=== PATIENT | male | born 1935 | race Caucasian/White ===

== ENCOUNTER 2019-12-15 16:36 | Inpatient (IN) | payer OTHER, SELFPAY ==
[2019-12-15] VITALS (16 sets, daily range): BP systolic 90–142; BP diastolic 61–89; PULSE 107–154; RESP 16–21; TEMP 36.8–37; O2SAT 96–100; BMI 33.7
--- NOTE | ~2019-12-15 | CT_ITS ---
EXAMINATION: CT abdomen pelvis w con INDICATION: Right flank ecchymosis TECHNIQUE: Computed tomographic images of the abdomen and pelvis were obtained after the administrati on of 100 cc of Omnipaque 350 intravenous contrast. The dose-length product (DLP) was 1529.61 mGy-cm. Automated exposure control and iterative reconstruction technique were employed. COMPARISON: None available FINDINGS: Minimal dependent atelectasis is present in the lung bases. The heart size is enlarged. The re are changes of aortic valve surgery. The liver, spleen, pancreas, and adrenal glands are normal. S tones are present in the nondistended gallbladder. The right kidney is unremarkable. There is a 2 cm hypoattenuating lesion of the left kidney. Streak artifact from the right arm limits accurate attenua tion assessment. There is calcified atherosclerosis of the aorta and many of the other arteries. No p athologically enlarged abdominal or pelvic lymph nodes are identified. There is no free intraperitone al gas or evidence of bowel obstruction. There is an 11.1 x 6.7 x 14.4 cm heterogeneous high attenuat ion density in the right flank and right buttock subcutaneous tissues. There is also diffuse infiltra tion of the subcutaneous fat of the right abdominal abdominal and pelvic soft tissues. There are frac tures of the lateral aspects of the right seventh through 11th ribs. IMPRESSION: 1. Large hematoma in the right abdominal wall. 2. Fractures of the right seventh through 11th ribs. 3. Indeterminate left kidney lesion. Follow-up with nonemergent CT or MRI without and with contrast i s recommended. Reviewed, dictated and finalized at location A. IMPRESSION: 1. Large hematoma in the right abdominal wall. 2. Fractures of the right seventh through 11th ribs. 3. Indeterminate left kidney lesion. Follow-up with nonemergent CT or MRI witho ut and with contrast is recommended.
--- NOTE | ~2019-12-15 | XR_ITS ---
EXAMINATION: XR chest 2V DATE: 12/16/2019 17:48 INDICATION: Atrial fibrillation TECHNIQUE: PA and lateral views of the chest are obtained. COMPARISON: 06/04/2012 FINDINGS: The lungs are free of acute opacities. There is no pleural effusion or pneumothorax. There is stable cardiomegaly. Changes of aortic valve surgery are noted. There are bridging osteophytes at multiple levels in the spine, consistent with diffuse idiopathic skeletal hyperostosis (DISH). IMPRESSION: 1. Stable cardiomegaly. Reviewed, dictated and finalized at location A. IMPRESSION: 1. Stable cardiomegaly.
--- NOTE | ~2019-12-15 | CT_ITS ---
EXAMINATION: CT brain wo con INDICATION: Headache COMPARISON: None TECHNIQUE: Standard unenhanced head CT. The dose-length product (DLP) was 681.00 mGy-cm. The mA was a djusted according to patient size. Iterative reconstruction technique was employed. FINDINGS: There is no acute intraparenchymal hemorrhage. No evidence of mass lesion. No evidence of a cute infarction. There is mild periventricular and subcortical hypodensity probably related to small vessel ischemic disease. There is mild prominence of the sulci and ventricles related to cerebral atr ophy. Intracranial calcified cerebral atherosclerosis is noted. There are no extra-axial collections. There is no mass effect or midline shift. Changes in the globes are likely from ocular lens surgery. The visualized sinuses and mastoid air cells are well aerated. IMPRESSION: 1. No acute intracranial abnormality. 2. Age related findings. Reviewed, dictated and finalized at location A.
--- NOTE | 2019-12-15 17:11 | ECG_ITS ---
Measurements Intervals [place] Rate: 142 P: AR: 0 QRS: 20 QRSD: 118 T: -35 QT: 290 QTc: 447 Interpretive Statements ATRIAL FIBRILLATION WITH RAPID VENTRICULAR RESPONSE INTRAVENTRICULAR CONDUCTION DELAY ANTERIOR INFARCT, AGE INDETERMINATE INFERIOR INFARCT, AGE INDETERMINATE ABNORMAL ECG Electronically Signed On 12-18-2019 14:16:36 CDT by Eleazar Portillo D.O.
--- NOTE | 2019-12-15 17:20 | ED.FALL ---
HPI - Fall General Chief Complaint: Fall <Kia Gonzalez MD - Last Filed: 12/15/19 19:04> Stated Complaint: bruised after taking a tumble <Kia Gonzalez MD - Last Filed: 12/15/19 19:04> Time Seen by Provider: 12/15/19 17:20 <Kia Gonzalez MD - Last Filed: 12/15/19 19:04> Source: patient and family <Kia Gonzalez MD - Last Filed: 12/15/19 19:04> Mode of arrival: ambulatory <Kia Gonzalez MD - Last Filed: 12/15/19 19:04> Limitations: no limitations <Kia Gonzalez MD - Last Filed: 12/15/19 19:04> History of Present Illness HPI Narrative: Patient is an 84-year-old male with a history of atrial fibrillation, aortic stenosis status post valve repair, hypertension, who presents for evaluation for bruising to the right abdomen. Patient reports he fell while trying to ascend a step 3 days ago. Patient fell onto an exercise machine on his right side. Patient denies head trauma or loss of consciousness. Patient reports no vision changes, nausea, vomiting, headache or shortness of breath. No cough. Reports extensive bruising to the right side of his chest and abdomen that extends into his right upper thigh. He reports tightness of the skin in that area. No skin breakdown. Mild flank pain. <Kia Gonzalez MD - Last Filed: 12/15/19 19:04> Related Data Home Medications: Home Medications Medication Instructions Recorded Confirmed atorvastatin 10 mg tablet 10 mg PO DAILY 07/27/19 diclofenac sodium 1 % topical gel See Rx Instructions .ROUTE .COMPLEX 07/27/19 diltiazem HCl 240 mg 240 mg PO DAILY 07/27/19 capsule,extended release 24 hr, controlled fenofibrate 160 mg tablet 160 mg PO DAILY 07/27/19 furosemide 40 mg tablet 40 mg PO DAILY tablet 07/27/19 lisinopril 5 mg tablet 5 mg PO DAILY 07/27/19 metoprolol tartrate 50 mg tablet See Rx Instructions .ROUTE .COMPLEX 07/27/19 potassium chloride 10 mEq 10 meq PO .COMPLEX 07/27/19 tablet,extended release warfarin 4 mg tablet See Rx Instructions .ROUTE .COMPLEX 07/27/19 Joint Support Complex BID 12/15/19 cholecalciferol (vitamin D3) 2,000 unit PO DAILY 12/15/19 12/15/19 <Kia Gonzalez MD - Last Filed: 12/15/19 19:04> Allergies/Adverse Reactions: Allergies Allergy/AdvReac Type Severity Reaction Status Date / Time No Known Allergies Allergy Verified 12/15/19 17:04 <Kia Gonzalez MD - Last Filed: 12/15/19 19:04> Review of Systems Review of Systems: Narrative: CONSTITUTIONAL: Denies fever CARDIOVASCULAR: Denies chest pain RESPIRATORY: Denies cough or dyspnea. GASTROINTESTINAL: Denies abdominal pain SKIN: Denies rash MUSCULOSKELETAL: Reports NEUROLOGIC: Denies headache <Kia Gonzalez MD - Last Filed: 12/15/19 19:04> [facility] Past Medical History Medical History: Medical History Afib CAD (coronary artery disease) HTN (hypertension) <Kia Gonzalez MD - Last Filed: 12/15/19 19:04> Surgical History Surgical History: Surgical History (Updated 12/15/19 @ 22:44 by Jeremiah Guzman MD) Hx of aortic valve replacement <Kia Gonzalez MD - Last Filed: 12/15/19 19:04> Family History Family History: Family History Mother Cerebrovascular accident, Onset Age: 51 Sibling Cerebrovascular accident Father Acute myocardial infarction <Kia Gonzalez MD - Last Filed: 12/15/19 19:04> Social History Social History: Social History Smoking status: Former smoker Smoking end date: 05/27/87 Alcohol intake: never <Kia Gonzalez MD - Last Filed: 12/15/19 19:04> Exam Narrative: Exam Narrative: GENERAL: Awake, alert, conversant HEAD: Normocephalic, atraumatic. EYES: PERRLA and EOMI. ENT: Nares clear, no rhinorrhea or epistaxis. Mucous membranes moist. NECK: Supple. CHES
[2019-12-15 17:24] LABS: Basophils Absolute Auto 0.1 K/mm3 (0.0-0.1); Basophils Percent Auto 0.4 % (0.2-1.2); Eosinophils Percent Auto 0.2 % (0-4.4); Hematocrit 25.1 % (42.0-52.0); Hemoglobin 8.5 g/dL (14.0-18.0); Immature Granulocyte Absolute 0.12 K/mm3 (0.00-0.031); Lymphocytes Absolute Auto 1.37 K/mm3 (0.9-3.2); Lymphocytes Percent Auto 11.3 % (18.3-44.2); Mean Corpuscular HGB Conc 33.9 g/dl (32-36); Mean Corpuscular Hemoglobin 33.6 pg (26-34); Mean Corpuscular Volume 99.2 fl (80-100); Mean Platelet Volume 10.3 fl (7.4-10.4); Monocytes Absolute Auto 1.8 K/mm3 (0.1-0.6); Monocytes Percent Auto 14.8 % (2.6-8.5); Neutrophils Absolute Auto 8.8 K/mm3 (1.3-6.7); Neutrophils Percent Auto 72.3 % (45.5-73.1); Platelet Count Result 189 k/mm3 (150-375); Red Blood Count 2.53 M/mm3 (4.6-6.20); Red Cell Distribution Width 13.4 % (11.5-14.5); White Blood Count 12.1 K/mm3 (4.5-10.0)
--- NOTE | 2019-12-15 17:25 | PC.NURSE ---
Note large purplish colored bruise to right flank and abdomen. States he fell yesterday when he mis-stepped and fell against a stationary bike.
--- NOTE | 2019-12-15 17:27 | PC.NURSE ---
norah encarnacion at bedside for assessment.
--- NOTE | 2019-12-15 17:44 | PC.NURSE ---
Labs redraw being attempted per MIN[facility] Joshi tech. Unable to obtain after multiple attempts. Preparing to contact phlebotomy.
--- NOTE | 2019-12-15 17:46 | PC.NURSE ---
lab to come draw pt, 3 attempts all unsuccessful
[2019-12-15 18:52] LABS: INR 2.8; Prothrombin Time 29.3 Seconds (11.1-14.7)
[2019-12-15 18:53] LABS: Alanine Aminotransferase 13 U/L (4-50); Albumin Level 3.8 g/dL (3.5-5.1); Alkaline Phosphatase 35 U/L (38-126); Aspartate Amino Transferase 28 U/L (17-59); Bilirubin,Total 1.1 mg/dL (0.2-1.3); Blood Urea Nitrogen 44 mg/dL (9-20); Calcium 8.3 mg/dL (8.4-10.2); Carbon Dioxide 23 mmol/L (22-30); Chloride 104 mmol/L (98-107); Estimated CRCL calculation 59 ml/min; Estimated Glomerular Filt Rate 58; Glucose 113 mg/dL (75-110); Partial Thromboplastin Time 54.7 SECONDS (22.3-36.8); Potassium 5.1 mmol/L (3.4-5.0); Sodium 133 mmol/L (137-145)
[2019-12-15 19:02] LABS: NT Pro B Type Natriuretic Pept 961 PG/ML (5-100)
--- NOTE | 2019-12-15 19:07 | PC.NURSE ---
asked pt for urine sample, urinal at bedside
[2019-12-15] MEDS: SODIUM CHLORIDE 0.9% IV 500 ML 999 ML IV CONT (19:31)
--- NOTE | 2019-12-15 19:39 | PC.NURSE ---
Report to KRYSTAL Newman, to continue care.
[2019-12-15 19:40] LABS: Add Urine Microscopic? YES; Amorphous Sediment Urine Few; Appearance Urine Clear (Clear); Bacteria Urine Trace /hpf; Bilirubin Urine Negative (Negative); Blood Urine Negative (Negative); Color Urine Yellow (Yellow); Glucose Urine UA Negative (Negative); Ketones Urine Negative (Negative); Leukocyte Esterase Ur 3+ LEU/UL (Negative); Mucus Urine Rare /lpf; Nitrate Urine Negative (Negative); Protein Urine Negative (Negative); Specific Grav Ur 1.017 (1.001-1.035); Squamous Epithelial Cell Urine Rare /hpf (Few); Urobilinogen Urine Negative mg/dL (<2.0); WBC Urine 31-50 /hpf
[2019-12-15] MEDS: dilTIAZem HCl INJ 25 MG/5 ML VIAL 10 MG IV PUSH (21:43)
--- NOTE | 2019-12-15 22:34 | PM.IMHP ---
H&P: HPI History of Present Illness Chief complaint: A-fib w/RVR, hematoma Narrative: This is an 84 year old male with known Atrial fibrillation on chronic coumadin therapy, HTN, aortic stenosis s/p valve repair, and CAD who presented to the hospital with after suffering a fall yesterday at home when he was walking back down some steps and lost his footing and fell onto his right side. The patient denies any head trauma or loss of consciousness. The patient decided to come to the hospital as he was worried about bruising that he has had on the right side of his chest/abdomen which extends towards his back. He actually denies any hip pain or other discomfort. He denies any chest pain, palpitations, shortness of breath, fevers, chills or cough. The patient was evaluated in the ER and found to be anemia and also in rapid atrial fibrillation. The patient was treated with a bolus dose of Cardizem in the ER. No other complaints. Review of Systems Review of Systems: All systems reviewed & are unremarkable except as noted in HPI and below PMFSH Past Medical History Medical History Afib CAD (coronary artery disease) Diabetes mellitus HTN (hypertension) Surgical History Surgical History Hx of aortic valve replacement Family History Family History Mother Cerebrovascular accident, Onset Age: 51 Sibling Cerebrovascular accident Father Acute myocardial infarction Social History Social History Smoking status: Former smoker Smoking end date: 05/27/87 Alcohol intake: never Substance use: never Gender identity (if verbalized by the patient): Male Spiritual care concerns: No Meds Home Medications and Allergies Home Medications Medication Instructions Recorded Confirmed Type atorvastatin 10 mg tablet 10 mg PO QPM 07/27/19 12/15/19 History diltiazem HCl 240 mg 240 mg PO DAILY 07/27/19 12/15/19 History capsule,extended release 24 hr, controlled fenofibrate 160 mg tablet 160 mg PO DAILY 07/27/19 12/15/19 History furosemide 40 mg tablet 40 mg PO DAILY tablet 07/27/19 12/15/19 History lisinopril 5 mg tablet 5 mg PO QPM 07/27/19 12/15/19 History potassium chloride 10 mEq 10 meq PO DAILY 07/27/19 12/15/19 History tablet,extended release warfarin 4 mg tablet 4 mg PO 2XW 07/27/19 12/15/19 History Joint Support Complex 1 tablet PO BID 12/15/19 12/15/19 History cholecalciferol (vitamin D3) 2,000 unit PO DAILY 12/15/19 12/15/19 History metoprolol tartrate 75 mg PO TID 12/15/19 12/15/19 History warfarin 8 mg PO DIRECTED 12/16/19 12/16/19 History Allergies Allergy/AdvReac Type Severity Reaction Status Date / Time No Known Allergies Allergy Verified 12/15/19 17:04 Vital Signs Vital Signs - 24 hr 12/15/19 17:00 12/15/19 17:26 12/15/19 17:27 Temperature 37.0 C Pulse Rate 150 H 139 H 124 H Respiratory Rate 18 21 H Blood Pressure 90/65 L 130/89 Pulse Oximetry 98 97 12/15/19 17:50 12/15/19 18:30 12/15/19 19:33 Temperature Pulse Rate 115 H 110 H 115 H Respiratory Rate 16 18 18 Blood Pressure 112/88 136/81 97/64 L Pulse Oximetry 96 98 99 12/15/19 20:50 12/15/19 21:42 12/15/19 22:04 Temperature Pulse Rate 118 H 135 H 107 H Respiratory Rate 18 19 18 Blood Pressure 112/80 121/77 120/61 Pulse Oximetry 98 99 100 Exam Const: General: cooperative, no acute distress, alert and awake Nutritional Appearance: well nourished Orientation/consciousness: patient oriented x3 HENMT: Head: normal to inspection General nose exam: Normal external nose present Face and sinus: normal facial exam Mouth: Yes Normal oral and palatal mucosa present and Yes oropharynx normal Eyes: Pupils: Equal, round and reactive pupils present EOM: EOMs intact bilaterally Neck
--- NOTE | 2019-12-15 22:59 | ADMGEN ---
This patient, Kulwant Can, was admitted to IMU Room 201-01. Patient/family oriented to hospital policies and general routines including ID bracelet, bed and alarms, visiting hours, pain management, procedures, bathroom and other care routines, personal items, smoking policy, room service/diet, and visiting hours. Valuables list has been completed. Information on how to activate the Rapid Response Team has been discussed. Patient/Family are encouraged to report perceived risks to care and to ask questions if they do not understand what they are told or what they should do.
[2019-12-15 23:42] LABS: Hematocrit 24.3 % (42.0-52.0); Hemoglobin 8.2 g/dL (14.0-18.0)
[2019-12-16] VITALS (23 sets, daily range): BP systolic 109–135; BP diastolic 48–73; PULSE 80–155; RESP 18–26; TEMP 36.4–37.9; O2SAT 96–99
--- NOTE | 2019-12-16 | ECHO_ITS ---
Patient Info Name: Kulwant Can Age: 84 years : 1935 Gender: Male Ht: 73 in Wt: 255 lbs BSA: 2.48 m2 HR: 125 bpm BP: 128 / 66 mmHg Heart Rhythm: Atrial Fibrillation Technical Quality: Good Exam Date: 12/16/2019 8:17 AM Exam Location: [facility] Patient Status: Outpatient Admit Date: 12/15/2019 Staff Ordering Physician: Jeremiah Guzman MD [employer] Maintainer: Sinan You RDCS, RT Attending Provider: Emile Salcedo MD Referring Physician: Megan PIZANO; Exam Type: CA echo doppler color flow Study Info Indications I48.1 - Persistent atrial fibrillation Complete two-dimensional, color flow and Doppler transthoracic echocardiogram is performed with contrast to opacify the left ventricle and to improve the deliniation of the left ventricle endocardial borders. Summary 1. Left ventricular chamber dimension is normal. 2. Left ventricular systolic function is normal, estimated at >70%. 3. There is severely increased left ventricular wall thickness. 4. The left ventricular diastolic function is abnormal. 5. Right ventricular chamber dimension is mildly enlarged. 6. Left atrial chamber dimension is severely enlarged. 7. Right atrial chamber dimension is severely enlarged. 8. There is mild bioprosthetic aortic valve stenosis with a peak velocity of 268 cm/s, mean gradient of 9 mmHg, and aortic valve area of 1.6 cm2. 9. There is mild to moderate mitral valve regurgitation. 10. Mild pulmonary hypertension, estimated pulmonary arterial systolic pressure is 44 mmHg. 11. There is mild tricuspid valve regurgitation. 12. There is mild pulmonic regurgitation. Left Ventricle Left ventricular chamber dimension is normal. Left ventricular systolic function is normal, estimated at >70%. There is severely increased left ventricular wall thickness. The left ventricular diastolic function is abnormal. Right Ventricle Right ventricular chamber dimension is mildly enlarged. Right ventricular systolic function is normal. Left Atria Left atrial chamber dimension is severely enlarged. Right Atria Right atrial chamber dimension is severely enlarged. Atrial Septum Intact interatrial septum visualized by color flow imaging. Aortic Valve There is mild bioprosthetic aortic valve stenosis with a peak velocity of 268 cm/s, mean gradient of 9 mmHg, and aortic valve area of 1.6 cm2. There is trace regurgitation of the bioprosthetic aortic valve. Pulmonic Valve The pulmonic valve is normal. There is no pulmonic valve stenosis. There is mild pulmonic regurgitation. Mitral Valve The mitral valve has calcified annulus. There is no mitral valve stenosis. There is mild to moderate mitral valve regurgitation. Tricuspid Valve The tricuspid valve leaflets are normal. There is no significant tricuspid valve stenosis. There is mild tricuspid valve regurgitation. Mild pulmonary hypertension, estimated pulmonary arterial systolic pressure is 44 mmHg. No tricuspid valve vegetation visualized. Pericardium/Pleural The pericardium appears normal. There is no pericardial effusion. Inferior Vena Cava Normal inferior vena cava with >50% collapse upon inspiration consistent with normal right atrial pressure, 5 mmHg. Aorta The aortic root size at the sinus of Valsalva is normal. Left Ventricular Outflow Tract Name Value Normal
[2019-12-16] MEDS: dilTIAZem HCl INJ 25 MG/5 ML VIAL 10 MG IV PUSH (00:04)
[2019-12-16] MEDS: DIGOXIN INJ 250 MCG/ML 2 ML AMP (*BKC) 500 MCG IV PUSH (04:50)
[2019-12-16 05:13] LABS: Hematocrit 21.6 % (42.0-52.0); Hemoglobin 7.1 g/dL (14.0-18.0)
[2019-12-16 05:36] LABS: Chloride 107 mmol/L (98-107)
[2019-12-16 05:41] LABS: Blood Urea Nitrogen 37 mg/dL (9-20); Calcium 8.1 mg/dL (8.4-10.2); Carbon Dioxide 22 mmol/L (22-30); Estimated CRCL calculation 62 ml/min; Estimated Glomerular Filt Rate > 60; Glucose 120 mg/dL (75-110); Potassium 4.3 mmol/L (3.4-5.0); Sodium 134 mmol/L (137-145)
[2019-12-16 08:44] LABS: Glucose Point of Care 116 (65-105)
[2019-12-16] MEDS: FUROSEMIDE 40 MG TABLET PO (09:12)
[2019-12-16] MEDS: CHOLECALCIFEROL 1,000 UNIT TABLET 2000 UNITS PO (09:12)
[2019-12-16] MEDS: FENOFIBRATE 160 MG TABLET PO (09:13)
[2019-12-16] MEDS: METOPROLOL TARTRATE 25 MG TABLET 75 MG PO ×3 (09:13→22:10)
[2019-12-16] MEDS: PERFLUTREN LIPID MICROSPHERES 1.5 ML VIAL DILUTED TO 10 ML TOTAL VOLUME IV PUSH (09:28)
--- NOTE | 2019-12-16 10:59 | PM.IMPN ---
Progress Note: A&P Assessment and Plan (1) Abdominal wall hematoma: Code(s): S30.1XXA - Contusion of abdominal wall, initial encounter Status: Acute Assessment and Plan: Patient with large abd wall hematoma. Related to fall and being on Coumadin. Will monitor with serial HH. Gen surgery consult in case condition deteriorates. Repeat INR. Follow HH. PT/OT when off Diltiazem drip. Wound care for the abrasions. (2) Atrial fibrillation with rapid ventricular response: Code(s): I48.91 - Unspecified atrial fibrillation Status: Acute Assessment and Plan: INR therapeutic. Patient had rapid ventricular response placed on diltiazem drip to 15 mg an hour. Discussed with RN. Heart rate better with the addition of metoprolol so will start to wean diltiazem. Cardiology consult. (3) Anemia: Qualifiers: Anemia type: other cause Other causes of anemia: acute posthemorrhagic Qualified Code(s): D62 - Acute posthemorrhagic anemia Code(s): D64.9 - Anemia, unspecified Status: Acute Assessment and Plan: Patient with acute blood loss anemia. Hemoglobin 7.1 this morning. repeat hemoglobin is 7.6. Will check INR. Does not have mechanical valve so will give vitamin K. consider FFP if his hemoglobin drops. Continue serial H&H. Transfuse as necessary. Hold Coumadin. (4) Diabetes mellitus: Code(s): E11.9 - Type 2 diabetes mellitus without complications Status: Acute Assessment and Plan: No A1c listed. glucose reviewed on 12/16/2019. Glucose well controlled. Continue Accu-Cheks with covering sliding scale. Hypoglycemia protocol available as needed. Check A1c. (5) CAD (coronary artery disease): Qualifiers: Coronary Disease-Associated Artery/Lesion type: [place] artery [place] vs. transplanted heart: [place] heart Code(s): I25.10 - Atherosclerotic heart disease of [place] coronary artery without angina pectoris Status: Acute Assessment and Plan: CAD listed but [facility] in 02/2018 showing angiographically nondiseased coronary arteries. Continue risk factor modification (6) HTN (hypertension): Qualifiers: Hypertension type: essential hypertension Qualified Code(s): I10 - Essential (primary) hypertension Code(s): I10 - Essential (primary) hypertension Status: Acute Assessment and Plan: BP reviewed on 7/22/20. BP well controlled. Toelratinig the Diltiazem drip and Metoprolol. Wean to oral Diltiazem. (7) Hyperkalemia: Code(s): E87.5 - Hyperkalemia Status: Acute Assessment and Plan: Potassium 5.1 on admission but better today and normal. Contineu to follow. (8) Rib fracture: Code(s): S22.39XA - Fracture of one rib, unspecified side, initial encounter for closed fracture Status: Acute Assessment and Plan: By imaging, patient with right 7-11 rib fractures from the falls. (9) Hx of aortic valve replacement: Code(s): Z95.2 - Presence of prosthetic heart valve Status: Acute Assessment and Plan: AVR with a 20.7mm bovine tissue valve as well as excision of the ascending aorta and undersurface of the aortic arch with a 30mm collars and Dacron graft in April 2012. He underwent a percutaneous closure of a paravalvular leak 04/29/08. Subjective Date/time seen: 12/16/19 10:59 Interval history: 84yo male her abd pain after a fall and found to have abd wall hematoma. Slept okay. +abd pain. mild right sided chest pain. No n/v. Exam Narrative: Exam Narrative: AF 109/48 80 26 97% ra Gen - NARD sitting at the side of the bed Chest - few basilar rhonchi otherwise clear. Normal respiratory rate CV - irregularly irregular. S1-S2. Telemetry showing atrial fibrillation with RVR Abd - soft. Obese. Marked bruising noted right side abdomen flank and back. abdomen is soft but more tense in the flank
[2019-12-16 12:17] LABS: Hematocrit 22.7 % (42.0-52.0); Hemoglobin 7.6 g/dL (14.0-18.0)
[2019-12-16 12:26] LABS: INR 2.6; Prothrombin Time 27.4 Seconds (11.1-14.7)
[2019-12-16 12:38] LABS: Glucose Point of Care 132 (65-105)
--- NOTE | 2019-12-16 13:02 | PM.CNGS ---
Assessment and Plan Assessment and plan (1) Right flank hematoma: Code(s): S30.1XXA - Contusion of abdominal wall, initial encounter Status: Acute Assessment and Plan: large hematoma with skin abrasion predominantly right lower back and right flank. There is no evidence of skin necrosis or infection. Agree withholding anticoagulation. Will observe for now. If signs of infection or skin breakdown should occur, he will need evacuation of the hematoma and debridement. (2) Rib fracture: Code(s): S22.39XA - Fracture of one rib, unspecified side, initial encounter for closed fracture Status: Acute Assessment and Plan: Ribs 5 through 11 on the right side are fractured laterally. Fortunately not having severe pain or evidence of respiratory compromise at this time. (3) Hx of aortic valve replacement: Code(s): Z95.2 - Presence of prosthetic heart valve Status: Acute Assessment and Plan: Two thousand thirteen with percutaneous repair of leak in 2018. (4) Afib: Qualifiers: Atrial fibrillation type: paroxysmal Qualified Code(s): I48.0 - Paroxysmal atrial fibrillation Code(s): I48.91 - Unspecified atrial fibrillation Status: Acute Assessment and Plan: Was in rapid atrial fibrillation and heart rate still about 120. (5) Anemia: Qualifiers: Anemia type: other cause Other causes of anemia: acute posthemorrhagic Qualified Code(s): D62 - Acute posthemorrhagic anemia Code(s): D64.9 - Anemia, unspecified Status: Acute Assessment and Plan: Drifting down probably due to dilution rather than continued bleeding. Follow and transfuse as indicated. History of Present Illness Consult details Consult date: 12/16/19 Reason for consult: other (Right flank hematoma) Narrative: the patient is an 84-year-old man who is chronically anticoagulated on Coumadin for atrial fibrillation and previous aortic valve and proximal ascending aorta replacement in 2011. He was coming up just 3 steps and missed his step falling on to a treadmill and landing on his right side. This occurred on 12/11. He came to the emergency room yesterday where he was found to have a large right flank hematoma that extended on to his abdominal wall in down onto his right hip. He was also found to have 5 rib fractures numbers 7 through 11 laterally on the right side. He was therapeutically anticoagulated at the time. He was admitted yesterday and today I was consulted regarding his flank hematoma. The hematoma is uncomfortable but not particularly painful. The right ribcage also was painful but not severe. Patient is also anemic with hemoglobin today of 7.6. On admission it was 8.5. His anticoagulation has been held. He is seen now in consultation. Review of Systems Review of Systems: All systems reviewed & are unremarkable except as noted in HPI and below Constitutional: Constitutional: Denies chills and Denies fever(s) Cardiovascular: Cardiovascular: Denies chest pain, Denies diaphoresis, Denies dyspnea and Denies paroxysmal nocturnal dyspnea Respiratory: Respiratory: Denies chest congestion, Denies cough and Denies dyspnea Integumentary/Breasts: Skin/Breast: Denies lesions and Denies rash Neurologic: Denies Sensory deficit (Neuro) Hematologic/Lymphatic: Hematologic/Lymphatic: Reports as per HPI, Reports easy bleeding and Reports easy bruising PMFSH Past Medical History Medical History Afib CAD (coronary artery disease) Diabetes mellitus HTN (hypertension) Surgical History Surgical History Hx of aortic valve replacement Family History Family History Mother Cerebrovascular accident, Onset Age: 51 Sibling Cerebrovascular accident Father Acute myocardial infarcti
--- NOTE | 2019-12-16 13:25 | PM.CNCAR ---
Assessment and Plan Assessment and plan (1) Right flank hematoma: Code(s): S30.1XXA - Contusion of abdominal wall, initial encounter Status: Acute Assessment and Plan: from fall with patient on anticoagulation. Follow H&H and likely need repeat scan tomorrow (2) Hx of aortic valve replacement: Code(s): Z95.2 - Presence of prosthetic heart valve Status: Acute Assessment and Plan: status post AVR in 2012 with significant perivalvular leak and percutaneous closure in 2018: Currently functioning fine (3) Atrial fibrillation with rapid ventricular response: Code(s): I48.91 - Unspecified atrial fibrillation Status: Acute Assessment and Plan: Heart rate is fast for several different reasons. Patient had not been started on his oral diltiazem at this point. Additionally he is in pain and also significant hematoma causing anemia. At this point I would recommend that we restart his oral diltiazem 240 mg p.o. daily. Discontinue his IV drip of diltiazem.. Obviously hold anticoagulation for now. Restart when able once his hematoma stabilizes. PA and lateral chest x-ray tomorrow (4) Ribs, multiple fractures: Code(s): S22.49XA - Multiple fractures of ribs, unspecified side, initial encounter for closed fracture Status: Acute Assessment and Plan: I have encouraged some degree of incentive spirometry to reduce risk of infection /pneumonia. Pain control as tolerated /needed (5) HTN (hypertension): Qualifiers: Hypertension type: essential hypertension Qualified Code(s): I10 - Essential (primary) hypertension Code(s): I10 - Essential (primary) hypertension Status: Acute Assessment and Plan: at goal (6) CAD (coronary artery disease): Qualifiers: Coronary Disease-Associated Artery/Lesion type: [place] artery [place] vs. transplanted heart: [place] heart Code(s): I25.10 - Atherosclerotic heart disease of [place] coronary artery without angina pectoris Status: Acute Assessment and Plan: asymptomatic History of Present Illness History of Present Illness Consult date/time: 12/16/19 13:25 Requesting physician: Emile Salcedo MD Consult reason: atrial fibrillation Reason For Visit: A-fib w/RVR, hematoma Narrative: Date of service 12/16/2019 Reason for consultation atrial fibrillation History: Patient is an 84-year-old patient of mine who has a history of chronic atrial fibrillation, chronic anticoagulation using warfarin, aortic stenosis status post bioprosthetic aortic valve replacement in 2012 requiring percutaneous closure of perivalvular aortic insufficiency in 2018. I saw him recently in October 2019 and at that time he was doing fine without any specific complaints. He came to the hospital yesterday though following a fall. He tripped on the steps and lost his footing and fell on his right side and hit some stationary equipment. He developed significant pain and then bruising and hematoma involving his right side. Because of progressively worsening symptoms and swelling he came to the emergency department. He was found to have multiple rib fractures on the right side as well as a large right-sided abdominal hematoma. His heart rate has been a bit elevated and he has been started on a diltiazem drip. He is in pain and not able to take big breaths. He otherwise denies any chest pain, syncope, presyncope, paroxysmal nocturnal dyspnea, orthopnea, unusual edema, palpitations or shortness of breath. General surgery has been consulted and Dr. Serrano has seen the patient with plan at this point being conservative treatment unless there is significant tissue breakdown or precipitous fall in hemoglobin with worsening hematoma. Review of Systems Review of Systems: All systems reviewed & are unremarkable except as noted in HPI and below Constitutional: Constitutional: Denies weakness Eyes: Eyes: Denies
[2019-12-16] MEDS: ATORVASTATIN 10 MG TABLET PO (18:10)
[2019-12-16] MEDS: lisinopriL 5 MG TABLET PO (18:10)
[2019-12-16 18:50] LABS: Glucose Point of Care 120 (65-105)
[2019-12-16 19:34] LABS: Hematocrit 22.5 % (42.0-52.0); Hemoglobin 7.5 g/dL (14.0-18.0)
[2019-12-16 21:23] LABS: Glucose Point of Care 136 (65-105)
[2019-12-16] MEDS: PHYTONADIONE INJ 10 MG/ML AMP SUB-Q (22:10)
[2019-12-17] VITALS (21 sets, daily range): BP systolic 102–125; BP diastolic 42–68; PULSE 68–139; RESP 18–22; TEMP 35.9–37.6; O2SAT 22–100
[2019-12-17 01:12] LABS: Hemoglobin 6.4 g/dL (14.0-18.0)
[2019-12-17 01:13] LABS: Hematocrit 18.9 % (42.0-52.0)
[2019-12-17] MEDS: SODIUM CHLORIDE 0.9% IV 250 ML 30 ML IV CONT (02:30)
[2019-12-17] MEDS: TUBING, BLOOD PLUM PUMP TUBING 1 EACH XX (05:01)
[2019-12-17 07:37] LABS: Hematocrit 24.2 % (42.0-52.0); Hemoglobin 8.1 g/dL (14.0-18.0); Mean Corpuscular HGB Conc 33.5 g/dl (32-36); Mean Corpuscular Hemoglobin 33.8 pg (26-34); Mean Corpuscular Volume 100.8 fl (80-100); Mean Platelet Volume 9.4 fl (7.4-10.4); Platelet Count Result 169 k/mm3 (150-375); Red Cell Distribution Width 13.7 % (11.5-14.5); White Blood Count 10.9 K/mm3 (4.5-10.0)
[2019-12-17 07:47] LABS: Prothrombin Time 21.8 Seconds (11.1-14.7)
[2019-12-17 07:52] LABS: Anion Gap 12.1 mmol/L (7-16); Blood Urea Nitrogen 31 mg/dL (9-20); Calcium 8.3 mg/dL (8.4-10.2); Carbon Dioxide 23 mmol/L (22-30); Chloride 107 mmol/L (98-107); Estimated CRCL calculation 77 ml/min; Estimated Glomerular Filt Rate > 60; Glucose 115 mg/dL (75-110); Potassium 4.1 mmol/L (3.4-5.0); Sodium 138 mmol/L (137-145)
[2019-12-17] MEDS: METOPROLOL TARTRATE 25 MG TABLET 75 MG PO ×3 (08:09→21:50)
[2019-12-17] MEDS: FENOFIBRATE 160 MG TABLET PO (08:10)
[2019-12-17] MEDS: CHOLECALCIFEROL 1,000 UNIT TABLET 2000 UNITS PO (08:10)
--- NOTE | 2019-12-17 08:55 | PM.PNCARD ---
Progress Note: A&P Assessment and Plan (1) Right flank hematoma: Code(s): S30.1XXA - Contusion of abdominal wall, initial encounter Status: Acute Assessment and Plan: from fall with patient on anticoagulation. Follow H&H and likely need repeat scan tomorrow. Followed by surgery (2) Hx of aortic valve replacement: Code(s): Z95.2 - Presence of prosthetic heart valve Status: Acute Assessment and Plan: status post AVR in 2012 with significant perivalvular leak and percutaneous closure in 2018: Currently functioning fine (3) Atrial fibrillation with rapid ventricular response: Code(s): I48.91 - Unspecified atrial fibrillation Status: Acute Assessment and Plan: holding anticoagulation for now but will need to be restarted at some point in the future. Continue his current diltiazem and metoprolol dosages his heart rate is controlled with them on board. Will give 1 dose of furosemide 40 mg IV x1 (4) Ribs, multiple fractures: Code(s): S22.49XA - Multiple fractures of ribs, unspecified side, initial encounter for closed fracture Status: Acute Assessment and Plan: I have encouraged some degree of incentive spirometry to reduce risk of infection /pneumonia. Pain control as tolerated /needed (5) HTN (hypertension): Qualifiers: Hypertension type: essential hypertension Qualified Code(s): I10 - Essential (primary) hypertension Code(s): I10 - Essential (primary) hypertension Status: Chronic Assessment and Plan: at goal (6) CAD (coronary artery disease): Qualifiers: Coronary Disease-Associated Artery/Lesion type: [place] artery [place] vs. transplanted heart: [place] heart Code(s): I25.10 - Atherosclerotic heart disease of [place] coronary artery without angina pectoris Status: Chronic Assessment and Plan: asymptomatic Subjective Date/time seen: 12/17/19 08:55 Interval history: 84yo male her abd pain after a fall and found to have abd wall hematoma. and broken ribs Date of service 12/16 20: From a cardiac perspective feels okay. No chest pain or shortness of breath. Heart rate was initially high this morning when he woke up Before his medications but now heart rate is controlled. Review of Systems Review of Systems: All systems reviewed & are unremarkable except as noted in HPI and below Constitutional: Constitutional: Denies fatigue, Denies headache(s) and Denies weakness Eyes: Eyes: Denies blurry vision ENT: Denies headache(s) and Denies lip swelling Cardiovascular: Cardiovascular: Denies chest pain and Denies dyspnea Respiratory: Respiratory: Denies dyspnea Gastrointestinal: Gastrointestinal: Denies abdominal pain Genitourinary: Genitourinary: Denies dysuria Musculoskeletal: Musculoskeletal: Reports back pain Integumentary/Breasts: Skin/Breast: Reports unusual bruising Neurologic: Denies confusion, Denies headache(s) and Denies weakness Psychiatric: Psychiatric: Denies anxiety and Denies confusion Endocrine: Endocrine: Denies fatigue Hematologic/Lymphatic: Hematologic/Lymphatic: Denies easy bleeding and Denies easy bruising Allergic/Immunologic: Allergic/Immunologic: Denies GI upset with certain foods and Denies lip swelling Exam Narrative: Exam Narrative: alert and oriented Const: General: no acute distress; No confusion Orientation/consciousness: No confusion HENMT: General nose exam: Normal nares present Eyes: Sclera: sclerae normal Neck: Neck: supple and no JVD Chest: Other: reproducible right-sided rib pain noted Resp: Auscultation: diminished lung sounds Cardio: Rhythm: abnormal rhythm irregularly irregular Skin: General skin exam: erythema Other: significant hematoma noted right flank with extensive bruising Neuro: General: No confusion Cognition (Neuro): normal cognition Speech: normal speech Extrem: General: edema ( mild) ritu
[2019-12-17 09:05] LABS: Glucose Point of Care 106 (65-105)
[2019-12-17] MEDS: FUROSEMIDE INJ 40 MG/4 ML VIAL IV PUSH (10:31)
[2019-12-17 12:10] LABS: Glucose Point of Care 122 (65-105)
--- NOTE | 2019-12-17 12:44 | PM.PNGS ---
Progress Note: A&P Assessment and Plan (1) Right flank hematoma: Code(s): S30.1XXA - Contusion of abdominal wall, initial encounter Status: Acute Assessment and Plan: Large right lower back and flank hematoma remains stable. Continue to hold anticoagulation and observe for now. Still no signs of overlying skin breakdown or infection. Monitor H/H. (2) Rib fracture: Code(s): S22.39XA - Fracture of one rib, unspecified side, initial encounter for closed fracture Status: Acute Assessment and Plan: Ribs 5 through 11 on the right side are fractured laterally. Pain continues to be well-controlled. Encouraged coughing and deep breathing. (3) Afib: Qualifiers: Atrial fibrillation type: paroxysmal Qualified Code(s): I48.0 - Paroxysmal atrial fibrillation Code(s): I48.91 - Unspecified atrial fibrillation Status: Acute Assessment and Plan: Cardiology following. Heart rate improving with home dose of medications. Continue to hold anticoagulation for today. (4) Hx of aortic valve replacement: Code(s): Z95.2 - Presence of prosthetic heart valve Status: Acute (5) Anemia: Qualifiers: Anemia type: other cause Other causes of anemia: acute posthemorrhagic Qualified Code(s): D62 - Acute posthemorrhagic anemia Code(s): D64.9 - Anemia, unspecified Status: Acute Assessment and Plan: Hgb stable at 8.1 this morning after 1 unit PRBCs overnight. Continue to trend labs and plan as mentioned above. Additional Plan Discussed plan of care with Dr. Serrano. Subjective Subjective Date/Time Seen: 12/17/19 12:00 Patient reports: no new complaints and feels better Interval history: Patient is feeling well today. Reports minimal pain and tenderness near the hematoma. He feels the swelling is improving. No other complaints at this time. Review of Systems Review of Systems: All systems reviewed & are unremarkable except as noted in HPI and below Exam Const: General: comfortable, no acute distress, alert and awake Orientation/consciousness: patient oriented x3 Skin: Other: Large right flank hematoma extending down right posterior and lateral thigh with no change. Appears stable with no overlying skin breakdown or signs of infection. Small superficial abrasion on right flank with mepilex dressing. Neuro: General: patient oriented x3, moves all extremities and no focal motor deficits Gait exam (Neuro): Normal gait present Extrem: General: no pedal edema Right upper extremity: edema (some mild swelling at the area of the hematoma on the right posterior thigh) Psych: Mental Status: mental status grossly normal Affect: normal affect Attitude: cooperative Insight: Good insight present (Psych) Judgement: Good judgement present (Psych) Objective Data Vital Signs Vital Signs: Vital Signs - 24 hr 12/16/19 13:58 12/16/19 14:00 12/16/19 14:05 Temperature Pulse Rate 93 89 90 Respiratory Rate Blood Pressure Pulse Oximetry 12/16/19 15:44 12/16/19 16:00 12/16/19 16:15 Temperature 100.2 F H Pulse Rate 94 89 89 Respiratory Rate 18 Blood Pressure 135/55 L Pulse Oximetry 98 12/16/19 20:00 12/16/19 22:00 12/16/19 23:29 Temperature 97.5 F L Pulse Rate 92 125 H 98 Respiratory Rate 22 H Blood Pressure 110/50 L Pulse Oximetry 98 12/17/19 00:00 12/17/19 01:45 12/17/19 03:24 Temperature 97.5 F L 99.6 F Pulse Rate 92 94 101 H Respiratory Rate 20 22 H Blood Pressure 113/48 L 109/45 L Pulse Oximetry 96 22 L 12/17/19 03:33 12/17/19 03:43 12/17/19 04:43 Temperature 99.2 F 99.2 F 97 F L Pulse Rate 98 98 97 Respiratory Rate 22 H 22 H 22 H Blood Pressure 109/42 L 109/42 L 123/58 L Pulse Oximetry 98 98 99 12/17/19 05:43 12/17/19 06:00 12/17/19 06:30 Temperature 99 F 98.9 F Pulse Rate 88 96 96 Respiratory Rate 22 H 22 H Blood Pressure 118/45 L 122/57 L Pulse Oximetry 100 100 12/17/19 08
[2019-12-17 17:07] LABS: Glucose Point of Care 121 (65-105)
--- NOTE | 2019-12-17 17:22 | PM.IMPN ---
Progress Note: A&P Assessment and Plan (1) Abdominal wall hematoma: Code(s): S30.1XXA - Contusion of abdominal wall, initial encounter Status: Acute Assessment and Plan: Patient with large abd wall hematoma. Related to fall and being on Coumadin. PT/OT. Continue wound care for the abrasions. (2) Atrial fibrillation with rapid ventricular response: Code(s): I48.91 - Unspecified atrial fibrillation Status: Acute Assessment and Plan: INR still therapeutic. Patient had rapid ventricular response on admisison and placed on diltiazem drip. Home Metoprolol resumed and patient able to be transitioned to oral Diltiazem yesterday. Continue to monitor. (3) Anemia: Qualifiers: Anemia type: other cause Other causes of anemia: acute posthemorrhagic Qualified Code(s): D62 - Acute posthemorrhagic anemia Code(s): D64.9 - Anemia, unspecified Status: Acute Assessment and Plan: Patient with acute blood loss anemia. Hemoglobin 6.4 earlier this morning and transfusion ordered. Repeat hemoglobin is 8.1. Vitamin K has been given. Continue to monitor. Transfuse as necessary. Coumadin remains on hold. (4) Diabetes mellitus: Code(s): E11.9 - Type 2 diabetes mellitus without complications Status: Chronic Assessment and Plan: Glucose reviewed on 12/17/2019. Glucose well controlled. Continue Accu-Cheks with covering sliding scale. Hypoglycemia protocol available as needed. (5) CAD (coronary artery disease): Qualifiers: Coronary Disease-Associated Artery/Lesion type: [place] artery [place] vs. transplanted heart: [place] heart Code(s): I25.10 - Atherosclerotic heart disease of [place] coronary artery without angina pectoris Status: Chronic Assessment and Plan: CAD listed but [facility] in 02/2018 showing angiographically nondiseased coronary arteries. Continue risk factor modification. (6) HTN (hypertension): Qualifiers: Hypertension type: essential hypertension Qualified Code(s): I10 - Essential (primary) hypertension Code(s): I10 - Essential (primary) hypertension Status: Chronic Assessment and Plan: BP reviewed on 12/17/19. BP well controlled. Continue Diltiazem and Metoprolol. Continue to monitor. (7) Hyperkalemia: Code(s): E87.5 - Hyperkalemia Status: Acute Assessment and Plan: Potassium 5.1 on admission but now normal. Continue to follow. (8) Rib fracture: Code(s): S22.39XA - Fracture of one rib, unspecified side, initial encounter for closed fracture Status: Acute Assessment and Plan: By imaging, patient with right 7-11 rib fractures from the falls. Pain controlled. PT/OT (9) Hx of aortic valve replacement: Code(s): Z95.2 - Presence of prosthetic heart valve Status: Acute Assessment and Plan: AVR with a 20.7mm bovine tissue valve as well as excision of the ascending aorta and undersurface of the aortic arch with a 30mm collars and Dacron graft in April 2012. He underwent a percutaneous closure of a paravalvular leak 04/29/08. Subjective Date/time seen: 12/17/19 17:23 Interval history: 84yo male her abd pain after a fall and found to have abd wall hematoma. Abdominal pain is better. His right sided ribs are sore. No chest pain. No nausea or vomiting. Walking the [place] with therapy. Tolerated the transfusion without issue. Exam Narrative: Exam Narrative: AF 102/51 93 20 100% Gen - NARD Chest - CTA bilaterally, nml RR CV - irregularly irregular. S1-S2. Telemetry showing atrial fibrillation with sporadic episodes of RVR Abd - soft. Obese. Marked bruising noted right side abdomen, groin/right upper thigh, flank and back. Abdomen is soft. Flank/back less tense. Ext - trace -1+ pitting pedal edema (pt states at baseline) Psych - Nml mood and affect Skin - right flanka nd righ
[2019-12-17] MEDS: lisinopriL 5 MG TABLET PO (18:35)
[2019-12-17] MEDS: ATORVASTATIN 10 MG TABLET PO (18:36)
[2019-12-17 20:48] LABS: Glucose Point of Care 113 (65-105)
[2019-12-18] VITALS (13 sets, daily range): BP systolic 99–112; BP diastolic 53–67; PULSE 88–160; RESP 12–20; TEMP 36.3–37.6; O2SAT 97–100
[2019-12-18 05:14] LABS: Hematocrit 23.4 % (42.0-52.0); Hemoglobin 7.7 g/dL (14.0-18.0); Mean Corpuscular HGB Conc 32.9 g/dl (32-36); Mean Corpuscular Hemoglobin 32.8 pg (26-34); Mean Corpuscular Volume 99.6 fl (80-100); Mean Platelet Volume 9.6 fl (7.4-10.4); Platelet Count Result 198 k/mm3 (150-375); Red Blood Count 2.35 M/mm3 (4.6-6.20); Red Cell Distribution Width 14.2 % (11.5-14.5); White Blood Count 10.7 K/mm3 (4.5-10.0)
[2019-12-18 05:18] LABS: INR 1.6; Prothrombin Time 18.2 Seconds (11.1-14.7)
[2019-12-18 05:23] LABS: Anion Gap 8.9 mmol/L (7-16); Blood Urea Nitrogen 31 mg/dL (9-20); Calcium 8.3 mg/dL (8.4-10.2); Carbon Dioxide 24 mmol/L (22-30); Chloride 107 mmol/L (98-107); Estimated CRCL calculation 78 ml/min; Estimated Glomerular Filt Rate > 60; Glucose 114 mg/dL (75-110); Potassium 3.9 mmol/L (3.4-5.0); Sodium 136 mmol/L (137-145)
[2019-12-18] MEDS: FUROSEMIDE 40 MG TABLET PO (08:38)
[2019-12-18] MEDS: FENOFIBRATE 160 MG TABLET PO (08:38)
[2019-12-18] MEDS: CHOLECALCIFEROL 1,000 UNIT TABLET 2000 UNITS PO (08:38)
[2019-12-18] MEDS: METOPROLOL TARTRATE 25 MG TABLET 75 MG PO ×2 (08:38→14:27)
[2019-12-18 08:45] LABS: Glucose Point of Care 107 (65-105)
--- NOTE | 2019-12-18 08:58 | PM.PNCARD ---
Progress Note: A&P Assessment and Plan (1) Right flank hematoma: Code(s): S30.1XXA - Contusion of abdominal wall, initial encounter Status: Acute Assessment and Plan: from fall with patient on anticoagulation. Followed by surgery (2) Hx of aortic valve replacement: Code(s): Z95.2 - Presence of prosthetic heart valve Status: Acute Assessment and Plan: status post AVR in 2012 with significant perivalvular leak and percutaneous closure in 2018: Currently functioning fine (3) Atrial fibrillation with rapid ventricular response: Code(s): I48.91 - Unspecified atrial fibrillation Status: Acute Assessment and Plan: holding anticoagulation for now but will need to be restarted at some point in the future. Continue his current diltiazem and metoprolol dosages his heart rate is controlled with them on board. was given additional dose of furosemide 40 mg IV x1. will need recommendations from surgery as to when to restart anticoagulation (4) Ribs, multiple fractures: Code(s): S22.49XA - Multiple fractures of ribs, unspecified side, initial encounter for closed fracture Status: Acute Assessment and Plan: I have encouraged some degree of incentive spirometry to reduce risk of infection /pneumonia. Pain control as tolerated /needed (5) HTN (hypertension): Qualifiers: Hypertension type: essential hypertension Qualified Code(s): I10 - Essential (primary) hypertension Code(s): I10 - Essential (primary) hypertension Status: Chronic Assessment and Plan: at goal (6) CAD (coronary artery disease): Qualifiers: Coronary Disease-Associated Artery/Lesion type: [place] artery [place] vs. transplanted heart: [place] heart Code(s): I25.10 - Atherosclerotic heart disease of [place] coronary artery without angina pectoris Status: Chronic Assessment and Plan: asymptomatic Subjective Date/time seen: 12/18/19 08:58 Interval history: 84yo male her abd pain after a fall and found to have abd wall hematoma. and broken ribs Date of service 12/17 20: From a cardiac perspective feels okay. No chest pain or shortness of breath. Heart rate was initially high this morning . Feels okay. Swelling is better Review of Systems Review of Systems: All systems reviewed & are unremarkable except as noted in HPI and below Constitutional: Constitutional: Denies fatigue, Denies headache(s) and Denies weakness Eyes: Eyes: Denies blurry vision ENT: Denies headache(s) and Denies lip swelling Cardiovascular: Cardiovascular: Denies chest pain and Denies dyspnea Respiratory: Respiratory: Denies dyspnea Gastrointestinal: Gastrointestinal: Denies abdominal pain Genitourinary: Genitourinary: Denies dysuria Musculoskeletal: Musculoskeletal: Reports back pain Integumentary/Breasts: Skin/Breast: Reports unusual bruising Neurologic: Denies confusion, Denies headache(s) and Denies weakness Psychiatric: Psychiatric: Denies anxiety and Denies confusion Endocrine: Endocrine: Denies fatigue Hematologic/Lymphatic: Hematologic/Lymphatic: Denies easy bleeding and Denies easy bruising Allergic/Immunologic: Allergic/Immunologic: Denies GI upset with certain foods and Denies lip swelling Exam Narrative: Exam Narrative: alert and oriented Const: General: no acute distress; No confusion Orientation/consciousness: No confusion HENMT: General nose exam: Normal nares present Eyes: Sclera: sclerae normal Neck: Neck: supple and no JVD Chest: Other: reproducible right-sided rib pain noted Resp: Auscultation: diminished lung sounds Cardio: Rhythm: abnormal rhythm irregularly irregular Skin: General skin exam: erythema Other: significant hematoma noted right flank with extensive bruising Neuro: General: No confusion Cognition (Neuro): normal cognition Speech: normal speech Extrem: General: edema ( mild)
[2019-12-18] MEDS: FUROSEMIDE INJ 40 MG/4 ML VIAL IV PUSH (10:38)
[2019-12-18 12:02] LABS: Hematocrit 25.1 % (42.0-52.0); Hemoglobin 8.5 g/dL (14.0-18.0)
[2019-12-18 12:45] LABS: Glucose Point of Care 107 (65-105)
--- NOTE | 2019-12-18 13:03 | PM.DS ---
DS: Admitting Diagnosis Admitting Diagnosis Admitting Diagnosis: Contusion of abdominal wall, initial encounter DS: Discharge Diagnosis Discharge Diagnosis (1) Abdominal wall hematoma: Code(s): S30.1XXA - Contusion of abdominal wall, initial encounter Status: Acute Assessment and Plan: Patient fell resulting in a large abd wall hematoma. Related to being on Coumadin. PT/OT started and patient did well. He is up ambulating to the BR without assistance or walker. He has refused home health. He had some mild abrasions with appropriate wound care. (2) Atrial fibrillation with rapid ventricular response: Code(s): I48.91 - Unspecified atrial fibrillation Status: Acute Assessment and Plan: INR therapeutic on admission. Patient had rapid ventricular response on admission and placed on diltiazem drip. Home Metoprolol resumed and patient able to be transitioned to oral Diltiazem. He still has intermittent RVR right before he takes his medication. (3) Anemia: Qualifiers: Anemia type: other cause Other causes of anemia: acute posthemorrhagic Qualified Code(s): D62 - Acute posthemorrhagic anemia Code(s): D64.9 - Anemia, unspecified Status: Acute Assessment and Plan: Patient with acute blood loss anemia. Hemoglobin 8.5 on admission but dropped to 6.4 and transfusion ordered. Repeat hemoglobin is 8.1. Vitamin K was given once. Coumadin was held. (4) Diabetes mellitus: Code(s): E11.9 - Type 2 diabetes mellitus without complications Status: Chronic Assessment and Plan: A1c 5. Glucose monitored and remained well controlled. Moniotred with Accu-Cheks covering sliding scale. Hypoglycemia protocol available as needed. (5) CAD (coronary artery disease): Qualifiers: Coronary Disease-Associated Artery/Lesion type: [place] artery [place] vs. transplanted heart: [place] heart Code(s): I25.10 - Atherosclerotic heart disease of [place] coronary artery without angina pectoris Status: Chronic Assessment and Plan: CAD listed but [facility] in 02/2018 showing angiographically nondiseased coronary arteries. Continue risk factor modification. (6) HTN (hypertension): Qualifiers: Hypertension type: essential hypertension Qualified Code(s): I10 - Essential (primary) hypertension Code(s): I10 - Essential (primary) hypertension Status: Chronic Assessment and Plan: BP monitored closely and remained well controlled. We continued Diltiazem and Metoprolol as detailed above. (7) Hyperkalemia: Code(s): E87.5 - Hyperkalemia Status: Acute Assessment and Plan: Potassium 5.1 on admission but normalized. (8) Rib fracture: Code(s): S22.39XA - Fracture of one rib, unspecified side, initial encounter for closed fracture Status: Acute Assessment and Plan: By imaging, patient with right 7-11 rib fractures from the falls. Pain remained well controlled. He worked with PT/OT (9) Hx of aortic valve replacement: Code(s): Z95.2 - Presence of prosthetic heart valve Status: Acute Assessment and Plan: AVR with a 20.7mm bovine tissue valve as well as excision of the ascending aorta and undersurface of the aortic arch with a 30mm collars and Dacron graft in April 2012. He underwent a percutaneous closure of a paravalvular leak 04/29/08. DS: Summary Hospital Course Reason for hospitalization: 84yo male here for fall and abd wall bruising. Please see H&P for details. Hospital Course: See above Time Spent with Patient Time attestation: Total time spent providing and/or coordinating discharge services: 34 minutes Time spent: Greater than 30 minutes Exam Narrative: Exam Narrative: AF 101/53 97 16 100% ra Gen - NARD Chest - CTA bilaterally, nml RR CV - irregularly irregular. S1-S2. Telemetry showing atrial fibrillation
--- NOTE | 2019-12-18 16:20 | PM.PNGS ---
Progress Note: A&P Assessment and Plan (1) Abdominal wall hematoma: Code(s): S30.1XXA - Contusion of abdominal wall, initial encounter Status: Acute Assessment and Plan: improving. No evidence of infection or skin necrosis. Should resolve with time. He can be discharged and I will see him again in 2 weeks in the office. I discussed this with Dr. Salcedo. (2) Ribs, multiple fractures: Code(s): S22.49XA - Multiple fractures of ribs, unspecified side, initial encounter for closed fracture Status: Acute Assessment and Plan: Tolerating this quite well. Activity as tolerated after discharge. 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 Discussed with Dr. Salcedo. Subjective Subjective Date/Time Seen: 12/18/19 16:20 Patient reports: no new complaints, feels better and pain is less Review of Systems Review of Systems: All systems reviewed & are unremarkable except as noted in HPI and below ( HPI and below) Constitutional: Constitutional: Denies headache(s) Cardiovascular: Cardiovascular: Reports chest pain, Reports chest pain with activity ( associated with hematoma and rib fractures) and Denies dyspnea Respiratory: Respiratory: Denies cough and Denies dyspnea Gastrointestinal: Gastrointestinal: Reports as per HPI Exam Back/Spine/Pelvis: Back: back tenderness and other ( 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.) Cervical Spine: other ( Abrasion seems to be healing, no necrotic skin) Objective Data Vital Signs Vital Signs: Vital Signs - 24 hr 12/17/19 18:00 12/17/19 20:00 12/17/19 22:00 Temperature 36.4 C Pulse Rate 98 100 92 Respiratory Rate 18 Blood Pressure 115/53 L Pulse Oximetry 100 12/18/19 00:00 12/18/19 01:45 12/18/19 03:27 Temperature 36.4 C Pulse Rate 89 90 94 Respiratory Rate 18 Blood Pressure 102/57 L Pulse Oximetry 99 12/18/19 03:55 12/18/19 06:00 12/18/19 07:32 Temperature 37.6 C H 37.3 C Pulse Rate 104 H 105 H 105 H Respiratory Rate 18 20 Blood Pressure 107/64 112/66 Pulse Oximetry 97 98 12/18/19 08:00 12/18/19 08:38 12/18/19 10:00 Temperature Pulse Rate 133 H 160 H 102 H Respiratory Rate Blood Pressure Pulse Oximetry 12/18/19 12:00 12/18/19 14:00 12/18/19 14:27 Temperature 36.8 C Pulse Rate 104 H 129 H 97 Respiratory Rate 16 Blood Pressure 101/53 L Pulse Oximetry 100 Intake/Output Intake/Output: Intake & Output 12/15/19 12/16/19 12/17/19 12/18/19 23:59 23:59 23:59 23:59 Intake Total 500 1730 1550 840 Output Total 1750 900 400 Balance 500 -20 650 440 Meds/Results Medications: Active Medications Generic Name Dose Route Start Last Admin Trade Name Freq PRN Reason Stop Dose Admin Atorvastatin Calcium 10 mg 12/16/19 18:00 12/17/19 18:36 Lipitor PO 10 mg QPM REYNA Administration Dextrose 12.5 gm 12/15/19 22:15 Dextrose 50% Syringe IV PUSH PRN PRN Hypoglycemia Protocol Diltiazem HCl 240 mg 12/16/19 13:40 12/18/19 08:38 Cardizem Cd PO 240 mg QAM REYNA Administration Fenofibrate 160 mg 12/16/19 09:00 12/18/19 08:38 Fenofibrate PO 160 mg DAILY REYNA Administration Furosemide 40 mg 12/16/19 09:00 12/18/19 08:38 Lasix Tablet PO 40 mg DAILY REYNA Administration Glucagon 1 mg 12/15/19 22:15 Glucagon For Inj IM PRN PRN Hypoglycemia Protocol Glucose 15 gm 12/15/19 22:15 Glutose 15 PO PRN PRN Hypoglycemia Protocol Dextrose 1,000 mls @ 100 mls/hr 12/15/19 22:15 Dextrose 5% 1,000 Ml IVPB PRN PRN Hypoglycemia Protocol Insulin Aspart 3 - 6 units 12/16/19 08:00 12/18/19 14:26 Novolog SUB-Q Not Given TIDWM REYNA Protocol Lisinopril 5 mg 12/16/19 18:00 12/17/19 18:35 Prinivil PO 5 mg Q
[2019-12-18 16:26] LABS: Glucose Point of Care 104 (65-105)
== END 2019-12-18 17:51 | disposition home or self-care (01) | DRG 605 ==
LOC: ANHED 21:44 → ANHIMU 21:58
PROVIDERS: Emergency Medicine; Admitting Provider Family Medicine; Emergency Provider Emergency Medicine; PCP Emergency Medicine; Visit Provider Internal Medicine
DX: S30.1XXA Contusion of abdominal wall, initial encounter (principal); D62 Acute posthemorrhagic anemia; S22.41XA Multiple fractures of ribs, right side, initial encounter for closed fracture; W10.8XXA Fall (on) (from) other stairs and steps, initial encounter; I48.91 Unspecified atrial fibrillation; I25.10 Atherosclerotic heart disease of native coronary artery without angina pectoris; I10 Essential (primary) hypertension; E87.5 Hyperkalemia; Z79.01 Long term (current) use of anticoagulants; Z79.899 Other long term (current) drug therapy; Z87.891 Personal history of nicotine dependence; Z95.2 Presence of prosthetic heart valve
CPT/HCPCS: 36415; 36430; 70450; 71046; 74177; 80048; 80053; 81001; 81479; 83036; 83880; 84443; 85014; 85018; 85025; 85027; 85610; 85730; 86850; 86870; 86880; 86900; 86901; 86902; 86905; 86922; 86970; 86971; 86972; 87086; 87088; 93005; 93306; 96361; 96365; 96366; 96372; 96374; 96375; 96376; 97161; 97165; 99285; A9270; G0378; J1160; J1940; J3430; J7040; J7050; P9016; Q9957; Q9967

== ENCOUNTER 2020-06-23 10:14 | Emergency (ER) | payer OTHER, SELFPAY ==
--- NOTE | ~2020-06-23 | CT_ITS ---
EXAMINATION: CT brain wo con DATE: 06/23/2020 10:39 INDICATION: Head injury. TECHNIQUE: Computed tomography (CT) of the head was performed without intravenous contrast. The mA wa s adjusted according to patient size. Iterative reconstruction technique was employed. The dose-lengt h product was 605.33 mGy-cm. COMPARISON: Head CT 12/15/2019 FINDINGS: There are scattered areas of low attenuation in the cerebral white matter. There is no intr acranial hemorrhage, acute infarction, or abnormal intracranial mass lesion. The ventricles are alanna l in size. There is a right frontal lateral scalp hematoma. There is mild mucosal thickening in the e thmoid sinuses. The orbits are normal. There is a small right mastoid effusion. There is a 3.1 x 1.3 x 4.5 cm lipoma in right posterolateral scalp. IMPRESSION: 1. Stable moderate nonspecific cerebral white matter disease, which likely represents chronic small v essel ischemic disease. Reviewed, dictated and finalized at location A. 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 Stable moderate nonspecific cerebral white matter disease, which likely repr esents chronic small vessel ischemic disease.
--- NOTE | ~2020-06-23 | XR_ITS ---
EXAMINATION: XR hand RT min 3V DATE: 06/23/2020 10:47 INDICATION: Multiple lacerations and bruising at the right hand post fall TECHNIQUE: Posteroanterior, oblique and lateral views of the right hand were obtained. COMPARISON: None. FINDINGS: Alignment is normal. Diffuse osteopenia. No fracture. Moderate polyarticular osteoarthritis throughou t the right hand and wrist most prominent at the distal radioulnar, first carpometacarpal, first and third metacarpophalangeal and at multiple interphalangeal joints. Soft tissue swelling about the head s of the metacarpals. IMPRESSION: 1. 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 No acute osseous abnorm ality. Reviewed, dictated and finalized at location B. OF CYTOGENETICS IMPRESSION: 1. 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 N o acute osseous abnormality.
--- NOTE | ~2020-06-23 | CT_ITS ---
EXAMINATION: CT cervical spine wo con EXAM DATE: 06/23/2020 10:39 INDICATION: Fall, head injury. TECHNIQUE: Spiral CT of the cervical spine was performed without contrast. Axial images were reviewe d. Coronal and sagittal reformatted images were also reviewed. The dose-length product (DLP) for thi s examination was 508.63 mGy-cm. The exposure was tailored according to patient size (auto mA exposu re control), and iterative reconstruction (ASIR) was used as additional dose reduction technique. Th ere is no prior study for comparison. FINDINGS: Lung apices unremarkable. Sternotomy wires. There is no evidence of acute cervical fracture . The odontoid process is intact. Pre-dens space is normal. Prevertebral soft tissue is normal. T here are no soft tissue abnormalities identified. There is no disc space widening or traumatic verte bral body subluxation suspected. There is advanced cervical facet arthropathy and disc disease. A d etailed level by level evaluation of spondylosis can be added as addendum if requested. IMPRESSION: 1. No acute cervical fracture. 2. Advanced cervical spondylosis. Reviewed, dictated and finalized at location A. 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
--- NOTE | 2020-06-23 10:12 | ED.FALL ---
HPI - Fall General Chief Complaint: Fall Stated Complaint: fall/hi/coumadin History of Present Illness HPI Narrative: 84 yo w/ h/o anahi on coumadin presents to the ED after a fall. 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 Struck his head in the fall. sustained abrasions and skin tears to multiple locations. No LOC. Bleeding controlled. Pain mild. No dizziness, weakness. Related Data Home Medications Medication Instructions Recorded Confirmed atorvastatin 10 mg tablet 10 mg PO QPM 07/27/19 01/18/20 diltiazem HCl 240 mg 240 mg PO DAILY 07/27/19 01/18/20 capsule,extended release 24 hr, controlled fenofibrate 160 mg tablet 160 mg PO DAILY 07/27/19 01/18/20 furosemide 40 mg tablet 40 mg PO DAILY tablet 07/27/19 01/18/20 lisinopril 5 mg tablet 5 mg PO QPM 07/27/19 01/18/20 potassium chloride 10 mEq 10 meq PO DAILY 07/27/19 01/18/20 tablet,extended release warfarin 4 mg tablet 4 mg PO 2XW 07/27/19 01/18/20 Joint Support Complex 1 tablet PO BID 12/15/19 01/18/20 cholecalciferol (vitamin D3) 2,000 unit PO DAILY 12/15/19 01/18/20 metoprolol tartrate 75 mg PO TID 12/15/19 01/18/20 Allergies Allergy/AdvReac Type Severity Reaction Status Date / Time No Known Allergies Allergy Verified 06/23/20 10:49 Review of Systems Review of Systems: All systems reviewed & are unremarkable except as noted in HPI and below Constitutional: Constitutional: Denies fever(s) and Denies weakness Eyes: Eyes: Reports no additional eye complaints ENT: Denies dizziness Cardiovascular: Cardiovascular: Denies chest pain Respiratory: Respiratory: Denies dyspnea Gastrointestinal: Gastrointestinal: Denies abdominal pain Musculoskeletal: Musculoskeletal: Denies back pain Neurologic: Denies confusion, Denies numbness and Denies weakness Hematologic/Lymphatic: Hematologic/Lymphatic: Reports easy bleeding PMFSH Past Medical History Medical History Afib CAD (coronary artery disease) Diabetes mellitus HTN (hypertension) Surgical History Surgical History Hx of aortic valve replacement Family History Family History Mother Cerebrovascular accident, Onset Age: 51 Sibling Cerebrovascular accident Father Acute myocardial infarction Social History Social History Smoking status: Former smoker Smoking end date: 05/27/87 Alcohol intake: never Substance use: never Gender identity (if verbalized by the patient): Male Spiritual care concerns: No Exam Const: General: no acute distress and alert Orientation/consciousness: patient oriented x3 HENMT: Other: Large abtasion to forehead. Abrasion to tip of nose. No facial tenderness or deformity. Multiple front teeth chronically absent. Eyes: EOM: EOMs intact bilaterally Neck: Neck: normal visual inspection Resp: Effort & Inspection: normal respiratory effort Auscultation: clear to auscultation bilaterally Cardio: Rhythm: abnormal rhythm irregularly irregular GI: GI Palp: Yes Soft to palpation and No Tenderness to palpation present (GI) Skin: Other: Numerous skin tears and abrasions to the bilateral upper extremities. 4 cm laceration to right fifth finger. Neuro: General: patient oriented x3, moves all extremities, no focal motor deficits and CN's II-XI intact bilaterally Speech: normal speech Gait exam (Neuro): Normal gait present Extrem: Other: Tenderness and decreased ROM to right fifth finger Course Vital Signs Vital signs: Vital Signs Temperature 36.6 C 06/23/20 10:16 Pulse Rate 110 H 06/23/20 10:16 Respiratory Rate 20 06/23/20 10:16 Blood Pressure 135/87 06/23/20 10:16 Pulse Oximetry 98 06/23/20 10:16 Temperature 36.6 C 06/23/20 10:16 Pulse Rate 120 H 06/23/20 14:30
[2020-06-23 10:16] VITALS: BP 135/87; PULSE 110; RESP 20; TEMP 36.6; O2SAT 98
[2020-06-23 11:06] LABS: Basophils Absolute Auto 0.1 K/mm3 (0.0-0.1); Basophils Percent Auto 0.7 % (0.2-1.2); Eosinophils Absolute Auto 0.1 K/mm3 (0-0.3); Eosinophils Percent Auto 1.8 % (0-4.4); Hematocrit 38.4 % (42.0-52.0); Hemoglobin 13.1 g/dL (14.0-18.0); Immature Granulocyte Absolute 0.06 K/mm3 (0.00-0.031); Immature Granulocyte Percent A 0.8 % (0-0.5); Lymphocytes Absolute Auto 0.91 K/mm3 (0.9-3.2); Lymphocytes Percent Auto 12.8 % (18.3-44.2); Mean Corpuscular HGB Conc 34.1 g/dl (32-36); Mean Corpuscular Hemoglobin 33.9 pg (26-34); Mean Corpuscular Volume 99.2 fl (80-100); Mean Platelet Volume 8.9 fl (7.4-10.4); Monocytes Absolute Auto 0.9 K/mm3 (0.1-0.6); Neutrophils Absolute Auto 5.1 K/mm3 (1.3-6.7); Neutrophils Percent Auto 71.9 % (45.5-73.1); Platelet Count Result 187 k/mm3 (150-375); Red Blood Count 3.87 M/mm3 (4.6-6.20); Red Cell Distribution Width 13.8 % (11.5-14.5); White Blood Count 7.1 K/mm3 (4.5-10.0)
[2020-06-23 11:16] LABS: INR 1.5; Prothrombin Time 18.8 Seconds (11.1-14.7)
[2020-06-23 11:17] LABS: Anion Gap 8 mmol/L (8-16); Blood Urea Nitrogen 22 mg/dL (9-20); Calcium 9.2 mg/dL (8.4-10.2); Carbon Dioxide 24 mmol/L (22-30); Chloride 108 mmol/L (98-107); Estimated CRCL calculation 58 ml/min; Estimated Glomerular Filt Rate 58; Glucose 103 mg/dL (75-110); Partial Thromboplastin Time 36.1 SECONDS (22.3-36.8); Potassium 4.5 mmol/L (3.4-5.0); Sodium 140 mmol/L (137-145)
[2020-06-23 12:00] VITALS: BP 161/97; PULSE 113; RESP 16; O2SAT 97
[2020-06-23 13:00] VITALS: BP 159/86; PULSE 119; RESP 16; O2SAT 98
[2020-06-23] MEDS: TETANUS,DIPHTHERIA,AC PERTUSSIS ADULT (0.5 ML) BOOSTRIX IM (13:31)
[2020-06-23 14:00] VITALS: BP 174/81; PULSE 120; RESP 18; O2SAT 98
[2020-06-23 14:30] VITALS: BP 150/89; PULSE 120; RESP 22; O2SAT 97
== END 2020-06-23 14:30 | disposition home or self-care (01) ==
PROVIDERS: Emergency Provider Emergency Medicine; PCP Emergency Medicine
DX: S61.411A Laceration without foreign body of right hand, initial encounter (principal); S09.90XA Unspecified injury of head, initial encounter; S00.31XA Abrasion of nose, initial encounter; S40.812A Abrasion of left upper arm, initial encounter; S40.811A Abrasion of right upper arm, initial encounter; Z23 Encounter for immunization; I48.91 Unspecified atrial fibrillation; Z79.01 Long term (current) use of anticoagulants; I25.10 Atherosclerotic heart disease of native coronary artery without angina pectoris; I10 Essential (primary) hypertension; E11.9 Type 2 diabetes mellitus without complications; Z95.2 Presence of prosthetic heart valve; Z87.891 Personal history of nicotine dependence; M47.812 Spondylosis without myelopathy or radiculopathy, cervical region; R90.82 White matter disease, unspecified; M19.041 Primary osteoarthritis, right hand; M19.031 Primary osteoarthritis, right wrist; W00.0XXA Fall on same level due to ice and snow, initial encounter
CPT/HCPCS: 12002; 36415; 70450; 72125; 73130; 80048; 85025; 85610; 85730; 90471; 90715; 99284

== ENCOUNTER → 2021-02-21 14:46 | Outpatient (CLI) | payer OTHER, SELFPAY ==
--- NOTE | ~2021-02-21 | MR_ITS ---
EXAMINATION: MR shoulder LT wo con DATE: 02/21/2021 16:10 INDICATION: Left shoulder pain and limited range of motion with bruising post pulling prior. TECHNIQUE: Magnetic resonance imaging (MRI) of the left shoulder was performed without intravenous co ntrast. Sequences included axial PD-weighted FS FSE, coronal oblique PD-weighted FS FSE, coronal obli que T2-weighted FS FSE, sagittal PD-weighted FS FSE, and sagittal T1-weighted SE. COMPARISON: None. FINDINGS: Coracoacromial arch: The acromion undersurface is curved in morphology (type II). There is mild thickening of the coracoac romial ligament along its acromial insertion. Moderate to severe acromioclavicular osteoarthritis wit h small inferiorly directed osteophytes. Rotator cuff: Moderate supraspinatus and infraspinatus tendinopathy. Full-thickness tear of the supraspinatus tendo n which measures 2 cm AP along the superior facet footplate and 1 cm medial to lateral. The tear exte nds posteriorly as a partial-thickness undersurface tear of the infraspinatus tendon involving approx imately one half of the tendon thickness. The teres minor tendon is normal however there is severe fa tty atrophy of the teres minor muscle belly. Severe subscapularis tendinopathy with complete tear of the lesser tuberosity attachment of the tendon which remains tethered laterally by intact articular s ided fibers which remain contiguous with markedly frayed appearing but still intact fibers of the tra nsverse humeral ligament. Mild atrophy of the supraspinatus and infraspinatus muscle bellies. Biceps tendon, glenoid labrum and glenohumeral cartilage: There is complete avulsion and distal retraction of the long head biceps tendon which appears attenua iban and frayed with longitudinal split tearing beginning at the caudal aspect of the intertubercular groove. Diffuse degenerative tearing of the glenoid labrum. Moderate glenohumeral osteoarthritis with extensive partial thickness cartilage loss on both the humeral head and glenoid. There is severe cho ndromalacia with subarticular cystic change along the superior to posterior superior rim of the gleno id. Small marginal osteophytes along the inferior aspect of the humeral head. Fluid: Large glenohumeral joint effusion with prominent synovitis throughout the recess of the glenoid humer al joint space and extending to the full-thickness rotator cuff tear into the subacromial/subdeltoid bursa and subscapular bursa. No loose osteochondral bodies. Bones: Normal marrow signal with no fracture or pathologic marrow replacing process. Mild cystic changes at the greater tuberosity. IMPRESSION: 1. Moderate glenohumeral osteoarthritis with diffuse labral degeneration. 2. Moderate to severe rotator cuff tendinopathy with full-thickness tear of the supraspinatus tendon and partial thickness tears involving the articular sides of the subscapularis and infraspinatus tend ons, the former severe. 3. Severe fatty atrophy of the teres minor muscle belly with intact appearing tendon which is of inde terminate etiology. 4. Tendinopathy and full-thickness avulsion with retraction of the long head biceps tendon. 5. Large glenohumeral joint effusion with prominent synovitis which extends into the subacromial/subd eltoid bursa through the full-thickness rotator cuff tear. 6. Moderate to severe left acromioclavicular osteoarthritis. Reviewed, dictated and finalized at location A. IMPRESSION: 1. Moderate glenohumeral osteoarthritis with diffuse labral degeneration. 2. Moderate to severe rotator cuff tendinopathy with full-thickness tear of the supraspinatus tendon and partial thickness tears involving the articular sides of the subscapularis and infraspinatus tendons, the former severe. 3. Sev
== END ==
PROVIDERS: PCP Emergency Medicine; Visit Provider Emergency Medicine
DX: T14.8XXA Other injury of unspecified body region, initial encounter (principal); S46.002A Unspecified injury of muscle(s) and tendon(s) of the rotator cuff of left shoulder, initial encounter; X58.XXXA Exposure to other specified factors, initial encounter; M19.012 Primary osteoarthritis, left shoulder
CPT/HCPCS: 73221

== ENCOUNTER → 2021-06-03 00:48 | Outpatient (CLI) | payer OTHER, SELFPAY ==
[2021-06-04 16:23] LABS: SARS-CoV-2 RNA PCR Positive
== END ==
PROVIDERS: PCP Emergency Medicine; Visit Provider Emergency Medicine
DX: U07.1 COVID-19 (principal)
CPT/HCPCS: C9803; U0003; U0005

== ENCOUNTER 2024-02-18 16:12 | Inpatient (IN) | payer OTHER, SELFPAY ==
[2024-02-18] VITALS (10 sets, daily range): BP systolic 118–158; BP diastolic 49–78; PULSE 82–125; RESP 18–34; TEMP 36.5–37.8; O2SAT 97–100; BMI 32.8
--- NOTE | ~2024-02-18 | CT_ITS ---
EXAMINATION: CT chest abdomen pelvis w con DATE: 02/18/2024 19:03 INDICATION: Fever and leukocytosis TECHNIQUE: Computed tomography (CT) of the chest, abdomen, and pelvis was performed with 100 mL Omnip aque-350 intravenous contrast. Automated exposure control and iterative reconstruction technique were employed. The dose-length product was 1909.96 mGy-cm. COMPARISON: CT abdomen and pelvis dated 12/15/2019 FINDINGS: CHEST CT: Mild dependent and basilar atelectasis bilateral lower lobes and lingula. No pneumonia, pulmonary gerhard ma or pleural effusion. Cardiomegaly including biatrial enlargement. Atherosclerotic coronary artery calcific lesion. Postoperative change of prior median sternotomy and aortic valve repair. No pericard ial effusion. Thoracic aorta is normal in caliber with no dissection. No pathologically enlarged thor acic lymphadenopathy. 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 ABDOMEN/PELVIS CT: Multiple calcified gallstones the dependent aspect of the otherwise normal-appearing gallbladder with no gallbladder wall thickening or pericholecystic infiltrate stranding to suggest acute cholecystiti s. No intra or extrahepatic ductal or ductal dilation. Liver, spleen, pancreas, right kidney and bila teral adrenal glands are normal. Small region of cortical scarring at the left kidney likely sequela of prior infarction or infection. Bowels including the appendix are normal. No obstruction. Bladder i s normal. Mild prostatomegaly measuring 4.4 x 3.3 cm. No free intraperitoneal gas or fluid. No pathol ogically enlarged abdominal or pelvic lymphadenopathy. There are some residual scarring in the subcut aneous fat at the right buttock at the site of a prior large hematoma. Moderate thoracic and lumbar s pondylosis with bridging osteophytes at multiple levels consistent with diffuse idiopathic skeletal h yperostosis (DISH). IMPRESSION: 1. No acute cardiopulmonary disease or acute intra-abdominal/pelvic process. 2. Cardiomegaly with biatrial enlargement. 3. Cholelithiasis. 4. Prostatomegaly. Reviewed, dictated and finalized at location A.
--- NOTE | ~2024-02-18 | XR_ITS ---
XR chest 2V Ordering provider: Manas Joyner MD History: 88 years Male with . fever, weakness . Comparison: None. FINDINGS: MEDIASTINUM: The cardiac silhouette is moderately enlarged. Postoperative changes in the mediastinum. LUNGS: No infiltrates, effusions or pneumothorax. OTHER: No free air under the diaphragm. Degenerative changes of the spine. IMPRESSION: Cardiomegaly. No acute cardiopulmonary pathology. Reviewed, dictated and finalized at location A.
--- NOTE | ~2024-02-18 | CT_ITS ---
EXAMINATION: CT brain wo con DATE: 02/18/2024 19:01 INDICATION: Weakness TECHNIQUE: Computed tomography (CT) of the head was performed without intravenous contrast. Sagittal and coronal reconstructions were performed. The mA was adjusted according to patient size. Iterative reconstruction technique was employed. The dose-length product was 681.00 mGy-cm. COMPARISON: 06/23/2020 FINDINGS: No acute intracranial hemorrhage, acute infarction or abnormal extra axial fluid collection. There is mild scattered white matter hypoattenuation consistent with chronic small vessel ischemic disease. S ymmetric prominence of the sulci consistent with mild to moderate age-appropriate diffuse cerebral vo lume loss. Ventricles are normal and symmetric. No mass/mass effect. Small right mastoid effusion. Th e orbitsand paranasal sinuses are normal. IMPRESSION: 1. No acute intracranial process. 2. Age-related changes including mild to moderate diffuse volume loss and mild scattered white matter hypoattenuation consistent with chronic small vessel ischemic disease. Reviewed, dictated and finalized at location A. IMPRESSION: 1. No acute intracranial process. 2. Age-related changes including mild to moderate diffuse volume loss and mild scattered white matter hypoattenuation consistent with chronic small vessel isc hemic disease.
--- NOTE | 2024-02-18 16:29 | ECG_ITS ---
Test Date: 2024-02-18 19:34:11 Measurements Intervals [place] Rate: 100 P: 0 SD: 0 QRS: 24 QRSD: 130 T: 30 QT: 371 QTc: 478 Interpretive Statements ATRIAL FIBRILLATION WITH RAPID VENTRICULAR RESPONSE LEFT BUNDLE BRANCH BLOCK BASELINE ARTIFACT- I, II, III, AVR, AVL, AVF ABNORMAL ECG No previous ECG available for comparison Electronically Signed On 02-18-2024 20:06:42 CDT by Eleazar Portillo D.O.
[2024-02-18 17:05] LABS: Basophils Absolute Auto 0.1 K/mm3 (0.0-0.1); Basophils Percent Auto 0.3 % (0.2-1.2); Hematocrit 38.3 % (42.0-52.0); Hemoglobin 13.3 g/dL (14.0-18.0); Immature Granulocyte Absolute 0.27 K/mm3 (0.00-0.031); Immature Granulocyte Percent A 1.1 % (0-0.5); Lymphocytes Absolute Auto 0.83 K/mm3 (0.9-3.2); Lymphocytes Percent Auto 3.5 % (18.3-44.2); Mean Corpuscular HGB Conc 34.7 g/dl (32-36); Mean Corpuscular Hemoglobin 34.2 pg (26-34); Mean Corpuscular Volume 98.5 fl (80-100); Mean Platelet Volume 9.2 fl (7.4-10.4); Monocytes Absolute Auto 2.1 K/mm3 (0.1-0.6); Monocytes Percent Auto 8.8 % (2.6-8.5); Neutrophils Absolute Auto 20.5 K/mm3 (1.3-6.7); Neutrophils Percent Auto 86.3 % (45.5-73.1); Platelet Count Result 184 k/mm3 (150-375); Red Blood Count 3.89 M/mm3 (4.6-6.20); Red Cell Distribution Width 13.3 % (11.5-14.5); White Blood Count 23.8 K/mm3 (4.5-10.0)
[2024-02-18 17:08] LABS: Add Urine Microscopic? YES; Appearance Urine Clear (Clear); Bacteria Urine None Seen /hpf; Bilirubin Urine Negative (Negative); Blood Urine 2+ (Negative); Color Urine Yellow (Yellow); Glucose Urine UA Negative (Negative); Ketones Urine Negative (Negative); Leukocyte Esterase Ur Trace LEU/UL (Negative); Nitrate Urine Negative (Negative); Protein Urine Negative (Negative); Specific Grav Ur 1.009 (1.001-1.035); Squamous Epithelial Cell Urine None Seen /hpf (Few); Urobilinogen Urine 0.2 mg/dL (<2.0); WBC Urine 0-5 /hpf (0-3); pH Urine 5.5 (5.0-9.0)
[2024-02-18 17:14] LABS: Lactic Acid Reflex 1.6 mmol/L (0.7-2.0)
[2024-02-18 17:18] LABS: INR 1.6; Prothrombin Time 19.3 Seconds (11.1-14.7)
[2024-02-18 17:18] LABS: Influenza A QL RT-PCR Negative (Negative); Influenza B QL RT-PCR Negative (Negative); SARS-CoV-2 RNA PCR Negative (Negative)
[2024-02-18 17:19] LABS: Partial Thromboplastin Time 40.5 Seconds (22.3-36.8)
[2024-02-18 17:23] LABS: CRP 8.1 mg/dL (<1.0)
[2024-02-18 17:36] LABS: Alanine Aminotransferase 13 U/L (6-50); Albumin Level 4.4 g/dL (3.5-5.1); Alkaline Phosphatase 53 U/L (38-126); Anion Gap 12 mmol/L (4-12); Aspartate Amino Transferase 27 U/L (17-59); Blood Urea Nitrogen 20 mg/dL (9-20); Calcium 9.3 mg/dL (8.4-10.2); Carbon Dioxide 25 mmol/L (22-30); Chloride 99 mmol/L (98-107); Estimated CRCL calculation 64 ml/min; Estimated Glomerular Filt Rate > 60; Glucose 112 mg/dL (65-110); Potassium 3.5 mmol/L (3.4-5.0); Sodium 136 mmol/L (137-145)
--- NOTE | 2024-02-18 18:16 | ED.FEVER ---
HPI - Fever General Chief Complaint: Fever Stated Complaint: fever, weakness Time Seen by Provider: 02/18/24 16:24 History of Present Illness HPI Narrative: 88-year-old male with extensive past medical history including cardiac disease status post aortic valve replacement currently on warfarin, atrial fibrillation, diabetes, hypertension. Normally is awake alert ambulatory on his own without any assistance. Today was profoundly weak and had difficulty getting up out of bed. He did have a measurable fever 101.3 at home. Did not receive any Tylenol or ibuprofen prior to arrival. States he has been feeling profoundly weak but denies any headache, vision changes, nauseous, abdominal pain, back pain, chills, chest pain or shortness of breath. Family provides collateral formation and states that this was all sudden onset over last 24 or so hours. Was previously in his normal state of health. She called ambulance because he was having difficulty getting out of bed from help profoundly weak he was. No focal deficits were appreciated he had no facial droop or lateralizing symptoms. No trauma, recent illnesses or injuries. Related Data Home Medications Medication Instructions Recorded Confirmed atorvastatin 10 mg tablet 10 mg PO QPM 07/27/19 02/18/24 diltiazem HCl 240 mg 240 mg PO DAILY 07/27/19 02/18/24 capsule,extended release 24 hr, controlled (DILT-XR) fenofibrate 160 mg tablet 160 mg PO QPM 07/27/19 02/18/24 furosemide 40 mg tablet 40 mg PO DAILY 07/27/19 02/18/24 lisinopril 5 mg tablet 5 mg PO QPM 07/27/19 02/18/24 potassium chloride 10 mEq 10 meq PO DAILY 07/27/19 02/18/24 tablet,extended release warfarin 4 mg tablet 4 mg PO 2XW 07/27/19 02/18/24 Joint Support Complex 1 tablet PO BID 12/15/19 02/18/24 cholecalciferol (vitamin D3) 50 2,000 unit PO DAILY 12/15/19 02/18/24 mcg (2,000 unit) tablet metoprolol tartrate 75 mg tablet 75 mg PO TID 12/15/19 02/18/24 Allergies Allergy/AdvReac Type Severity Reaction Status Date / Time No Known Allergies Allergy Verified 02/18/24 21:42 Review of Systems Review of Systems: As reviewed above in HPI [facility] Past Medical History Medical History Afib Atherosclerosis of cahto coronary artery CAD (coronary artery disease) Contusion of abdominal wall, subsequent encounter Cough Cyst of skin Diabetes mellitus Fever Hematoma History of bleeding disorder (~2020) Internal Bleed after a fall; Bruises/Bleeds easily HTN (hypertension) Injury of left rotator cuff Laceration Loss of appetite Mass on back 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 Pulmonary HTN Rib fracture Ribs, multiple fractures Sleep apnea SOB (shortness of breath) Vitamin D deficiency Surgical History Surgical History H/O aortic valve repair Hx of aortic valve replacement (~2010) Family History Family History Mother Cerebrovascular accident, Onset Age: 51 Sibling Cerebrovascular accident Father Acute myocardial infarction Social History Social History Smoking status: Former smoker Tobacco type: cigars Smoking end date: 05/27/87 Alcohol intake: never Substance use: never Substance use type: does not use Do You Feel Safe in your Home?: Yes Lack of Transportation: No Lack of Food: Never True Current Housing: I Have Housing Concerned About Future Housing: No Difficulty Paying Gas/Electric Bills: No Difficulty Paying for Meds: No Currently Unemployed: No Education: Grade School Difficulty w/ Childcare or Family Care: No Gender identity (if verbalized by the patient): Male Spiritual care concerns: No Exam Narrative: GENERAL: Obese and tachypneic but not in acute respir
--- NOTE | 2024-02-18 18:27 | ECG_ITS ---
Test Date: 2024-02-18 21:12:13 Measurements Intervals [place] Rate: 91 P: 0 MS: 0 QRS: 19 QRSD: 127 T: 4 QT: 390 QTc: 482 Interpretive Statements ATRIAL FIBRILLATION LEFT BUNDLE BRANCH BLOCK BASELINE ARTIFACT- I, II, AVR, AVL ABNORMAL ECG Compared to ECG 02/18/2024 19:34:11 HEART RATE HAS DECREASED Electronically Signed On 02-19-2024 06:29:38 CDT by Eleazar Portillo D.O.
[2024-02-18] MEDS: ACETAMINOPHEN 500 MG TABLET 1000 MG PO (18:29)
[2024-02-18 18:32] LABS: Fractional Inspired Oxygen 28 %; HCO3 VBG 25.2 mEq/l (24.0-30.0); PCO2 VBG 34.1 mmHg (42.0-48.0); PO2 VBG 27.3 mmHg (35.0-45.0)
[2024-02-18] MEDS: LACTATED RINGERS 1,000 ML 999 ML IV CONT ×2 (18:32→21:03)
[2024-02-18] MEDS: CEFEPIME 2 GM/NS 50 ML 2 GM/50 ML BAG IVPB (18:32)
[2024-02-18 18:33] LABS: pH VBG 7.487 (7.300-7.400)
--- NOTE | 2024-02-18 18:40 | PC.NURSE ---
Pt to CT scan via stretcher at this time, pt on tele monitor, pt has fluids/meds infusing, pt on 2 L NC O2. Pt family at bedside, updated and aware of POC.
[2024-02-18] MEDS: VANCOMYCIN 1,250 MG/NS 250 ML 1,250 MG/250 ML BAG 166.67 MG IVPB ×2 (19:54→21:34)
[2024-02-18] MEDS: ASPIRIN 325 MG TABLET PO (21:03)
--- NOTE | 2024-02-18 21:08 | ECG_ITS ---
Test Date: 2024-02-18 16:30:43 Measurements Intervals [place] Rate: 108 P: 0 HI: 0 QRS: 1 QRSD: 115 T: 30 QT: 321 QTc: 432 Interpretive Statements ATRIAL FIBRILLATION WITH RAPID VENTRICULAR RESPONSE INCOMPLETE LEFT BUNDLE BRANCH BLOCK LOW QRS VOLTAGE INLIMB LEADS ANTEROSEPTAL INFARCT, AGE INDETERMINATE BASELINE ARTIFACT- I, III, AVR, AVL, AVF, V1 ABNORMAL ECG No previous ECG available for comparison Electronically Signed On 02-19-2024 06:26:51 CDT by Eleazar Portillo D.O.
--- NOTE | 2024-02-18 21:29 | PM.IMHP ---
H&P: HPI History of Present Illness Date/Time: 02/18/24 21:29 Chief Complaint: generalized weakness Narrative: This is an 88-year-old male with past medical history significant for atrial fibrillation, coronary artery disease, hypertension, obstructive sleep apnea on BiPAP, pulmonary hypertension, diabetes mellitus. PATIENT WAS BROUGHT TO THE EMERGENCY ROOM DUE TO GENERALIZED WEAKNESS AND EPISODE OF FEVER OF 101 MOST OF THE HISTORY HAS BEEN OBTAINED FROM WHO IS AT BEDSIDE. DISEASE SUDDEN ONSET PATIENT HAD BEEN IN HIS USUAL STATE OF HEALTH UP UNTIL THIS POINT WHEN HE WAS UNABLE TO GET UP FROM HIS RECLINER AND HAD A FEVER. PATIENT HAD CHILLS ALL DAY POOR PER ORALLY INTAKE, POOR APPETITE, DENIES ANY COUGH, SPUTUM PRODUCTION, NAUSEA VOMITING OR DIARRHEA. PRELIMINARY WORKUP HAS BEEN ESSENTIALLY NONREVEALING. PATIENT HAS BEEN STARTED ON [employer] EMPIRICALLY AND PLACED IN OBSERVATION. XR chest 2V Ordering provider: Manas Joyner MD History: 88 years Male with . fever, weakness . Comparison: None. FINDINGS: MEDIASTINUM: The cardiac silhouette is moderately enlarged. Postoperative changes in the mediastinum. LUNGS: No infiltrates, effusions or pneumothorax. OTHER: No free air under the diaphragm. Degenerative changes of the spine. IMPRESSION: Cardiomegaly. No acute cardiopulmonary pathology. EXAMINATION: CT brain wo con DATE: 02/18/2024 19:01 INDICATION: Weakness TECHNIQUE: Computed tomography (CT) of the head was performed without intravenous contrast. Sagittal and coronal reconstructions were performed. The mA was adjusted according to patient size. Iterative reconstruction technique was employed. The dose-length product was 681.00 mGy-cm. COMPARISON: 06/23/2020 FINDINGS: No acute intracranial hemorrhage, acute infarction or abnormal extra axial fluid collection. There is mild scattered white matter hypoattenuation consistent with chronic small vessel ischemic disease. Symmetric prominence of the sulci consistent with mild to moderate age-appropriate diffuse cerebral volume loss. Ventricles are normal and symmetric. No mass/mass effect. Small right mastoid effusion. The orbitsand paranasal sinuses are normal. IMPRESSION: 1. No acute intracranial process. 2. Age-related changes including mild to moderate diffuse volume loss and mild scattered white matter hypoattenuation consistent with chronic small vessel ischemic disease. EXAMINATION: CT chest abdomen pelvis w con DATE: 02/18/2024 19:03 INDICATION: Fever and leukocytosis TECHNIQUE: Computed tomography (CT) of the chest, abdomen, and pelvis was performed with 100 mL Omnipaque-350 intravenous contrast. Automated exposure control and iterative reconstruction technique were employed. The dose-length product was 1909.96 mGy-cm. COMPARISON: CT abdomen and pelvis dated 12/15/2019 FINDINGS: CHEST CT: Mild dependent and basilar atelectasis bilateral lower lobes and lingula. No pneumonia, pulmonary edema or pleural effusion. Cardiomegaly including biatrial enlargement. Atherosclerotic coronary artery calcific lesion. Postoperative change of prior median sternotomy and aortic valve repair. No pericardial effusion. Thoracic aorta is normal in caliber with no dissection. No pathologically enlarged thoracic lymphadenopathy. 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 ABDOMEN/PELVIS CT: Multiple calcified gallstones the dependent aspect of the otherwise normal-appearing gallbladder with no gallbladder wall thickening or pericholecystic infiltrate stranding to suggest acute cholecystitis. No intra or extrahepatic ductal or ductal dilation. Liver, spleen, pancreas, right kidney and bilateral adrenal glands are normal. Small region of cortical scarring at the left kidney likely sequela of prior infarction or infection. Bowels including the appendix are normal. No obstruction. Bladder is normal. Mild prostatomegal
--- NOTE | 2024-02-18 22:23 | ADMGEN ---
2215: This patient, Kulwant Can, was admitted to IMU Room 203-01. Patient/family oriented to hospital policies and general routines including ID bracelet, bed and alarms, visiting hours, pain management, procedures, bathroom and other care routines, personal items, smoking policy, room service/diet, and visiting hours. Information on how to activate the Rapid Response Team has been discussed. Patient/Family are encouraged to report perceived risks to care and to ask questions if they do not understand what they are told or what they should do.
[2024-02-18] MEDS: LACTATED RINGERS 1,000 ML 125 ML IV CONT (22:32)
[2024-02-18 23:42] LABS: Troponin I 0.084 ng/mL (0.000-0.034)
[2024-02-19] VITALS (22 sets, daily range): BP systolic 114–149; BP diastolic 40–88; PULSE 59–128; RESP 18–22; TEMP 36.2–36.8; O2SAT 95–98
[2024-02-19 04:56] LABS: Estimated CRCL calculation 68 ml/min; Estimated Glomerular Filt Rate > 60
[2024-02-19] MEDS: LACTATED RINGERS 1,000 ML 125 ML IV CONT (07:06)
[2024-02-19] MEDS: CHOLECALCIFEROL 1,000 UNITS TABLET 2000 UNITS PO (08:00)
[2024-02-19] MEDS: dilTIAZem HCL CD 240 MG CAP.24HR PO (08:00)
[2024-02-19] MEDS: METOPROLOL TARTRATE TAB 25 MG, METOPROLOL TARTRATE TAB 50 MG 75 MG PO ×3 (08:45→16:56)
[2024-02-19 09:42] LABS: Basophils Percent Auto 0.2 % (0.2-1.2); Eosinophils Percent Auto 0.3 % (0-4.4); Hematocrit 33.6 % (42.0-52.0); Hemoglobin 11.6 g/dL (14.0-18.0); Immature Granulocyte Absolute 0.11 K/mm3 (0.00-0.031); Immature Granulocyte Percent A 0.8 % (0-0.5); Lymphocytes Absolute Auto 0.53 K/mm3 (0.9-3.2); Lymphocytes Percent Auto 3.7 % (18.3-44.2); Mean Corpuscular HGB Conc 34.5 g/dl (32-36); Mean Corpuscular Hemoglobin 34.2 pg (26-34); Mean Corpuscular Volume 99.1 fl (80-100); Mean Platelet Volume 9.1 fl (7.4-10.4); Neutrophils Absolute Auto 12.8 K/mm3 (1.3-6.7); Platelet Count Result 146 k/mm3 (150-375); Red Blood Count 3.39 M/mm3 (4.6-6.20); Red Cell Distribution Width 13.3 % (11.5-14.5); White Blood Count 14.5 K/mm3 (4.5-10.0)
[2024-02-19 09:57] LABS: Alanine Aminotransferase 12 U/L (6-50); Albumin Level 3.6 g/dL (3.5-5.1); Alkaline Phosphatase 42 U/L (38-126); Anion Gap 8 mmol/L (4-12); Aspartate Amino Transferase 24 U/L (17-59); Bilirubin,Total 1.3 mg/dL (0.2-1.3); Blood Urea Nitrogen 18 mg/dL (9-20); Calcium 8.7 mg/dL (8.4-10.2); Carbon Dioxide 26 mmol/L (22-30); Chloride 103 mmol/L (98-107); Estimated CRCL calculation 68 ml/min; Estimated Glomerular Filt Rate > 60; Glucose 131 mg/dL (65-110); Magnesium 1.7 mg/dL (1.6-2.3); Potassium 2.9 mmol/L (3.4-5.0); Sodium 137 mmol/L (137-145)
[2024-02-19 10:15] LABS: Troponin I 0.056 ng/mL (0.000-0.034)
--- NOTE | 2024-02-19 10:44 | PM.IMPN ---
Progress Note: A&P Assessment and Plan (1) SIRS (systemic inflammatory response syndrome): Code(s): R65.10 - Systemic inflammatory response syndrome (SIRS) of non-infectious origin without acute organ dysfunction Status: Acute Assessment and Plan: - Blood cultures and urine culture pending. - Changed antibiotics to Augmentin 875-125 mg PO q12 and Doxycycline 100 mg PO q 12. - Patient tested negative for influenza type A and influenza type B, COVID, and RSV. - Add PT/OT (2) Chronic anticoagulation: Code(s): Z79.01 - snf (current) use of anticoagulants Status: Acute Assessment and Plan: - continue anticoagulation (3) Afib: Code(s): I48.91 - Unspecified atrial fibrillation Status: Acute Assessment and Plan: - Heart rate elevated this morning up to 140's. - Restarted Metoprolol 75 mg PO TID. - Telemetry- Afib 120's that improved to 80's after receiving medication. - Magnesium 1.7, give a Magnesium run 1 gm IVPB - Potassium 2.9, give Potassium chloride 40 meq in am, followed by Potassium chloride 20 meq PO x1 this afternoon. Repeat BMP at 16:00. (4) CAD (coronary artery disease): Qualifiers: Associated angina: without angina Coronary Disease-Associated Artery/Lesion type: [place] artery [place] vs. transplanted heart: [place] heart Qualified Code(s): I25.10 - Atherosclerotic heart disease of [place] coronary artery without angina pectoris Code(s): I25.10 - Atherosclerotic heart disease of [place] coronary artery without angina pectoris Status: Chronic Assessment and Plan: - No chest pain or shortness of breath. (5) HTN (hypertension): Qualifiers: Hypertension type: essential hypertension Qualified Code(s): I10 - Essential (primary) hypertension Code(s): I10 - Essential (primary) hypertension Status: Chronic Assessment and Plan: - Blood pressure 135/88 - Continue Metoprolol (6) Elevated troponin: Code(s): R79.89 - Other specified abnormal findings of blood chemistry Status: Acute Assessment and Plan: - Troponin: 0.070> 0.084> 0.056 (7) Hypokalemia: Code(s): E87.6 - Hypokalemia Status: Acute Assessment and Plan: -Potassium 2.9, give Potassium chloride 40 meq in am, followed by Potassium chloride 20 meq PO x1 this afternoon. Repeat BMP at 16:00. (8) Spider bite: Code(s): T63.301A - Toxic effect of unspecified spider venom, accidental (unintentional), initial encounter Status: Acute Assessment and Plan: - Add Augmentin 875-125 mg PO q12 and Doxycycline 100 mg PO q 12. - Left middle back 2 inch round area with red edges and black in center. Reports that it has been on back for 3 weeks, unsure if bite. - Monitor area. - WBC 14.5 - Monitor labs. Subjective Date/time seen: 02/19/24 10:44 Interval history: Patient denies chest pain, palpitation, shortness of breath, nausea, or vomiting. Patient reports using a single cane at home and denies falls. Patient reports feeling weak yesterday. Review of Systems Review of Systems: All systems reviewed & are unremarkable except as noted in HPI and below Exam Const: General: comfortable and no acute distress Eyes: General: appearance normal, both eyes and all related structures Neck: Neck: supple Resp: Effort & Inspection: normal respiratory effort Auscultation: clear to auscultation bilaterally Cardio: Rate: tachycardic Rhythm: abnormal rhythm (afib 120's) irregularly irregular Skin: Other: Left middle back 2 inch round area with red edges and black in center. Reports that it has been on back for 3 weeks, unsure if bite. Extrem: General: pedal edema bilaterally (trace) Psych: Affect: normal affect Objective Data Vital Signs Vital Signs: Vital Signs - 24 hr 02/18/24 16:23 02/18/24 16:33 02/18/24 17:17 Temperature 100.1 F H Pulse Rate 125 H 10
[2024-02-19] MEDS: POTASSIUM CHLORIDE 20 MEQ ER TABLET 40 MEQ PO (10:56)
[2024-02-19] MEDS: MAGNESIUM SULF 1 GM/D5W 100 ML 1 GM/100 ML BAG IVPB (10:57)
--- NOTE | 2024-02-19 15:34 | PC.NURSE ---
reports area of concern to pts left back, present x 1 month. Quarter size region with dark center and redness to border. Denies pain or itching to area. YESENIA Mei notified. Will assess pt.
[2024-02-19] MEDS: POTASSIUM CHLORIDE 20 MEQ ER TABLET PO (15:47)
[2024-02-19 16:32] LABS: Anion Gap 14 mmol/L (4-12); Blood Urea Nitrogen 21 mg/dL (9-20); Calcium 9.2 mg/dL (8.4-10.2); Carbon Dioxide 22 mmol/L (22-30); Chloride 102 mmol/L (98-107); Estimated CRCL calculation 68 ml/min; Estimated Glomerular Filt Rate > 60; Glucose 108 mg/dL (65-110); Potassium 3.5 mmol/L (3.4-5.0); Sodium 138 mmol/L (137-145)
[2024-02-19 16:48] LABS: Troponin I 0.055 ng/mL (0.000-0.034)
[2024-02-19] MEDS: DOXYCYCLINE HYCLATE 100 MG TABLET PO ×2 (16:56→23:50)
[2024-02-19] MEDS: AMOXICILLIN/CLAVULANATE K 875-125 MG TAB 1 TABLET PO ×2 (16:57→23:44)
[2024-02-20] VITALS (21 sets, daily range): BP systolic 122–139; BP diastolic 56–91; PULSE 77–151; RESP 16–30; TEMP 36.6–37.1; O2SAT 95–98
[2024-02-20 05:25] LABS: Basophils Percent Auto 0.4 % (0.2-1.2); Eosinophils Absolute Auto 0.1 K/mm3 (0-0.3); Eosinophils Percent Auto 0.5 % (0-4.4); Hematocrit 33.7 % (42.0-52.0); Hemoglobin 11.3 g/dL (14.0-18.0); Immature Granulocyte Absolute 0.08 K/mm3 (0.00-0.031); Immature Granulocyte Percent A 0.7 % (0-0.5); Lymphocytes Absolute Auto 0.98 K/mm3 (0.9-3.2); Lymphocytes Percent Auto 8.7 % (18.3-44.2); Mean Corpuscular HGB Conc 33.5 g/dl (32-36); Mean Corpuscular Hemoglobin 33.1 pg (26-34); Mean Corpuscular Volume 98.8 fl (80-100); Mean Platelet Volume 9.5 fl (7.4-10.4); Monocytes Absolute Auto 1.1 K/mm3 (0.1-0.6); Monocytes Percent Auto 9.5 % (2.6-8.5); Neutrophils Percent Auto 80.2 % (45.5-73.1); Platelet Count Result 150 k/mm3 (150-375); Red Blood Count 3.41 M/mm3 (4.6-6.20); Red Cell Distribution Width 13.2 % (11.5-14.5); White Blood Count 11.3 K/mm3 (4.5-10.0)
[2024-02-20 05:40] LABS: Alanine Aminotransferase 13 U/L (6-50); Albumin Level 3.6 g/dL (3.5-5.1); Alkaline Phosphatase 48 U/L (38-126); Anion Gap 8 mmol/L (4-12); Aspartate Amino Transferase 29 U/L (17-59); Bilirubin,Total 0.9 mg/dL (0.2-1.3); Blood Urea Nitrogen 19 mg/dL (9-20); Calcium 8.9 mg/dL (8.4-10.2); Carbon Dioxide 25 mmol/L (22-30); Chloride 102 mmol/L (98-107); Estimated CRCL calculation 68 ml/min; Estimated Glomerular Filt Rate > 60; Glucose 108 mg/dL (65-110); Potassium 3.2 mmol/L (3.4-5.0); Sodium 135 mmol/L (137-145)
[2024-02-20] MEDS: dilTIAZem HCL CD 240 MG CAP.24HR PO (07:39)
[2024-02-20] MEDS: METOPROLOL TARTRATE TAB 25 MG, METOPROLOL TARTRATE TAB 50 MG 75 MG PO ×3 (07:39→16:37)
[2024-02-20] MEDS: DOXYCYCLINE HYCLATE 100 MG TABLET PO ×2 (08:29→20:47)
[2024-02-20] MEDS: AMOXICILLIN/CLAVULANATE K 875-125 MG TAB 1 TABLET PO ×2 (08:29→20:48)
[2024-02-20] MEDS: CHOLECALCIFEROL 1,000 UNITS TABLET 2000 UNITS PO (08:29)
[2024-02-20] MEDS: POTASSIUM CHLORIDE 20 MEQ ER TABLET 40 MEQ PO (08:29)
[2024-02-20 08:52] LABS: INR 1.3; Prothrombin Time 16.9 Seconds (11.1-14.7)
--- NOTE | 2024-02-20 09:48 | PC.NURSE ---
Dr. Santos's office called to confirm warfarin dosage. Home medications updated. Pt reports he has been taking 8mg on Saturday's and Wednesdays, 4 mg all other days. Detailed message left with YESENIA Mei.
--- NOTE | 2024-02-20 12:34 | PM.IMPN ---
Progress Note: A&P Assessment and Plan (1) SIRS (systemic inflammatory response syndrome): Code(s): R65.10 - Systemic inflammatory response syndrome (SIRS) of non-infectious origin without acute organ dysfunction Status: Acute Assessment and Plan: - Blood culture showed Gram positive Coccobacilli, Urine culture was negative. - Antibiotics to Augmentin 875-125 mg PO q12 and Doxycycline 100 mg PO q 12. - Patient tested negative for influenza type A and influenza type B, COVID, and RSV. 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 - Receiving Metoprolol 75 mg PO TID Diltiazem XR 240 mg PO daily. (4) CAD (coronary artery disease): Qualifiers: Coronary Disease-Associated Artery/Lesion type: [place] artery [place] vs. transplanted heart: [place] heart Associated angina: without angina Qualified Code(s): I25.10 - Atherosclerotic heart disease of [place] coronary artery without angina pectoris Code(s): I25.10 - Atherosclerotic heart disease of [place] coronary artery without angina pectoris Status: Chronic Assessment and Plan: - no chest pain or shortness of breath (5) HTN (hypertension): Qualifiers: Hypertension type: essential hypertension Qualified Code(s): I10 - Essential (primary) hypertension Code(s): I10 - Essential (primary) hypertension Status: Chronic Assessment and Plan: - Blood pressure 122/66 - Continue Metoprolol (6) Elevated troponin: Code(s): R79.89 - Other specified abnormal findings of blood chemistry Status: Acute Assessment and Plan: - Troponin: 0.070> 0.084> 0.056>0.055 Subjective Date/time seen: 02/20/24 12:34 Interval history: Patient is an 88 year old male. Patient denies chest pain, palpitations, or shortness of breath. Patient reports that his heart rate went up this morning when he was getting up but improved after his medication. Patient reports that his last bowel movement was today. Review of Systems Review of Systems: All systems reviewed & are unremarkable except as noted in HPI and below Exam Const: General: comfortable and no acute distress Eyes: Sclera: sclerae normal Neck: Neck: supple Resp: Effort & Inspection: normal respiratory effort Auscultation: clear to auscultation bilaterally Cardio: Rhythm: abnormal rhythm irregularly irregular GI: GI Palp: Yes Soft to palpation Auscultation: normal bowel sounds Skin: Wounds: wounds noted (left middle back 1 1/4 inch wound with red edges and black center. ) Neuro: Speech: normal speech Extrem: General: pedal edema bilaterally (trace) Psych: Affect: normal affect Objective Data Vital Signs Vital Signs: Vital Signs - 24 hr 02/19/24 13:03 02/19/24 14:00 02/19/24 14:00 Temperature Pulse Rate 78 79 Pulse Rate [With Activity During Therapy Session] 121 H Respiratory Rate Blood Pressure Pulse Oximetry Oxygen Delivery Room Air 02/19/24 15:47 02/19/24 16:56 02/19/24 16:00 Temperature 97.7 F Pulse Rate 72 92 Pulse Rate [With Activity During Therapy Session] Respiratory Rate 20 Blood Pressure 135/88 Pulse Oximetry 98 98 Oxygen Delivery Room Air 02/19/24 16:00 02/19/24 18:00 02/19/24 21:10 Temperature 97.1 F L Pulse Rate 79 89 89 Pulse Rate [With Activity During Therapy Session] Respiratory Rate 20 Blood Pressure 133/54 L Pulse Oximetry 97 Oxygen Delivery 02/19/24 20:00 02/19/24 22:00 02/19/24 20:00 Temperature Pulse Rate 92 91 Pulse Rate [With Activity During Therapy Session] Respiratory Rate Blood Pressure Pulse Oximetry 97 Oxygen Delivery Room Air
[2024-02-20] MEDS: WARFARIN (*PBKC) 4 MG TABLET 8 MG PO (16:38)
[2024-02-21] VITALS (21 sets, daily range): BP systolic 132–141; BP diastolic 69–98; PULSE 68–159; RESP 18–34; TEMP 36.3–37.9; O2SAT 95–98
[2024-02-21 05:42] LABS: Basophils Percent Auto 0.5 % (0.2-1.2); Eosinophils Absolute Auto 0.1 K/mm3 (0-0.3); Eosinophils Percent Auto 1.5 % (0-4.4); Hematocrit 33.3 % (42.0-52.0); Hemoglobin 11.6 g/dL (14.0-18.0); Immature Granulocyte Absolute 0.08 K/mm3 (0.00-0.031); Immature Granulocyte Percent A 0.9 % (0-0.5); Lymphocytes Absolute Auto 1.17 K/mm3 (0.9-3.2); Lymphocytes Percent Auto 13.8 % (18.3-44.2); Mean Corpuscular HGB Conc 34.8 g/dl (32-36); Mean Corpuscular Hemoglobin 34.6 pg (26-34); Mean Corpuscular Volume 99.4 fl (80-100); Mean Platelet Volume 9.6 fl (7.4-10.4); Neutrophils Percent Auto 71.3 % (45.5-73.1); Platelet Count Result 162 k/mm3 (150-375); Red Blood Count 3.35 M/mm3 (4.6-6.20); Red Cell Distribution Width 13.2 % (11.5-14.5); White Blood Count 8.5 K/mm3 (4.5-10.0)
[2024-02-21 05:46] LABS: INR 1.3; Prothrombin Time 16.4 Seconds (11.1-14.7)
[2024-02-21 06:00] LABS: Alanine Aminotransferase 21 U/L (6-50); Albumin Level 3.6 g/dL (3.5-5.1); Alkaline Phosphatase 37 U/L (38-126); Anion Gap 6 mmol/L (4-12); Aspartate Amino Transferase 41 U/L (17-59); Bilirubin,Total 1.1 mg/dL (0.2-1.3); Blood Urea Nitrogen 23 mg/dL (9-20); Calcium 8.8 mg/dL (8.4-10.2); Carbon Dioxide 27 mmol/L (22-30); Chloride 103 mmol/L (98-107); Estimated CRCL calculation 77 ml/min; Estimated Glomerular Filt Rate > 60; Glucose 103 mg/dL (65-110); Sodium 136 mmol/L (137-145)
[2024-02-21] MEDS: CHOLECALCIFEROL 1,000 UNITS TABLET 2000 UNITS PO (08:03)
[2024-02-21] MEDS: METOPROLOL TARTRATE TAB 25 MG, METOPROLOL TARTRATE TAB 50 MG 75 MG PO ×3 (08:04→17:08)
[2024-02-21] MEDS: DOXYCYCLINE HYCLATE 100 MG TABLET PO ×2 (08:04→22:21)
[2024-02-21] MEDS: dilTIAZem HCL CD 240 MG CAP.24HR PO (08:04)
[2024-02-21] MEDS: AMOXICILLIN/CLAVULANATE K 875-125 MG TAB 1 TABLET PO ×2 (08:04→22:21)
--- NOTE | 2024-02-21 12:18 | PM.IMPN ---
Progress Note: A&P Assessment and Plan (1) SIRS (systemic inflammatory response syndrome): Code(s): R65.10 - Systemic inflammatory response syndrome (SIRS) of non-infectious origin without acute organ dysfunction Status: Acute Assessment and Plan: - Blood culture showed Gram positive Coccobacilli, Urine culture was negative. - WBC improvin.8>14.5>11.3> 8.5 - Augmentin 875-125 mg PO q12 and Doxycycline 100 mg PO q 12. - Patient tested negative for influenza type A and influenza type B, COVID, and RSV. 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 - Receiving Metoprolol 75 mg PO TID Diltiazem XR 240 mg PO daily. (4) CAD (coronary artery disease): Qualifiers: Coronary Disease-Associated Artery/Lesion type: [place] artery [place] vs. transplanted heart: [place] heart Associated angina: without angina Qualified Code(s): I25.10 - Atherosclerotic heart disease of [place] coronary artery without angina pectoris Code(s): I25.10 - Atherosclerotic heart disease of [place] coronary artery without angina pectoris Status: Chronic Assessment and Plan: - no chest pain or shortness of breath (5) HTN (hypertension): Qualifiers: Hypertension type: essential hypertension Qualified Code(s): I10 - Essential (primary) hypertension Code(s): I10 - Essential (primary) hypertension Status: Chronic Assessment and Plan: - Blood pressure 132/76 - Continue Metoprolol (6) Elevated troponin: Code(s): R79.89 - Other specified abnormal findings of blood chemistry Status: Acute Assessment and Plan: - Troponin: 0.070> 0.084> 0.056>0.055 (7) Spider bite: Code(s): T63.301A - Toxic effect of unspecified spider venom, accidental (unintentional), initial encounter Status: Acute Assessment and Plan: - improving. - Continue Augmentin 875-125 mg PO q12 and Doxycycline 100 mg PO q 12. Subjective Date/time seen: 02/21/24 12:18 Interval history: Patient reports feeling a little stronger. Patient denies pain, shortness of breath, chest pain, nausea, vomiting, headache, or dizziness. Last bowel movement was yesterday. Patient reports a good appetite. Review of Systems Review of Systems: All systems reviewed & are unremarkable except as noted in HPI and below Exam Const: General: comfortable and no acute distress Neck: Neck: supple Resp: Effort & Inspection: normal respiratory effort Auscultation: clear to auscultation bilaterally Cardio: Rhythm: abnormal rhythm irregularly irregular Other: Afib 101 GI: GI Palp: Yes Soft to palpation Auscultation: normal bowel sounds Skin: Wounds: wounds noted (left middle back with dark center and redness fading. 1 1/4 inch round. ) Neuro: Speech: normal speech Psych: Affect: normal affect Objective Data Vital Signs Vital Signs: Vital Signs - 24 hr 02/20/24 13:11 02/20/24 14:00 02/20/24 15:39 Temperature 98.5 F Pulse Rate 88 89 78 Respiratory Rate 16 Blood Pressure 133/62 Pulse Oximetry 98 Oxygen Delivery 02/20/24 15:50 02/20/24 16:00 02/20/24 16:37 Temperature Pulse Rate 94 96 Respiratory Rate Blood Pressure Pulse Oximetry 98 Oxygen Delivery Room Air 02/20/24 18:00 02/20/24 19:06 02/20/24 20:55 Temperature 98.5 F Pulse Rate 81 87 77 Respiratory Rate 18 30 H Blood Pressure 128/56 L Pulse Oximetry 97 96 Oxygen Delivery Autopap 02/20/24 20:00 02/20/24 20:00 02/20/24 22:00 Temperature Pulse Rate 92 92 100 Respiratory Rate 30 H Blood Pressure Pulse Oximetry 96 Oxygen Delivery Room Air 02/20/24 23:26 02/20/24 23:26 02/21/24
[2024-02-21] MEDS: WARFARIN (*PBKC) 4 MG TABLET PO (17:08)
--- NOTE | 2024-02-21 19:11 | PC.NURSE ---
1700- RN notified Hamida PATTERSON of patients HR elevation that occurs 1 hr to 30 min prior to metoprolol admin. Patient got as high as the 170s afib this morning at [id number]. Metoprolol due at 0900. RN gave at 0800 and HR did return to normal limits. Same occurrence happened around 1615 prior to 1700 metoprolol dose. Patients HR resumed to normal limits around 1810. No new orders received. Continue to monitor
[2024-02-22] VITALS (23 sets, daily range): BP systolic 109–130; BP diastolic 56–88; PULSE 55–168; RESP 16–28; TEMP 36.4–37.2; O2SAT 94–99
[2024-02-22] MEDS: dilTIAZem HCl INJ 25 MG/5 ML VIAL 10 MG IV PUSH (00:26)
[2024-02-22 05:00] LABS: Basophils Absolute Auto 0.1 K/mm3 (0.0-0.1); Basophils Percent Auto 0.6 % (0.2-1.2); Eosinophils Absolute Auto 0.1 K/mm3 (0-0.3); Eosinophils Percent Auto 1.2 % (0-4.4); Hematocrit 32.4 % (42.0-52.0); Hemoglobin 11.2 g/dL (14.0-18.0); Immature Granulocyte Absolute 0.17 K/mm3 (0.00-0.031); Immature Granulocyte Percent A 1.8 % (0-0.5); Lymphocytes Absolute Auto 1.42 K/mm3 (0.9-3.2); Lymphocytes Percent Auto 15.2 % (18.3-44.2); Mean Corpuscular HGB Conc 34.6 g/dl (32-36); Mean Corpuscular Hemoglobin 34.1 pg (26-34); Mean Corpuscular Volume 98.8 fl (80-100); Mean Platelet Volume 9.3 fl (7.4-10.4); Monocytes Absolute Auto 1.3 K/mm3 (0.1-0.6); Monocytes Percent Auto 13.7 % (2.6-8.5); Neutrophils Absolute Auto 6.3 K/mm3 (1.3-6.7); Neutrophils Percent Auto 67.5 % (45.5-73.1); Platelet Count Result 176 k/mm3 (150-375); Red Blood Count 3.28 M/mm3 (4.6-6.20); White Blood Count 9.4 K/mm3 (4.5-10.0)
[2024-02-22 05:09] LABS: INR 1.3; Prothrombin Time 16.4 Seconds (11.1-14.7)
[2024-02-22 05:13] LABS: Alanine Aminotransferase 29 U/L (6-50); Albumin Level 3.4 g/dL (3.5-5.1); Alkaline Phosphatase 44 U/L (38-126); Anion Gap 6 mmol/L (4-12); Aspartate Amino Transferase 41 U/L (17-59); Bilirubin,Total 1.1 mg/dL (0.2-1.3); Blood Urea Nitrogen 23 mg/dL (9-20); Calcium 8.8 mg/dL (8.4-10.2); Carbon Dioxide 26 mmol/L (22-30); Chloride 103 mmol/L (98-107); Estimated CRCL calculation 76 ml/min; Estimated Glomerular Filt Rate > 60; Glucose 105 mg/dL (65-110); Potassium 3.2 mmol/L (3.4-5.0); Sodium 135 mmol/L (137-145)
[2024-02-22] MEDS: METOPROLOL TARTRATE TAB 25 MG, METOPROLOL TARTRATE TAB 50 MG 75 MG PO ×3 (07:49→17:46)
[2024-02-22] MEDS: dilTIAZem HCL CD 240 MG CAP.24HR PO (07:49)
[2024-02-22] MEDS: POTASSIUM CHLORIDE 20 MEQ ER TABLET 40 MEQ PO (07:51)
[2024-02-22] MEDS: AMOXICILLIN/CLAVULANATE K 875-125 MG TAB 1 TABLET PO ×2 (07:57→20:35)
[2024-02-22] MEDS: DOXYCYCLINE HYCLATE 100 MG TABLET PO ×2 (07:58→20:35)
[2024-02-22] MEDS: CHOLECALCIFEROL 1,000 UNITS TABLET 2000 UNITS PO (07:58)
[2024-02-22 08:23] LABS: Magnesium 1.9 mg/dL (1.6-2.3)
--- NOTE | 2024-02-22 10:14 | PM.CNCAR ---
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 Patient presented with generalized weakness. During hospitalization, he has underlying atrial fibrillation with episodes of RVR. -maintain oral metoprolol tartrate and diltiazem for now. Currently heart rates are fairly controlled. Patient has tachy-vishal syndrome with [id number] heart rates or fluctuating heart rates, then consider outpatient electrophysiology evaluation for AV sandoval ablation and ppm. Patient has been on chronic anticoagulation with warfarin. Spoke with patient about option of direct oral anticoagulant. He would discuss with his primary professor of history. (2) SIRS (systemic inflammatory response syndrome): Code(s): R65.10 - Systemic inflammatory response syndrome (SIRS) of non-infectious origin without acute organ dysfunction Status: Acute Assessment and Plan: Management as per primary primary care team. (3) Elevated troponin: Code(s): R79.89 - Other specified abnormal findings of blood chemistry Status: Acute Assessment and Plan: Nonspecific, in the setting of SIRS, AP valve. No cardiac ischemic symptoms. Prior echo reportedly showed normal LVFEF (4) History of aortic valve replacement with bioprosthetic valve: Code(s): Z95.3 - Presence of xenogenic heart valve Status: Acute Assessment and Plan: Prior echocardiogram from 06/14/2021 reportedly showed normal functioning aortic valve bioprosthesis. Continue outpatient surveillance echocardiograms. 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 Patient follows up with Dr. Santos for his cardiovascular care. He presented to [facility] Room on 02/18/2024 with generalized weakness. At baseline, he has some limited mobility, uses cane and walker for ambulation. Denies chest pain, shortness of breath per his limited activity, no palpitation, dizziness or syncope. Patient has chronic lower extremity swelling and is on maintenance diuresis with furosemide. EKG at presentation on my personal interpretation showed atrial fibrillation with slightly elevated heart rate at 100 beats per minute, left bundle branch block. Troponins minimally elevated without significant delta. On telemetry, patient has episodes of AFib with RVR. INR subtherapeutic between 1.3-1.6 during this hospitalization so far. Review of outside echocardiogram performed on 06/14/2021 reportedly showed LVEF 65%, severe biatrial enlargement, [id number] MR, normal-appearing aortic valve bioprosthesis with mean gradient of 11 mmHg; RVSP 44 mmHg. Review of Systems Review of Systems: General: Positive for fatigue and generalized weakness Psychological: Negative for anxiety, depression Ophthalmic: negative for loss of vision ENT: Negative for epistaxis, headaches Allergy and immunology: Negative for hives, nasal congestion Hematologic and lymphatic: Negative for overt bleeding problems
--- NOTE | 2024-02-22 13:39 | PM.IMPN ---
Progress Note: A&P Assessment and Plan (1) SIRS (systemic inflammatory response syndrome): Code(s): R65.10 - Systemic inflammatory response syndrome (SIRS) of non-infectious origin without acute organ dysfunction Status: Acute Assessment and Plan: - Blood culture showed Corynebacterium species, Urine culture was negative. - WBC: 23.8>14.5>11.3> 8.5>9.4 - Augmentin 875-125 mg PO q12 and Doxycycline 100 mg PO q 12. - Patient tested negative for influenza type A and influenza type B, COVID, and RSV. - PT/OT (2) Chronic anticoagulation: Code(s): Z79.01 - shelter (current) use of anticoagulants Status: Acute Assessment and Plan: - continue anticoagulation (3) Afib: Code(s): I48.91 - Unspecified atrial fibrillation Status: Acute Assessment and Plan: -Telemetry Afib 101. - Receiving Metoprolol 75 mg PO TID Diltiazem XR 240 mg PO daily. - Cardiology consult. (4) CAD (coronary artery disease): Qualifiers: Coronary Disease-Associated Artery/Lesion type: [place] artery [place] vs. transplanted heart: [place] heart Associated angina: without angina Qualified Code(s): I25.10 - Atherosclerotic heart disease of [place] coronary artery without angina pectoris Code(s): I25.10 - Atherosclerotic heart disease of [place] coronary artery without angina pectoris Status: Chronic Assessment and Plan: - no chest pain or shortness of breath (5) HTN (hypertension): Qualifiers: Hypertension type: essential hypertension Qualified Code(s): I10 - Essential (primary) hypertension Code(s): I10 - Essential (primary) hypertension Status: Chronic Assessment and Plan: - Blood pressure 112/66 - Continue Metoprolol (6) Elevated troponin: Code(s): R79.89 - Other specified abnormal findings of blood chemistry Status: Acute Assessment and Plan: - Troponin: 0.070> 0.084> 0.056>0.055 (7) Spider bite: Code(s): T63.301A - Toxic effect of unspecified spider venom, accidental (unintentional), initial encounter Status: Acute Assessment and Plan: - improving. - Continue Augmentin 875-125 mg PO q12 and Doxycycline 100 mg PO q 12. Subjective Date/time seen: 02/22/24 13:39 Interval history: Patient reports feeling a little stronger. Patient denies pain, shortness of breath, chest pain, nausea, vomiting, headache, or dizziness. Last bowel movement was yesterday. Patient asking for a stool softener. Patient reports a good appetite. Review of Systems Review of Systems: All systems reviewed & are unremarkable except as noted in HPI and below Exam Const: General: comfortable and no acute distress Eyes: Sclera: sclerae normal Neck: Neck: supple Resp: Effort & Inspection: normal respiratory effort Auscultation: clear to auscultation bilaterally Cardio: Rhythm: abnormal rhythm irregularly irregular GI: GI Palp: Yes Soft to palpation Auscultation: normal bowel sounds Skin: Wounds: wounds noted (left middle back with dark center and redness fading. 1 inch round) Neuro: Speech: normal speech Extrem: General: no pedal edema Psych: Affect: normal affect Objective Data Vital Signs Vital Signs: Vital Signs - 24 hr 02/21/24 14:00 02/21/24 16:00 02/21/24 17:08 Temperature 97.5 F L Pulse Rate 85 68 147 H Respiratory Rate 18 Blood Pressure 141/98 H Pulse Oximetry 98 Oxygen Delivery 02/21/24 16:00 02/21/24 16:00 02/21/24 18:00 Temperature Pulse Rate 101 H 111 H Respiratory Rate Blood Pressure Pulse Oximetry Oxygen Delivery Room Air 02/21/24 21:28 02/21/24 20:00 02/21/24 20:00 Temperature 100.2 F H Pulse Rate 117 H 104 H 107 H Respiratory Rate 18 18 Blood Pressure 134/74 Pulse Oximetry 97 97 Oxygen Delivery Room Air 02/21/24 22:00 02/21/24 23:54 02/21/24 23:54 Temperature Pulse Rate 134 H 140 H 140 H Respiratory Rate
[2024-02-22] MEDS: polyethylene glycoL 3350 17 GM POWD.PACK PO (13:57)
--- NOTE | 2024-02-22 17:13 | PC.NURSE ---
Reviewed and acknowledge charting Ailin RÍOS
[2024-02-22] MEDS: WARFARIN (*PBKC) 4 MG TABLET PO (17:47)
[2024-02-23] VITALS (19 sets, daily range): BP systolic 119–137; BP diastolic 55–99; PULSE 76–132; RESP 16–28; TEMP 36–36.9; O2SAT 97–99
[2024-02-23 05:08] LABS: Basophils Absolute Auto 0.1 K/mm3 (0.0-0.1); Basophils Percent Auto 0.8 % (0.2-1.2); Eosinophils Absolute Auto 0.1 K/mm3 (0-0.3); Eosinophils Percent Auto 1.2 % (0-4.4); Hematocrit 33.9 % (42.0-52.0); Hemoglobin 11.3 g/dL (14.0-18.0); Immature Granulocyte Absolute 0.27 K/mm3 (0.00-0.031); Immature Granulocyte Percent A 2.5 % (0-0.5); Lymphocytes Absolute Auto 1.54 K/mm3 (0.9-3.2); Lymphocytes Percent Auto 14.3 % (18.3-44.2); Mean Corpuscular HGB Conc 33.3 g/dl (32-36); Mean Corpuscular Hemoglobin 32.9 pg (26-34); Mean Corpuscular Volume 98.8 fl (80-100); Mean Platelet Volume 9.2 fl (7.4-10.4); Monocytes Absolute Auto 1.6 K/mm3 (0.1-0.6); Monocytes Percent Auto 14.7 % (2.6-8.5); Neutrophils Absolute Auto 7.2 K/mm3 (1.3-6.7); Neutrophils Percent Auto 66.5 % (45.5-73.1); Platelet Count Result 199 k/mm3 (150-375); Red Blood Count 3.43 M/mm3 (4.6-6.20); White Blood Count 10.8 K/mm3 (4.5-10.0)
[2024-02-23 05:18] LABS: INR 1.4; Prothrombin Time 17.5 Seconds (11.1-14.7)
[2024-02-23 05:20] LABS: Alanine Aminotransferase 42 U/L (6-50); Albumin Level 3.5 g/dL (3.5-5.1); Alkaline Phosphatase 49 U/L (38-126); Anion Gap 9 mmol/L (4-12); Aspartate Amino Transferase 52 U/L (17-59); Bilirubin,Total 0.9 mg/dL (0.2-1.3); Blood Urea Nitrogen 25 mg/dL (9-20); Calcium 8.7 mg/dL (8.4-10.2); Carbon Dioxide 23 mmol/L (22-30); Chloride 104 mmol/L (98-107); Estimated CRCL calculation 86 ml/min; Estimated Glomerular Filt Rate > 60; Glucose 106 mg/dL (65-110); Potassium 3.8 mmol/L (3.4-5.0); Sodium 136 mmol/L (137-145)
[2024-02-23] MEDS: CHOLECALCIFEROL 1,000 UNITS TABLET 2000 UNITS PO (08:01)
[2024-02-23] MEDS: dilTIAZem HCL CD 240 MG CAP.24HR PO (08:01)
[2024-02-23] MEDS: AMOXICILLIN/CLAVULANATE K 875-125 MG TAB 1 TABLET PO ×2 (08:02→21:20)
[2024-02-23] MEDS: DOXYCYCLINE HYCLATE 100 MG TABLET PO ×2 (08:02→21:20)
[2024-02-23] MEDS: METOPROLOL TARTRATE TAB 25 MG, METOPROLOL TARTRATE TAB 50 MG 75 MG PO ×3 (08:02→16:37)
[2024-02-23] MEDS: polyethylene glycoL 3350 17 GM POWD.PACK PO (08:03)
--- NOTE | 2024-02-23 11:35 | PM.IMPN ---
Progress Note: A&P Assessment and Plan (1) SIRS (systemic inflammatory response syndrome): Code(s): R65.10 - Systemic inflammatory response syndrome (SIRS) of non-infectious origin without acute organ dysfunction Status: Acute Assessment and Plan: - Blood culture showed Corynebacterium species, Urine culture was negative. - WBC: 23.8>14.5>11.3> 8.5>9.4>10.8 - Augmentin 875-125 mg PO q12 and Doxycycline 100 mg PO q 12. - Patient tested negative for influenza type A and influenza type B, COVID, and RSV. - PT/OT (2) Chronic anticoagulation: Code(s): Z79.01 - retirement (current) use of anticoagulants Status: Acute Assessment and Plan: - continue anticoagulation (3) Afib: Code(s): I48.91 - Unspecified atrial fibrillation Status: Acute Assessment and Plan: -Telemetry Afib 95. - Receiving Metoprolol 75 mg PO TID Diltiazem XR 240 mg PO daily. - Cardiology consult. (4) CAD (coronary artery disease): Qualifiers: Associated angina: without angina Coronary Disease-Associated Artery/Lesion type: [place] artery [place] vs. transplanted heart: [place] heart Qualified Code(s): I25.10 - Atherosclerotic heart disease of [place] coronary artery without angina pectoris Code(s): I25.10 - Atherosclerotic heart disease of [place] coronary artery without angina pectoris Status: Chronic Assessment and Plan: - no chest pain or shortness of breath (5) HTN (hypertension): Qualifiers: Hypertension type: essential hypertension Qualified Code(s): I10 - Essential (primary) hypertension Code(s): I10 - Essential (primary) hypertension Status: Chronic Assessment and Plan: - Blood pressure 136/60. - Continue Metoprolol (6) Elevated troponin: Code(s): R79.89 - Other specified abnormal findings of blood chemistry Status: Acute Assessment and Plan: - Troponin: 0.070> 0.084> 0.056>0.055 (7) Spider bite: Code(s): T63.301A - Toxic effect of unspecified spider venom, accidental (unintentional), initial encounter Status: Acute Assessment and Plan: - improving. - Continue Augmentin 875-125 mg PO q12 and Doxycycline 100 mg PO q 12. Subjective Date/time seen: 02/23/24 11:35 Interval history: Patient denies pain, shortness of breath, chest pain, nausea, vomiting, headache, or dizziness. Last bowel movement was yesterday. Sitting up in chair visiting family. Review of Systems Review of Systems: All systems reviewed & are unremarkable except as noted in HPI and below Exam Const: General: comfortable and no acute distress Eyes: Sclera: sclerae normal Resp: Effort & Inspection: normal respiratory effort Auscultation: clear to auscultation bilaterally Cardio: Rhythm: abnormal rhythm irregularly irregular GI: GI Palp: Yes Soft to palpation Auscultation: normal bowel sounds Skin: Wounds: wounds noted (left middle back with dark center and redness fading. 1 inch round) Neuro: Speech: normal speech Psych: Affect: normal affect Objective Data Vital Signs Vital Signs: Vital Signs - 24 hr 02/22/24 11:36 02/22/24 13:57 02/22/24 12:00 Temperature 98.4 F Pulse Rate 91 93 81 Respiratory Rate 16 Blood Pressure 112/66 Pulse Oximetry 94 Oxygen Delivery 02/22/24 14:00 02/22/24 16:00 02/22/24 16:00 Temperature 99.0 F Pulse Rate 99 89 81 Respiratory Rate 28 H Blood Pressure 115/88 Pulse Oximetry 98 Oxygen Delivery 02/22/24 17:46 02/22/24 18:00 02/22/24 12:00 Temperature Pulse Rate 104 H 102 H Respiratory Rate Blood Pressure Pulse Oximetry Oxygen Delivery Room Air 02/22/24 16:00 02/22/24 20:59 02/22/24 20:00 Temperature 97.5 F L Pulse Rate 93 96 Respiratory Rate 28 H Blood Pressure 109/56 L Pulse Oximetry 95 Oxygen Delivery Room Air 02/22/24 20:00 02/22/24 22:00 02/22/24 23:38 Temperature Pulse Rat
--- NOTE | 2024-02-23 13:12 | PM.PNCARD ---
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 Patient presented with generalized weakness. During hospitalization, he has underlying atrial fibrillation with episodes of RVR. - heart rates fairly controlled at present. Continue oral metoprolol tartrate and diltiazem for now. if patient has [id number] heart rates or fluctuating heart rates, then consider outpatient electrophysiology evaluation for AV sandoval ablation and ppm. Patient has been on chronic anticoagulation with warfarin. current INR subtherapeutic at 1.4. Spoke with patient about option of direct oral anticoagulant. 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 (2) SIRS (systemic inflammatory response syndrome): Code(s): R65.10 - Systemic inflammatory response syndrome (SIRS) of non-infectious origin without acute organ dysfunction Status: Acute Assessment and Plan: Management as per primary primary care team. (3) Elevated troponin: Code(s): R79.89 - Other specified abnormal findings of blood chemistry Status: Acute Assessment and Plan: Nonspecific, in the setting of SIRS. No cardiac ischemic symptoms. Prior echo reportedly showed normal LVFEF . Conservative management. (4) History of aortic valve replacement with bioprosthetic valve: Code(s): Z95.3 - Presence of xenogenic heart valve Status: Acute Assessment and Plan: Prior echocardiogram from 06/14/2021 reportedly showed normal functioning aortic valve bioprosthesis. Continue outpatient surveillance echocardiograms. Plan Patient will follow-up with Dr Santos after hospital discharge. Subjective Date/time seen: 02/23/24 13:12 Interval history: 02/23/2024- generalized weakness improved. No chest pain or shortness of breath. Review of Systems Review of Systems: General: Positive for fatigue and generalized weakness -improved Psychological: Negative for anxiety, depression Ophthalmic: negative for loss of vision ENT: Negative for epistaxis, headaches Allergy and immunology: Negative for hives, nasal congestion Hematologic and lymphatic: Negative for overt bleeding problems Endocrine: Negative for hot flashes, palpitations Respiratory: Negative for cough, hemoptysis Cardiovascular: Negative for chest pain Gastrointestinal: No abdominal pain Musculoskeletal: Unsteady gait Neurological: Positive for generalized weakness Dermatological: Negative for rash, skin discoloration Exam Narrative: PHYSICAL EXAMINATION: GENERAL: Elderly male, Alert, no acute distress MENTAL STATUS: affect appropriate to mood EYES: Extraocular movements intact, no pallor EARS: External ears appear normal, hearing grossly normal NOSE: Normal and patent, no discharge MOUTH: Mucous membranes moist, poor dentition NECK: Supple, no JVD CHEST: Good respiratory effort, clear to auscultation HEART: Normal rate, irregularly irregular rhythm, systolic murmur at left sternal border and base ABDOMEN: Soft, nontender NEUROLOGICAL: Alert, oriented, normal speech, no gross motor deficits MUSCULOSKELETAL: No major deformity, no amputation EXTREMITIES: No pedal edema, no clubbing, no cyanosis SKIN: Discoloration in bilateral lower extremities PSYCHIATRIC: Normal mood, appropriate affect Objective Data Vital Signs Vital Signs: Vital Signs - 24 hr 02/22/24 13:57 02/22/24 14:00 02/22/24 16:00 Temperature Pulse Rate 93 99 89 Respiratory Rate Blood Pressure Pulse Oximetry
--- NOTE | 2024-02-23 15:21 | PC.NURSE ---
Reviewed and Acknowledge Charting Neida Plata [facility]
--- NOTE | 2024-02-23 15:24 | PC.NURSE ---
Reviewed and acknowledge charting Yolanda Chavarria, Yuridia Koch [facility]
[2024-02-23] MEDS: WARFARIN (*PBKC) 4 MG TABLET 8 MG PO (16:40)
[2024-02-24] VITALS (13 sets, daily range): BP systolic 121–134; BP diastolic 58–85; PULSE 68–160; RESP 18–21; TEMP 36.4–36.9; O2SAT 95–98
[2024-02-24 05:00] LABS: Basophils Absolute Auto 0.1 K/mm3 (0.0-0.1); Basophils Percent Auto 0.8 % (0.2-1.2); Eosinophils Absolute Auto 0.2 K/mm3 (0-0.3); Eosinophils Percent Auto 1.7 % (0-4.4); Hematocrit 32.6 % (42.0-52.0); Hemoglobin 10.7 g/dL (14.0-18.0); Immature Granulocyte Absolute 0.38 K/mm3 (0.00-0.031); Immature Granulocyte Percent A 3.4 % (0-0.5); Lymphocytes Absolute Auto 1.51 K/mm3 (0.9-3.2); Lymphocytes Percent Auto 13.3 % (18.3-44.2); Mean Corpuscular HGB Conc 32.8 g/dl (32-36); Mean Corpuscular Hemoglobin 33.1 pg (26-34); Mean Corpuscular Volume 100.9 fl (80-100); Mean Platelet Volume 9.4 fl (7.4-10.4); Monocytes Absolute Auto 1.5 K/mm3 (0.1-0.6); Monocytes Percent Auto 12.9 % (2.6-8.5); Neutrophils Absolute Auto 7.7 K/mm3 (1.3-6.7); Neutrophils Percent Auto 67.9 % (45.5-73.1); Platelet Count Result 221 k/mm3 (150-375); Red Blood Count 3.23 M/mm3 (4.6-6.20); Red Cell Distribution Width 13.2 % (11.5-14.5); White Blood Count 11.3 K/mm3 (4.5-10.0)
[2024-02-24 05:11] LABS: INR 1.5; Prothrombin Time 18.9 Seconds (11.1-14.7)
[2024-02-24 05:19] LABS: Alanine Aminotransferase 50 U/L (6-50); Albumin Level 3.2 g/dL (3.5-5.1); Alkaline Phosphatase 51 U/L (38-126); Anion Gap 5 mmol/L (4-12); Aspartate Amino Transferase 54 U/L (17-59); Bilirubin,Total 0.7 mg/dL (0.2-1.3); Blood Urea Nitrogen 22 mg/dL (9-20); Calcium 8.6 mg/dL (8.4-10.2); Carbon Dioxide 27 mmol/L (22-30); Chloride 105 mmol/L (98-107); Estimated CRCL calculation 68 ml/min; Estimated Glomerular Filt Rate > 60; Glucose 105 mg/dL (65-110); Potassium 4.1 mmol/L (3.4-5.0); Sodium 137 mmol/L (137-145)
[2024-02-24] MEDS: dilTIAZem HCL CD 240 MG CAP.24HR PO (08:33)
[2024-02-24] MEDS: CHOLECALCIFEROL 1,000 UNITS TABLET 2000 UNITS PO (08:33)
[2024-02-24] MEDS: DOXYCYCLINE HYCLATE 100 MG TABLET PO (08:33)
[2024-02-24] MEDS: AMOXICILLIN/CLAVULANATE K 875-125 MG TAB 1 TABLET PO (08:33)
[2024-02-24] MEDS: METOPROLOL TARTRATE TAB 25 MG, METOPROLOL TARTRATE TAB 50 MG 75 MG PO ×2 (08:33→12:23)
[2024-02-24] MEDS: polyethylene glycoL 3350 17 GM POWD.PACK PO (08:34)
--- NOTE | 2024-02-24 08:52 | PM.PNCARD ---
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 Patient presented with generalized weakness. During hospitalization, he has underlying atrial fibrillation with episodes of RVR. -heart rates fairly controlled at present, but does have intermittent RVR. Continue oral metoprolol tartrate and diltiazem, but will increase diltiazem to 360mg daily. -Patient has been on chronic anticoagulation with warfarin. Subtherapeutic today at 1.5. 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 Santos) as outpatient. (2) SIRS (systemic inflammatory response syndrome): Code(s): R65.10 - Systemic inflammatory response syndrome (SIRS) of non-infectious origin without acute organ dysfunction Status: Acute Assessment and Plan: Management as per primary primary care team. (3) Elevated troponin: Code(s): R79.89 - Other specified abnormal findings of blood chemistry Status: Acute Assessment and Plan: Nonspecific, in the setting of SIRS. No cardiac ischemic symptoms. Prior echo reportedly showed normal LVFEF . Conservative management. (4) History of aortic valve replacement with bioprosthetic valve: Code(s): Z95.3 - Presence of xenogenic heart valve Status: Acute Assessment and Plan: Prior echocardiogram from 06/14/2021 reportedly showed normal functioning aortic valve bioprosthesis. Continue outpatient surveillance echocardiograms. Plan Patient will follow-up with Dr Santos after hospital discharge. Subjective Date/time seen: 02/24/24 08:52 Interval history: 02/23/2024- generalized weakness improved. No chest pain or shortness of breath. Date of service 02/24/2024: Feels well, has no complaints. Eager to go home. Review of Systems Review of Systems: General: Positive for fatigue and generalized weakness -improved Psychological: Negative for anxiety, depression Ophthalmic: negative for loss of vision ENT: Negative for epistaxis, headaches Allergy and immunology: Negative for hives, nasal congestion Hematologic and lymphatic: Negative for overt bleeding problems Endocrine: Negative for hot flashes, palpitations Respiratory: Negative for cough, hemoptysis Cardiovascular: Negative for chest pain Gastrointestinal: No abdominal pain Musculoskeletal: Unsteady gait Neurological: Positive for generalized weakness Dermatological: Negative for rash, skin discoloration Exam Const: General: comfortable, no acute distress, alert and awake Orientation/consciousness: patient oriented x3 HENMT: Head: normal to inspection Eyes: General: appearance normal, both eyes and all related structures Pupils: Equal, round and reactive pupils present Neck: Neck: normal visual inspection, supple and no JVD Carotids: normal carotid upstroke Resp: Effort & Inspection: normal respiratory effort Auscultation: clear to auscultation bilaterally Cardio: Rate: tachycardic Rhythm: regular rhythm Heart sounds: S1 normal heart sound present, S2 normal heart sound present and Murmur heart sound present systolic GI: Auscultation: normal bowel sounds Skin: General skin exam: normal color Neuro: General: patient oriented x3 Cranial nerves: Yes Equal, round and reactive pupils present Extrem: General: normal to inspection Psych: Appearance: grossly normal Mental Status: mental status grossly normal Objective Data Vital Signs Vital Signs: Vital Signs - 24 hr 02/23/24 11:45 02/23/24 12:43 02/23/24 12:00 Temperature 36.4 C
[2024-02-24] MEDS: dilTIAZem HCL CD 120 MG CAP.24HR PO (10:41)
--- NOTE | 2024-02-24 11:29 | PM.IMPN ---
Progress Note: A&P Assessment and Plan (1) SIRS (systemic inflammatory response syndrome): Code(s): R65.10 - Systemic inflammatory response syndrome (SIRS) of non-infectious origin without acute organ dysfunction Status: Acute Assessment and Plan: - Blood culture showed Corynebacterium species, Urine culture was negative. - WBC: 23.8>14.5>11.3> 8.5>9.4>10.8>11.3. - Augmentin 875-125 mg PO q8 and Doxycycline 100 mg PO q 12. - Patient tested negative for influenza type A and influenza type B, COVID, and RSV. - PT/OT (2) Chronic anticoagulation: Code(s): Z79.01 - assisted (current) use of anticoagulants Status: Acute Assessment and Plan: - continue anticoagulation (3) Afib: Code(s): I48.91 - Unspecified atrial fibrillation Status: Acute Assessment and Plan: -Telemetry Afib 109. - Receiving Metoprolol 75 mg PO TID and increased Diltiazem XR 360 mg PO daily. - Cardiology consult. (4) CAD (coronary artery disease): Qualifiers: Associated angina: without angina Coronary Disease-Associated Artery/Lesion type: [place] artery [place] vs. transplanted heart: [place] heart Qualified Code(s): I25.10 - Atherosclerotic heart disease of [place] coronary artery without angina pectoris Code(s): I25.10 - Atherosclerotic heart disease of [place] coronary artery without angina pectoris Status: Chronic Assessment and Plan: - no chest pain or shortness of breath (5) HTN (hypertension): Qualifiers: Hypertension type: essential hypertension Qualified Code(s): I10 - Essential (primary) hypertension Code(s): I10 - Essential (primary) hypertension Status: Chronic Assessment and Plan: - Blood pressure 134/85. - Continue Metoprolol (6) Elevated troponin: Code(s): R79.89 - Other specified abnormal findings of blood chemistry Status: Acute Assessment and Plan: - Troponin: 0.070> 0.084> 0.056>0.055 (7) Spider bite: Code(s): T63.301A - Toxic effect of unspecified spider venom, accidental (unintentional), initial encounter Status: Acute Assessment and Plan: - improving. - Continue Augmentin 875-125 mg PO q8 and Doxycycline 100 mg PO q 12. Subjective Date/time seen: 02/24/24 11:30 Interval history: Patient denies pain, shortness of breath, palpitations, chest pain, nausea, vomiting, headache, or dizziness. Last bowel movement today. Review of Systems Review of Systems: All systems reviewed & are unremarkable except as noted in HPI and below Exam Const: General: comfortable and no acute distress Eyes: Sclera: sclerae normal Resp: Effort & Inspection: normal respiratory effort Auscultation: clear to auscultation bilaterally Cardio: Rhythm: abnormal rhythm irregularly irregular GI: GI Palp: Yes Soft to palpation Auscultation: normal bowel sounds Skin: Wounds: wounds noted (left middle back with dark center and redness fading. 1 inch round) Neuro: Speech: normal speech Extrem: General: no pedal edema Psych: Affect: normal affect Objective Data Vital Signs Vital Signs: Vital Signs - 24 hr 02/23/24 11:45 02/23/24 12:43 02/23/24 12:00 Temperature 97.6 F Pulse Rate 84 80 79 Respiratory Rate 18 18 Blood Pressure 119/56 L 136/60 Pulse Oximetry 98 98 Oxygen Delivery Fraction of Inspired Oxygen 02/23/24 14:00 02/23/24 15:52 02/23/24 16:00 Temperature 97.4 F L 97.4 F L Pulse Rate 76 85 85 Respiratory Rate 18 18 Blood Pressure 123/55 L 123/55 L Pulse Oximetry 99 99 Oxygen Delivery Fraction of Inspired Oxygen 02/23/24 16:37 02/23/24 16:00 02/23/24 18:00 Temperature Pulse Rate 85 88 88 Respiratory Rate Blood Pressure Pulse Oximetry Oxygen Delivery Fraction of Inspired Oxygen 02/23/24 20:00 02/23/24 20:00 02/23/24 20:00 Temperature 98.5 F Pulse Rate 116 H 103 H Respiratory Rate 18 Blood Pres
--- NOTE | 2024-02-24 14:16 | PC.NURSE ---
Spoke with Hamida Fowler [employer] and Alesha Ford [employer] both are ok with discharging patient home.
--- NOTE | 2024-02-24 14:52 | PM.DS ---
DS: Admitting Diagnosis Discharge Date 02/24/2024 Admitting Diagnosis Fever, weakness DS: Discharge Diagnosis Discharge Diagnosis (1) Afib: Code(s): I48.91 - Unspecified atrial fibrillation Status: Acute (2) SIRS (systemic inflammatory response syndrome): Code(s): R65.10 - Systemic inflammatory response syndrome (SIRS) of non-infectious origin without acute organ dysfunction Status: Acute (3) CAD (coronary artery disease): Qualifiers: Associated angina: without angina Coronary Disease-Associated Artery/Lesion type: [place] artery [place] vs. 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 - WBC: 23.8>14.5>11.3> 8.5>9.4>10.8>11.3. Improved with antibiotics. Patient tested negative for influenza type A and influenza type B, COVID, and RSV. Troponin: 0.070> 0.084> 0.056>0.055- denied chest pain, palpitations, or shortness of breath. During hospitalization, patient was having underlying atrial fibrillation with episodes of RVR. - Chest CT on 02/18/24 showed: IMPRESSION: 1. No acute cardiopulmonary disease or acute intra-abdominal/pelvic process. 2. Cardiomegaly with biatrial enlargement - Patient followed by Cardiology with medication changes of changing Diltiazem to 360 mg PO daily and continue Metoprolol Tartrate 75 mg PO TID. Status at Discharge Functional status at discharge: uses cane/walker Overall status at discharge: patient is progressing back to baseline Time Spent with Patient Time attestation: Total time spent providing and/or coordinating discharge services: Time spent: Greater than 30 minutes Exam Narrative: Const: General: comfortab le and no acute di stress Eyes: Sclera: sclerae no rmal Resp: Effort & Inspectio n: normal respirat ory effort Auscul tation: clear to a uscultation bilate rally Cardio: Rhythm: abnormal r hythm irregularly irregular GI: GI Palp: Yes Soft to palpation Ausc ultation: normal b owel sounds Skin: Wounds: wounds not ed (left middle ba ck with dark cente r and redness destiny ng. 1 inch round) Neuro: Speech: normal spe ech Extrem: General: no pedal edema Psych: Affect: normal aff ect DS: Data Data Completed and Pending Labs on day of discharge: Labs from last 24 hours 02/24/24 02/24/24 04:08 04:05 WBC 11.3 H RBC 3.23 L Hgb 10.7 L Hct 32.6 L MCV 100.9 H MCH 33.1 MCHC 32.8 RDW 13.2 Plt Count 221 MPV 9.4 Immature Gran % (Auto) 3.4 H Neut % (Auto
--- NOTE | 2024-03-04 08:53 | PC.NURSE ---
Blood cx are negative.
== END 2024-02-24 17:04 | disposition home or self-care (01) | DRG 918 ==
LOC: ANHED 16:28 → ANHIMU 22:04
PROVIDERS: Admitting Provider Internal Medicine; Emergency Provider Student in an Organized Health Care Education/Training Program; PCP Emergency Medicine; Visit Provider Nurse Practitioner Family
DX: T63.301A Toxic effect of unspecified spider venom, accidental (unintentional), initial encounter (principal); R65.10 Systemic inflammatory response syndrome (SIRS) of non-infectious origin without acute organ dysfunction; R50.9 Fever, unspecified; B96.89 Other specified bacterial agents as the cause of diseases classified elsewhere; E11.9 Type 2 diabetes mellitus without complications; E55.9 Vitamin D deficiency, unspecified; E87.6 Hypokalemia; G47.33 Obstructive sleep apnea (adult) (pediatric); I10 Essential (primary) hypertension; I27.20 Pulmonary hypertension, unspecified; I25.10 Atherosclerotic heart disease of native coronary artery without angina pectoris; I48.91 Unspecified atrial fibrillation; R79.89 Other specified abnormal findings of blood chemistry; Z95.2 Presence of prosthetic heart valve; Z79.01 Long term (current) use of anticoagulants; Z28.21 Immunization not carried out because of patient refusal; Z20.822 Contact with and (suspected) exposure to COVID-19; Z99.89 Dependence on other enabling machines and devices; Z87.891 Personal history of nicotine dependence
CPT/HCPCS: 36415; 70450; 71046; 71260; 74177; 80048; 80053; 81001; 82565; 82803; 83605; 83735; 84484; 85025; 85610; 85730; 86140; 87040; 87636; 93005; 96361; 96365; 96366; 96367; 97116; 97161; 97165; 97530; 97535; 99285; A9270; G0378; J0692; J3370; J3475; J7030; J7120; Q9967

== ENCOUNTER 2024-06-15 00:10 | Inpatient (IN) | payer MEDICARE, SELFPAY ==
[2024-06-15] VITALS (35 sets, daily range): BP systolic 91–158; BP diastolic 44–79; PULSE 58–160; RESP 16–31; TEMP 36.4–39.1; O2SAT 91–99; BMI 32.8
--- NOTE | ~2024-06-15 | XR_ITS ---
Portable chest x-ray Comparison: 02/18/2024 Clinical History: Palpitations Findings: Questionable minimal bibasilar haziness. Cardiomediastinal silhouette is stable, status p ost valve replacement. Bones and soft tissues are unremarkable. Impression: Possible minimal bibasilar pulmonary edema. Cardiomegaly, status post valve replacement, unchanged. Reviewed, dictated and finalized at location . SH PAINTER Impression: Possible minimal bibasilar pulmonary edema. Cardiomegaly, status post valve replacement, unchanged.
--- NOTE | ~2024-06-15 | XR_ITS ---
XR chest 1V portable 06/25/2024 05:35 Indication: Atrial fibrillation Procedure: AP portable chest Comparison: Comparison to multiple prior studies sequentially, with oldest reviewed study dated 02/17. Findings: Status post median sternotomy for CABG. Cardiomegaly. 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 Mild interstitial edema. No pleural effusion or pneumothorax. Impression: 1: Stable mild interstitial edema. Reviewed, dictated and finalized at location A. MANAGER Impression: 1: Stable mild interstitial edema.
--- NOTE | 2024-06-15 00:23 | ED_ITS ---
HPI - Arrhythmia/Palpitations General Chief Complaint: Arrhythmia/Palpitations Stated Complaint: Generalized weakness Time Seen by Provider: 06/15/24 00:16 History of Present Illness HPI narrative: Patient is an 88-year-old male who presents to the emergency department this evening complaining of generalized weakness and AFib with RVR. Per EMS report, patient ambulated to the bathroom and 9 and was any able to ambulate back to his bedroom secondary to the generalized weakness. He denies any recent URI illness, any nausea, vomiting, or diarrhea and denies any abdominal pain. Denies any sick contacts at home. Patient is alert and oriented to person, place, time and situation. Patient states that in the past he had similar symptoms and at that he was diagnosed with sepsis secondary to cellulitis. Patient does have a known history of atrial fibrillation and is on warfarin. Currently denying any chest pain or shortness of breath. Patient is DNR, this was confirmed with patient and at bedside. Related Data Home Medications ?Medication ?Instructions ?Recorded ?Confirmed ?Last Taken ?Type atorvastatin 10 mg tablet 10 mg PO QPM 07/27/19 05/15/24 Unknown History fenofibrate 160 mg tablet 160 mg PO QPM 07/27/19 05/15/24 Unknown History furosemide 40 mg tablet 40 mg PO DAILY 07/27/19 05/15/24 Unknown History lisinopril 5 mg tablet 5 mg PO QPM 07/27/19 05/15/24 Unknown History potassium chloride 10 mEq 10 meq PO DAILY 07/27/19 05/15/24 Unknown History tablet,extended release warfarin 4 mg tablet 4 mg PO 4XW 07/27/19 05/15/24 Unknown History Joint Support Complex 1 tablet PO BID 12/15/19 05/15/24 Unknown History cholecalciferol (vitamin D3) 50 2,000 unit PO DAILY 12/15/19 05/15/24 Unknown History mcg (2,000 unit) tablet metoprolol tartrate 75 mg tablet 75 mg PO TID 12/15/19 05/15/24 Unknown History warfarin 4 mg tablet 8 mg PO 3XW 02/20/24 05/15/24 Unknown History Allergies Allergy/AdvReac Type Severity Reaction Status Date / Time No Known Allergies Allergy Verified 05/15/24 08:53 Review of Systems 2 Review of Systems: All systems are reviewed and are negative unless stated otherwise in the HPI. PMFSH Past Medical History Medical History Atherosclerosis of [place] coronary artery Vitamin D deficiency Pulmonary HTN MARK treated with BiPAP Nonrheumatic aortic valve insufficiency Mass on back Cyst of skin SOB (shortness of breath) Cough Loss of appetite Fever History of bleeding disorder (~2020) Internal Bleed after a fall; Bruises/Bleeds easily Sleep apnea Hematoma Injury of left rotator cuff Laceration Contusion of abdominal wall, subsequent encounter Ribs, multiple fractures Rib fracture Diabetes mellitus HTN (hypertension) CAD (coronary artery disease) Afib Surgical History Surgical History H/O aortic valve repair Hx of aortic valve replacement (~2010) Family History Family History Mother Cerebrovascular accident, Onset Age: 51 Sibling Cerebrovascular accident Father Acute myocardial infarction Social History Social History Smoking status: Former smoker Tobacco type: cigars Smoking end date: 05/27/87 Alcohol intake: never Substance use: never Substance use type: does not use Do You Feel Safe in your Home?: Yes Lack of Transportation: No Lack of Food: Never True Current Housing: I Have Housing Concerned About Future Housing: No Difficulty Paying Gas/Electric Bills: No Difficulty Paying for Meds: No Currently Unemployed: No Education: Grade School Difficulty w/ Childcare or Family Care: No Gender identity (if verbalized by the patient): Male Spiritual care concerns: No Exam 2 Narrative: General: Alert, awake, febrile, in no acute distress. HEENT: PERRL, no rhinorrhea, no post nasal drip, oropharynx clear. Neck: Trachea midline, no JVD, no lymphadenopathy. Cardiovascular: Tachycardic with an irregular rhythm, no murmurs, rubs or gallops, bilateral lower extremity edema. Respiratory: Coarse breath sounds bilaterally, tachypnea, no wheezing, no respiratory distress. Abdomen: Soft, nontender, nondistended, no rebound, no guarding, no peritoneal signs. Musculoskeletal: No joint swelling or deformity, normal muscle tone. Skin: No rashes or petechia, no signs of infection. Psychiatric: Alert and oriented, normal behavior and judgment for situation. Neurological: Alert and oriented to person, place, and time. Follows all commands. No focal deficits, speech is clear and fluent. Course Vital Signs Vital signs: Vital Signs Temperature 102.4 F H 06/15/24 00:10 Pulse Rate 139 H 06/15/24 00:10 Respiratory Rate 31 H 06/15/24 00:10 Blood Pressure 156/79 H 06/15/24 00:10 Pulse Oximetry 94 06/15/24 00:10 Oxygen Delivery Room Air 06/15/24 00:10 Temperature 102.4 F H 06/15/24 00:10 Pulse Rate 103 H 06/15/24 01:47 Respiratory Rate 24 H 06/15/24 01:47 Blood Pressure 110/62 06/15/24 01:47 Pulse Oximetry 94 06/15/24 01:47 Oxygen Delivery Room Air 06/15/24 00:15 MDM - Arrhythmia/Palpitations MDM Narrative Medical decision making narrative: The patient was evaluated by myself in the emergency department. History is obtained from patient who is an independent historian along with EMS report and physical exam was performed. External medical records were reviewed at this time. IV was established and pertinent tests were ordered. Patient was administered 1 L IV fluid bolus with normal saline and 1 g of oral Tylenol for fever. Patient was also started on IV Rocephin and azithromycin to cover him for pneumonia due to concern for sepsis. Blood cultures were obtained prior to antibiotic administration. EKG was obtained which revealed atrial fibrillation with RVR rate of 128 beats per minute. No evidence of acute ischemia within the limitation of the heart rate. EKG was independently interpreted by me and is currently pending official cardiology read. Laboratory results obtained revealing a leukocytosis of 22, otherwise unremarkable. Viral swabs were negative for COVID/influenza. Imaging studies obtained included CXR which was independently interpreted by me revealing no acute process, which is pending final radiology interpretation. Differential diagnosis considerations include AFib with RVR secondary to infectious process such as pneumonia/UTI, dehydration, electrolyte derangements, acute viral syndrome. Comorbidities impacting this visit include history of atrial fibrillation on Coumadin. I have evaluated and discussed social determinants of health with the patient that could potentially impact subsequent diagnosis and treatment plans. On repeat assessment of the patient, reevaluation revealed that the patient is doing well and is in no acute distress. Patient symptoms have improved since he arrived to our emergency department. Repeat vital signs were all reviewed and noted to be stable. Differential diagnosis and treatment plan were discussed with the patient at bedside. Patient agrees with discussion and after shared medical decision making agrees with admission. All questions were answered to the patient's satisfaction. Case was discussed with the on-call hospitalist Dr. Wood at 0245 who accepted admission. Critical care time of 67 minutes, exclusive of separately performed procedures, necessary for treating or preventing eminent or life-threatening deterioration of patient's condition of atrial fibrillation with RVR requiring IV Cardizem infusion, focused on patient care provided personally by me and time spent during initial evaluation, physical examination, ordering and performing treatments and interventions, ordering and reviewing laboratory studies, ordering and reviewing radiographic studies, re-evaluation of the patient's condition, evaluation of the patient's response to treatment, and discussion of patient case with multiple consultants. Lab Data 06/15/24 00:22 06/15/24 00:56 Labs: Lab Results 06/15/24 06/15/24 06/15/24 Range/Units 00:22 00:31 00:56 WBC 22.0 H (4.5-10.0) K/mm3 RBC 3.91 L (4.6-6.20) M/mm3 Hgb 13.0 L (14.0-18.0) g/dL Hct 38.1 L (42.0-52.0) % MCV 97.4 (80-100) fl MCH 33.2 (26-34) pg MCHC 34.1 (32-36) g/dl RDW 13.5 (11.5-14.5) % Plt Count 203 (150-375) k/mm3 MPV 9.8 (7.4-10.4) fl Immature Gran % (Auto) 0.8 H (0-0.5) % Neut % (Auto) 88.8 H (45.5-73.1) % Lymph % (Auto) 2.1 L (18.3-44.2) % [place] % (Auto) 8.0 (2.6-8.5) % Eos % (Auto) 0.0 (0-4.4) % Baso % (Auto) 0.3 (0.2-1.2) % Lymph # (Auto) 0.46 L (0.9-3.2) K/mm3 [place] # (Auto) 1.8 H (0.1-0.6) K/mm3 Eos # (Auto) 0.0 (0-0.3) K/mm3 Baso # (Auto) 0.1 (0.0-0.1) K/mm3 Abs Immat Gran (auto) 0.17 H (0.00-0.031) K/mm3 Absolute Neuts (auto) 19.5 H (1.3-6.7) K/mm3 Absolute Nucleated RBC 0.000 (0.0-0.012) K/mm3 Nucleated RBC % 0.0 (0.0-0.2) % PT 21.6 H (11.1-14.7) Seconds INR 1.8 APTT 34.8 (22.3-36.8) Seconds Sodium 140 (137-145) mmol/L Potassium 3.6 (3.4-5.0) mmol/L Chloride 108 H (98-107) mmol/L Carbon Dioxide 20 L (22-30) mmol/L Anion Gap 12 (4-12) mmol/L BUN 35 H D (9-20) mg/dL Creatinine 1.10 (0.7-1.3) mg/dL Estim Creat Clear Calc 60 ml/min Estimated GFR > 60 (59 - ) Glucose 115 H (65-110) mg/dL Lactic Acid 1.4 (0.7-2.0) mmol/L Calcium 8.8 (8.4-10.2) mg/dL Magnesium 1.7 (1.6-2.3) mg/dL Total Bilirubin 0.9 (0.2-1.3) mg/dL AST 28 (17-59) U/L ALT 14 (6-50) U/L Alkaline Phosphatase 59 (38-126) U/L Troponin I 0.038 H* (0.000-0.034) ng/mL Total Protein 7.0 (6.3-8.2) g/dL Albumin 3.8 (3.5-5.1) g/dL Lipase 124 (23-300) U/L Urine Color Urine Appearance Urine pH Ur Specific [place] Urine Protein Urine Glucose (UA) Urine Ketones Ur Blood (Man) Urine Nitrate Urine Bilirubin Urine Urobilinogen Leukocyte Esterase Rfl Influenza A (RT-PCR) Negative (Negative) Influenza B (RT-PCR) Negative (Negative) SARS-CoV-2 RNA (RT-PCR) Negative (Negative) 06/15/24 Range/Units 02:39 WBC (4.5-10.0) K/mm3 RBC (4.6-6.20) M/mm3 Hgb (14.0-18.0) g/dL Hct (42.0-52.0) % MCV (80-100) fl MCH (26-34) pg MCHC (32-36) g/dl RDW (11.5-14.5) % Plt Count (150-375) k/mm3 MPV (7.4-10.4) fl Immature Gran % (Auto) (0-0.5) % Neut % (Auto) (45.5-73.1) % Lymph % (Auto) (18.3-44.2) % [place] % (Auto) (2.6-8.5) % Eos % (Auto) (0-4.4) % Baso % (Auto) (0.2-1.2) % Lymph # (Auto) (0.9-3.2) K/mm3 [place] # (Auto) (0.1-0.6) K/mm3 Eos # (Auto) (0-0.3) K/mm3 Baso # (Auto) (0.0-0.1) K/mm3 Abs Immat Gran (auto) (0.00-0.031) K/mm3 Absolute Neuts (auto) (1.3-6.7) K/mm3 Absolute Nucleated RBC (0.0-0.012) K/mm3 Nucleated RBC % (0.0-0.2) % PT (11.1-14.7) Seconds INR APTT (22.3-36.8) Seconds Sodium (137-145) mmol/L Potassium (3.4-5.0) mmol/L Chloride (98-107) mmol/L Carbon Dioxide (22-30) mmol/L Anion Gap (4-12) mmol/L BUN (9-20) mg/dL Creatinine (0.7-1.3) mg/dL Estim Creat Clear Calc ml/min Estimated GFR (59 - ) Glucose (65-110) mg/dL Lactic Acid (0.7-2.0) mmol/L Calcium (8.4-10.2) mg/dL Magnesium (1.6-2.3) mg/dL Total Bilirubin (0.2-1.3) mg/dL AST (17-59) U/L ALT (6-50) U/L Alkaline Phosphatase (38-126) U/L Troponin I (0.000-0.034) ng/mL Total Protein (6.3-8.2) g/dL Albumin (3.5-5.1) g/dL Lipase (23-300) U/L Urine Color Pending Urine Appearance Pending Urine pH Pending Ur Specific [place] Pending Urine Protein Pending Urine Glucose (UA) Pending Urine Ketones Pending Ur Blood (Man) Pending Urine Nitrate Pending Urine Bilirubin Pending Urine Urobilinogen Pending Leukocyte Esterase Rfl Pending Influenza A (RT-PCR) (Negative) Influenza B (RT-PCR) (Negative) SARS-CoV-2 RNA (RT-PCR) (Negative) Critical Care Time Critical Care Time Total Critical Care Time: 67 (Please refer to [facility] for attestation.) Discharge Plan Discharge Clinical Impression: Sepsis, Atrial fibrillation with rapid ventricular response Patient Disposition: Still a Patient Condition: Improved Patient Language: Arabic Prescriptions: No Action furosemide 40 mg tablet 40 mg PO DAILY lisinopril 5 mg tablet 5 mg PO QPM atorvastatin 10 mg tablet 10 mg PO QPM warfarin 4 mg tablet 4 mg PO 4XW Rx Instructions: 4 mg Ihf-Xgg-Ong-Sat fenofibrate 160 mg tablet 160 mg PO QPM potassium chloride 10 mEq tablet extended release 10 meq PO DAILY cholecalciferol (vitamin D3) 50 mcg (2,000 unit) Tablet 2,000 unit PO DAILY Joint Support Complex 1 tablet PO BID metoprolol tartrate 75 mg Tablet 75 mg PO TID warfarin 4 mg tablet 8 mg PO 3XW Rx Instructions: 8 mg Fom-Lull-Xomnd diltiazem HCl 360 mg capsule,extended release 24hr 360 mg PO DAILY Qty: 30 0RF
[2024-06-15] MEDS: ASPIRIN 81 MG CHEWABLE TABLET 324 MG PO (00:26)
[2024-06-15] MEDS: SODIUM CHLORIDE 0.9% IV 1,000 ML 999 ML (00:26)
[2024-06-15] MEDS: ACETAMINOPHEN 500 MG TABLET 1000 MG PO (00:27)
[2024-06-15 00:29] LABS: Basophils Absolute Auto 0.1 K/mm3 (0.0-0.1); Basophils Percent Auto 0.3 % (0.2-1.2); Hematocrit 38.1 % (42.0-52.0); Immature Granulocyte Absolute 0.17 K/mm3 (0.00-0.031); Immature Granulocyte Percent A 0.8 % (0-0.5); Lymphocytes Absolute Auto 0.46 K/mm3 (0.9-3.2); Lymphocytes Percent Auto 2.1 % (18.3-44.2); Mean Corpuscular HGB Conc 34.1 g/dl (32-36); Mean Corpuscular Hemoglobin 33.2 pg (26-34); Mean Corpuscular Volume 97.4 fl (80-100); Mean Platelet Volume 9.8 fl (7.4-10.4); Monocytes Absolute Auto 1.8 K/mm3 (0.1-0.6); Neutrophils Absolute Auto 19.5 K/mm3 (1.3-6.7); Neutrophils Percent Auto 88.8 % (45.5-73.1); Platelet Count Result 203 k/mm3 (150-375); Red Blood Count 3.91 M/mm3 (4.6-6.20); Red Cell Distribution Width 13.5 % (11.5-14.5)
[2024-06-15] MEDS: AZITHROMYCIN 500 MG/NS 250 ML 500 MG/250 ML BAG 250 MG IVPB (00:42)
--- NOTE | 2024-06-15 00:44 | ECG_ITS ---
Test Date: 2024-06-15 00:46:15 Measurements Intervals [place] Rate: 128 P: 0 WV: 0 QRS: 21 QRSD: 130 T: -18 QT: 308 QTc: 450 Interpretive Statements ATRIAL FIBRILLATION WITH RAPID VENTRICULAR RESPONSE POSSIBLE INFERIOR MYOCARDIAL INFARCTION , PROBABLY OLD [30 ms Q WAVE IN II/aVF] ANTEROSEPTAL MYOCARDIAL INFARCTION , OF INDETERMINATE AGE [40+ ms Q WAVE IN V1-V4] Compared to ECG 06/15/2024 00:17:02 No significant changes Electronically Signed On 06-15-2024 18:08:19 CALL CENTER OPERATIONS MANAGER by River Plunkett M.D.
--- NOTE | 2024-06-15 00:44 | ECG_ITS ---
Test Date: 2024-06-15 03:10:20 Measurements Intervals [place] Rate: 99 P: 0 FL: 0 QRS: 8 QRSD: 122 T: 3 QT: 376 QTc: 484 Interpretive Statements ATRIAL FIBRILLATION POSSIBLE INFERIOR MYOCARDIAL INFARCTION , OF INDETERMINATE AGE [30 ms Q WAVE IN II/aVF] ANTEROSEPTAL MYOCARDIAL INFARCTION , OF INDETERMINATE AGE [40+ ms Q WAVE IN V1-V4] Compared to ECG 06/15/2024 00:46:15 No significant changes Electronically Signed On 06-15-2024 18:08:02 ARTILLERY SPECIALIST by River Plunkett M.D.
[2024-06-15 00:47] LABS: Lactic Acid Reflex 1.4 mmol/L (0.7-2.0)
[2024-06-15] MEDS: dilTIAZem HCl INJ 25 MG/5 ML VIAL 30 MG IV PUSH (00:51)
[2024-06-15] MEDS: dilTIAZem 100 MG/100 ML 100 MG/100 ML BAG IV CONT (00:52)
--- NOTE | 2024-06-15 00:53 | PC.NURSE ---
RN SB verified IV push dilitezam and verified initation of continous infusion of diltizem
[2024-06-15 01:01] LABS: INR 1.8; Prothrombin Time 21.6 Seconds (11.1-14.7)
[2024-06-15 01:02] LABS: Partial Thromboplastin Time 34.8 Seconds (22.3-36.8)
[2024-06-15 01:05] LABS: Influenza A QL RT-PCR Negative (Negative); Influenza B QL RT-PCR Negative (Negative); SARS-CoV-2 RNA PCR Negative (Negative)
[2024-06-15 01:38] LABS: Alanine Aminotransferase 14 U/L (6-50); Albumin Level 3.8 g/dL (3.5-5.1); Alkaline Phosphatase 59 U/L (38-126); Anion Gap 12 mmol/L (4-12); Aspartate Amino Transferase 28 U/L (17-59); Bilirubin,Total 0.9 mg/dL (0.2-1.3); Blood Urea Nitrogen 35 mg/dL (9-20); Calcium 8.8 mg/dL (8.4-10.2); Carbon Dioxide 20 mmol/L (22-30); Chloride 108 mmol/L (98-107); Estimated CRCL calculation 60 ml/min; Estimated Glomerular Filt Rate > 60; Glucose 115 mg/dL (65-110); Lipase 124 U/L (23-300); Magnesium 1.7 mg/dL (1.6-2.3); Potassium 3.6 mmol/L (3.4-5.0); Sodium 140 mmol/L (137-145)
[2024-06-15 01:49] LABS: Troponin I 0.038 ng/mL (0.000-0.034)
[2024-06-15 02:52] LABS: Add Urine Microscopic? YES; Appearance Urine Clear (Clear); Bacteria Urine None Seen /hpf; Bilirubin Urine Negative (Negative); Blood Urine 2+ (Negative); Color Urine Yellow (Yellow); Glucose Urine UA Negative (Negative); Ketones Urine Negative (Negative); Leukocyte Esterase Ur 1+ LEU/UL (Negative); Nitrate Urine Negative (Negative); Protein Urine Negative (Negative); RBC Urine 21-50 /hpf (0-2); Specific Grav Ur 1.018 (1.001-1.035); Squamous Epithelial Cell Urine None Seen /hpf (Few); Urobilinogen Urine 0.2 mg/dL (<2.0); WBC Urine 21-50 /hpf (0-3)
--- NOTE | 2024-06-15 03:04 | ECG_ITS ---
Test Date: 2024-06-15 00:17:02 Measurements Intervals [place] Rate: 143 P: 0 NM: 0 QRS: 19 QRSD: 120 T: 1 QT: 294 QTc: 454 Interpretive Statements ATRIAL FIBRILLATION WITH RAPID VENTRICULAR RESPONSE INFERIOR MYOCARDIAL INFARCTION , PROBABLY OLD [40+ ms Q WAVE AND/OR ST/T ABNORMALITY IN II/aVF] LEFT BUNDLE BRANCH BLOCK Electronically Signed On 06-15-2024 18:09:22 EVP OPERATIONS by River Plunkett M.D.
[2024-06-15 03:42] LABS: Troponin I 0.065 ng/mL (0.000-0.034)
[2024-06-15 03:53] LABS: Influenza A QL RT-PCR Negative (Negative); Influenza B QL RT-PCR Negative (Negative); RSV RNA, RT-PCR Negative (Negative); SARS-CoV-2 RNA PCR Negative (Negative)
--- NOTE | 2024-06-15 03:54 | PC.NURSE ---
per edp dr. mack diltizem infusion to be titrated down at this time due to patient blood pressure being hypotensive. this rn confirmed titration rate. rn CH
[2024-06-15 07:43] LABS: Troponin I 0.067 ng/mL (0.000-0.034)
--- NOTE | 2024-06-15 07:55 | PC.NURSE ---
Addendum entered by Sania Santiago RN 06/15/24 09:29: admitted to ICU as IMU overflow Original Note: This patient, Kulwant Can, was admitted to Intensive Care Unit-7. Patient/family oriented to hospital policies and general routines including ID bracelet, bed and alarms, visiting hours, pain management, procedures, bathroom and other care routines, personal items, smoking policy, room service/diet, and visiting hours. Information on how to activate the Rapid Response Team has been discussed. Patient/Family are encouraged to report perceived risks to care and to ask questions if they do not understand what they are told or what they should do.
[2024-06-15] MEDS: METOPROLOL TARTRATE 25 MG TABLET 75 MG PO ×2 (11:53→21:08)
--- NOTE | 2024-06-15 15:25 | P.HP_ITS ---
H&P: HPI History of Present Illness Date/Time: 06/15/24 15:25 Chief Complaint: Arrhythmia/Palpitations Narrative: ER-HPI narrative: Patient is an 88-year-old male who presents to the emergency department this evening complaining of generalized weakness and AFib with RVR. Per EMS report, patient ambulated to the bathroom and 9 and was any able to ambulate back to his bedroom secondary to the generalized weakness. He denies any recent URI illness, any nausea, vomiting, or diarrhea and denies any abdominal pain. Denies any sick contacts at home. Patient is alert and oriented to person, place, time and situation. Patient states that in the past he had similar symptoms and at that he was diagnosed with sepsis secondary to cellulitis. Patient does have a known history of atrial fibrillation and is on warfarin. Currently denying any chest pain or shortness of breath. Patient is DNR, this was confirmed with patient and at bedside. patient with history of atrial Fibriallation went into RVR upon most likely triggered by generalized weakness and possible UTI, patient was started on Diltiazem drip at a low dose and rate is trending down, patient is taking metoprolol, will stop the drip and start the patient on the BB and monitor, patient is anitcoagulated with warfarin will resume and monitor, patient urine show UTI and patient is started to ceftriaxone, will follow up on urine c/s and plan, will have PT/OT evaluate and treat, patient will benefit going to [facility]. Review of Systems Review of Systems: All systems are reviewed and are negative unless stated otherwise in the HPI. [facility] Past Medical History Medical History Atherosclerosis of [place] coronary artery Vitamin D deficiency Pulmonary HTN MARK treated with BiPAP Nonrheumatic aortic valve insufficiency Mass on back Cyst of skin SOB (shortness of breath) Cough Loss of appetite Fever History of bleeding disorder (~2020) Internal Bleed after a fall; Bruises/Bleeds easily Sleep apnea Hematoma Injury of left rotator cuff Laceration Contusion of abdominal wall, subsequent encounter Ribs, multiple fractures Rib fracture Diabetes mellitus HTN (hypertension) CAD (coronary artery disease) Afib Surgical History Surgical History H/O aortic valve repair Hx of aortic valve replacement (~2010) Family History Family History Mother Cerebrovascular accident, Onset Age: 51 Sibling Cerebrovascular accident Father Acute myocardial infarction Social History Social History Smoking status: Former smoker Alcohol intake: never Substance use: never Substance use type: does not use Do You Feel Safe in your Home?: Yes Lack of Transportation: No Lack of Food: Never True Current Housing: I Have Housing Concerned About Future Housing: No Difficulty Paying Gas/Electric Bills: No Difficulty Paying for Meds: No Currently Unemployed: No Education: Decline to Answer Difficulty w/ Childcare or Family Care: No Gender identity (if verbalized by the patient): Male Spiritual care concerns: No Meds Home Medications and Allergies Home Medications ?Medication ?Instructions ?Recorded ?Confirmed ?Type atorvastatin 10 mg tablet 10 mg PO QPM 07/27/19 06/15/24 History fenofibrate 160 mg tablet 160 mg PO QPM 07/27/19 06/15/24 History furosemide 40 mg tablet 40 mg PO DAILY 07/27/19 06/15/24 History lisinopril 5 mg tablet 5 mg PO QPM 07/27/19 06/15/24 History potassium chloride 10 mEq 10 meq PO DAILY 07/27/19 06/15/24 History tablet,extended release warfarin 4 mg tablet 4 mg PO WEEKLY 07/27/19 06/15/24 History Joint Support Complex 1 tablet PO BID 12/15/19 06/15/24 History cholecalciferol (vitamin D3) 50 2,000 unit PO DAILY 12/15/19 06/15/24 History mcg (2,000 unit) tablet metoprolol tartrate 75 mg tablet 75 mg PO TID 12/15/19 06/15/24 History warfarin 4 mg tablet 8 mg PO WEEKLY 02/20/24 06/15/24 History diltiazem HCl 360 mg 360 mg PO DAILY #30 caps 02/24/24 06/15/24 Rx capsule,extended release 24 hr diltiazem HCl 240 mg 240 mg PO DAILY 06/15/24 06/15/24 History capsule,extended release 24 hr, controlled Allergies Allergy/AdvReac Type Severity Reaction Status Date / Time No Known Allergies Allergy Verified 06/15/24 07:39 Vital Signs Vital Signs - 24 hr 06/15/24 00:10 06/15/24 00:15 06/15/24 00:15 Temperature 39.1 C H Pulse Rate 139 H 148 H Respiratory Rate 31 H Blood Pressure 156/79 H Pulse Oximetry 94 94 Oxygen Delivery Room Air Room Air 06/15/24 00:18 06/15/24 00:45 06/15/24 00:52 Temperature Pulse Rate 160 H 147 H 126 H Respiratory Rate 30 H 27 H Blood Pressure 158/77 H 131/69 131/69 Pulse Oximetry 96 96 Oxygen Delivery 06/15/24 00:54 06/15/24 00:54 06/15/24 00:55 Temperature Pulse Rate 104 H 104 H 102 H Respiratory Rate 28 H 31 H Blood Pressure 111/59 L 111/59 L Pulse Oximetry 97 96 Oxygen Delivery 06/15/24 01:00 06/15/24 01:23 06/15/24 01:47 Temperature Pulse Rate 93 132 H 103 H Respiratory Rate 27 H 24 H Blood Pressure 121/60 119/54 L 110/62 Pulse Oximetry 95 94 Oxygen Delivery 06/15/24 02:15 06/15/24 02:45 06/15/24 03:01 Temperature 37.2 C Pulse Rate 95 122 H 90 Respiratory Rate 25 H 25 H 20 Blood Pressure 107/48 L 107/74 110/53 L Pulse Oximetry 91 94 95 Oxygen Delivery 06/15/24 03:15 06/15/24 03:30 06/15/24 03:45 Temperature Pulse Rate 87 95 88 Respiratory Rate 24 H 27 H 27 H Blood Pressure 92/52 L 98/54 L 99/52 L Pulse Oximetry 95 93 92 Oxygen Delivery 06/15/24 03:53 06/15/24 04:00 06/15/24 04:34 Temperature Pulse Rate 86 90 84 Respiratory Rate 24 H Blood Pressure 99/55 L 91/59 L Pulse Oximetry 95 Oxygen Delivery 06/15/24 05:16 06/15/24 05:31 06/15/24 07:16 Temperature 36.4 C Pulse Rate 77 88 88 Respiratory Rate 19 21 H 18 Blood Pressure 97/57 L 103/53 L 109/57 L Pulse Oximetry 98 95 97 Oxygen Delivery 06/15/24 08:00 06/15/24 08:08 06/15/24 08:30 Temperature 36.5 C Pulse Rate 76 85 Respiratory Rate 16 Blood Pressure 99/78 L 99/78 L Pulse Oximetry 99 Oxygen Delivery Room Air 06/15/24 08:30 06/15/24 10:00 06/15/24 10:00 Temperature Pulse Rate 82 76 85 Respiratory Rate Blood Pressure 101/44 L Pulse Oximetry Oxygen Delivery 06/15/24 11:53 06/15/24 12:00 06/15/24 12:00 Temperature Pulse Rate 84 76 Respiratory Rate Blood Pressure 120/61 Pulse Oximetry Oxygen Delivery Room Air 06/15/24 12:00 06/15/24 12:00 06/15/24 13:28 Temperature 36.7 C Pulse Rate 113 H 76 58 L Respiratory Rate 20 Blood Pressure 120/61 Pulse Oximetry 98 Oxygen Delivery 06/15/24 14:00 Temperature Pulse Rate 64 Respiratory Rate Blood Pressure Pulse Oximetry Oxygen Delivery Exam Narrative: Patient is comfortable, NAD HEENT: eyes are clear and none icteric LUNGS:CTA HEART: irregularly irregular ABD: BS+, Soft and nontender Lower extremities: no edema SKIN: nonjaundiced Neuro: grossly intact. H&P: Results Labs Labs: Short CBC 06/15/24 Range/Units 00:22 WBC 22.0 H (4.5-10.0) K/mm3 Hgb 13.0 L (14.0-18.0) g/dL Hct 38.1 L (42.0-52.0) % Plt Count 203 (150-375) k/mm3 BMP 06/15/24 00:56 Sodium 140 Potassium 3.6 Chloride 108 H Carbon Dioxide 20 L BUN 35 H D Creatinine 1.10 Glucose 115 H Calcium 8.8 Cardiac Enzymes 06/15/24 06/15/24 06/15/24 Range/Units 00:56 03:09 07:09 Troponin I 0.038 H* 0.065 H* D 0.067 H* (0.000-0.034) ng/mL Liver Function 06/15/24 Range/Units 00:56 Total Bilirubin 0.9 (0.2-1.3) mg/dL AST 28 (17-59) U/L ALT 14 (6-50) U/L Alkaline Phosphatase 59 (38-126) U/L Albumin 3.8 (3.5-5.1) g/dL Urine 06/15/24 Range/Units 02:39 Urine Color Yellow (Yellow) Urine Appearance Clear (Clear) Urine pH 5.0 (5.0-9.0) Ur Specific [place] 1.018 (1.001-1.035) Urine Protein Negative (Negative) mg/dL Urine Glucose (UA) Negative (Negative) mg/dL Assessment and Plan Assessment and plan (1) Atrial fibrillation with rapid ventricular response: Code(s): I48.91 - Unspecified atrial fibrillation Status: Acute (2) Elevated troponin: Code(s): R79.89 - Other specified abnormal findings of blood chemistry Status: Acute (3) UTI (urinary tract infection): Code(s): N39.0 - Urinary tract infection, site not specified Status: Acute (4) Debility: Code(s): R53.81 - Other malaise Status: Acute Plan patient with history of atrial Fibriallation went into RVR upon most likely triggered by generalized weakness and possible UTI, patient was started on Diltiazem drip at a low dose and rate is trending down, patient is taking metoprolol, will stop the drip and start the patient on the BB and monitor, patient is anitcoagulated with warfarin will resume and monitor, patient urine show UTI and patient is started to ceftriaxone, will follow up on urine c/s and plan, will have PT/OT evaluate and treat, patient will benefit going to [facility]. Quality VTE Prophylaxis VTE prophylaxis: pharmacologic ordered Hospitalist [facility] Advance Care Plan I have confirmed that the patient's Advanced Care Plan is present, code status is documented, or surrogate decision maker is listed in patient medical record.: Yes Medication Reconciliation The patient is not eligible for med reconciliation; the patient is in a emergent medical situation where delaying treatment would jeopardize the patients he alth.: Yes
[2024-06-15] MEDS: lisinopriL 5 MG TABLET PO (18:11)
[2024-06-15] MEDS: WARFARIN (*PBKC) 4 MG TABLET 8 MG PO (18:11)
[2024-06-15] MEDS: ATORVASTATIN 10 MG TABLET PO (18:11)
[2024-06-15] MEDS: FENOFIBRATE 160 MG TABLET PO (18:11)
[2024-06-16] VITALS (23 sets, daily range): BP systolic 123–154; BP diastolic 54–111; PULSE 80–141; RESP 18–30; TEMP 36.6–36.9; O2SAT 95–98
--- NOTE | 2024-06-16 | ECHO_ITS ---
Patient Info Name: Kulwant Can Age: 88 years : 1935 Gender: Male Ht: 73 in Wt: 249 lbs BSA: 2.44 m2 HR: 104 bpm BP: 135 / 82 mmHg Heart Rhythm: Atrial Fibrillation Technical Quality: Good Exam Date: 06/16/2024 3:20 PM Exam Location: Echo Lab Exam Room: ICU 7 Patient Status: Inpatient Admit Date: 06/15/2024 Staff Ordering Physician: Hernandez Yin MD Risk And Insurance Consultant: Jackelyn Jin RDCS Attending Provider: Daria Wood DO Exam Type: CA echo doppler color flow Study Info Indications - Afib with RVR Complete two-dimensional, color flow and Doppler transthoracic echocardiogram is performed. Summary 1. Complete two-dimensional, color flow and Doppler transthoracic echocardiogram is performed. 2. Normal left ventricular size and systolic function. 3. Biatrial dilation left greater than right. 4. Atrial fibrillation. 5. Mild mitral annular calcification. 6. Aortic valve appears to be a bioprosthetic device that is functioning normally. No information provided regarding size or type of device. 7. No evidence of infectious vegetation seen. Left Ventricle Left ventricular chamber dimension is normal. Left ventricular systolic function is normal, estimated at 65-70%. The left ventricular diastolic function is indeterminate. Right Ventricle Right ventricular chamber dimension is normal. Left Atria Left atrial chamber dimension is moderately enlarged. Right Atria Right atrial chamber dimension is mildly enlarged. Pulmonic Valve The pulmonic valve is normal. Mitral Valve The mitral valve has normal leaflets. The mitral valve annulus is mildly calcified. Tricuspid Valve The tricuspid valve leaflets are normal. There is mild tricuspid valve regurgitation. Pericardium/Pleural The pericardium appears normal. Aorta The aortic root size at the sinus of Valsalva is normal. Left Ventricular Outflow Tract Name Value Normal LVOT 2D LVOT Diameter 2.4 cm LVOT Doppler LVOT Peak Gradient 4 mmHg LVOT Mean Gradient 2 mmHg LVOT VTI 16 cm LVOT VTI/AV VTI Ratio 0.5 LVOT Stroke Volume 72 ml LVOT CO 8.7 l/min LVOT CI 3.6 l/min/m2 Pulmonic Valve Name Value Normal PV Doppler PV Peak Gradient 3 mmHg Mitral Valve Name Value Normal MV Doppler MV Peak Gradient 9 mmHg MV Mean Gradient 3 mmHg MV Decel [place] 1,213 cm/s2 MV PHT 24 ms MV Area (PHT) 9.1 cm2 4.0-5.0 MV Area (Cont Eq VTI) 2.9 cm2 MV Regurgitation Doppler MR Peak Gradient 107 mmHg MV Diastolic Function MV E Peak Velocity 101 cm/s MV A Peak Velocity 46 cm/s MV E/A 2.2 MV Decel Time 84 ms MV Annular TDI MV E/e' (Septal) 10.3 <=8.0 MV E/e' (Lateral) 6.6 <=8.0 MV E/e' (Average) 8.4 Tricuspid Valve Name Value Normal TV Regurgitation Doppler TR Peak Velocity 438 cm/s TR Peak Gradient 77 mmHg Aortic Valve Name Value Normal AV Doppler AV Peak Velocity 202 cm/s AV Peak Gradient 14 mmHg AV Mean Gradient 8 mmHg AV VTI 34 cm AV Area (Cont Eq VTI) 2.1 cm2 >=3.0 AV Area (Cont Eq Lamine) 2.3 cm2 AV Regurgitation 2D LVOT Area 4.4 cm2 Ventricles Name Value Normal LV Dimensions 2D/MM IVS Diastolic Thickness (2D) 1.2 cm 0.6-1.0 LVID Diastole (2D) 5.2 cm 4.2-5.8 LVIW Diastolic Thickness (2D) 1.2 cm 0.6-1.0 LVID Systole (2D) 3.8 cm 2.5-4.0 LVOT Diameter 2.4 cm LV Mass (2D Cubed) 249.25 g 88.00-224.00 LV Mass Index (2D Cubed) 102 g/m2 49-115 Relative Wall Thickness (2D) 0.45 LV Fractional Shortening/Ejection Fraction 2D/MM LV Fractional Shortening (2D) 27 % 25-43 LV EF (2D Teicholz) 52 % 52-72 Atria Name Value Normal LA Dimensions LA Volume (4C A-L) 211 ml RA Dimensions RA Area (4C) 44.1 cm2 <=18.0 Report Signatures
[2024-06-16 04:58] LABS: Hematocrit 37.5 % (42.0-52.0); Hemoglobin 12.3 g/dL (14.0-18.0); Mean Corpuscular HGB Conc 32.8 g/dl (32-36); Mean Corpuscular Hemoglobin 32.3 pg (26-34); Mean Corpuscular Volume 98.4 fl (80-100); Mean Platelet Volume 9.2 fl (7.4-10.4); Platelet Count Result 178 k/mm3 (150-375); Red Blood Count 3.81 M/mm3 (4.6-6.20); Red Cell Distribution Width 13.4 % (11.5-14.5); White Blood Count 13.8 K/mm3 (4.5-10.0)
[2024-06-16] MEDS: METOPROLOL TARTRATE 25 MG TABLET 75 MG PO ×3 (05:04→19:50)
[2024-06-16 05:10] LABS: INR 1.9; Prothrombin Time 22.2 Seconds (11.1-14.7)
[2024-06-16 05:25] LABS: Anion Gap 9 mmol/L (4-12); Blood Urea Nitrogen 26 mg/dL (9-20); Calcium 9.2 mg/dL (8.4-10.2); Carbon Dioxide 26 mmol/L (22-30); Chloride 106 mmol/L (98-107); Estimated CRCL calculation 65 ml/min; Estimated Glomerular Filt Rate > 60; Glucose 99 mg/dL (65-110); Magnesium 1.9 mg/dL (1.6-2.3); Potassium 3.8 mmol/L (3.4-5.0); Sodium 141 mmol/L (137-145)
[2024-06-16] MEDS: dilTIAZem HCL CD 240 MG CAP.24HR PO (08:23)
[2024-06-16] MEDS: FUROSEMIDE 40 MG TABLET PO (08:23)
[2024-06-16] MEDS: POTASSIUM CHLORIDE 10 MEQ ER TABLET PO (08:23)
[2024-06-16] MEDS: CHOLECALCIFEROL 1,000 UNITS TABLET 2000 UNITS PO (08:23)
--- NOTE | 2024-06-16 09:20 | P.PNIM_ITS ---
Progress Note: A&P Assessment and Plan (1) Atrial fibrillation with rapid ventricular response: Code(s): I48.91 - Unspecified atrial fibrillation Status: Acute Assessment and Plan: Patient was initially started on a diltiazem drip which was switched to p.o. diltiazem and metoprolol Ventricular rate worsened after patient exerted and set up in a chair I will add p.r.n. IV metoprolol and see if that helps in controlling heart rate and avoid continuous infusion Continue p.o. diltiazem and Toprol Continue anticoagulation (2) Elevated troponin: Code(s): R79.89 - Other specified abnormal findings of blood chemistry Status: Acute Assessment and Plan: Likely secondary to AFib with RVR. Patient denies any chest pain. Patient is already on aspirin statin beta-carleen calcium channel carleen and ALLA-inhibitor Patient is also on anticoagulation Check echocardiogram (3) UTI (urinary tract infection): Code(s): N39.0 - Urinary tract infection, site not specified Status: Acute Assessment and Plan: Continue Rocephin Blood cultures are growing Gram-positive cocci. Add vancomycin (4) Debility: Code(s): R53.81 - Other malaise Status: Acute Assessment and Plan: PT OT Olivia (5) Bacteremia: Code(s): R78.81 - Bacteremia Status: Acute Assessment and Plan: Blood cultures are growing Gram-positive cocci in chain Although these could be contaminant. Will check echocardiogram since patient also has AFib with RVR, elevated troponin bioprosthetic aortic valve Add vancomycin to Rocephin Will repeat set of cultures after 48 hours (6) Electrolyte abnormality: Code(s): E87.8 - Other disorders of electrolyte and fluid balance, not elsewhere classified Status: Acute Assessment and Plan: Replace low potassium (7) Chronic anticoagulation: Code(s): Z79.01 - shelter (current) use of anticoagulants Status: Acute Assessment and Plan: Monitor daily INR Plan DVT prophylaxis -warfarin Nutrition -p.o. diet Code Status -patient is DNR Subjective Date/time seen: 06/16/24 patient states he is feeling better. If he denies any specific complaints. He is sitting in a chair. He had better improvement in his rate control but RVR recurred once he exerted and was got out of bed and sit in a chair. Acceptable urine output. He denies any complaints apart from chronic lower extremity swelling. He does not feel palpitations or chest pain during RVR. Patient denies fever, chest pain, shortness of breath, cough, nausea vomiting, abdominal pain,, diarrhea, headache or constipation. All other systems were reviewed and negative. He is tolerating p.o. diet. He is on room air. Review of Systems Review of Systems: All systems are reviewed and are negative unless stated otherwise in the HPI. Exam Narrative: Patient is comfortable, NAD HEENT: eyes are clear and none icteric LUNGS:CTA HEART: irregularly irregular ABD: BS+, Soft and nontender Lower extremities: Bilateral edema mild. With chronic venous stasis changes SKIN: nonjaundiced Neuro: grossly intact. AO x3, moves all 4 extremities sitting in a chair Objective Data Vital Signs Vital Signs: Vital Signs - 24 hr 06/15/24 10:00 06/15/24 10:00 06/15/24 11:53 Temperature Pulse Rate 76 85 84 Respiratory Rate Blood Pressure 101/44 L Pulse Oximetry Oxygen Delivery 06/15/24 12:00 06/15/24 12:00 06/15/24 12:00 Temperature Pulse Rate 76 113 H Respiratory Rate Blood Pressure 120/61 Pulse Oximetry Oxygen Delivery Room Air 06/15/24 12:00 06/15/24 13:28 06/15/24 14:00 Temperature 36.7 C Pulse Rate 76 58 L 64 Respiratory Rate 20 Blood Pressure 120/61 Pulse Oximetry 98 Oxygen Delivery 06/15/24 16:00 06/15/24 16:00 06/15/24 16:00 Temperature 36.9 C Pulse Rate 69 75 Respiratory Rate 24 H Blood Pressure 131/57 L Pulse Oximetry 99 Oxygen Delivery Room Air 06/15/24 18:00 06/15/24 20:00 06/15/24 20:00 Temperature 36.7 C Pulse Rate 82 89 82 Respiratory Rate 20 Blood Pressure 128/56 L Pulse Oximetry 96 Oxygen Delivery 06/15/24 20:00 06/15/24 21:08 06/15/24 22:00 Temperature Pulse Rate 82 109 H 81 Respiratory Rate 20 Blood Pressure Pulse Oximetry 96 Oxygen Delivery Room Air 06/16/24 00:00 06/16/24 00:00 06/16/24 00:00 Temperature Pulse Rate 80 83 99 Respiratory Rate 20 20 Blood Pressure 126/61 Pulse Oximetry 96 96 Oxygen Delivery Room Air 06/16/24 02:00 06/16/24 03:43 06/16/24 04:00 Temperature Pulse Rate 92 83 101 H Respiratory Rate 21 H Blood Pressure Pulse Oximetry 97 Oxygen Delivery Room Air 06/16/24 04:00 06/16/24 05:04 06/16/24 06:00 Temperature 36.9 C Pulse Rate 120 H 125 H 104 H Respiratory Rate 18 Blood Pressure 135/82 Pulse Oximetry 96 Oxygen Delivery 06/16/24 08:16 Temperature Pulse Rate Respiratory Rate Blood Pressure Pulse Oximetry 96 Oxygen Delivery Room Air Intake/Output Intake/Output: Intake & Output 06/13/24 06/14/24 06/15/24 06/16/24 23:59 23:59 23:59 23:59 Intake Total 2095.5 250 Output Total 750 450 Balance 1345.5 -200 Meds/Results Medications: Active Medications Generic Name Dose Route Start Last Admin Trade Name Freq PRN Reason Stop Dose Admin Atorvastatin Calcium 10 mg 06/15/24 18:00 06/15/24 18:11 Atorvastatin 10 Mg Tablet PO 10 mg QPM REYNA Administration Diltiazem HCl 240 mg 06/16/24 09:00 06/16/24 08:23 Diltiazem Hcl Cd 240 Mg Cap.24hr PO 240 mg DAILY REYNA Administration Fenofibrate 160 mg 06/15/24 18:00 06/15/24 18:11 Fenofibrate 160 Mg Tablet PO 160 mg QPM REYNA Administration Ceftriaxone Sodium 1 gm in 50 mls @ 100 mls/hr 06/16/24 09:00 06/16/24 08:23 Rocephin 1 Gm/Ns 50 Ml IVPB 100 mls/hr Q24H REYNA Administration Vancomycin HCl 1,250 mg in 250 mls @ 166.667 mls/hr 06/16/24 10:00 Vancomycin 1,250 Mg/Ns 250 Ml IVPB 06/16/24 11:29 ONCE ONE Vancomycin HCl 1,250 mg in 250 mls @ 166.667 mls/hr 06/16/24 11:30 Vancomycin 1,250 Mg/Ns 250 Ml IVPB 06/16/24 12:59 ONCE ONE Vancomycin HCl 1,500 mg in 500 mls @ 250 mls/hr 06/17/24 04:00 Vancomycin 1,500 Mg/Ns 500 Ml IVPB Q12H REYNA Lisinopril 5 mg 06/15/24 18:00 06/15/24 18:11 Lisinopril 5 Mg Tablet PO 5 mg QPM [facility] Administration Metoprolol Tartrate 75 mg 06/15/24 13:00 06/16/24 05:04 Metoprolol Tartrate 25 Mg Tablet PO 75 mg Q8HR [facility] Administration Metoprolol Tartrate 5 mg 06/16/24 08:51 Metoprolol Tartrate Inj 5 Mg/5 Ml Vial IV PUSH Q4H PRN HR > 120 sustained Non-Formulary Medication 0 each 06/15/24 10:44 Nonformulary Nutritional Supplement XX 06/16/24 10:43 PRN PRN PROTOCOL Perflutren Lipid Microsphere 0 ml 06/16/24 08:46 Perflutren Lipid Microspheres 1.5 Ml Vial Diluted To 10 Ml Total Volume IV PUSH 06/19/24 08:46 ONCE PRN adequate visualization Protocol Potassium Chloride 10 meq 06/16/24 09:00 06/16/24 08:23 Potassium Chloride 10 Meq Er Tablet PO 10 meq DAILY [facility] Administration Vitamin D 2,000 units 06/16/24 09:00 06/16/24 08:23 Cholecalciferol 1,000 Units Tablet PO 2,000 units DAILY [facility] Administration Warfarin Sodium 4 mg 06/16/24 17:00 Warfarin (*Pbkc) 4 Mg Tablet PO [id number] [facility] Warfarin Sodium 8 mg 06/15/24 17:00 06/15/24 18:11 Warfarin (*Pbkc) 4 Mg Tablet PO 8 mg MoWe@1700 [facility] Administration Radiology Results: ITS Impressions Chest X-Ray 06/15/24 05:28 Impression: Possible minimal bibasilar pulmonary edema. Cardiomegaly, status post valve replacement, unchanged. Labs Labs: Laboratory Results - last 24 hr 06/16/24 06/16/24 04:42 04:42 WBC 13.8 H RBC 3.81 L Hgb 12.3 L Hct 37.5 L MCV 98.4 MCH 32.3 MCHC 32.8 RDW 13.4 Plt Count 178 MPV 9.2 PT 22.2 H INR 1.9 Sodium 141 Potassium Cancelled 3.8 Chloride 106 Carbon Dioxide 26 Anion Gap 9 BUN 26 H Creatinine 0.95 Estim Creat Clear Calc 65 Estimated GFR > 60 Glucose 99 Calcium 9.2 Magnesium 1.9 Quality VTE Prophylaxis VTE prophylaxis: pharmacologic ordered
[2024-06-16] MEDS: POTASSIUM CHLORIDE 20 MEQ PACKET (FOR LIQUID) PO (09:32)
[2024-06-16] MEDS: METOPROLOL TARTRATE INJ 5 MG/5 ML VIAL IV PUSH ×2 (09:33→17:38)
[2024-06-16] MEDS: VANCOMYCIN 1,250 MG/NS 250 ML 1,250 MG/250 ML BAG 166.67 MG IVPB ×2 (09:33→11:13)
[2024-06-16] MEDS: ATORVASTATIN 10 MG TABLET PO (17:39)
[2024-06-16] MEDS: FENOFIBRATE 160 MG TABLET PO (17:52)
[2024-06-16] MEDS: WARFARIN (*PBKC) 4 MG TABLET PO (17:52)
[2024-06-17] VITALS (19 sets, daily range): BP systolic 120–148; BP diastolic 66–76; PULSE 75–131; RESP 18–25; TEMP 36.6–37.4; O2SAT 94–98
[2024-06-17 04:42] LABS: Hematocrit 34.4 % (42.0-52.0); Hemoglobin 11.9 g/dL (14.0-18.0); Mean Corpuscular HGB Conc 34.6 g/dl (32-36); Mean Corpuscular Hemoglobin 33.2 pg (26-34); Mean Corpuscular Volume 96.1 fl (80-100); Mean Platelet Volume 9.4 fl (7.4-10.4); Platelet Count Result 164 k/mm3 (150-375); Red Blood Count 3.58 M/mm3 (4.6-6.20); Red Cell Distribution Width 13.2 % (11.5-14.5); White Blood Count 11.9 K/mm3 (4.5-10.0)
[2024-06-17 04:59] LABS: Anion Gap 10 mmol/L (4-12); Blood Urea Nitrogen 20 mg/dL (9-20); Calcium 8.9 mg/dL (8.4-10.2); Carbon Dioxide 23 mmol/L (22-30); Chloride 107 mmol/L (98-107); Estimated CRCL calculation 75 ml/min; Estimated Glomerular Filt Rate > 60; Glucose 106 mg/dL (65-110); Sodium 140 mmol/L (137-145)
[2024-06-17] MEDS: VANCOMYCIN 1,500 MG/NS 500 ML 1,500 MG/500 ML BAG 250 MG IVPB (07:15)
[2024-06-17] MEDS: METOPROLOL TARTRATE 25 MG TABLET 75 MG PO ×3 (07:16→21:15)
[2024-06-17] MEDS: CHOLECALCIFEROL 1,000 UNITS TABLET 2000 UNITS PO (09:21)
[2024-06-17] MEDS: POTASSIUM CHLORIDE 10 MEQ ER TABLET PO (09:21)
[2024-06-17] MEDS: cefTRIAXone 2 GM/NS 100 ML 2 GM/100 ML BAG IVPB (09:21)
[2024-06-17] MEDS: dilTIAZem HCL CD 240 MG CAP.24HR PO (09:21)
--- NOTE | 2024-06-17 11:00 | PM.IMPN ---
Progress Note: A&P Assessment and Plan (1) Atrial fibrillation with rapid ventricular response: Code(s): I48.91 - Unspecified atrial fibrillation Status: Acute (2) UTI (urinary tract infection): Code(s): N39.0 - Urinary tract infection, site not specified Status: Acute (3) Diabetes mellitus: Qualifiers: Diabetes mellitus complication status: without complication Diabetes mellitus half-way insulin use: without half-way use Diabetes mellitus type: type 2 Qualified Code(s): E11.9 - Type 2 diabetes mellitus without complications Code(s): E11.9 - Type 2 diabetes mellitus without complications Status: Chronic (4) Bacteremia: Code(s): R78.81 - Bacteremia Status: Acute (5) SIRS (systemic inflammatory response syndrome): Code(s): R65.10 - Systemic inflammatory response syndrome (SIRS) of non-infectious origin without acute organ dysfunction Status: Acute (6) Sepsis: Code(s): A41.9 - Sepsis, unspecified organism Status: Acute Plan Atrial fibrillation with rapid ventricular response: Code(s): I48.91 - Unspecified atrial fibrillation Status: Acute Assessment and Plan: Patient was initially started on a diltiazem drip which was switched to p.o. diltiazem and metoprolol Ventricular rate worsened after patient exerted and set up in a chair on p.r.n. IV metoprolol Continue p.o. diltiazem and Toprol Continue anticoagulation Consult cylinder grinder for evaluation treatment (2) Elevated troponin: Code(s): R79.89 - Other specified abnormal findings of blood chemistry Status: Acute Assessment and Plan: Possible demand ischemia secondary to AFib with RVR. Patient denies any chest pain. Patient is already on aspirin statin beta-carleen calcium channel carleen and ALLA-inhibitor Patient is also on anticoagulation echocardiogram 1. Complete two-dimensional, color flow and Doppler transthoracic echocardiogram is performed. 2. Normal left ventricular size and systolic function. 3. Biatrial dilation left greater than right. 4. Atrial fibrillation. 5. Mild mitral annular calcification. 6. Aortic valve appears to be a bioprosthetic device that is functioning normally. No information provided regarding size or type of device. 7. No evidence of infectious vegetation seen. Further workup per cylinder grinder UTI (urinary tract infection): Code(s): N39.0 - Urinary tract infection, site not specified Status: Acute Assessment and Plan: Continue Rocephin Urine culture has no growth of bacteria Bacteremia: Code(s): R78.81 - Bacteremia Status: Acute Assessment and Plan: Blood cultures are growing group B Streptococcus on blood culture June 15, 2024 Although these could be contaminant. Echocardiogram showed 1. Complete two-dimensional, color flow and Doppler transthoracic echocardiogram is performed. 2. Normal left ventricular size and systolic function. 3. Biatrial dilation left greater than right. 4. Atrial fibrillation. 5. Mild mitral annular calcification. 6. Aortic valve appears to be a bioprosthetic device that is functioning normally. No information provided regarding size or type of device. 7. No evidence of infectious vegetation seen. Continue vancomycin to Rocephin repeat set of cultures today (6) Electrolyte abnormality: Code(s): E87.8 - Other disorders of electrolyte and fluid balance, not elsewhere classified Status: Acute Assessment and Plan: Replace low potassium (7) Chronic anticoagulation: Code(s): Z79.01 - prison (current) use of anticoagulants Status: Acute Assessment and Plan: Monitor daily INR (4) Debility: Code(s): R53.81 - Other malaise Status: Acute Assessment and Plan: PT MEGHANA Olivia Plan DVT prophylaxis -warfarin Nutrition -p.o. diet Code Status -patient is DNR Subjective Date/time seen: 06/17/24 11:00 Interval history: Blood culture grows Streptococcus. Patient still has AFib RVR, rate is better controlled, labs reviewed, leukocytosis improving, potassium 3.0. Patient denies abdomen pain nausea vomiting diarrhea. Exam Narrative: GENERAL: Pleasant, in no acute distress. Well-nourished. - EYES: EOMI. Anicteric. - HENT: Moist mucous membranes. - LUNGS: Clear to auscultation bilaterally, no wheezing, rhonchi, or rales. - CARDIOVASCULAR: Irregularly irregular rhythm, tachycardia No murmur. No JVD. - ABDOMEN: Soft, non-tender and non-distended. No palpable masses. - EXTREMITIES: No edema. Peripheral pulses 2+. Non-tender. - NEUROLOGIC: No focal neurological deficits. CN II-XII grossly intact. - PSYCHIATRIC: Awake, Alert and oriented x 3. Appropriate mood and affect. - SKIN: No rashes or lesions. Warm. - LYMPH: No cervical lymphadenopathy. Objective Data Vital Signs Vital Signs: Vital Signs - 24 hr 06/16/24 12:00 06/16/24 12:00 06/16/24 12:00 Temperature 98 F Pulse Rate 130 H 130 H 130 H Respiratory Rate 30 H 30 H Blood Pressure 154/111 H Pulse Oximetry 97 97 Oxygen Delivery Room Air 06/16/24 14:00 06/16/24 14:18 06/16/24 16:00 Temperature Pulse Rate 98 120 H 119 H Respiratory Rate 30 H Blood Pressure Pulse Oximetry 95 Oxygen Delivery Room Air 06/16/24 16:00 06/16/24 16:00 06/16/24 17:38 Temperature 98.2 F Pulse Rate 119 H 119 H 141 H Respiratory Rate 30 H Blood Pressure 146/80 H Pulse Oximetry 95 Oxygen Delivery 06/16/24 17:46 06/16/24 18:30 06/16/24 19:13 Temperature 98.2 F Pulse Rate 141 H 117 H 116 H Respiratory Rate 24 H 19 Blood Pressure 123/58 L 130/54 L Pulse Oximetry 98 Oxygen Delivery 06/16/24 19:50 06/16/24 20:00 06/16/24 20:00 Temperature Pulse Rate 104 H 104 H 104 H Respiratory Rate 19 Blood Pressure Pulse Oximetry 98 Oxygen Delivery Room Air 06/16/24 23:30 06/16/24 23:31 06/16/24 23:32 Temperature 98.3 F Pulse Rate 114 H 110 H 110 H Respiratory Rate 19 19 Blood Pressure 136/67 Pulse Oximetry 96 96 Oxygen Delivery Room Air 06/17/24 04:00 06/17/24 04:00 06/17/24 04:00 Temperature 98.4 F Pulse Rate 102 H 96 96 Respiratory Rate 19 19 Blood Pressure 134/69 Pulse Oximetry 96 Oxygen Delivery Room Air 06/17/24 06:00 06/17/24 07:16 06/17/24 08:00 Temperature Pulse Rate 105 H 105 H 85 Respiratory Rate Blood Pressure Pulse Oximetry Oxygen Delivery 06/17/24 08:20 06/17/24 10:00 Temperature 98.5 F Pulse Rate 96 85 Respiratory Rate 20 Blood Pressure 135/76 Pulse Oximetry 98 Oxygen Delivery Intake/Output Intake/Output: Intake & Output 06/14/24 06/15/24 06/16/24 06/17/24 23:59 23:59 23:59 23:59 Intake Total 2095.5 750 340 Output Total 750 450 Balance 1345.5 300 340 Meds/Results Medications: Active Medications Generic Name Dose Route Start Last Admin Trade Name Freq PRN Reason Stop Dose Admin Atorvastatin Calcium 10 mg 06/15/24 18:00 06/16/24 17:39 Atorvastatin 10 Mg Tablet PO 10 mg QPM REYNA Administration Diltiazem HCl 240 mg 06/16/24 09:00 06/17/24 09:21 Diltiazem Hcl Cd 240 Mg Cap.24hr PO 240 mg DAILY REYNA Administration Fenofibrate 160 mg 06/15/24 18:00 06/16/24 17:52 Fenofibrate 160 Mg Tablet PO 160 mg QPM REYNA Administration Ceftriaxone Sodium 2 gm in 100 mls @ 200 mls/hr 06/17/24 09:00 06/17/24 10:09 Rocephin 2 Gm/Ns 100 Ml IVPB Infused Q24H REYNA Infusion Vancomycin HCl 1,500 mg in 500 mls @ 250 mls/hr 06/18/24 01:00 Vancomycin 1,500 Mg/Ns 500 Ml IVPB Q18H REYNA Lisinopril 5 mg 06/15/24 18:00 06/15/24 18:11 Lisinopril 5 Mg Tablet PO 5 mg QPM REYNA Administration Metoprolol Tartrate 75 mg 06/15/24 13:00 06/17/24 07:16 Metoprolol Tartrate 25 Mg Tablet PO 75 mg Q8HR REYNA Administration Metoprolol Tartrate 5 mg 06/16/24 08:51 06/16/24 17:38 Metoprolol Tartrate Inj 5 Mg/5 Ml Vial IV PUSH 5 mg Q4H PRN Administration HR > 120 sustained Perflutren Lipid Microsphere 0 ml 06/16/24 08:46 Perflutren Lipid Microspheres 1.5 Ml Vial Diluted To 10 Ml Total Volume IV PUSH 06/19/24 08:46 ONCE PRN adequate visualization Protocol Potassium Chloride 10 meq 06/16/24 09:00 06/17/24 09:21 Potassium Chloride 10 Meq Er Tablet PO 10 meq DAILY REYNA Administration Vitamin D 2,000 units 06/16/24 09:00 06/17/24 09:21 Cholecalciferol 1,000 Units Tablet PO 2,000 units DAILY REYNA Administration Warfarin Sodium 4 mg 06/16/24 17:00 06/16/24 17:52 Warfarin (*Pbkc) 4 Mg Tablet PO 4 mg [id number]@1700 [facility] Administration Warfarin Sodium 8 mg 06/15/24 17:00 06/15/24 18:11 Warfarin (*Pbkc) 4 Mg Tablet PO 8 mg MoWe@1700 [facility] Administration Radiology Results: ITS Impressions Chest X-Ray 06/15/24 05:28 Impression: Possible minimal bibasilar pulmonary edema. Cardiomegaly, status post valve replacement, unchanged. Labs Labs: Laboratory Results - last 24 hr 06/17/24 04:01 WBC 11.9 H RBC 3.58 L Hgb 11.9 L Hct 34.4 L MCV 96.1 MCH 33.2 MCHC 34.6 RDW 13.2 Plt Count 164 MPV 9.4 PT 23.0 H INR 2.0 Sodium 140 Potassium 3.0 L Chloride 107 Carbon Dioxide 23 Anion Gap 10 BUN 20 Creatinine 0.81 Estim Creat Clear Calc 75 Estimated GFR > 60 Glucose 106 Calcium 8.9 Magnesium 2.0
--- NOTE | 2024-06-17 14:12 | P.CONCA_ITS ---
Assessment and Plan Assessment and plan (1) History of aortic valve replacement with bioprosthetic valve: Code(s): Z95.3 - Presence of xenogenic heart valve Status: Acute (2) CAD (coronary artery disease): Qualifiers: Coronary Disease-Associated Artery/Lesion type: [place] artery [place] vs. transplanted heart: [place] heart Associated angina: without angina Q ualified Code(s): I25.10 - Atherosclerotic heart disease of [place] coronary artery without angina pectoris Code(s): I25.10 - Atherosclerotic heart disease of [place] coronary artery without angina pectoris Status: Chronic (3) Elevated troponin: Code(s): R79.89 - Other specified abnormal findings of blood chemistry Status: Acute (4) Atrial fibrillation with rapid ventricular response: Code(s): I48.91 - Unspecified atrial fibrillation Status: Acute (5) Hyperlipidemia: Code(s): E78.5 - Hyperlipidemia, unspecified Status: Acute (6) HTN (hypertension): Qualifiers: Hypertension type: essential hypertension Qualified Code(s): I10 - Essential (primary) hypertension Code(s): I10 - Essential (primary) hypertension Status: Chronic (7) UTI (urinary tract infection): Code(s): N39.0 - Urinary tract infection, site not specified Status: Acute (8) Hypokalemia: Code(s): E87.6 - Hypokalemia Status: Acute (9) Sepsis: Code(s): A41.9 - Sepsis, unspecified organism Status: Acute (10) Bacteremia: Code(s): R78.81 - Bacteremia Status: Acute Plan -Longstanding persistent atrial fibrillation on anticoagulation with warfarin- now with RVR -Elevated troponin without chest pain-most likely secondary to stress of AFib RVR and ongoing infection -Sepsis, UTI, 2/2 bottles blood cultures on 06/15 growing group B Streptococcus- on ceftriaxone -Hypokalemia -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 Continue oral AV sandoval blocking agents including metoprolol and diltiazem at current dose -Trend troponin to peak -Continue Coumadin for anticoagulation -Continue lisinopril -Continue statin -Follow results of blood culture from 06/16. If positive for group B Streptococcus, then will plan for ROBYN to further evaluate the prosthetic aortic valve and other valves for any vegetation -Management of other medical problems per primary team History of Present Illness History of Present Illness Consult date/time: 06/17/24 14:12 Reason For Visit: Sepsis, A Fib RVR Narrative: 88-year-old male with history of bio AVR and aortic root repair in April 2012-operative report not available, history of percutaneous closure of paravalvular leak, longstanding persistent atrial fibrillation on anticoagulation with warfarin, CAD, pulmonary hypertension, obstructive sleep apnea on BiPAP, aortic insufficiency diabetes mellitus, hypertension was admitted for generalized weakness and AFib with RVR. He was diagnosed with a UTI and is on antibiotic therapy for the same. Blood cultures grew strep group B Streptococcus. TTE was negative for any vegetation. For AFib, he was started on a low dose diltiazem drip which was later discontinued and p.o. metoprolol, p.o. diltiazem were resumed. He continues to have RVR and Cardiology was consulted for further management. No chest pain, shortness of breath, dizziness, lightheadedness, presyncope, syncope, leg swelling, palpitations, or recent weight gain, nausea, emesis, abdominal pain, or headache. Workup: Troponin: 0.065, 0.067 Potassium: 3 Blood cultures: Group B Streptococcus in 2/2 bottles on 06/15, cultures from 06/16 pending EKG: AFib with RVR, rate 143, left bundle branch block, age-indeterminate inferior infarct, age indeterminate anteroseptal infarct Chest x-ray: Bibasilar pulmonary edema, cardiomegaly, status post valve replacement TTE 06/16: Normal LV size and systolic function, bioprosthetic aortic valve functioning normally, no vegetation Review of Systems 2 Review of Systems: A complete review of systems was performed and negative other than those mentioned in [facility] Past Medical History Medical History Atherosclerosis of [place] coronary artery Vitamin D deficiency Pulmonary HTN MARK treated with BiPAP Nonrheumatic aortic valve insufficiency Mass on back Cyst of skin SOB (shortness of breath) Cough Loss of appetite Fever History of bleeding disorder (~2020) Internal Bleed after a fall; Bruises/Bleeds easily Sleep apnea Hematoma Injury of left rotator cuff Laceration Contusion of abdominal wall, subsequent encounter Ribs, multiple fractures Rib fracture Diabetes mellitus HTN (hypertension) CAD (coronary artery disease) Afib Surgical History Surgical History H/O aortic valve repair Hx of aortic valve replacement (~2010) Family History Family History Mother Cerebrovascular accident, Onset Age: 51 Sibling Cerebrovascular accident Father Acute myocardial infarction Social History Social History Smoking status: Former smoker Alcohol intake: never Substance use: never Substance use type: does not use Do You Feel Safe in your Home?: Yes Lack of Transportation: No Lack of Food: Never True Current Housing: I Have Housing Concerned About Future Housing: No Difficulty Paying Gas/Electric Bills: No Difficulty Paying for Meds: No Currently Unemployed: No Education: Decline to Answer Difficulty w/ Childcare or Family Care: No Gender identity (if verbalized by the patient): Male Spiritual care concerns: No Meds Home Medications and Allergies Home Medications ?Medication ?Instructions ?Recorded ?Confirmed ?Type atorvastatin 10 mg tablet 10 mg PO QPM 07/27/19 06/15/24 History fenofibrate 160 mg tablet 160 mg PO QPM 07/27/19 06/15/24 History furosemide 40 mg tablet 40 mg PO DAILY 07/27/19 06/15/24 History lisinopril 5 mg tablet 5 mg PO QPM 07/27/19 06/15/24 History potassium chloride 10 mEq 10 meq PO DAILY 07/27/19 06/15/24 History tablet,extended release warfarin 4 mg tablet 4 mg PO WEEKLY 07/27/19 06/15/24 History Joint Support Complex 1 tablet PO BID 12/15/19 06/15/24 History cholecalciferol (vitamin D3) 50 2,000 unit PO DAILY 12/15/19 06/15/24 History mcg (2,000 unit) tablet metoprolol tartrate 75 mg tablet 75 mg PO TID 12/15/19 06/15/24 History warfarin 4 mg tablet 8 mg PO WEEKLY 02/20/24 06/15/24 History diltiazem HCl 360 mg 360 mg PO DAILY #30 caps 02/24/24 06/15/24 Rx capsule,extended release 24 hr diltiazem HCl 240 mg 240 mg PO DAILY 06/15/24 06/15/24 History capsule,extended release 24 hr, controlled Allergies Allergy/AdvReac Type Severity Reaction Status Date / Time No Known Allergies Allergy Verified 06/15/24 07:39 Vital Signs Vital Signs - 24 hr 06/16/24 14:18 06/16/24 16:00 06/16/24 16:00 Temperature Pulse Rate 120 H 119 H 119 H Respiratory Rate 30 H Blood Pressure Pulse Oximetry 95 Oxygen Delivery Room Air 06/16/24 16:00 06/16/24 17:38 06/16/24 17:46 Temperature 36.8 C Pulse Rate 119 H 141 H 141 H Respiratory Rate 30 H 24 H Blood Pressure 146/80 H 123/58 L Pulse Oximetry 95 Oxygen Delivery 06/16/24 18:30 06/16/24 19:13 06/16/24 19:50 Temperature 36.8 C Pulse Rate 117 H 116 H 104 H Respiratory Rate 19 Blood Pressure 130/54 L Pulse Oximetry 98 Oxygen Delivery 06/16/24 20:00 06/16/24 20:00 06/16/24 23:30 Temperature 36.8 C Pulse Rate 104 H 104 H 114 H Respiratory Rate 19 19 Blood Pressure 136/67 Pulse Oximetry 98 96 Oxygen Delivery Room Air 06/16/24 23:31 06/16/24 23:32 06/17/24 04:00 Temperature 36.9 C Pulse Rate 110 H 110 H 102 H Respiratory Rate 19 19 Blood Pressure 134/69 Pulse Oximetry 96 Oxygen Delivery Room Air 06/17/24 04:00 06/17/24 04:00 06/17/24 06:00 Temperature Pulse Rate 96 96 105 H Respiratory Rate 19 Blood Pressure Pulse Oximetry 96 Oxygen Delivery Room Air 06/17/24 07:16 06/17/24 08:00 06/17/24 08:20 Temperature 36.9 C Pulse Rate 105 H 85 96 Respiratory Rate 20 Blood Pressure 135/76 Pulse Oximetry 98 Oxygen Delivery 06/17/24 10:00 06/17/24 11:54 06/17/24 13:24 Temperature 36.7 C Pulse Rate 85 106 H 90 Respiratory Rate 18 Blood Pressure 148/70 H Pulse Oximetry 98 Oxygen Delivery Exam 2 Narrative: General: Alert oriented x3, no acute distress Neck: Supple, JVD + Chest: Bilaterally clear to auscultation, no rales or rhonchi Cardiac: S1, S2 +, irregularly irregular rhythm, no murmurs or rubs Extremities: Bilateral lower extremity edema 1+, no skin rash Neurologic: Alert and oriented x3, no focal neurological deficits Results Labs and Meds 06/17/24 04:01 06/17/24 04:01 Lab results: Coagulation 06/17/24 Range/Units 04:01 PT 23.0 H (11.1-14.7) Seconds CBC 06/17/24 Range/Units 04:01 WBC 11.9 H (4.5-10.0) K/mm3 RBC 3.58 L (4.6-6.20) M/mm3 Hgb 11.9 L (14.0-18.0) g/dL Hct 34.4 L (42.0-52.0) % Plt Count 164 (150-375) k/mm3 Comprehensive Metabolic Panel 06/17/24 Range/Units 04:01 Sodium 140 (137-145) mmol/L Potassium 3.0 L (3.4-5.0) mmol/L Chloride 107 (98-107) mmol/L Carbon Dioxide 23 (22-30) mmol/L BUN 20 (9-20) mg/dL Creatinine 0.81 (0.7-1.3) mg/dL Glucose 106 (65-110) mg/dL Calcium 8.9 (8.4-10.2) mg/dL Intake and Output 06/16/24 06/17/24 06/17/24 23:59 07:59 15:59 Intake Total 20 580 Output Total 2 Balance 20 578 Intake: IV 100 cefTRIAXone 2 GM/NS 100 ML 2 gm 100 In 100 ml @ 200 mls/hr IVPB Q24H REYNA Rx#:[id number] Oral 20 480 Output: Output, Urine/Stool Mix Amount 2 Other: # Unmeasured Voids 2 2 Number of Bowel Movements Today 1 1 Patient Weight 06/17/24 23:59 Weight 112 kg
[2024-06-17] MEDS: WARFARIN (*PBKC) 4 MG TABLET 8 MG PO (17:07)
[2024-06-17] MEDS: ATORVASTATIN 10 MG TABLET PO (17:07)
[2024-06-17] MEDS: FENOFIBRATE 160 MG TABLET PO (17:11)
[2024-06-17] MEDS: POTASSIUM CHLORIDE 20 MEQ ER TABLET PO (22:02)
[2024-06-17] MEDS: POTASSIUM CHLORIDE 20 MEQ ER TABLET 40 MEQ PO (22:03)
[2024-06-18] VITALS (28 sets, daily range): BP systolic 110–148; BP diastolic 54–92; PULSE 86–160; RESP 18–22; TEMP 36.9–37.3; O2SAT 95–97
[2024-06-18 05:30] LABS: Hematocrit 32.8 % (42.0-52.0); Hemoglobin 10.9 g/dL (14.0-18.0); Mean Corpuscular HGB Conc 33.2 g/dl (32-36); Mean Corpuscular Hemoglobin 32.2 pg (26-34); Mean Corpuscular Volume 96.8 fl (80-100); Mean Platelet Volume 9.4 fl (7.4-10.4); Platelet Count Result 165 k/mm3 (150-375); Red Blood Count 3.39 M/mm3 (4.6-6.20); Red Cell Distribution Width 13.4 % (11.5-14.5); White Blood Count 8.4 K/mm3 (4.5-10.0)
[2024-06-18 05:36] LABS: Potassium 3.5 mmol/L (3.4-5.0)
[2024-06-18 05:37] LABS: INR 2.3; Prothrombin Time 25.6 Seconds (11.1-14.7)
[2024-06-18 05:38] LABS: Anion Gap 6 mmol/L (4-12); Blood Urea Nitrogen 18 mg/dL (9-20); Calcium 8.7 mg/dL (8.4-10.2); Carbon Dioxide 24 mmol/L (22-30); Chloride 109 mmol/L (98-107); Estimated CRCL calculation 77 ml/min; Estimated Glomerular Filt Rate > 60; Glucose 94 mg/dL (65-110); Potassium 3.5 mmol/L (3.4-5.0); Sodium 139 mmol/L (137-145)
[2024-06-18] MEDS: METOPROLOL TARTRATE 25 MG TABLET 75 MG PO ×3 (06:48→21:14)
[2024-06-18] MEDS: METOPROLOL TARTRATE INJ 5 MG/5 ML VIAL IV PUSH ×2 (07:10→21:39)
[2024-06-18] MEDS: cefTRIAXone 2 GM/NS 100 ML 2 GM/100 ML BAG IVPB (08:38)
[2024-06-18] MEDS: CHOLECALCIFEROL 1,000 UNITS TABLET 2000 UNITS PO (08:38)
[2024-06-18] MEDS: POTASSIUM CHLORIDE 10 MEQ ER TABLET PO (08:38)
[2024-06-18] MEDS: dilTIAZem HCL CD 240 MG CAP.24HR PO (08:38)
--- NOTE | 2024-06-18 10:17 | P.PNIM_ITS ---
Progress Note: A&P Assessment and Plan (1) Atrial fibrillation with rapid ventricular response: Code(s): I48.91 - Unspecified atrial fibrillation Status: Acute (2) UTI (urinary tract infection): Code(s): N39.0 - Urinary tract infection, site not specified Status: Acute (3) Diabetes mellitus: Qualifiers: Diabetes mellitus complication status: without complication Diabetes mellitus chcf insulin use: without chcf use Diabetes mellitus type: type 2 Qualified Code(s): E11.9 - Type 2 diabetes mellitus without complications Code(s): E11.9 - Type 2 diabetes mellitus without complications Status: Chronic (4) Bacteremia: Code(s): R78.81 - Bacteremia Status: Acute (5) SIRS (systemic inflammatory response syndrome): Code(s): R65.10 - Systemic inflammatory response syndrome (SIRS) of non-infectious origin without acute organ dysfunction Status: Acute (6) Sepsis: Code(s): A41.9 - Sepsis, unspecified organism Status: Acute Plan Atrial fibrillation with rapid ventricular response: Code(s): I48.91 - Unspecified atrial fibrillation Status: Acute Assessment and Plan: Patient was initially started on a diltiazem drip which was switched to p.o. diltiazem and metoprolol Ventricular rate worsened after patient exerted and set up in a chair on p.r.n. IV metoprolol Continue p.o. diltiazem and Toprol Continue anticoagulation Consult supervisor [employer] for evaluation treatment (2) Elevated troponin: Code(s): R79.89 - Other specified abnormal findings of blood chemistry Status: Acute Assessment and Plan: Possible demand ischemia secondary to AFib with RVR. Patient denies any chest pain. Patient is already on aspirin statin beta-carleen calcium channel carleen and ALLA-inhibitor Patient is also on anticoagulation echocardiogram 1. Complete two-dimensional, color flow and Doppler transthoracic echocardiogram is performed. 2. Normal left ventricular size and systolic function. 3. Biatrial dilation left greater than right. 4. Atrial fibrillation. 5. Mild mitral annular calcification. 6. Aortic valve appears to be a bioprosthetic device that is functioning normally. No information provided regarding size or type of device. 7. No evidence of infectious vegetation seen. Further workup per supervisor [employer] UTI (urinary tract infection): Code(s): N39.0 - Urinary tract infection, site not specified Status: Acute Assessment and Plan: Continue Rocephin Urine culture has no growth of bacteria Bacteremia: Code(s): R78.81 - Bacteremia Status: Acute Assessment and Plan: Blood cultures are growing group B Streptococcus on blood culture June 15, 2024 Although these could be contaminant. Echocardiogram showed 1. Complete two-dimensional, color flow and Doppler transthoracic echocardiogram is performed. 2. Normal left ventricular size and systolic function. 3. Biatrial dilation left greater than right. 4. Atrial fibrillation. 5. Mild mitral annular calcification. 6. Aortic valve appears to be a bioprosthetic device that is functioning normally. No information provided regarding size or type of device. 7. No evidence of infectious vegetation seen. Continue Rocephin, discontinue vancomycin repeat set of cultures on June 17 no growth of bacteria (6) Electrolyte abnormality: Code(s): E87.8 - Other disorders of electrolyte and fluid balance, not elsewhere classified Status: Acute Assessment and Plan: Replace low potassium (7) Chronic anticoagulation: Code(s): Z79.01 - FPC (current) use of anticoagulants Status: Acute Assessment and Plan: Monitor daily INR (4) Debility: Code(s): R53.81 - Other malaise Status: Acute Assessment and Plan: PT MEGHANA Olivia Plan DVT prophylaxis -warfarin Nutrition -p.o. diet Code Status -patient is DNR Subjective Date/time seen: 06/18/24 10:17 Interval history: Blood culture grows Streptococcus. Patient still has AFib RVR, rate is better controlled, labs reviewed, leukocytosis improving, potassium 3.0. Patient denies abdomen pain nausea vomiting diarrhea. BCX 06/17: no growth now Exam Narrative: GENERAL: Pleasant, in no acute distress. Well-nourished. - EYES: EOMI. Anicteric. - HENT: Moist mucous membranes. - LUNGS: Clear to auscultation bilateral ly, no wheezing, rhonchi, or rales. - CARDIOVASCULAR: Irregularly irregular rhythm, tachycardia No murmur. No JVD. - ABDOMEN: Soft, non-tender and non-dist ended. No palpable masses. - EXTREMITIES: No edema. Peripheral puls es 2+. Non-tender. - NEUROLOGIC: No focal neurological defi cits. CN II-XII grossly intact. - PSYCHIATRIC: Awake, Alert and oriented x 3. Appropriate mood and affect. - SKIN: No rashes or lesions. Warm. - LYMPH: No cervical lymphadenopathy. Objective Data Vital Signs Vital Signs: Vital Signs - 24 hr 06/17/24 11:54 06/17/24 12:00 06/17/24 12:00 Temperature 98.0 F Pulse Rate 106 H 125 H 125 H Respiratory Rate 18 18 Blood Pressure 148/70 H Pulse Oximetry 98 98 Oxygen Delivery Room Air 06/17/24 13:24 06/17/24 14:00 06/17/24 16:21 Temperature 99.4 F Pulse Rate 90 75 80 Respiratory Rate 20 Blood Pressure 136/66 Pulse Oximetry 98 Oxygen Delivery 06/17/24 16:35 06/17/24 16:35 06/17/24 18:00 Temperature Pulse Rate 91 91 79 Respiratory Rate Blood Pressure Pulse Oximetry Oxygen Delivery Room Air 06/17/24 19:53 06/17/24 20:00 06/17/24 21:15 Temperature 98.3 F Pulse Rate 106 H 131 H 98 Respiratory Rate 20 Blood Pressure 142/67 H Pulse Oximetry 97 Oxygen Delivery 06/17/24 22:00 06/17/24 22:26 06/17/24 23:48 Temperature 97.8 F Pulse Rate 105 H 120 H 115 H Respiratory Rate 25 H 22 H Blood Pressure 120/75 Pulse Oximetry 94 [facility] 06/18/24 00:00 06/18/24 01:40 Temperature Pulse Rate 120 H 110 H Respiratory Rate 22 H Blood Pressure Pulse Oximetry 95 Oxygen Delivery Room Air BiPAP 06/18/24 02:00 06/18/24 04:00 06/18/24 04:00 Temperature Pulse Rate 113 H 117 H Respiratory Rate Blood Pressure Pulse Oximetry Oxygen Delivery Room Air 06/18/24 04:45 06/18/24 06:00 06/18/24 06:45 Temperature 98.8 F Pulse Rate 114 H 108 H Respiratory Rate 22 H Blood Pressure 115/64 110/73 Pulse Oximetry 96 Oxygen Delivery 06/18/24 06:48 06/18/24 07:10 06/18/24 07:23 Temperature Pulse Rate 117 H 160 H 104 H Respiratory Rate Blood Pressure Pulse Oximetry Oxygen Delivery 06/18/24 08:03 Temperature 98.4 F Pulse Rate 118 H Respiratory Rate 20 Blood Pressure 141/82 H Pulse Oximetry 96 Oxygen Delivery Intake/Output Intake/Output: Intake & Output 06/15/24 06/16/24 06/17/24 06/18/24 23:59 23:59 23:59 23:59 Intake Total 2095.5 750 1320 670 Output Total 750 450 302 200 Balance 1345.5 300 1018 470 Meds/Results Medications: Active Medications Generic Name Dose Route Start Last Admin Trade Name Freq PRN Reason Stop Dose Admin Atorvastatin Calcium 10 mg 06/15/24 18:00 06/17/24 17:07 Atorvastatin 10 Mg Tablet PO 10 mg QPM REYNA Administration Diltiazem HCl 240 mg 06/16/24 09:00 06/18/24 08:38 Diltiazem Hcl Cd 240 Mg Cap.24hr PO 240 mg DAILY REYNA Administration Fenofibrate 160 mg 06/15/24 18:00 06/17/24 17:11 Fenofibrate 160 Mg Tablet PO 160 mg QPM REYNA Administration Ceftriaxone Sodium 2 gm in 100 mls @ 200 mls/hr 06/17/24 09:00 06/18/24 08:38 Rocephin 2 Gm/Ns 100 Ml IVPB 200 mls/hr Q24H REYNA Administration Lisinopril 5 mg 06/15/24 18:00 06/15/24 18:11 Lisinopril 5 Mg Tablet PO 5 mg QPM REYNA Administration Metoprolol Tartrate 75 mg 06/15/24 13:00 06/18/24 06:48 Metoprolol Tartrate 25 Mg Tablet PO 75 mg Q8HR REYNA Administration Metoprolol Tartrate 5 mg 06/16/24 08:51 06/18/24 07:10 Metoprolol Tartrate Inj 5 Mg/5 Ml Vial IV PUSH 5 mg Q4H PRN Administration HR > 120 sustained Perflutren Lipid Microsphere 0 ml 06/16/24 08:46 Perflutren Lipid Microspheres 1.5 Ml Vial Diluted To 10 Ml Total Volume IV PUSH 06/19/24 08:46 ONCE PRN adequate visualization Protocol Potassium Chloride 10 meq 06/16/24 09:00 06/18/24 08:38 Potassium Chloride 10 Meq Er Tablet PO 10 meq DAILY REYNA Administration Vitamin D 2,000 units 06/16/24 09:00 06/18/24 08:38 Cholecalciferol 1,000 Units Tablet PO 2,000 units DAILY REYNA Administration Warfarin Sodium 4 mg 06/16/24 17:00 06/16/24 17:52 Warfarin (*Pbkc) 4 Mg Tablet PO 4 mg [id number] [facility] Administration Warfarin Sodium 8 mg 06/15/24 17:00 06/17/24 17:07 Warfarin (*Pbkc) 4 Mg Tablet PO 8 mg [id number] [facility] Administration Radiology Results: ITS Impressions Chest X-Ray 06/15/24 05:28 Impression: Possible minimal bibasilar pulmonary edema. Cardiomegaly, status post valve replacement, unchanged. Labs Labs: Laboratory Results - last 24 hr 06/18/24 06/18/24 04:34 04:34 WBC 8.4 RBC 3.39 L Hgb 10.9 L Hct 32.8 L MCV 96.8 MCH 32.2 MCHC 33.2 RDW 13.4 Plt Count 165 MPV 9.4 PT 25.6 H INR 2.3 Sodium 139 Potassium 3.5 3.5 Chloride 109 H Carbon Dioxide 24 Anion Gap 6 BUN 18 Creatinine 0.79 Estim Creat Clear Calc 77 Estimated GFR > 60 Glucose 94 Calcium 8.7 Magnesium 2.0
--- OUTSIDE RECORDS SUMMARY | 2024-06-18 11:08 | XMS_ITS | Referral Summary ---
Author Organization [address] [place] [address] [address] [place] [address] Care Team Providers Care Flotation Tank Operator Name Role Phone Marcial Frazier MD Primary Care Provide r Encounters Date Type Department Care Team Description 06/05/2024 Anticoagulation Visit [facility] Cardiology [address] [place] [address] [address] [place] [address] Sherice Rondon, RN 05/06/2024 Anticoagulation Visit [address] [place] [address] Sherice Rondon, KRYSTAL 04/09/[address] [address] Aren Santos MD 04/08/2024 Anticoagulation Visit [address] [address] Sherice Rondon, RN from Last 3 Months Allergies No known active allergies Medications cholecalciferol (VITAMIN D-3) 2,000 unit tablet Take 1 tablet (2,000 Units total) by mouth daily Active glucosam/chond/c ollagen/hyalur (JOINT SUPPORT ORAL) Take 1 tablet by mouth 2 (two) times a day. Active omega-3 fatty acids-fish oil 340-1,000 mg capsule Take 1 capsule by mouth daily Active atorvastatin (LIPITOR) 10 mg tablet TAKE ONE TABLET BY MOUTH ONCE DAILY WITH DINNER 90 tablet 2 11/06/19 24 Active metoprolol tartrate (LOPRESSOR) 50 mg immediate release tablet TAKE ONE AND ONE-HALF TABLETS (75 MG TOTAL) BY MOUTH THREE TIMES A DAY 405 tablet 2 11/06/19 24 Active lisinopriL (PRINIVIL,ZESTRI L) 5 mg tablet Take 1 tablet (5 mg total) by mouth daily 90 tablet 2 03/06/20 24 Active rivaroxaban (XARELTO) 20 mg tabletIndication s:Longstanding persistent atrial fibrillation (CMS/HCC) (HCC) Take 1 tablet (20 mg total) by mouth daily with dinner 90 tablet 1 04/09/20 24 Active Klor-Con M10 10 mEq CR tablet TAKE 1 TABLET BY MOUTH EVERY DAY 90 tablet 1 04/13/20 24 Active fenofibrate (TRIGLIDE) 160 mg tabletIndication s:Atherosclerosi s of 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 36 tablet 06/10/19 25 Active metOLazone (ZAROXOLYN) 5 mg tabletIndication s:Bilateral lower extremity edema TAKE 1 TABLET BY MOUTH 3 TIMES A WEEK. 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 11/20/2016 Chronic anticoagulation 11/20/2016 Nonrheumatic aortic valve insufficiency 11/21/19 17 MARK (obstructive sleep apnea) 11/20/2016 Presence of prosthetic heart valve 11/20/2016 Hypertension 10/10/2013 Overview (08/31/2016): Hypertension Social History Tobacco Use Types Packs/Day Years Used Date Smoking Tobacco: Former Cigars Q uit: 05/31/1971 Smokeless Tobacco: Never Tobacco Cessation:Counseling Given: Not Answered Alcohol Use Standard Drinks/Week Comments No 0 (1 standard drink = 0.6 oz pur e alcohol) Sex and Gender Information Value Date Recorded Sex Assigned at Not on file 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 Gender Identity Not on file Sexual Orientation Not on file Last Filed Vital Signs Vital Sign Reading Time Taken Comments Blood Pressure 120/66 03/05/2024 9:01 AM CDT Pulse 76 03/05/2024 9:01 AM CDT Temperature 36.8 ??C (98.2 ??F) 04/30/2018 12:[address] Respiratory Rate 17 10/27/2019 11:43 AM CDT Oxygen Saturation 97% 03/05/2024 9:01 AM CDT Inhaled Oxygen Concentration - - Weight 112.5 kg (248 lb) 03/05/2024 9:01 AM CDT Height 185.4 cm (6' 1 ) 03/05/2024 9:01 AM CDT Body Mass Index 32.72 03/05/2024 9:01 AM CDT Plan of Treatment Not on file Medical Devices Implanted Type Area Tool And Die Engineer Device Identifier Shelf Expiration Date Model / Serial / Lot [employer] [id number] Amplatzer 12mm 6mm 6mm Type Ii Self Expanding Symmetrical Design - [id number] Implanted:Qty: 1 on 04/29/2018 by Levi Lemos MD at [facility] PDA Closure Device [employer] 01/24/2023 9-[id number]- [id number] / / [id number] Procedures Procedure Name Priority Date/Time Associated Diagnosis Comments PROTIME-INR Routine 06/04/2024 10:21 AM COMMERCIAL LOAN COLLECTION OFFICER Chronic anticoagulation Longstanding persistent atrial fibrillation (CMS/HCC) (HCC) PROTIME-INR Routine 05/05/2024 10:22 AM COMMERCIAL LOAN COLLECTION OFFICER Chronic anticoagulation Longstanding persistent atrial fibrillation (CMS/HCC) (HCC) PROTIME-INR Routine 04/07/2024 10:45 AM COMMERCIAL LOAN COLLECTION OFFICER Chronic anticoagulation Longstanding persistent atrial fibrillation (CMS/HCC) (HCC) from Last 3 Months Results * (ABNORMAL) Protime-INR (06/04/2024 10:21 AM COMMERCIAL LOAN COLLECTION OFFICER) INR 2.7(H) 0.9 - 1.2 [facility] - 01 Comment: Reference interval is for non-anticoagulated patients. Suggested INR therapeutic range for Vitamin K antagonist therapy: ?? Standard Dose (moderate intensity ?therapeutic range): ? 2.0 - 3.0 ?? Higher intensity therapeutic range ? 2.5 - 3.5 PT 27.6(H) 9.1 - 12.0 sec [facility] - 01 Blood 06/04/2024 10:2 1 AM COMMERCIAL LOAN COLLECTION OFFICER 06/04/2024 Narrative [facility] - 06/05/2024 6:10 AM COMMERCIAL LOAN COLLECTION OFFICER Performed at: ??01 - [facility] [address] ??[id number] Monogram Operator: J Luis Aiken PhD, Phone: ??[phone] us Aren Santos MD LAB BLOOD ORDERABLES Tami mosqueda Result [facility] - 01 * (ABNORMAL) Protime-INR (05/05/2024 10:22 AM COMMERCIAL LOAN COLLECTION OFFICER) INR 2.4(H) 0.9 - 1.2 [facility] - 01 Comment: Reference interval is for non-anticoagulated patients. Suggested INR therapeutic range for Vitamin K antagonist therapy: ?? Standard Dose (moderate intensity ?therapeutic range): ? 2.0 - 3.0 ?? Higher intensity therapeutic range ? 2.5 - 3.5 PT 25.0(H) 9.1 - 12.0 sec [facility] - 01 Blood 05/05/2024 10:2 2 AM COMMERCIAL LOAN COLLECTION OFFICER 05/05/2024 Narrative [facility] - 05/06/2024 8:14 AM COMMERCIAL LOAN COLLECTION OFFICER Performed at: ??01 - [facility] [address] ??[id number] Monogram Operator: J Luis Aiken PhD, Phone: ??[phone] Aren Santos MD LAB BLOOD ORDERABLES Tami l Result [facility] - * (ABNORMAL) Protime-INR (04/07/2024 10:45 AM COMMERCIAL LOAN COLLECTION OFFICER) INR 2.8(H) 0.9 - 1.2 [facility] - 01 Comment: Reference interval is for non-anticoagulated patients. Suggested INR therapeutic range for Vitamin K antagonist therapy: ?? Standard Dose (moderate intensity ?therapeutic range): ? 2.0 - 3.0 ?? Higher intensity therapeutic range ? 2.5 - 3.5 PT 28.1(H) 9.1 - 12.0 sec [facility] - 01 Blood 04/07/2024 10:4 5 AM COMMERCIAL LOAN COLLECTION OFFICER 04/07/2024 Narrative [facility] - 04/08/2024 8:20 AM COMMERCIAL LOAN COLLECTION OFFICER Performed at: ??01 - [facility] ??[id number] Monogram Operator: J Luis Aiken PhD, Phone: ??[phone] us Aren Santos MD LAB BLOOD ORDERABLES Tami l Result [facility] - from Last [address] [facility] Member Subscriber Plan / Payer (Ef fective 2008-Present) Name:Kulwant Can Relation to Subscriber:Self Name:Kulwant Can Payer ID:[id number] (NAIC) Type:MEDICARE RISK OTHER Address: [place] [id number] [facility] Advance Directives For more information, please contact: [phone] Documents on File Type Date Recorded Patient Horse Rider Expl anation ADVANCE DIRECTIVE 04/10/2018 8:18 AM * Full Code (Latest Code Status on File) Date Activated Date Inactivated Comments 04/29/2018 5:52 PM 04/30/2018 6:01 PM Care Teams Flotation Tank Operator Relationship Specialty Start Date End Date Marcial Frazier MD [address] [place] [address] PCP - General 08/24/16
--- OUTSIDE RECORDS SUMMARY | 2024-06-18 11:08 | XMS_ITS | Continuity of Care Document ---
Author Organization [facility] Address [address] [place] [address] Phone Care Team Providers Care Assistant Banquet Manager Name Role Phone Winn OD, Brandon Unavailable Unavailable Procedures Procedure Date Eye Exam, New Patient Refraction Vision Svcs Frames Purchases BF Plastic Sphcyl [place] To +/-4d .12-2d Anti-reflective Coating Scratch Resistant Coating Advance Directives Directive Yes / No Effective Date File Name No Information Encounters Encounter Description Practice Location Reason(s) For Visit Diagnoses Date Provider Providers Copied on Encounter [facility], [address] [place] [address] [address], [place], [place], [id number], tel:[phone] [facility] No Information Mar-2 5-201 0 Winn OD Brandon. [address] [place] , [address], [place], [address], [place]. tel:[phone] [facility], [address] [place] [address] [address], [place], [place], [id number], [place] tel:[phone] [facility] No Information Mar-2 5-201 0 [facility] . [address] [facility] [facility] [address], [place], [place], [id number], [place]. tel:[phone] Referring Provider: Brandon Winn OD A, [address], [place], [address]. tel:[phone] g Provider: Pauline Torrez, [address] [place], [address]. tel:[phone] Family History Family Member Type Diagnosis Age At Onset No Information Payers Payer name Insurance type Covered constitution party ID David solis(s) [employer] Plan CI [id number] Social History Type Description Quantity Date Captured Comments Sex Male Smoking Status No Information Chief Complaint And Reason For Visit No Information Reason For Referral Reason For Referral No Information History Of Present Illness Encounter Date Complaint History Of Prese nt Illness No Information Functional Status Date Functional Assessmen t No Information Instructions Date Instruction Additional Infor mation No Information Assessments Type Assessment Date No Information Patient Care Teams Name Effective Dates (start - stop) Status Members No Information
--- OUTSIDE RECORDS SUMMARY | 2024-06-18 11:08 | XMS_ITS | Encounter Summary ---
Author Organization [facility] Address [address] [place] [address] Care Team Providers Care Digital Assistant Name Role Phone Marcial Frazier MD Primary Care Provide r Encounter Details Date Type Department Care Team (Late st Contact Info) Description 08/01/2023 Orders Only [facility] Health Information Management [address] [place] [id number] Scanning, Provider Social History Tobacco Use Types Packs/Day Years Used Date Smoking Tobacco: Former Cigars Q uit: 05/31/1971 Smokeless Tobacco: Never Alcohol Use Standard Drinks/Week Comments No 0 (1 standard drink = 0.6 oz pur e alcohol) Sex and Gender Information Value Date Recorded Sex Assigned at Not on file 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 Gender Identity Not on file Sexual Orientation Not on file documented as of this encounter Plan of Treatment Not on file documented as of this encounter Procedures Procedure Name Priority Date/Time Associated Diagnosis Comments SCAN - LABS 08/01/2023 documented in this encounter Results * SCAN - LABS (08/01/2023) us Provider Scanning Final Result documented in this encounter Visit Diagnoses Not on filedocumented in this encounter Care Teams Digital Assistant Relationship Specialty Start Date End Date Marcial Frazier MD [address] [place], [place] [id number] PCP - General 08/24/16 documented as of this encounter
--- OUTSIDE RECORDS SUMMARY | 2024-06-18 11:08 | XMS_ITS | Clinical Summary ---
Author Organization [facility] [address] Address [address] [place] [address] Care Team Providers Care Train Operator Name Role Phone Marcial Frazier MD Primary Care Provide r Allergies No known active allergies Medications cholecalciferol [...] (TRIGLIDE) 160 mg tabletIndication s:Atherosclerosi s of [place] coronary artery of [place] heart without angina pectoris TAKE 1 TABLET [...] artery disease of n ative artery of [place] heart with stable angina pectoris 11/20/2016 Chronic anticoagulation 11/20/2016 Nonrheumatic aortic valve insufficiency 11/21/19 17 MARK (obstructive sleep apnea) 11/20/2016 Presence of prosthetic heart valve 11/20/2016 Hypertension 10/10/2013 Overview (08/31/2016): Hypertension Encounters Date Type Department Care Team Description 06/05/2024 Anticoagulation Visit [facility] Cardiology [address] [facility] [address] [place] [address] Sherice Rondon RN 05/06/2024 Anticoagulation Visit [facility] Cardiology [address] [place] [phone] Sherice Rondon RN 04/09/2024 Telephone [facility] Cardiology [address] [facility] [address] [place] [address] Aren Santos MD 04/08/2024 Anticoagulation Visit [facility] Cardiology [address] [place] [address] Sherice Chong RN from Last 3 Months Surgical History Surgery Date Site/Laterality Comments TONSILLECTOMY Tonsillectomy US GUIDED THORACENTESIS 07/10/2012 N/A US GUIDED THORACENTESIS 06/09/2012 N/A AORTIC VALVE REPLACEMENT 05/27/2011 - 05/26/2012 CARDIAC CATHETERIZATION 05/27/2011 - 05/26/2012 2018 Medical History Medical History Date Comments Hx Other Medical 2012 Aortic Stenosis Osteoarthritis Osteoarthritis Chronic a-fib (CMS/HCC) (HCC) Sleep apnea bipap Hyperlipidemia Family History Medical History Relation Name Comments Heart attack Father 2 Myocardial Infa rction; Cause of : Myocardial Infarction Stroke Mother 2 Stroke; Cause o f : Stroke Relation Name Status Comments Father 1 (Age 74) Father 2 Mother 1 (Age 51) Mother 2 Social History Tobacco Use Types Packs/Day Years Used Date Smoking Tobacco: Former Cigars Q uit: 05/31/1971 Smokeless Tobacco: Never Tobacco Cessation:Counseling Given: Not Answered Alcohol Use Standard Drinks/Week Comments No 0 (1 standard drink = 0.6 oz pur e alcohol) Sex and Gender Information Value Date Recorded Sex Assigned at Not on file 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 Gender Identity Not on file Sexual Orientation Not on file Obstetrics History Last Filed Vital Signs Vital Sign Reading [...] 03/05/2024 9:01 AM CDT Plan of Treatment Health Maintenance Due Date Last Done Comments Depression Screening 1935 Pneumococcal vaccine 65+ (1 of 2 - PCV) 08/09/1943 Hepatitis B Screening 08/09/1955 Zoster Vaccine (1 of 2) 08/09/1987 Well Visit 65+ 2002 Fall Risk Assessment 10/26/2020 10/27/2019 Influenza Vaccine (#1) 2024 DTaP/Tdap/Td Vaccine (2 - Td or Tdap) 06/23/2030 Medical Devices Implanted Type Area Storage Battery Inspector Device Identifier Shelf Expiration Date Model / Serial / Lot [employer] [id number] Amplatzer 12mm 6mm 6mm Type Ii Self Expanding Symmetrical Design - [id number] Implanted:Qty: 1 on 04/29/2018 by eLvi Lemos MD at [facility] PDA Closure Device [employer] 01/24/2023 9-[id number] / / [id number] Procedures Procedure Name Priority Date/Time Associated Diagnosis Comments PROTIME-INR Routine 06/04/2024 10:21 AM COLLAR RUNNER Chronic anticoagulation Longstanding persistent atrial fibrillation (CMS/HCC) (HCC) PROTIME-INR Routine 05/05/2024 10:22 AM COLLAR RUNNER Chronic anticoagulation Longstanding persistent atrial fibrillation (CMS/HCC) (HCC) PROTIME-INR Routine 04/07/2024 10:45 AM COLLAR RUNNER Chronic anticoagulation Longstanding persistent atrial fibrillation (CMS/HCC) (HCC) from Last 3 Months Results * (ABNORMAL) Protime-INR (06/04/2024 10:21 AM COLLAR RUNNER) INR 2.7(H) 0.9 - 1.2 [facility] - 01 Comment: Reference interval is for non-anticoagulated patients. Suggested INR therapeutic range for Vitamin K antagonist therapy: ?? Standard Dose (moderate intensity ?therapeutic range): ? 2.0 - 3.0 ?? Higher intensity therapeutic range ? 2.5 - 3.5 PT 27.6(H) 9.1 - 12.0 sec [facility] - 01 Blood 06/04/2024 10:2 1 AM COLLAR RUNNER 06/04/2024 Narrative [facility] - 06/05/2024 6:10 AM COLLAR RUNNER Performed at: ??01 - [facility] ??[id number] Senior Teller: J Luis Aiken PhD, Phone: ??[phone] Aren Santos MD LAB BLOOD ORDERABLES Tami l Result Performing Organization Address [facility] de Phone Number [facility] - * (ABNORMAL) Protime-INR (05/05/2024 10:22 AM COLLAR RUNNER) INR 2.4(H) 0.9 - 1.2 [facility] - 01 Comment: Reference interval is for non-anticoagulated patients. Suggested INR therapeutic range for Vitamin K antagonist therapy: ?? Standard Dose (moderate intensity ?therapeutic range): ? 2.0 - 3.0 ?? Higher intensity therapeutic range ? 2.5 - 3.5 PT 25.0(H) 9.1 - 12.0 sec [facility] - 01 Blood 05/05/2024 10:2 2 AM COLLAR RUNNER 05/05/2024 Narrative [facility] - 05/06/2024 8:14 AM COLLAR RUNNER Performed at: ??01 - [facility] ??[id number] Senior Teller: J Luis Aiken PhD, Phone: ??[phone] Aren Santos MD LAB BLOOD ORDERABLES Tami l Result Performing Organization Address [facility] de Phone Number [facility] - * (ABNORMAL) Protime-INR (04/07/2024 10:45 AM COLLAR RUNNER) INR 2.8(H) 0.9 - 1.2 [facility] - 01 Comment: Reference interval is for non-anticoagulated patients. Suggested INR therapeutic range for Vitamin K antagonist therapy: ?? Standard Dose (moderate intensity ?therapeutic range): ? 2.0 - 3.0 ?? Higher intensity therapeutic range ? 2.5 - 3.5 PT 28.1(H) 9.1 - 12.0 sec [facility] - 01 Blood 04/07/2024 10:4 5 AM COLLAR RUNNER 04/07/2024 Narrative [facility] - 04/08/2024 8:20 AM COLLAR RUNNER Performed at: ??01 - [facility] [address] ??[id number] Senior Teller: J Luis Aiken PhD, Phone: ??[phone] us Aren Santos MD LAB BLOOD ORDERABLES Tami mosqueda Result [facility] - 01 from Last 3 Months Insurance [facility] Advance Directives For more information, please contact: [phone] Documents on File Type Date Recorded Patient Cycle Manager Expl anation ADVANCE DIRECTIVE 04/10/2018 8:18 AM * Full Code (Latest Code Status on File) Date Activated Date Inactivated Comments 04/29/2018 5:52 PM 04/30/2018 6:01 PM Care Teams Train Operator Relationship Specialty Start Date End Date Marcial Frazier MD [address] [place] [address] PCP - General 08/24/16
--- NOTE | 2024-06-18 12:45 | P.PNCA_ITS ---
Progress Note: A&P Assessment and Plan (1) Atrial fibrillation with rapid ventricular response: Code(s): I48.91 - Unspecified atrial fibrillation Status: Acute (2) Bacteremia: Code(s): R78.81 - Bacteremia Status: Acute (3) Sepsis: Code(s): A41.9 - Sepsis, unspecified organism Status: Acute (4) HTN (hypertension): Qualifiers: Hypertension type: essential hypertension Qualified Code(s): I10 - Essential (primary) hypertension Code(s): I10 - Essential (primary) hypertension Status: Chronic (5) History of aortic valve replacement with bioprosthetic valve: Code(s): Z95.3 - Presence of xenogenic heart valve Status: Acute (6) CAD (coronary artery disease): Qualifiers: Coronary Disease-Associated Artery/Lesion type: [place] artery [place] vs. transplanted heart: [place] heart Associated angina: without angina Qualified Code(s): I25.10 - Atherosclerotic heart disease of [place] coronary artery without angina pectoris Code(s): I25.10 - Atherosclerotic heart disease of [place] coronary artery without angina pectoris Status: Chronic (7) Elevated troponin: Code(s): R79.89 - Other specified abnormal findings of blood chemistry Status: Acute (8) Hyperlipidemia: Code(s): E78.5 - Hyperlipidemia, unspecified Status: Acute Plan -Longstanding persistent atrial fibrillation on anticoagulation with warfarin- now with RVR; rates better controlled now in the 80s -Elevated troponin without chest pain-most likely secondary to stress of AFib RVR and ongoing infection -Sepsis, UTI, 2/2 bottles blood cultures on 06/15 growing group B Streptococcus- on ceftriaxone -Hypokalemia -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 Continue oral AV sandoval blocking agents including metoprolol and diltiazem at current dose -Continue Coumadin for anticoagulation -Continue lisinopril -Continue statin -ROBYN in the a.m.. Keep NPO at midnight -Management of other medical problems per primary team Subjective Date/time seen: 06/18/24 12:45 Interval history: Reason For Visit: Sepsis, A Fib RVR HPI: 88-year-old male with history of bioprosthetic AVR and aortic root repair in April 2012-operative report not available, history of percutaneous closure of paravalvular leak, longstanding persistent atrial fibrillation on anticoagulation with warfarin, CAD, pulmonary hypertension, obstructive sleep apnea on BiPAP, aortic insufficiency diabetes mellitus, hypertension was admitted for generalized weakness and AFib with RVR. He was diagnosed with a UTI and is on ceftriaxone. Blood cultures grew strep group B Streptococcus. TTE was negative for vegetation. For AFib, he was started on a low dose diltiazem drip which was later discontinued and p.o. metoprolol, p.o. diltiazem were resumed. He continues to have RVR and Cardiology was consulted for further management. Workup: Troponin: 0.065, 0.067 Potassium: 3 Blood cultures: Group B Streptococcus in 2/2 bottles on 06/15, cultures from 06/16 pending EKG: AFib with RVR, rate 143, left bundle branch block, age-indeterminate inferior infarct, age indeterminate anteroseptal infarct Chest x-ray: Bibasilar pulmonary edema, cardiomegaly, status post valve replacement TTE 06/16: Normal LV size and systolic function, bioprosthetic aortic valve functioning normally, no vegetation Interval history:No chest pain, shortness of breath, dizziness, lightheadedness, presyncope, syncope, leg swelling, palpitations, nausea, emesis, abdominal pain, or headache. Telemetry shows atrial fibrillation with rates in the 80s. Review of Systems Review of Systems: A complete review of systems was performed and negative other than those mentioned in HPI Exam Narrative: General: Alert oriented x3, no acute distress Neck: Supple, JVD + Chest: Bilaterally clear to auscultation, no rales or rhonchi Cardiac: S1, S2 +, irregularly irregular rhythm, no murmurs or rubs Extremities: Bilateral lower extremity edema 1+, no skin rash Neurologic: Alert and oriented x3, no focal neurological deficits Objective Data Vital Signs Vital Signs: Vital Signs - 24 hr 06/17/24 13:24 06/17/24 14:00 06/17/24 16:21 Temperature 37.4 C Pulse Rate 90 75 80 Respiratory Rate 20 Blood Pressure 136/66 Pulse Oximetry 98 Oxygen Delivery 06/17/24 16:35 06/17/24 16:35 06/17/24 18:00 Temperature Pulse Rate 91 91 79 Respiratory Rate Blood Pressure Pulse Oximetry Oxygen Delivery Room Air 06/17/24 19:53 06/17/24 20:00 06/17/24 21:15 Temperature 36.8 C Pulse Rate 106 H 131 H 98 Respiratory Rate 20 Blood Pressure 142/67 H Pulse Oximetry 97 Oxygen Delivery 06/17/24 22:00 06/17/24 22:26 06/17/24 23:48 Temperature 36.6 C Pulse Rate 105 H 120 H 115 H Respiratory Rate 25 H 22 H Blood Pressure 120/75 Pulse Oximetry 94 94 Oxygen Delivery BiPAP 06/18/24 00:00 06/18/24 00:00 06/18/24 01:40 Temperature Pulse Rate 120 H 110 H Respiratory Rate 22 H Blood Pressure Pulse Oximetry 95 Oxygen Delivery Room Air BiPAP 06/18/24 02:00 06/18/24 04:00 06/18/24 04:00 Temperature Pulse Rate 113 H 117 H Respiratory Rate Blood Pressure Pulse Oximetry Oxygen Delivery Room Air 06/18/24 04:45 06/18/24 06:00 06/18/24 06:45 Temperature 37.1 C Pulse Rate 114 H 108 H Respiratory Rate 22 H Blood Pressure 115/64 110/73 Pulse Oximetry 96 Oxygen Delivery 06/18/24 06:48 06/18/24 07:10 06/18/24 07:23 Temperature Pulse Rate 117 H 160 H 104 H Respiratory Rate Blood Pressure Pulse Oximetry Oxygen Delivery 06/18/24 08:00 06/18/24 08:03 06/18/24 10:00 Temperature 36.9 C Pulse Rate 113 H 118 H 98 Respiratory Rate 20 Blood Pressure 141/82 H Pulse Oximetry 96 Oxygen Delivery 06/18/24 11:40 Temperature 36.9 C Pulse Rate 86 Respiratory Rate 18 Blood Pressure 131/63 Pulse Oximetry 96 Oxygen Delivery Intake/Output Intake/Output: Intake & Output 06/15/24 06/16/24 06/17/24 06/18/24 23:59 23:59 23:59 23:59 Intake Total 2095.5 750 1320 670 Output Total 750 450 302 200 Balance 1345.5 300 1018 470 Meds/Results Medications: Active Medications Generic Name Dose Route Start Last Admin Trade Name Freq PRN Reason Stop Dose Admin Atorvastatin Calcium 10 mg 01/20/25 18:00 06/17/24 17:07 Atorvastatin 10 Mg Tablet PO 10 mg QPM REYNA Administration Diltiazem HCl 240 mg 06/16/24 09:00 06/18/24 08:38 Diltiazem Hcl Cd 240 Mg Cap.24hr PO 240 mg DAILY REYNA Administration Fenofibrate 160 mg 06/15/24 18:00 06/17/24 17:11 Fenofibrate 160 Mg Tablet PO 160 mg QPM REYNA Administration Ceftriaxone Sodium 2 gm in 100 mls @ 200 mls/hr 06/17/24 09:00 06/18/24 08:38 Rocephin 2 Gm/Ns 100 Ml IVPB 200 mls/hr Q24H REYNA Administration Lisinopril 5 mg 06/15/24 18:00 06/15/24 18:11 Lisinopril 5 Mg Tablet PO 5 mg QPM REYNA Administration Metoprolol Tartrate 75 mg 06/15/24 13:00 06/18/24 06:48 Metoprolol Tartrate 25 Mg Tablet PO 75 mg Q8HR REYNA Administration Metoprolol Tartrate 5 mg 06/16/24 08:51 06/18/24 07:10 Metoprolol Tartrate Inj 5 Mg/5 Ml Vial IV PUSH 5 mg Q4H PRN Administration HR > 120 sustained Perflutren Lipid Microsphere 0 ml 06/16/24 08:46 Perflutren Lipid Microspheres 1.5 Ml Vial Diluted To 10 Ml Total Volume IV PUSH 06/19/24 08:46 ONCE PRN adequate visualization Protocol Potassium Chloride 10 meq 06/16/24 09:00 06/18/24 08:38 Potassium Chloride 10 Meq Er Tablet PO 10 meq DAILY [facility] Administration Vitamin D 2,000 units 06/16/24 09:00 06/18/24 08:38 Cholecalciferol 1,000 Units Tablet PO 2,000 units DAILY [facility] Administration Warfarin Sodium 4 mg 06/16/24 17:00 06/16/24 17:52 Warfarin (*Pbkc) 4 Mg Tablet PO 4 mg SuTuThFrSa@1700 [facility] Administration Warfarin Sodium 8 mg 06/15/24 17:00 06/17/24 17:07 Warfarin (*Pbkc) 4 Mg Tablet PO 8 mg MoWe@1700 [facility] Administration Radiology Results: ITS Impressions Chest X-Ray 01/20/25 05:28 Impression: Possible minimal bibasilar pulmonary edema. Cardiomegaly, status post valve replacement, unchanged. Labs Labs: Laboratory Results - last 24 hr 06/18/24 06/18/24 04:34 04:34 WBC 8.4 RBC 3.39 L Hgb 10.9 L Hct 32.8 L MCV 96.8 MCH 32.2 MCHC 33.2 RDW 13.4 Plt Count 165 MPV 9.4 PT 25.6 H INR 2.3 Sodium 139 Potassium 3.5 3.5 Chloride 109 H Carbon Dioxide 24 Anion Gap 6 BUN 18 Creatinine 0.79 Estim Creat Clear Calc 77 Estimated GFR > 60 Glucose 94 Calcium 8.7 Magnesium 2.0
[2024-06-18] MEDS: DIGOXIN 250 MCG TABLET PO (14:48)
--- NOTE | 2024-06-18 15:47 | PCPTNOTE ---
attempted PT eval, per RN, hold on therapy for today d/t pt's HR being abnormally high with little activity, RN reports HR of 190 with commode transfer, pt has ROBYN tomorrow also, will follow
[2024-06-18] MEDS: WARFARIN (*PBKC) 4 MG TABLET PO (17:01)
[2024-06-18] MEDS: ATORVASTATIN 10 MG TABLET PO (17:01)
[2024-06-18] MEDS: FENOFIBRATE 160 MG TABLET PO (17:01)
[2024-06-19] VITALS (21 sets, daily range): BP systolic 109–145; BP diastolic 61–86; PULSE 78–119; RESP 18–27; TEMP 36.7–37.6; O2SAT 95–98
[2024-06-19 05:07] LABS: Hematocrit 32.6 % (42.0-52.0); Mean Corpuscular HGB Conc 33.7 g/dl (32-36); Mean Corpuscular Hemoglobin 32.6 pg (26-34); Mean Corpuscular Volume 96.7 fl (80-100); Mean Platelet Volume 9.3 fl (7.4-10.4); Platelet Count Result 170 k/mm3 (150-375); Red Blood Count 3.37 M/mm3 (4.6-6.20); Red Cell Distribution Width 13.2 % (11.5-14.5); White Blood Count 8.7 K/mm3 (4.5-10.0)
[2024-06-19 05:17] LABS: INR 2.5; Prothrombin Time 27.6 Seconds (11.1-14.7)
[2024-06-19 05:19] LABS: Anion Gap 9 mmol/L (4-12); Blood Urea Nitrogen 17 mg/dL (9-20); Calcium 8.3 mg/dL (8.4-10.2); Carbon Dioxide 22 mmol/L (22-30); Chloride 108 mmol/L (98-107); Estimated CRCL calculation 79 ml/min; Estimated Glomerular Filt Rate > 60; Glucose 99 mg/dL (65-110); Potassium 3.5 mmol/L (3.4-5.0); Sodium 139 mmol/L (137-145)
[2024-06-19] MEDS: METOPROLOL TARTRATE 25 MG TABLET 75 MG PO ×3 (06:39→21:04)
[2024-06-19] MEDS: dilTIAZem HCL CD 240 MG CAP.24HR PO (09:25)
[2024-06-19] MEDS: CHOLECALCIFEROL 1,000 UNITS TABLET 2000 UNITS PO (09:25)
[2024-06-19] MEDS: cefTRIAXone 2 GM/NS 100 ML 2 GM/100 ML BAG IVPB (09:26)
[2024-06-19] MEDS: POTASSIUM CHLORIDE 10 MEQ ER TABLET PO (09:27)
--- NOTE | 2024-06-19 12:55 | PM.IMPN ---
Progress Note: A&P Assessment and Plan (1) Atrial fibrillation with rapid ventricular response: Code(s): I48.91 - Unspecified atrial fibrillation Status: Acute (2) UTI (urinary tract infection): Code(s): N39.0 - Urinary tract infection, site not specified Status: Acute (3) Diabetes mellitus: Qualifiers: Diabetes mellitus complication status: without complication Diabetes mellitus detention insulin use: without detention use Diabetes mellitus type: type 2 Qualified Code(s): E11.9 - Type 2 diabetes mellitus without complications Code(s): E11.9 - Type 2 diabetes mellitus without complications Status: Chronic (4) Bacteremia: Code(s): R78.81 - Bacteremia Status: Acute (5) SIRS (systemic inflammatory response syndrome): Code(s): R65.10 - Systemic inflammatory response syndrome (SIRS) of non-infectious origin without acute organ dysfunction Status: Acute (6) Sepsis: Code(s): A41.9 - Sepsis, unspecified organism Status: Acute Plan # Atrial fibrillation with rapid ventricular response: Patient was initially started on a diltiazem drip which was switched to p.o. diltiazem and metoprolol Ventricular rate worsened after patient exerted and set up in a chair on p.r.n. IV metoprolol Continue p.o. diltiazem and Toprol Continue anticoagulation Consult major general for evaluation treatment # Elevated troponin: Possible demand ischemia secondary to AFib with RVR. Patient denies any chest pain. Patient is already on aspirin statin beta-carleen calcium channel carleen and ALLA-inhibitor Patient is also on anticoagulation echocardiogram 1. Complete two-dimensional, color flow and Doppler transthoracic echocardiogram is performed. 2. Normal left ventricular size and systolic function. 3. Biatrial dilation left greater than right. 4. Atrial fibrillation. 5. Mild mitral annular calcification. 6. Aortic valve appears to be a bioprosthetic device that is functioning normally. No information provided regarding size or type of device. 7. No evidence of infectious vegetation seen. Further workup per major general. Plan for ROBYN today # UTI (urinary tract infection): Delete Continue Rocephin Urine culture has no growth of bacteria # Bacteremia: Blood cultures are growing group B Streptococcus on blood culture June 15, 2024 Although these could be contaminant. Echocardiogram showed 1. Complete two-dimensional, color flow and Doppler transthoracic echocardiogram is performed. 2. Normal left ventricular size and systolic function. 3. Biatrial dilation left greater than right. 4. Atrial fibrillation. 5. Mild mitral annular calcification. 6. Aortic valve appears to be a bioprosthetic device that is functioning normally. No information provided regarding size or type of device. 7. No evidence of infectious vegetation seen. Continue Rocephin, discontinue vancomycin repeat set of cultures on June 17 no growth of bacteria # Electrolyte abnormality: Replace low potassium and monitor # Chronic anticoagulation: Monitor daily INR # Debility: PT OT # DVT prophylaxis -warfarin # Code Status -patient is DNR Subjective Date/time seen: 06/19/24 12:55 Interval history: Feels okay. AFib rhythm intermittently elevated. Denies any shortness of breath. Going for ROBYN today. He required IV metoprolol doses x2 yesterday Review of Systems Review of Systems: All systems are reviewed and are negative unless stated otherwise in the HPI. Exam Narrative: GENERAL: Pleasant, in no acute distress. Well-nourished. - EYES: EOMI. Anicteric. - HENT: Moist mucous membranes. - LUNGS: Clear to auscultation bilaterally, no wheezing, rhonchi, or rales. - CARDIOVASCULAR: Irregularly irregular rhythm, tachycardia No murmur. No JVD. - ABDOMEN: Soft, non-tender and non-distended. No palpable masses. - EXTREMITIES: No edema. Peripheral pulses 2+. Non-tender. - NEUROLOGIC: No focal neurological deficits. CN II-XII grossly intact. - PSYCHIATRIC: Awake, Alert and oriented x 3. Appropriate mood and affect. - SKIN: No rashes or lesions. Warm. - LYMPH: No cervical lymphadenopathy. Objective Data Vital Signs Vital Signs: Vital Signs - 24 hr 06/18/24 13:31 06/18/24 13:41 06/18/24 14:00 Temperature Pulse Rate 103 H 114 H 142 H Respiratory Rate Blood Pressure Pulse Oximetry Oxygen Delivery 06/18/24 14:48 06/18/24 15:56 06/18/24 16:00 Temperature 99.2 F Pulse Rate 88 95 96 Respiratory Rate 20 Blood Pressure 133/54 L Pulse Oximetry 96 Oxygen Delivery 06/18/24 17:41 06/18/24 20:00 06/18/24 20:00 Temperature Pulse Rate 110 H 107 H Respiratory Rate Blood Pressure Pulse Oximetry Oxygen Delivery Room Air 06/18/24 20:15 06/18/24 21:10 06/18/24 21:14 Temperature 98.6 F Pulse Rate 120 H 133 H Respiratory Rate 22 H Blood Pressure 148/92 H 137/81 Pulse Oximetry 97 Oxygen Delivery 06/18/24 21:39 06/18/24 22:00 06/18/24 23:25 Temperature 98.7 F Pulse Rate 148 H 116 H 129 H Respiratory Rate 20 Blood Pressure 139/71 Pulse Oximetry 95 Oxygen Delivery 06/18/24 23:57 06/19/24 00:00 06/19/24 02:00 Temperature Pulse Rate 105 H 101 H Respiratory Rate Blood Pressure Pulse Oximetry Oxygen Delivery Room Air 06/19/24 03:38 06/19/24 04:00 06/19/24 04:00 Temperature 98.3 F Pulse Rate 105 H 96 Respiratory Rate 20 Blood Pressure 141/66 H Pulse Oximetry 97 Oxygen Delivery Room Air 06/19/24 05:49 06/19/24 06:39 06/19/24 08:15 Temperature 99.0 F Pulse Rate 102 H 110 H 87 Respiratory Rate 18 Blood Pressure 133/61 Pulse Oximetry 96 Oxygen Delivery 06/19/24 09:50 06/19/24 10:04 Temperature Pulse Rate Respiratory Rate Blood Pressure Pulse Oximetry Oxygen Delivery Room Air Room Air Intake/Output Intake/Output: Intake & Output 06/16/24 06/17/24 06/18/24 06/19/24 23:59 23:59 23:59 23:59 Intake Total 750 1320 1740 550 Output Total 450 302 550 400 Balance 300 1018 1190 150 Meds/Results Medications: Active Medications Generic Name Dose Route Start Last Admin Trade Name Freq PRN Reason Stop Dose Admin Atorvastatin Calcium 10 mg 06/15/24 18:00 06/18/24 17:01 Atorvastatin 10 Mg Tablet PO 10 mg QPM REYNA Administration Diltiazem HCl 240 mg 06/16/24 09:00 06/19/24 09:25 Diltiazem Hcl Cd 240 Mg Cap.24hr PO 240 mg DAILY REYNA Administration Fenofibrate 160 mg 06/15/24 18:00 06/18/24 17:01 Fenofibrate 160 Mg Tablet PO 160 mg QPM REYNA Administration Ceftriaxone Sodium 2 gm in 100 mls @ 200 mls/hr 06/17/24 09:00 06/19/24 09:26 Rocephin 2 Gm/Ns 100 Ml IVPB 200 mls/hr Q24H REYNA Administration Lisinopril 5 mg 06/15/24 18:00 06/15/24 18:11 Lisinopril 5 Mg Tablet PO 5 mg QPM REYNA Administration Metoprolol Tartrate 75 mg 06/15/24 13:00 06/19/24 06:39 Metoprolol Tartrate 25 Mg Tablet PO 75 mg Q8HR REYNA Administration Metoprolol Tartrate 5 mg 06/16/24 08:51 06/18/24 21:39 Metoprolol Tartrate Inj 5 Mg/5 Ml Vial IV PUSH 5 mg Q4H PRN Administration HR > 120 sustained Potassium Chloride 10 meq 06/16/24 09:00 06/19/24 09:27 Potassium Chloride 10 Meq Er Tablet PO 10 meq DAILY REYNA Administration Vitamin D 2,000 units 06/16/24 09:00 06/19/24 09:25 Cholecalciferol 1,000 Units Tablet PO 2,000 units DAILY [facility] Administration Warfarin Sodium 4 mg 06/16/24 17:00 06/18/24 17:01 Warfarin (*Pbkc) 4 Mg Tablet PO 4 mg [id number]@1700 [facility] Administration Warfarin Sodium 8 mg 06/15/24 17:00 06/17/24 17:07 Warfarin (*Pbkc) 4 Mg Tablet PO 8 mg MoWe@1700 [facility] [place] Administration Radiology Results: ITS Impressions Chest X-Ray 06/15/24 05:28 Impression: Possible minimal bibasilar pulmonary edema. Cardiomegaly, status post valve replacement, unchanged. Labs Labs: Laboratory Results - last 24 hr 06/19/24 04:31 WBC 8.7 RBC 3.37 L Hgb 11.0 L Hct 32.6 L MCV 96.7 MCH 32.6 MCHC 33.7 RDW 13.2 Plt Count 170 MPV 9.3 PT 27.6 H INR 2.5 Sodium 139 Potassium 3.5 Chloride 108 H Carbon Dioxide 22 Anion Gap 9 BUN 17 Creatinine 0.76 Estim Creat Clear Calc 79 Estimated GFR > 60 Glucose 99 Calcium 8.3 L Magnesium 2.0
--- NOTE | 2024-06-19 13:49 | PC.NURSE ---
Patient off floor for ROBYN
--- NOTE | 2024-06-19 14:00 | ECHO_ITS ---
Patient Info Name: Kulwant Can Age: 88 years : 1935 Gender: Male Ht: 71 in Wt: 246 lbs BSA: 2.40 m2 Technical Quality: Good Exam Date: 06/19/2024 1:11 PM Exam Location: Echo Lab Patient Status: Inpatient Admit Date: 06/15/2024 Staff Ordering Physician: Loraine Ford [employer] Carpet Installer: Ira Gupta RDCS Attending Provider: Daria Wood DO Referring Physician: Liliana NI; Exam Type: CA echo transesophageal Study Info Indications - BACTEREMIA Complete two-dimensional, color flow and Doppler transesophageal study is performed. Procedure Details Risks/benefits/alternative to ROBYN discuss with patient and he gave informed consent. He was monitored electrocardiographically and in atrial fibrillation. Vitals, pulse ox and BP 140/90 and pulse ox>95% throughout. Cetacaine spray to posterior oropharynx x 2. Patient was sedated as per anesthesia. ROBYN probe advanced without incident into esophagus. Agitated saline x1 given. ROBYN probe withdrawn and no bleed noted on probe tip. He tolerated procedure well with no complications. Summary 1. Transesophageal echocardiogram. 2. Left ventricular chamber dimension is normal. 3. There is mild concentric increased left ventricular wall thickness. 4. Left ventricular systolic function is normal with an ejection fraction at 60-65% by visual estimation. 5. The left ventricular diastolic function is indeterminate as it was not assessed.. 6. Left atrial chamber dimension is moderately enlarged. 7. The bioprosthetic aortic valve is trileaflet. 8. There is mild mitral valve regurgitation. 9. There is mild tricuspid valve regurgitation. 10. RVSP is not measured. Left Ventricle Left ventricular systolic function is normal with an ejection fraction at 60-65% by visual estimation. The left ventricular diastolic function is indeterminate as it was not assessed.. Transesophageal echocardiogram. Left ventricular chamber dimension is normal. There is mild concentric increased left ventricular wall thickness. Right Ventricle Right ventricular chamber dimension is normal. Right ventricular systolic function is normal. Left Atria Left atrial chamber dimension is moderately enlarged. Right Atria Right atrial chamber dimension is normal. Atrial Septum Agitated saline injection opacified right side cardiac chambers without shunt to left side cardiac chambers. Intact interatrial septum visualized by 2D and agitated saline imaging. Atrial Appendage There is no thrombus visualized in the left atrial appendage. Aortic Valve The bioprosthetic aortic valve is trileaflet. There is no bioprosthetic aortic valve stenosis. There is no regurgitation of the bioprosthetic aortic valve. No bioprosthetic aortic valve vegetation visualized. Pulmonic Valve There is no pulmonic regurgitation. No pulmonic valve vegetation visualized. Mitral Valve There is no mitral valve stenosis. There is mild mitral valve regurgitation. No mitral valve vegetation visualized. Tricuspid Valve There is mild tricuspid valve regurgitation. No tricuspid valve vegetation visualized. RVSP is not measured. Pericardium/Pleural There is no pericardial effusion. Inferior Vena Cava Inferior vena cava is not well visualized. Aorta The aortic root size at the sinus of Valsalva is normal. Report Signatures
--- NOTE | 2024-06-19 14:15 | P.PNAN_ITS ---
Anes - Initial Pre Proc Eval Procedure: Operation Date: 06/19/24 14:00 Proposed Procedures p Trans Esophageal Echo - Eleazar Portillo DO Date/Time: 06/19/24 14:15 Surgeon: Daria Wood DO Pre Op Diagnosis: Sepsis, A Fib RVR Patient Data Age: 88 Gender: M Height: 1.85 m Weight: 112 kg Last Vital Signs Temp 37.6 C 06/19/24 12:05 Pulse 97 06/19/24 12:05 Resp 20 06/19/24 12:05 BP 139/63 06/19/24 12:05 Pulse Ox 97 06/19/24 12:05 O2 Del Method Room Air 06/19/24 10:04 Allergies Allergy/AdvReac Type Severity Reaction Status Date / Time No Known Allergies Allergy Verified 06/15/24 07:39 Home Medications ?Medication ?Instructions ?Recorded ?Confirmed ?Type atorvastatin 10 mg tablet 10 mg PO QPM 07/27/19 06/15/24 History fenofibrate 160 mg tablet 160 mg PO QPM 07/27/19 06/15/24 History furosemide 40 mg tablet 40 mg PO DAILY 07/27/19 06/15/24 History lisinopril 5 mg tablet 5 mg PO QPM 07/27/19 06/15/24 History potassium chloride 10 mEq 10 meq PO DAILY 07/27/19 06/15/24 History tablet,extended release warfarin 4 mg tablet 4 mg PO WEEKLY 07/27/19 06/15/24 History Joint Support Complex 1 tablet PO BID 12/15/19 06/15/24 History cholecalciferol (vitamin D3) 50 2,000 unit PO DAILY 12/15/19 06/15/24 History mcg (2,000 unit) tablet metoprolol tartrate 75 mg tablet 75 mg PO TID 12/15/19 06/15/24 History warfarin 4 mg tablet 8 mg PO WEEKLY 02/20/24 06/15/24 History diltiazem HCl 360 mg 360 mg PO DAILY #30 caps 02/24/24 06/15/24 Rx capsule,extended release 24 hr diltiazem HCl 240 mg 240 mg PO DAILY 06/15/24 06/15/24 History capsule,extended release 24 hr, controlled Laboratory Tests 06/19/24 04:31 WBC 8.7 K/mm3 (4.5-10.0) RBC 3.37 L M/mm3 (4.6-6.20) Hgb 11.0 L g/dL (14.0-18.0) Hct 32.6 L % (42.0-52.0) MCV 96.7 fl (80-100) MCH 32.6 pg (26-34) MCHC 33.7 g/dl (32-36) RDW 13.2 % (11.5-14.5) Plt Count 170 k/mm3 (150-375) MPV 9.3 fl (7.4-10.4) PT 27.6 H Seconds (11.1-14.7) INR 2.5 Sodium 139 mmol/L (137-145) Potassium 3.5 mmol/L (3.4-5.0) Chloride 108 H mmol/L (98-107) Carbon Dioxide 22 mmol/L (22-30) Anion Gap 9 mmol/L (4-12) BUN 17 mg/dL (9-20) Creatinine 0.76 mg/dL (0.7-1.3) Estim Creat Clear Calc 79 ml/min Estimated GFR > 60 (59 - ) Glucose 99 mg/dL (65-110) Calcium 8.3 L mg/dL (8.4-10.2) Magnesium 2.0 mg/dL (1.6-2.3) Patient hx anesthesia problems: none Family hx anesthesia problems: none Results Review: All pre-operative results and documents have been reviewed as part of the pre- operative evaluation. [facility] Past Medical History Medical History Atherosclerosis of [place] coronary artery Vitamin D deficiency Pulmonary HTN MARK treated with BiPAP Nonrheumatic aortic valve insufficiency Mass on back Cyst of skin SOB (shortness of breath) Cough Loss of appetite Fever History of bleeding disorder (~2020) Internal Bleed after a fall; Bruises/Bleeds easily Sleep apnea Hematoma Injury of left rotator cuff Laceration Contusion of abdominal wall, subsequent encounter Ribs, multiple fractures Rib fracture Diabetes mellitus HTN (hypertension) CAD (coronary artery disease) Afib Surgical History Surgical History H/O aortic valve repair Hx of aortic valve replacement (~2010) Family History Family History Mother Cerebrovascular accident, Onset Age: 51 Sibling Cerebrovascular accident Father Acute myocardial infarction Social History Social History Smoking status: Former smoker Alcohol intake: never Substance use: never Substance use type: does not use Do You Feel Safe in your Home?: Yes Lack of Transportation: No Lack of Food: Never True Current Housing: I Have Housing Concerned About Future Housing: No Difficulty Paying Gas/Electric Bills: No Difficulty Paying for Meds: No Currently Unemployed: No Education: Decline to Answer Difficulty w/ Childcare or Family Care: No Gender identity (if verbalized by the patient): Male Spiritual care concerns: No Anes - Eval Final PreProcedure Day of Procedure 06/19/24 14:15 Patient weight: obese Heart: regular rate and rhythm Lungs: clear to auscultation Airway: Mallampati scale class II Neurological: alert and oriented Last oral intake: >/= 8 hours ASA classification: IV Emergent: no Anesthetic plan: proceed Anesthesia type and monitoring: general GIVS and standard monitoring Results Review: All pre-operative results and documents have been reviewed as part of the pre- operative evaluation. Informed Consent: The patient's anesthetic plan and its attendant risks and benefits were discussed with the patient/family/POA. Questions were solicited and answers provided to the satisfaction of the patient/family/POA.
--- NOTE | 2024-06-19 15:49 | PC.NURSE ---
On 06/19/24, the student, [Jessica Mercado], provided care and completed [facility] documentation on this patient. I have reviewed the student's documentation and agree with the findings.
[2024-06-19] MEDS: FENOFIBRATE 160 MG TABLET PO (17:29)
[2024-06-19] MEDS: lisinopriL 5 MG TABLET PO (17:30)
[2024-06-19] MEDS: ATORVASTATIN 10 MG TABLET PO (17:30)
[2024-06-19] MEDS: WARFARIN (*PBKC) 4 MG TABLET PO (17:30)
[2024-06-20] VITALS (22 sets, daily range): BP systolic 133–155; BP diastolic 58–88; PULSE 89–122; RESP 20; TEMP 36.6–37.5; O2SAT 93–98
[2024-06-20 04:46] LABS: Hematocrit 33.5 % (42.0-52.0); Hemoglobin 11.3 g/dL (14.0-18.0); Mean Corpuscular HGB Conc 33.7 g/dl (32-36); Mean Corpuscular Hemoglobin 33.2 pg (26-34); Mean Corpuscular Volume 98.5 fl (80-100); Mean Platelet Volume 9.3 fl (7.4-10.4); Platelet Count Result 191 k/mm3 (150-375); Red Cell Distribution Width 13.2 % (11.5-14.5); White Blood Count 10.3 K/mm3 (4.5-10.0)
[2024-06-20 04:56] LABS: Anion Gap 8 mmol/L (4-12); Blood Urea Nitrogen 17 mg/dL (9-20); Calcium 8.3 mg/dL (8.4-10.2); Carbon Dioxide 23 mmol/L (22-30); Chloride 107 mmol/L (98-107); Estimated CRCL calculation 82 ml/min; Estimated Glomerular Filt Rate > 60; Glucose 99 mg/dL (65-110); Magnesium 2.1 mg/dL (1.6-2.3); Potassium 3.8 mmol/L (3.4-5.0); Sodium 138 mmol/L (137-145)
[2024-06-20 04:57] LABS: INR 2.7; Prothrombin Time 28.7 Seconds (11.1-14.7)
[2024-06-20] MEDS: METOPROLOL TARTRATE 25 MG TABLET 75 MG PO (06:15)
[2024-06-20] MEDS: CHOLECALCIFEROL 1,000 UNITS TABLET 2000 UNITS PO (08:46)
[2024-06-20] MEDS: cefTRIAXone 2 GM/NS 100 ML 2 GM/100 ML BAG IVPB (08:46)
[2024-06-20] MEDS: dilTIAZem HCL CD 240 MG CAP.24HR PO (08:46)
[2024-06-20] MEDS: POTASSIUM CHLORIDE 10 MEQ ER TABLET PO (08:46)
--- NOTE | 2024-06-20 10:54 | PM.IMPN ---
Progress Note: A&P Assessment and Plan (1) Atrial fibrillation with rapid ventricular response: Code(s): I48.91 - Unspecified atrial fibrillation Status: Acute (2) UTI (urinary tract infection): Code(s): N39.0 - Urinary tract infection, site not specified Status: Acute (3) Diabetes mellitus: Qualifiers: Diabetes mellitus type: type 2 Diabetes mellitus intermediate designer insulin use: without half-way use Diabetes mellitus complication status: without complication Qualified Code(s): E11.9 - Type 2 diabetes mellitus without complications Code(s): E11.9 - Type 2 diabetes mellitus without complications Status: Chronic (4) Bacteremia: Code(s): R78.81 - Bacteremia Status: Acute (5) SIRS (systemic inflammatory response syndrome): Code(s): R65.10 - Systemic inflammatory response syndrome (SIRS) of non-infectious origin without acute organ dysfunction Status: Acute (6) Sepsis: Code(s): A41.9 - Sepsis, unspecified organism Status: Acute Plan # Atrial fibrillation with rapid ventricular response: Patient was initially started on a diltiazem drip which was switched to p.o. diltiazem and metoprolol Ventricular rate worsened after patient exerted and set up in a chair on p.r.n. IV metoprolol Continue p.o. diltiazem and Toprol Continue anticoagulation Consult weatherseal technician for evaluation treatment Will up titrate metoprolol to 100 # Elevated troponin: Possible demand ischemia secondary to AFib with RVR. Patient denies any chest pain. Patient is already on aspirin statin beta-carleen calcium channel carleen and ALLA-inhibitor Patient is also on anticoagulation echocardiogram 1. Complete two-dimensional, color flow and Doppler transthoracic echocardiogram is performed. 2. Normal left ventricular size and systolic function. 3. Biatrial dilation left greater than right. 4. Atrial fibrillation. 5. Mild mitral annular calcification. 6. Aortic valve appears to be a bioprosthetic device that is functioning normally. No information provided regarding size or type of device. 7. No evidence of infectious vegetation seen. Further workup per weatherseal technician. Status post ROBYN on 06/19/2024: EF 60-65% no vegetation noted # UTI (urinary tract infection): Continue Rocephin Urine culture has no growth of bacteria # Bacteremia: Blood cultures are growing group B Streptococcus on blood culture June 15, 2024 Although these could be contaminant. Echocardiogram showed 1. Complete two-dimensional, color flow and Doppler transthoracic echocardiogram is performed. 2. Normal left ventricular size and systolic function. 3. Biatrial dilation left greater than right. 4. Atrial fibrillation. 5. Mild mitral annular calcification. 6. Aortic valve appears to be a bioprosthetic device that is functioning normally. No information provided regarding size or type of device. 7. No evidence of infectious vegetation seen. Continue Rocephin, discontinue vancomycin repeat set of cultures on June 17 no growth of bacteria Will switch antibiotic to oral amoxicillin # Electrolyte abnormality: Replace low potassium and monitor # Chronic anticoagulation: Monitor daily INR # Debility: PT OT # DVT prophylaxis -warfarin # Code Status -patient is DNR Subjective Date/time seen: 06/20/24 10:54 Interval history: No overnight events. ROBYN reviewed. Breathing is better. Some weakness reported. No chest pain. Heart rate is controlled. Review of Systems Review of Systems: All systems are reviewed and are negative unless stated otherwise in the HPI. Exam Narrative: GENERAL: Pleasant, in no acute distress. Well-nourished. - EYES: EOMI. Anicteric. - HENT: Moist mucous membranes. - LUNGS: Clear to auscultation bilaterally, no wheezing, rhonchi, or rales. - CARDIOVASCULAR: Irregularly irregular rhythm, rate controlled No murmur. No JVD. - ABDOMEN: Soft, non-tender and non-distended. No palpable masses. - EXTREMITIES: No edema. Peripheral pulses 2+. Non-tender. - NEUROLOGIC: No focal neurological deficits. CN II-XII grossly intact. - PSYCHIATRIC: Awake, Alert and oriented x 3. Appropriate mood and affect. - SKIN: No rashes or lesions. Warm. - LYMPH: No cervical lymphadenopathy. Objective Data Vital Signs Vital Signs: Vital Signs - 24 hr 06/19/24 12:00 06/19/24 12:05 06/19/24 14:15 Temperature 99.6 F 98.0 F Pulse Rate 93 97 99 Respiratory Rate 20 27 H Blood Pressure 139/63 109/61 Pulse Oximetry 97 98 Oxygen Delivery Oxygen Flow Rate 4.0 06/19/24 14:30 06/19/24 14:59 06/19/24 16:00 Temperature 98.8 F Pulse Rate 99 107 H 94 Respiratory Rate 25 H Blood Pressure 131/86 Pulse Oximetry 98 Oxygen Delivery Oxygen Flow Rate 0 06/19/24 16:45 06/19/24 18:00 06/19/24 20:00 Temperature 98.4 F Pulse Rate 88 93 Respiratory Rate 20 Blood Pressure 145/64 H Pulse Oximetry 97 Oxygen Delivery Room Air Oxygen Flow Rate 06/19/24 20:00 06/19/24 20:15 06/19/24 21:04 Temperature 99.2 F Pulse Rate 101 H 99 119 H Respiratory Rate 20 Blood Pressure 125/62 Pulse Oximetry 95 Oxygen Delivery Oxygen Flow Rate 06/19/24 22:00 06/20/24 00:00 06/20/24 00:00 Temperature Pulse Rate 105 H 96 Respiratory Rate Blood Pressure Pulse Oximetry Oxygen Delivery Room Air Oxygen Flow Rate 06/20/24 00:23 06/20/24 02:00 06/20/24 04:00 Temperature 99.5 F Pulse Rate 103 H 99 Respiratory Rate 20 Blood Pressure 145/58 H Pulse Oximetry 96 Oxygen Delivery Room Air Oxygen Flow Rate 06/20/24 04:00 06/20/24 04:17 06/20/24 06:00 Temperature 98.3 F Pulse Rate 100 114 H 110 H Respiratory Rate 20 Blood Pressure 153/82 H Pulse Oximetry 96 Oxygen Delivery Oxygen Flow Rate 06/20/24 06:15 06/20/24 08:00 06/20/24 08:00 Temperature Pulse Rate 122 H 89 89 Respiratory Rate 20 Blood Pressure Pulse Oximetry 95 Oxygen Delivery Room Air Oxygen Flow Rate 06/20/24 08:18 06/20/24 10:00 Temperature 99.1 F Pulse Rate 89 89 Respiratory Rate 20 Blood Pressure 134/61 Pulse Oximetry 95 Oxygen Delivery Oxygen Flow Rate Intake/Output Intake/Output: Intake & Output 06/17/24 06/18/24 06/19/24 06/20/24 23:59 23:59 23:59 23:59 Intake Total 1320 1740 1390 640 Output Total 302 550 850 300 Balance 1018 1190 540 340 Meds/Results Medications: Active Medications Generic Name Dose Route Start Last Admin Trade Name Freq PRN Reason Stop Dose Admin Atorvastatin Calcium 10 mg 06/15/24 18:00 06/19/24 17:30 Atorvastatin 10 Mg Tablet PO 10 mg QPM REYNA Administration Diltiazem HCl 240 mg 06/16/24 09:00 06/20/24 08:46 Diltiazem Hcl Cd 240 Mg Cap.24hr PO 240 mg DAILY REYNA Administration Fenofibrate 160 mg 06/15/24 18:00 06/19/24 17:29 Fenofibrate 160 Mg Tablet PO 160 mg QPM REYNA Administration Ceftriaxone Sodium 2 gm in 100 mls @ 200 mls/hr 06/17/24 09:00 06/20/24 08:46 Rocephin 2 Gm/Ns 100 Ml IVPB 200 mls/hr Q24H REYNA Administration Lisinopril 5 mg 06/15/24 18:00 06/19/24 17:30 Lisinopril 5 Mg Tablet PO 5 mg QPM REYNA Administration Metoprolol Tartrate 75 mg 06/15/24 13:00 06/20/24 06:15 Metoprolol Tartrate 25 Mg Tablet PO 75 mg Q8HR REYNA Administration Metoprolol Tartrate 5 mg 06/16/24 08:51 06/18/24 21:39 Metoprolol Tartrate Inj 5 Mg/5 Ml Vial IV PUSH 5 mg Q4H PRN Administration HR > 120 sustained Potassium Chloride 10 meq 06/16/24 09:00 06/20/24 08:46 Potassium Chloride 10 Meq Er Tablet PO 10 meq DAILY REYNA Administration Vitamin D 2,000 units 06/16/24 09:00 06/20/24 08:46 Cholecalciferol 1,000 Units Tablet PO 2,000 units DAILY [facility] Administration Warfarin Sodium 4 mg 06/16/24 17:00 06/19/24 17:30 Warfarin (*Pbkc) 4 Mg Tablet PO 4 mg [id number] REYNA Administration Warfarin Sodium 8 mg 06/15/24 17:00 06/17/24 17:07 Warfarin (*Pbkc) 4 Mg Tablet PO 8 mg [id number]@1700 REYNA Administration Radiology Results: ITS Impressions Chest X-Ray 06/15/24 05:28 Impression: Possible minimal bibasilar pulmonary edema. Cardiomegaly, status post valve replacement, unchanged. Labs Labs: Laboratory Results - last 24 hr 06/20/24 04:18 WBC 10.3 H RBC 3.40 L Hgb 11.3 L Hct 33.5 L MCV 98.5 MCH 33.2 MCHC 33.7 RDW 13.2 Plt Count 191 MPV 9.3 PT 28.7 H INR 2.7 Sodium 138 Potassium 3.8 Chloride 107 Carbon Dioxide 23 Anion Gap 8 BUN 17 Creatinine 0.73 Estim Creat Clear Calc 82 Estimated GFR > 60 Glucose 99 Calcium 8.3 L Magnesium 2.1
[2024-06-20] MEDS: METOPROLOL TARTRATE 50 MG TAB 100 MG PO ×2 (12:00→21:00)
[2024-06-20] MEDS: AMOXICILLIN 500 MG CAPSULE PO ×3 (12:00→23:23)
[2024-06-20] MEDS: ATORVASTATIN 10 MG TABLET PO (16:44)
[2024-06-20] MEDS: lisinopriL 5 MG TABLET PO (16:44)
[2024-06-20] MEDS: FENOFIBRATE 160 MG TABLET PO (16:44)
[2024-06-20] MEDS: WARFARIN (*PBKC) 4 MG TABLET PO (18:24)
[2024-06-21] VITALS (22 sets, daily range): BP systolic 104–139; BP diastolic 57–81; PULSE 87–160; RESP 16–20; TEMP 37.1–37.7; O2SAT 93–100
[2024-06-21] MEDS: METOPROLOL TARTRATE 50 MG TAB 100 MG PO ×3 (05:09→21:00)
[2024-06-21] MEDS: AMOXICILLIN 500 MG CAPSULE PO ×4 (05:09→23:22)
[2024-06-21 05:34] LABS: Hemoglobin 11.1 g/dL (14.0-18.0); Mean Corpuscular HGB Conc 33.6 g/dl (32-36); Mean Corpuscular Hemoglobin 32.7 pg (26-34); Mean Corpuscular Volume 97.3 fl (80-100); Mean Platelet Volume 9.2 fl (7.4-10.4); Platelet Count Result 200 k/mm3 (150-375); Red Blood Count 3.39 M/mm3 (4.6-6.20); Red Cell Distribution Width 13.1 % (11.5-14.5); White Blood Count 9.6 K/mm3 (4.5-10.0)
[2024-06-21 05:45] LABS: Prothrombin Time 31.6 Seconds (11.1-14.7)
[2024-06-21 05:56] LABS: Anion Gap 7 mmol/L (4-12); Blood Urea Nitrogen 18 mg/dL (9-20); Calcium 8.2 mg/dL (8.4-10.2); Carbon Dioxide 23 mmol/L (22-30); Chloride 107 mmol/L (98-107); Estimated CRCL calculation 79 ml/min; Estimated Glomerular Filt Rate > 60; Glucose 104 mg/dL (65-110); Magnesium 2.1 mg/dL (1.6-2.3); Potassium 3.4 mmol/L (3.4-5.0); Sodium 137 mmol/L (137-145)
[2024-06-21] MEDS: dilTIAZem HCL CD 240 MG CAP.24HR PO (08:22)
[2024-06-21] MEDS: POTASSIUM CHLORIDE 10 MEQ ER TABLET PO (08:22)
[2024-06-21] MEDS: CHOLECALCIFEROL 1,000 UNITS TABLET 2000 UNITS PO (08:23)
[2024-06-21] MEDS: METOPROLOL TARTRATE INJ 5 MG/5 ML VIAL IV PUSH ×2 (09:30→21:19)
[2024-06-21] MEDS: dilTIAZem HCL CD 120 MG CAP.24HR PO (12:15)
--- NOTE | 2024-06-21 14:42 | P.PNIM_ITS ---
Progress Note: A&P Assessment and Plan (1) Atrial fibrillation with rapid ventricular response: Code(s): I48.91 - Unspecified atrial fibrillation Status: Acute (2) UTI (urinary tract infection): Code(s): N39.0 - Urinary tract infection, site not specified Status: Acute (3) Diabetes mellitus: Qualifiers: Diabetes mellitus type: type 2 Diabetes mellitus terminal gauger supervisor insulin use: without group home use Diabetes mellitus complication status: without complication Qualified Code(s): E11.9 - Type 2 diabetes mellitus without complications Code(s): E11.9 - Type 2 diabetes mellitus without complications Status: Chronic (4) Bacteremia: Code(s): R78.81 - Bacteremia Status: Acute (5) SIRS (systemic inflammatory response syndrome): Code(s): R65.10 - Systemic inflammatory response syndrome (SIRS) of non-infectious origin without acute organ dysfunction Status: Acute (6) Sepsis: Code(s): A41.9 - Sepsis, unspecified organism Status: Acute Plan # Atrial fibrillation with rapid ventricular response: Patient was initially started on a diltiazem drip which was switched to p.o. diltiazem and metoprolol Ventricular rate worsened after patient exerted and set up in a chair on p.r.n. IV metoprolol Continue p.o. diltiazem and Toprol Continue anticoagulation Consult workforce analyst for evaluation treatment Will up titrate metoprolol to 100 q.8 Will increase diltiazem to 360 mg daily # Elevated troponin: Possible demand ischemia secondary to AFib with RVR. Patient denies any chest pain. Patient is already on aspirin statin beta-carleen calcium channel carleen and ALLA-inhibitor Patient is also on anticoagulation echocardiogram 1. Complete two-dimensional, color flow and Doppler transthoracic echocardiogram is performed. 2. Normal left ventricular size and systolic function. 3. Biatrial dilation left greater than right. 4. Atrial fibrillation. 5. Mild mitral annular calcification. 6. Aortic valve appears to be a bioprosthetic device that is functioning normally. No information provided regarding size or type of device. 7. No evidence of infectious vegetation seen. Further workup per workforce analyst. Status post ROBYN on 06/19/2024: EF 60-65% no vegetation noted # UTI (urinary tract infection): Continue Rocephin Urine culture has no growth of bacteria # Bacteremia: Blood cultures are growing group B Streptococcus on blood culture June 15, 2024 Although these could be contaminant. Echocardiogram showed 1. Complete two-dimensional, color flow and Doppler transthoracic echocardiogram is performed. 2. Normal left ventricular size and systolic function. 3. Biatrial dilation left greater than right. 4. Atrial fibrillation. 5. Mild mitral annular calcification. 6. Aortic valve appears to be a bioprosthetic device that is functioning normally. No information provided regarding size or type of device. 7. No evidence of infectious vegetation seen. Continue Rocephin, discontinue vancomycin repeat set of cultures on June 17 no growth of bacteria Will switch antibiotic to oral amoxicillin # Electrolyte abnormality: Replace low potassium and monitor # Chronic anticoagulation: Monitor daily INR # Debility: PT OT # DVT prophylaxis -warfarin # Code Status -patient is DNR Subjective Date/time seen: 06/21/24 14:42 Interval history: his heart rate is still elevated. Particularly when he work with therapy went up to 160s. He denies any chest pain or shortness of breath. Review of Systems Review of Systems: All systems are reviewed and are negative unless stated otherwise in the HPI. Exam Narrative: GENERAL: Pleasant, in no acute distress. Well-nourished. - EYES: EOMI. Anicteric. - HENT: Moist mucous membranes. - LUNGS: Clear to auscultation bilateral ly, no wheezing, rhonchi, or rales. - CARDIOVASCULAR: Irregularly irregular rhythm, Tachycardic, No murmur. No JVD. - ABDOMEN: Soft, non-tender and non-dist ended. No palpable masses. - EXTREMITIES: No edema. Peripheral puls es 2+. Non-tender. - NEUROLOGIC: No focal neurological defi cits. CN II-XII grossly intact. - PSYCHIATRIC: Awake, Alert and oriented x 3. Appropriate mood and affect. - SKIN: No rashes or lesions. Warm. - LYMPH: No cervical lymphadenopathy. Objective Data Vital Signs Vital Signs: Vital Signs - 24 hr 06/20/24 16:00 06/20/24 16:00 06/20/24 16:28 Temperature 98.9 F Pulse Rate 105 H 105 H 105 H Respiratory Rate 20 20 Blood Pressure 155/58 H Pulse Oximetry 96 96 Oxygen Delivery Room Air 06/20/24 18:00 06/20/24 20:00 06/20/24 20:00 Temperature Pulse Rate 105 H 96 Respiratory Rate Blood Pressure Pulse Oximetry 98 Oxygen Delivery Room Air 06/20/24 20:08 06/20/24 21:00 06/20/24 22:00 Temperature 98.7 F Pulse Rate 91 119 H 101 H Respiratory Rate 20 Blood Pressure 142/63 H Pulse Oximetry 98 Oxygen Delivery 06/20/24 23:20 06/20/24 23:24 06/21/24 00:00 Temperature 97.8 F Pulse Rate 105 H 101 H Respiratory Rate 20 Blood Pressure 133/74 Pulse Oximetry 93 98 Oxygen Delivery Room Air 06/21/24 02:00 06/21/24 03:36 06/21/24 03:45 Temperature 99.9 F H Pulse Rate 95 112 H Respiratory Rate 20 Blood Pressure 139/79 Pulse Oximetry 93 93 Oxygen Delivery Room Air 06/21/24 04:00 06/21/24 05:09 06/21/24 06:00 Temperature Pulse Rate 103 H 117 H 87 Respiratory Rate Blood Pressure Pulse Oximetry Oxygen Delivery 06/21/24 07:44 06/21/24 08:00 06/21/24 08:00 Temperature 99.1 F Pulse Rate 98 160 H 160 H Respiratory Rate 16 16 Blood Pressure 135/81 Pulse Oximetry 93 Oxygen Delivery Room Air 06/21/24 09:30 06/21/24 10:00 06/21/24 11:10 Temperature 98.7 F Pulse Rate 160 H 160 H 116 H Respiratory Rate 16 Blood Pressure 104/57 L Pulse Oximetry 100 Oxygen Delivery 06/21/24 12:00 06/21/24 12:00 06/21/24 12:40 Temperature Pulse Rate 116 H 116 H 116 H Respiratory Rate 16 Blood Pressure Pulse Oximetry 100 Oxygen Delivery Room Air 06/21/24 14:17 Temperature Pulse Rate 130 H Respiratory Rate Blood Pressure Pulse Oximetry Oxygen Delivery Intake/Output Intake/Output: Intake & Output 06/18/24 06/19/24 06/20/24 06/21/24 23:59 23:59 23:59 23:59 Intake Total 1740 1390 1120 1090 Output Total 550 850 700 200 Balance 1190 540 420 890 Meds/Results Medications: Active Medications Generic Name Dose Route Start Last Admin Trade Name Freq PRN Reason Stop Dose Admin Amoxicillin 500 mg 06/20/24 12:00 06/21/24 12:15 Amoxicillin 500 Mg Capsule PO 500 mg Q6HR REYNA Administration Atorvastatin Calcium 10 mg 06/15/24 18:00 06/20/24 16:44 Atorvastatin 10 Mg Tablet PO 10 mg QPM REYNA Administration Diltiazem HCl 240 mg 06/16/24 09:00 06/21/24 08:22 Diltiazem Hcl Cd 240 Mg Cap.24hr PO 240 mg DAILY REYNA Administration Fenofibrate 160 mg 06/15/24 18:00 06/20/24 16:44 Fenofibrate 160 Mg Tablet PO 160 mg QPM REYNA Administration Lisinopril 5 mg 06/15/24 18:00 06/20/24 16:44 Lisinopril 5 Mg Tablet PO 5 mg QPM REYNA Administration Metoprolol Tartrate 5 mg 06/16/24 08:51 06/21/24 09:30 Metoprolol Tartrate Inj 5 Mg/5 Ml Vial IV PUSH 5 mg Q4H PRN Administration HR > 120 sustained Metoprolol Tartrate 100 mg 06/20/24 14:00 06/21/24 14:17 Metoprolol Tartrate 50 Mg Tab PO 100 mg Q8HR REYNA Administration Potassium Chloride 10 meq 06/16/24 09:00 06/21/24 08:22 Potassium Chloride 10 Meq Er Tablet PO 10 meq DAILY [facility] Administration Vitamin D 2,000 units 06/16/24 09:00 06/21/24 08:23 Cholecalciferol 1,000 Units Tablet PO 2,000 units DAILY REYNA Administration Warfarin Sodium 4 mg 06/16/24 17:00 06/20/24 18:24 Warfarin (*Pbkc) 4 Mg Tablet PO 4 mg [id number] [facility] Administration Warfarin Sodium 8 mg 06/15/24 17:00 06/17/24 17:07 Warfarin (*Pbkc) 4 Mg Tablet PO 8 mg [id number]@1700 [facility] Administration Radiology Results: ITS Impressions Chest X-Ray 06/15/24 05:28 Impression: Possible minimal bibasilar pulmonary edema. Cardiomegaly, status post valve replacement, unchanged. Labs Labs: Laboratory Results - last 24 hr 06/21/24 05:01 WBC 9.6 RBC 3.39 L Hgb 11.1 L Hct 33.0 L MCV 97.3 MCH 32.7 MCHC 33.6 RDW 13.1 Plt Count 200 MPV 9.2 PT 31.6 H INR 3.0 Sodium 137 Potassium 3.4 Chloride 107 Carbon Dioxide 23 Anion Gap 7 BUN 18 Creatinine 0.76 Estim Creat Clear Calc 79 Estimated GFR > 60 Glucose 104 Calcium 8.2 L Magnesium 2.1
[2024-06-21] MEDS: FENOFIBRATE 160 MG TABLET PO (17:43)
[2024-06-21] MEDS: WARFARIN (*PBKC) 4 MG TABLET PO (17:43)
[2024-06-21] MEDS: lisinopriL 5 MG TABLET PO (17:43)
[2024-06-21] MEDS: ATORVASTATIN 10 MG TABLET PO (17:43)
[2024-06-22] VITALS (20 sets, daily range): BP systolic 109–147; BP diastolic 51–88; PULSE 74–130; RESP 18–22; TEMP 36.8–37.4; O2SAT 92–97
[2024-06-22 04:59] LABS: Hematocrit 31.5 % (42.0-52.0); Hemoglobin 10.6 g/dL (14.0-18.0); Mean Corpuscular HGB Conc 33.7 g/dl (32-36); Mean Corpuscular Hemoglobin 32.5 pg (26-34); Mean Corpuscular Volume 96.6 fl (80-100); Platelet Count Result 209 k/mm3 (150-375); Red Blood Count 3.26 M/mm3 (4.6-6.20); Red Cell Distribution Width 13.3 % (11.5-14.5); White Blood Count 5.9 K/mm3 (4.5-10.0)
[2024-06-22] MEDS: METOPROLOL TARTRATE 50 MG TAB 100 MG PO ×3 (05:06→22:34)
[2024-06-22] MEDS: AMOXICILLIN 500 MG CAPSULE PO ×4 (05:06→23:23)
[2024-06-22 05:11] LABS: INR 3.3
[2024-06-22 05:15] LABS: Anion Gap 8 mmol/L (4-12); Blood Urea Nitrogen 20 mg/dL (9-20); Calcium 8.5 mg/dL (8.4-10.2); Carbon Dioxide 24 mmol/L (22-30); Chloride 105 mmol/L (98-107); Estimated CRCL calculation 78 ml/min; Estimated Glomerular Filt Rate > 60; Glucose 94 mg/dL (65-110); Magnesium 2.1 mg/dL (1.6-2.3); Potassium 3.3 mmol/L (3.4-5.0); Sodium 137 mmol/L (137-145)
[2024-06-22] MEDS: POTASSIUM CHLORIDE 10 MEQ ER TABLET PO (09:00)
[2024-06-22] MEDS: CHOLECALCIFEROL 1,000 UNITS TABLET 2000 UNITS PO (09:00)
[2024-06-22] MEDS: dilTIAZem HCL CD 180 MG CAP.24HR 360 MG PO (09:00)
--- NOTE | 2024-06-22 09:10 | PCNWS ---
Weekly nutritional screen. Patient is tolerating current heart healthy diet with adequate intake 100%. No weight loss reported. No nutritional recommendations at this time.
--- NOTE | 2024-06-22 10:13 | P.PNIM_ITS ---
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 Diabetes mellitus complication status: without complication Qualified Code(s): E11.9 - Type 2 diabetes mellitus without complications Code(s): E11.9 - Type 2 diabetes mellitus without complications Status: Chronic (4) Bacteremia: Code(s): R78.81 - Bacteremia Status: Acute (5) SIRS (systemic inflammatory response syndrome): Code(s): R65.10 - Systemic inflammatory response syndrome (SIRS) of non-infectious origin without acute organ dysfunction Status: Acute (6) Sepsis: Code(s): A41.9 - Sepsis, unspecified organism Status: Acute Plan # Atrial fibrillation with rapid ventricular response: Patient was initially started on a diltiazem drip which was switched to p.o. diltiazem and metoprolol Ventricular rate worsened after patient exerted and set up in a chair on p.r.n. IV metoprolol Continue p.o. diltiazem and Toprol Continue anticoagulation Consult [facility] faller for evaluation treatment Will up titrate metoprolol to 100 q.8 Increased diltiazem to 360 mg daily Heart rate better controlled will monitor # Elevated troponin: Possible demand ischemia secondary to AFib with RVR. Patient denies any chest pain. Patient is already on aspirin statin beta-carleen calcium channel carleen and ALLA-inhibitor Patient is also on anticoagulation echocardiogram 1. Complete two-dimensional, color flow and Doppler transthoracic echocardiogram is performed. 2. Normal left ventricular size and systolic function. 3. Biatrial dilation left greater than right. 4. Atrial fibrillation. 5. Mild mitral annular calcification. 6. Aortic valve appears to be a bioprosthetic device that is functioning normally. No information provided regarding size or type of device. 7. No evidence of infectious vegetation seen. Further workup per soft[facility] faller. Status post ROBYN on 06/19/2024: EF 60-65% no vegetation noted # UTI (urinary tract infection): Continue Rocephin Urine culture has no growth of bacteria # Bacteremia: Blood cultures are growing group B Streptococcus on blood culture June 15, 2024 Although these could be contaminant. Echocardiogram showed 1. Complete two-dimensional, color flow and Doppler transthoracic echocardiogram is performed. 2. Normal left ventricular size and systolic function. 3. Biatrial dilation left greater than right. 4. Atrial fibrillation. 5. Mild mitral annular calcification. 6. Aortic valve appears to be a bioprosthetic device that is functioning normally. No information provided regarding size or type of device. 7. No evidence of infectious vegetation seen. Continue Rocephin, discontinue vancomycin repeat set of cultures on June 17 no growth of bacteria Will switch antibiotic to oral amoxicillin # Electrolyte abnormality: Replace low potassium and monitor # Chronic anticoagulation: Monitor daily INR # Debility: PT OT # DVT prophylaxis -warfarin hold warfarin tonight # Code Status -patient is DNR Subjective Date/time seen: 06/22/24 10:13 Interval history: No overnight events. Had telemetry reviewed. Intermittent tachycardia. AFib on monitored currently rate controlled. Review of Systems Review of Systems: All systems are reviewed and are negative unless stated otherwise in the HPI. Exam Narrative: GENERAL: Pleasant, in no acute distress. Well-nourished. - EYES: EOMI. Anicteric. - HENT: Moist mucous membranes. - LUNGS: Clear to auscultation bilateral ly, no wheezing, rhonchi, or rales. - CARDIOVASCULAR: Irregularly irregular rhythm, Tachycardic, No murmur. No JVD. - ABDOMEN: Soft, non-tender and non-dist ended. No palpable masses. - EXTREMITIES: No edema. Peripheral puls es 2+. Non-tender. - NEUROLOGIC: No focal neurological defi cits. CN II-XII grossly intact. - PSYCHIATRIC: Awake, Alert and oriented x 3. Appropriate mood and affect. - SKIN: No rashes or lesions. Warm. - LYMPH: No cervical lymphadenopathy. Objective Data Vital Signs Vital Signs: Vital Signs - 24 hr 06/21/24 11:10 06/21/24 12:00 06/21/24 12:00 Temperature 98.7 F Pulse Rate 116 H 116 H 116 H Respiratory Rate 16 16 Blood Pressure 104/57 L Pulse Oximetry 100 100 Oxygen Delivery Room Air 06/21/24 12:40 06/21/24 14:17 06/21/24 15:56 Temperature 99.3 F Pulse Rate 116 H 130 H 88 Respiratory Rate 16 Blood Pressure 119/60 Pulse Oximetry 98 Oxygen Delivery 06/21/24 16:00 06/21/24 16:00 06/21/24 17:53 Temperature Pulse Rate 88 88 88 Respiratory Rate 16 Blood Pressure Pulse Oximetry 98 Oxygen Delivery Room Air 06/21/24 20:00 06/21/24 20:00 06/21/24 20:00 Temperature 99.9 F H Pulse Rate 140 H 126 H Respiratory Rate 18 Blood Pressure 110/68 Pulse Oximetry 96 96 Oxygen Delivery Room Air 06/21/24 21:00 06/21/24 21:19 06/21/24 22:00 Temperature Pulse Rate 146 H 139 H 103 H Respiratory Rate Blood Pressure Pulse Oximetry Oxygen Delivery 06/22/24 00:00 06/22/24 00:00 06/22/24 00:00 Temperature 99.0 F Pulse Rate 80 107 H Respiratory Rate 18 Blood Pressure 147/51 H Pulse Oximetry 92 96 Oxygen Delivery Room Air 06/22/24 02:00 06/22/24 03:45 06/22/24 04:00 Temperature 99.3 F Pulse Rate 87 98 Respiratory Rate 20 Blood Pressure 129/54 L Pulse Oximetry 97 Oxygen Delivery Room Air 06/22/24 04:00 06/22/24 05:06 06/22/24 06:00 Temperature Pulse Rate 91 97 82 Respiratory Rate Blood Pressure Pulse Oximetry Oxygen Delivery 06/22/24 07:48 Temperature 98.3 F Pulse Rate 96 Respiratory Rate 22 H Blood Pressure 133/61 Pulse Oximetry 96 Oxygen Delivery Intake/Output Intake/Output: Intake & Output 06/19/24 06/20/24 06/21/24 06/22/24 23:59 23:59 23:59 23:59 Intake Total 1390 1120 1310 740 Output Total 850 700 200 300 Balance 046 600 6591 440 Meds/Results Medications: Active Medications Generic Name Dose Route Start Last Admin Trade Name Freq PRN Reason Stop Dose Admin Amoxicillin 500 mg 06/20/24 12:00 06/22/24 05:06 Amoxicillin 500 Mg Capsule PO 500 mg Q6HR REYNA Administration Atorvastatin Calcium 10 mg 06/15/24 18:00 06/21/24 17:43 Atorvastatin 10 Mg Tablet PO 10 mg QPM REYNA Administration Diltiazem HCl 360 mg 06/22/24 09:00 06/22/24 09:00 Diltiazem Hcl Cd 180 Mg Cap.24hr PO 360 mg DAILY REYNA Administration Fenofibrate 160 mg 06/15/24 18:00 06/21/24 17:43 Fenofibrate 160 Mg Tablet PO 160 mg QPM REYNA Administration Lisinopril 5 mg 06/15/24 18:00 06/21/24 17:43 Lisinopril 5 Mg Tablet PO 5 mg QPM REYNA Administration Metoprolol Tartrate 5 mg 06/16/24 08:51 06/21/24 21:19 Metoprolol Tartrate Inj 5 Mg/5 Ml Vial IV PUSH 5 mg Q4H PRN Administration HR > 120 sustained Metoprolol Tartrate 100 mg 06/20/24 14:00 06/22/24 05:06 Metoprolol Tartrate 50 Mg Tab PO 100 mg Q8HR [facility] Administration Potassium Chloride 10 meq 06/16/24 09:00 06/22/24 09:00 Potassium Chloride 10 Meq Er Tablet PO 10 meq DAILY [facility] Administration Vitamin D 2,000 units 06/16/24 09:00 06/22/24 09:00 Cholecalciferol 1,000 Units Tablet PO 2,000 units DAILY REYNA Administration Warfarin Sodium 4 mg 06/16/24 17:00 06/21/24 17:43 Warfarin (*Pbkc) 4 Mg Tablet PO 4 mg [email or web address] [facility] Administration Warfarin Sodium 8 mg 06/15/24 17:00 06/17/24 17:07 Warfarin (*Pbkc) 4 Mg Tablet PO 8 mg [email or web address]@1700 [facility] Administration Radiology Results: ITS Impressions Chest X-Ray 06/15/24 05:28 Impression: Possible minimal bibasilar pulmonary edema. Cardiomegaly, status post valve replacement, unchanged. Labs Labs: Laboratory Results - last 24 hr 06/22/24 04:21 WBC 5.9 RBC 3.26 L Hgb 10.6 L Hct 31.5 L MCV 96.6 MCH 32.5 MCHC 33.7 RDW 13.3 Plt Count 209 MPV 9.0 PT 34.0 H INR 3.3 Sodium 137 Potassium 3.3 L Chloride 105 Carbon Dioxide 24 Anion Gap 8 BUN 20 Creatinine 0.78 Estim Creat Clear Calc 78 Estimated GFR > 60 Glucose 94 Calcium 8.5 Magnesium 2.1
[2024-06-22] MEDS: POTASSIUM CHLORIDE 20 MEQ ER TABLET 40 MEQ PO (10:45)
[2024-06-22] MEDS: ATORVASTATIN 10 MG TABLET PO (17:10)
[2024-06-22] MEDS: lisinopriL 5 MG TABLET PO (17:10)
[2024-06-22] MEDS: FENOFIBRATE 160 MG TABLET PO (17:10)
[2024-06-23] VITALS (24 sets, daily range): BP systolic 102–136; BP diastolic 52–77; PULSE 70–116; RESP 16–20; TEMP 36.7–37.5; O2SAT 93–98
[2024-06-23 04:41] LABS: Hematocrit 31.8 % (42.0-52.0); Hemoglobin 10.6 g/dL (14.0-18.0); Mean Corpuscular HGB Conc 33.3 g/dl (32-36); Mean Corpuscular Hemoglobin 32.2 pg (26-34); Mean Corpuscular Volume 96.7 fl (80-100); Mean Platelet Volume 9.2 fl (7.4-10.4); Platelet Count Result 227 k/mm3 (150-375); Red Blood Count 3.29 M/mm3 (4.6-6.20); Red Cell Distribution Width 13.2 % (11.5-14.5); White Blood Count 5.6 K/mm3 (4.5-10.0)
[2024-06-23 04:45] LABS: INR 2.7; Prothrombin Time 29.3 Seconds (11.1-14.7)
[2024-06-23 04:46] LABS: Anion Gap 6 mmol/L (4-12); Blood Urea Nitrogen 21 mg/dL (9-20); Calcium 8.5 mg/dL (8.4-10.2); Carbon Dioxide 24 mmol/L (22-30); Chloride 106 mmol/L (98-107); Estimated CRCL calculation 76 ml/min; Estimated Glomerular Filt Rate > 60; Glucose 95 mg/dL (65-110); Magnesium 2.1 mg/dL (1.6-2.3); Potassium 3.8 mmol/L (3.4-5.0); Sodium 136 mmol/L (137-145)
[2024-06-23] MEDS: METOPROLOL TARTRATE 50 MG TAB 100 MG PO ×2 (05:08→13:52)
[2024-06-23] MEDS: AMOXICILLIN 500 MG CAPSULE PO ×3 (05:09→13:52)
[2024-06-23] MEDS: dilTIAZem HCL CD 180 MG CAP.24HR 360 MG PO (08:05)
[2024-06-23] MEDS: CHOLECALCIFEROL 1,000 UNITS TABLET 2000 UNITS PO (08:05)
[2024-06-23] MEDS: POTASSIUM CHLORIDE 10 MEQ ER TABLET PO (08:05)
--- NOTE | 2024-06-23 11:22 | P.PNCA_ITS ---
Progress Note: A&P Assessment and Plan (1) Atrial fibrillation with rapid ventricular response: Code(s): I48.91 - Unspecified atrial fibrillation Status: Acute (2) Bacteremia: Code(s): R78.81 - Bacteremia Status: Acute (3) Sepsis: Code(s): A41.9 - Sepsis, unspecified organism Status: Acute (4) HTN (hypertension): Qualifiers: Hypertension type: essential hypertension Qualified Code(s): I10 - Essential (primary) hypertension Code(s): I10 - Essential (primary) hypertension Status: Chronic (5) History of aortic valve replacement with bioprosthetic valve: Code(s): Z95.3 - Presence of xenogenic heart valve Status: Acute (6) CAD (coronary artery disease): Qualifiers: Associated angina: without angina Coronary Disease-Associated Artery/Lesion type: [place] artery [place] vs. transplanted heart: [place] heart Qualified Code(s): I25.10 - Atherosclerotic heart disease of [place] coronary artery without angina pectoris Code(s): I25.10 - Atherosclerotic heart disease of [place] coronary artery without angina pectoris Status: Chronic (7) Elevated troponin: Code(s): R79.89 - Other specified abnormal findings of blood chemistry Status: Acute (8) Hyperlipidemia: Code(s): E78.5 - Hyperlipidemia, unspecified Status: Acute Plan -Longstanding persistent atrial fibrillation on anticoagulation with warfarin- now with RVR -Elevated troponin without chest pain-most likely secondary to stress of AFib RVR and ongoing infection -Sepsis, UTI, 2/2 bottles blood cultures on 06/15 growing group B Streptococcus- on ceftriaxone -Hypokalemia -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 -He is on maximum dosages of diltiazem and metoprolol at this point. Prefer not to add digoxin to two AV sandoval agents in this elderly patient. Therefore, will shift him to amiodarone for rate control. Do not expect chemical cardioversion in this situation since he has chronic atrial fibrillation -Continue Coumadin for anticoagulation. Monitor INR closely with initiation of amiodarone - may need to decrease coumadin dose. -Continue lisinopril -Continue statin -Management of other medical problems per primary team Subjective Date/time seen: 06/23/24 11:22 Interval history: Reason For Visit: Sepsis, A Fib RVR HPI: 88-year-old male with history of bioprosthetic AVR and aortic root repair in April 2012-operative report not available, history of percutaneous closure of paravalvular leak, longstanding persistent atrial fibrillation on anticoagulation with warfarin, CAD, pulmonary hypertension, obstructive sleep apnea on BiPAP, aortic insufficiency diabetes mellitus, hypertension was admitted for generalized weakness and AFib with RVR. He was diagnosed with a UTI and is on ceftriaxone. Blood cultures grew strep group B Streptococcus. TTE was negative for vegetation. For AFib, he was started on a low dose diltiazem drip which was later discontinued and p.o. metoprolol, p.o. diltiazem were resumed. He continues to have RVR and Cardiology was consulted for further management. Workup: Troponin: 0.065, 0.067 Potassium: 3 Blood cultures: Group B Streptococcus in 2/2 bottles on 06/15, cultures from 06/16 pending EKG: AFib with RVR, rate 143, left bundle branch block, age-indeterminate inferior infarct, age indeterminate anteroseptal infarct Chest x-ray: Bibasilar pulmonary edema, cardiomegaly, status post valve replacement TTE 06/16: Normal LV size and systolic function, bioprosthetic aortic valve functioning normally, no vegetation Interval history:No chest pain, shortness of breath, dizziness, lightheadedness, presyncope, syncope, leg swelling, palpitations, nausea, emesis, abdominal pain, or headache. Telemetry shows atrial fibrillation with rates in the 80s. 06/23/2024: Asked by the hospitalist to see patient again as he has had atrial fibrillation with RVR. He does not feel symptoms while he is at rest but with activity when his heart rate elevates to 140's he does feel palpitations. No chest pain or shortness of breath. Review of Systems Review of Systems: A complete review of systems was performed and negative other than those mentioned in HPI Exam Const: General: comfortable, no acute distress, alert and awake Nutritional Appearance: overweight Orientation/consciousness: patient oriented x3 HENMT: Head: normal to inspection Eyes: General: appearance normal, both eyes and all related structures Pupils: Equal, round and reactive pupils present Neck: Neck: normal visual inspection, supple and no JVD Carotids: normal carotid upstroke Resp: Effort & Inspection: normal respiratory effort Auscultation: clear to auscultation bilaterally and diminished lung sounds Cardio: Rate: tachycardic Rhythm: abnormal rhythm irregularly irregular Heart sounds: S1 normal heart sound present, S2 normal heart sound present and no murmurs GI: Auscultation: normal bowel sounds Skin: General skin exam: normal color Neuro: General: patient oriented x3 Cranial nerves: Yes Equal, round and reactive pupils present Extrem: General: normal to inspection Psych: Appearance: grossly normal Mental Status: mental status grossly normal Objective Data Vital Signs Vital Signs: Vital Signs - 24 hr 06/22/24 11:59 06/22/24 12:00 06/22/24 12:00 Temperature 36.8 C Pulse Rate 107 H 114 H Respiratory Rate 22 H Blood Pressure 138/88 Pulse Oximetry 93 Oxygen Delivery Room Air 06/22/24 13:11 06/22/24 14:00 06/22/24 16:00 Temperature Pulse Rate 75 84 Respiratory Rate Blood Pressure Pulse Oximetry Oxygen Delivery Room Air 06/22/24 16:00 06/22/24 16:39 06/22/24 18:00 Temperature 36.8 C Pulse Rate 76 74 107 H Respiratory Rate 18 Blood Pressure 109/51 L Pulse Oximetry 97 Oxygen Delivery 06/22/24 19:54 06/22/24 20:00 06/22/24 20:00 Temperature 37.4 C Pulse Rate 112 H 100 Respiratory Rate 22 H Blood Pressure 121/71 Pulse Oximetry 95 Oxygen Delivery Room Air 06/22/24 22:00 06/22/24 22:34 06/23/24 00:00 Temperature Pulse Rate 106 H 130 H Respiratory Rate Blood Pressure Pulse Oximetry Oxygen Delivery Room Air 06/23/24 00:00 06/23/24 00:00 06/23/24 02:00 Temperature 37.5 C Pulse Rate 94 87 98 Respiratory Rate 18 Blood Pressure 125/59 L Pulse Oximetry 94 Oxygen Delivery 06/23/24 03:25 06/23/24 04:00 06/23/24 04:00 Temperature 36.8 C Pulse Rate 99 115 H Respiratory Rate 20 Blood Pressure 136/77 Pulse Oximetry 93 Oxygen Delivery Room Air 06/23/24 05:08 06/23/24 06:00 06/23/24 08:08 Temperature 37.3 C Pulse Rate 106 H 98 93 Respiratory Rate 16 Blood Pressure 130/65 Pulse Oximetry 95 Oxygen Delivery Intake/Output Intake/Output: Intake & Output 06/20/24 06/21/24 06/22/24 06/23/24 23:59 23:59 23:59 23:59 Intake Total 1120 1310 1420 730 Output Total 461 195 4022 900 Balance 420 1110 170 -170 Meds/Results Medications: Active Medications Generic Name Dose Route Start Last Admin Trade Name Freq PRN Reason Stop Dose Admin Amoxicillin 500 mg 06/20/24 12:00 06/23/24 05:09 Amoxicillin 500 Mg Capsule PO 500 mg Q6HR REYNA Administration Atorvastatin Calcium 10 mg 06/15/24 18:00 06/22/24 17:10 Atorvastatin 10 Mg Tablet PO 10 mg QPM REYNA Administration Diltiazem HCl 360 mg 06/22/24 09:00 06/23/24 08:05 Diltiazem Hcl Cd 180 Mg Cap.24hr PO 360 mg DAILY REYNA Administration Fenofibrate 160 mg 06/15/24 18:00 06/22/24 17:10 Fenofibrate 160 Mg Tablet PO 160 mg QPM REYNA Administration Lisinopril 5 mg 06/15/24 18:00 06/22/24 17:10 Lisinopril 5 Mg Tablet PO 5 mg QPM REYNA Administration Metoprolol Tartrate 5 mg 06/16/24 08:51 06/21/24 21:19 Metoprolol Tartrate Inj 5 Mg/5 Ml Vial IV PUSH 5 mg Q4H PRN Administration HR > 120 sustained Metoprolol Tartrate 100 mg 06/20/24 14:00 06/23/24 05:08 Metoprolol Tartrate 50 Mg Tab PO 100 mg Q8HR REYNA Administration Potassium Chloride 10 meq 06/16/24 09:00 06/23/24 08:05 Potassium Chloride 10 Meq Er Tablet PO 10 meq DAILY REYNA Administration Vitamin D 2,000 units 06/16/24 09:00 06/23/24 08:05 Cholecalciferol 1,000 Units Tablet PO 2,000 units DAILY REYNA Administration Warfarin Sodium 4 mg 06/16/24 17:00 06/21/24 17:43 Warfarin (*Pbkc) 4 Mg Tablet PO 4 mg [email or web address] [facility] Administration Warfarin Sodium 8 mg 06/15/24 17:00 06/17/24 17:07 Warfarin (*Pbkc) 4 Mg Tablet PO 8 mg [id number]@1700 [facility] Administration Radiology Results: ITS Impressions Chest X-Ray 06/15/24 05:28 Impression: Possible minimal bibasilar pulmonary edema. Cardiomegaly, status post valve replacement, unchanged. Labs Labs: Laboratory Results - last 24 hr 06/23/24 03:57 WBC 5.6 RBC 3.29 L Hgb 10.6 L Hct 31.8 L MCV 96.7 MCH 32.2 MCHC 33.3 RDW 13.2 Plt Count 227 MPV 9.2 PT 29.3 H INR 2.7 Sodium 136 L Potassium 3.8 Chloride 106 Carbon Dioxide 24 Anion Gap 6 BUN 21 H Creatinine 0.79 Estim Creat Clear Calc 76 Estimated GFR > 60 Glucose 95 Calcium 8.5 Magnesium 2.1 Quality VTE Prophylaxis VTE prophylaxis: pharmacologic ordered
--- NOTE | 2024-06-23 14:19 | P.PNIM_ITS ---
Progress Note: A&P Assessment and Plan (1) Atrial fibrillation with rapid ventricular response: Code(s): I48.91 - Unspecified atrial fibrillation Status: Acute (2) UTI (urinary tract infection): Code(s): N39.0 - Urinary tract infection, site not specified Status: Acute (3) Diabetes mellitus: Qualifiers: Diabetes mellitus type: type 2 Diabetes mellitus long goods drier insulin use: without residential use Diabetes mellitus complication status: without complication Qualified Code(s): E11.9 - Type 2 diabetes mellitus without complications Code(s): E11.9 - Type 2 diabetes mellitus without complications Status: Chronic (4) Bacteremia: Code(s): R78.81 - Bacteremia Status: Acute (5) SIRS (systemic inflammatory response syndrome): Code(s): R65.10 - Systemic inflammatory response syndrome (SIRS) of non-infectious origin without acute organ dysfunction Status: Acute (6) Sepsis: Code(s): A41.9 - Sepsis, unspecified organism Status: Acute Plan # Atrial fibrillation with rapid ventricular response: Patient was initially started on a diltiazem drip which was switched to p.o. diltiazem and metoprolol Ventricular rate worsened after patient exerted and set up in a chair on p.r.n. IV metoprolol Continue p.o. diltiazem and Toprol Continue anticoagulation Consult electroneurodiagnostic technician for evaluation treatment Will up titrate metoprolol to 100 q.8 Increased diltiazem to 360 mg daily Heart rate still not controlled. Ask Cardiology to re-evaluate # Elevated troponin: Possible demand ischemia secondary to AFib with RVR. Patient denies any chest pain. Patient is already on aspirin statin beta-carleen calcium channel carleen and ALLA-inhibitor Patient is also on anticoagulation echocardiogram 1. Complete two-dimensional, color flow and Doppler transthoracic echocardiogram is performed. 2. Normal left ventricular size and systolic function. 3. Biatrial dilation left greater than right. 4. Atrial fibrillation. 5. Mild mitral annular calcification. 6. Aortic valve appears to be a bioprosthetic device that is functioning normally. No information provided regarding size or type of device. 7. No evidence of infectious vegetation seen. Further workup per electroneurodiagnostic technician. Status post ROBYN on 06/19/2024: EF 60-65% no vegetation noted # UTI (urinary tract infection): Continue Rocephin Urine culture has no growth of bacteria # Bacteremia: Blood cultures are growing group B Streptococcus on blood culture June 15, 2024 Although these could be contaminant. Echocardiogram showed 1. Complete two-dimensional, color flow and Doppler transthoracic echocardiogram is performed. 2. Normal left ventricular size and systolic function. 3. Biatrial dilation left greater than right. 4. Atrial fibrillation. 5. Mild mitral annular calcification. 6. Aortic valve appears to be a bioprosthetic device that is functioning normally. No information provided regarding size or type of device. 7. No evidence of infectious vegetation seen. Continue Rocephin, discontinue vancomycin repeat set of cultures on June 17 no growth of bacteria Will switch antibiotic to oral amoxicillin . # Electrolyte abnormality: Replace low potassium and monitor # Chronic anticoagulation: Monitor daily INR # Debility: PT OT # DVT prophylaxis -warfarin hold warfarin 06/22/2024. INR therapeutic and down. Will resume usual doses # Code Status -patient is DNR Subjective Date/time seen: 06/23/24 14:19 Interval history: no new complaints. Telemetry reviewed. Heart rate jumps to 150s intermittently currently in 110s Review of Systems Review of Systems: All systems are reviewed and are negative unless stated otherwise in the HPI. Exam Narrative: GENERAL: Pleasant, in no acute distress. Well-nourished. - EYES: EOMI. Anicteric. - HENT: Moist mucous membranes. - LUNGS: Clear to auscultation bilateral ly, no wheezing, rhonchi, or rales. - CARDIOVASCULAR: Irregularly irregular rhythm, Tachycardic, No murmur. No JVD. - ABDOMEN: Soft, non-tender and non-dist ended. No palpable masses. - EXTREMITIES: No edema. Peripheral puls es 2+. Non-tender. - NEUROLOGIC: No focal neurological defi cits. CN II-XII grossly intact. - PSYCHIATRIC: Awake, Alert and oriented x 3. Appropriate mood and affect. - SKIN: No rashes or lesions. Warm. - LYMPH: No cervical lymphadenopathy. Objective Data Vital Signs Vital Signs: Vital Signs - 24 hr 06/22/24 16:00 06/22/24 16:00 06/22/24 16:39 Temperature 98.3 F Pulse Rate 76 74 Respiratory Rate 18 Blood Pressure 109/51 L Pulse Oximetry 97 Oxygen Delivery Room Air 06/22/24 18:00 06/22/24 19:54 06/22/24 20:00 Temperature 99.3 F Pulse Rate 107 H 112 H Respiratory Rate 22 H Blood Pressure 121/71 Pulse Oximetry 95 Oxygen Delivery Room Air 06/22/24 20:00 06/22/24 22:00 06/22/24 22:34 Temperature Pulse Rate 100 106 H 130 H Respiratory Rate Blood Pressure Pulse Oximetry Oxygen Delivery 06/23/24 00:00 06/23/24 00:00 06/23/24 00:00 Temperature 99.5 F Pulse Rate 94 87 Respiratory Rate 18 Blood Pressure 125/59 L Pulse Oximetry 94 Oxygen Delivery Room Air 06/23/24 02:00 06/23/24 03:25 06/23/24 04:00 Temperature 98.3 F Pulse Rate 98 99 Respiratory Rate 20 Blood Pressure 136/77 Pulse Oximetry 93 Oxygen Delivery Room Air 06/23/24 04:00 06/23/24 05:08 06/23/24 06:00 Temperature Pulse Rate 115 H 106 H 98 Respiratory Rate Blood Pressure Pulse Oximetry Oxygen Delivery 06/23/24 08:00 06/23/24 08:00 06/23/24 08:08 Temperature 99.1 F Pulse Rate 98 93 Respiratory Rate 16 Blood Pressure 130/65 Pulse Oximetry 95 Oxygen Delivery Room Air 06/23/24 10:00 06/23/24 11:43 06/23/24 12:00 Temperature 98.4 F Pulse Rate 114 H 105 H 114 H Respiratory Rate 20 Blood Pressure 116/65 Pulse Oximetry 96 Oxygen Delivery 06/23/24 12:00 06/23/24 13:52 Temperature Pulse Rate 84 Respiratory Rate Blood Pressure Pulse Oximetry Oxygen Delivery Room Air Intake/Output Intake/Output: Intake & Output 06/20/24 06/21/24 06/22/24 06/23/24 23:59 23:59 23:59 23:59 Intake Total 1120 1310 1420 970 Output Total 923 796 6760 900 Balance 420 1110 170 70 Meds/Results Medications: Active Medications Generic Name Dose Route Start Last Admin Trade Name Freq PRN Reason Stop Dose Admin Amoxicillin 1,000 mg 06/23/24 22:00 Amoxicillin 500 Mg Capsule PO Q8HR [facility] Atorvastatin Calcium 10 mg 06/15/24 18:00 06/22/24 17:10 Atorvastatin 10 Mg Tablet PO 10 mg QPM [facility] Administration Fenofibrate 160 mg 06/15/24 18:00 06/22/24 17:10 Fenofibrate 160 Mg Tablet PO 160 mg QPM REYNA Administration Amiodarone HCl/Dextrose 360 mg in 200 mls @ 33.333 mls/hr 06/23/24 14:10 Nexterone 360 Mg/D5w 200 Ml IV CONT 06/23/24 20:09 .Q6H ONE 1 MG/MIN Amiodarone HCl/Dextrose 360 mg in 200 mls @ 16.667 mls/hr 06/23/24 20:10 Nexterone 360 Mg/D5w 200 Ml IV CONT .Q12H REYNA 0.5 MG/MIN Lisinopril 5 mg 06/15/24 18:00 06/22/24 17:10 Lisinopril 5 Mg Tablet PO 5 mg QPM REYNA Administration Metoprolol Tartrate 5 mg 06/16/24 08:51 06/21/24 21:19 Metoprolol Tartrate Inj 5 Mg/5 Ml Vial IV PUSH 5 mg Q4H PRN Administration HR > 120 sustained Potassium Chloride 10 meq 06/16/24 09:00 06/23/24 08:05 Potassium Chloride 10 Meq Er Tablet PO 10 meq DAILY REYNA Administration Vitamin D 2,000 units 06/16/24 09:00 06/23/24 08:05 Cholecalciferol 1,000 Units Tablet PO 2,000 units DAILY REYNA Administration Warfarin Sodium 4 mg 06/16/24 17:00 06/21/24 17:43 Warfarin (*Pbkc) 4 Mg Tablet PO 4 mg [id number]@1700 REYNA Administration Warfarin Sodium 8 mg 06/15/24 17:00 06/17/24 17:07 Warfarin (*Pbkc) 4 Mg Tablet PO 8 mg MoWe@1700 REYNA Administration Radiology Results: ITS Impressions Chest X-Ray 06/15/24 05:28 Impression: Possible minimal bibasilar pulmonary edema. Cardiomegaly, status post valve replacement, unchanged. Labs Labs: Laboratory Results - last 24 hr 06/23/24 03:57 WBC 5.6 RBC 3.29 L Hgb 10.6 L Hct 31.8 L MCV 96.7 MCH 32.2 MCHC 33.3 RDW 13.2 Plt Count 227 MPV 9.2 PT 29.3 H INR 2.7 Sodium 136 L Potassium 3.8 Chloride 106 Carbon Dioxide 24 Anion Gap 6 BUN 21 H Creatinine 0.79 Estim Creat Clear Calc 76 Estimated GFR > 60 Glucose 95 Calcium 8.5 Magnesium 2.1
[2024-06-23] MEDS: AMIODARONE 360 MG/D5W 200 ML 360 MG/200 ML BAG 16.67 MG IV CONT (15:26)
[2024-06-23] MEDS: ATORVASTATIN 10 MG TABLET PO (17:32)
[2024-06-23] MEDS: lisinopriL 5 MG TABLET PO (17:32)
[2024-06-23] MEDS: FENOFIBRATE 160 MG TABLET PO (17:32)
[2024-06-23] MEDS: WARFARIN (*PBKC) 4 MG TABLET PO (17:32)
[2024-06-23] MEDS: AMOXICILLIN 500 MG CAPSULE 1000 MG PO (21:16)
[2024-06-23] MEDS: LEVALBUTEROL NEB 1.25 MG/3 ML INHALATION (21:18)
[2024-06-23] MEDS: IPRATROPIUM BR 0.02% INH SOLN 0.5 MG/2.5 ML VIAL INHALATION (21:18)
[2024-06-24] VITALS (38 sets, daily range): BP systolic 103–143; BP diastolic 55–95; PULSE 96–152; RESP 16–24; TEMP 36.4–37.9; O2SAT 94–98
[2024-06-24] MEDS: AMIODARONE 360 MG/D5W 200 ML 360 MG/200 ML BAG 16.67 MG IV CONT ×3 (01:12→23:51)
[2024-06-24] MEDS: LEVALBUTEROL NEB 1.25 MG/3 ML INHALATION ×4 (02:40→19:27)
[2024-06-24] MEDS: IPRATROPIUM BR 0.02% INH SOLN 0.5 MG/2.5 ML VIAL INHALATION ×4 (02:40→19:27)
[2024-06-24] MEDS: METOPROLOL TARTRATE INJ 5 MG/5 ML VIAL IV PUSH ×2 (03:30→08:36)
[2024-06-24 05:10] LABS: Basophils Percent Auto 0.3 % (0.2-1.2); Eosinophils Absolute Auto 0.1 K/mm3 (0-0.3); Eosinophils Percent Auto 1.5 % (0-4.4); Hematocrit 31.6 % (42.0-52.0); Hemoglobin 10.7 g/dL (14.0-18.0); Immature Granulocyte Absolute 0.04 K/mm3 (0.00-0.031); Lymphocytes Absolute Auto 0.59 K/mm3 (0.9-3.2); Lymphocytes Percent Auto 14.8 % (18.3-44.2); Mean Corpuscular HGB Conc 33.9 g/dl (32-36); Mean Corpuscular Hemoglobin 32.7 pg (26-34); Mean Corpuscular Volume 96.6 fl (80-100); Mean Platelet Volume 8.8 fl (7.4-10.4); Monocytes Absolute Auto 0.7 K/mm3 (0.1-0.6); Monocytes Percent Auto 18.5 % (2.6-8.5); Neutrophils Absolute Auto 2.6 K/mm3 (1.3-6.7); Neutrophils Percent Auto 63.9 % (45.5-73.1); Platelet Count Result 210 k/mm3 (150-375); Red Blood Count 3.27 M/mm3 (4.6-6.20); Red Cell Distribution Width 13.3 % (11.5-14.5)
[2024-06-24 05:26] LABS: Alanine Aminotransferase 52 U/L (6-50); Alkaline Phosphatase 45 U/L (38-126); Anion Gap 7 mmol/L (4-12); Aspartate Amino Transferase 74 U/L (17-59); Bilirubin,Total 0.6 mg/dL (0.2-1.3); Blood Urea Nitrogen 17 mg/dL (9-20); Calcium 8.3 mg/dL (8.4-10.2); Carbon Dioxide 24 mmol/L (22-30); Chloride 105 mmol/L (98-107); Estimated CRCL calculation 86 ml/min; Estimated Glomerular Filt Rate > 60; Glucose 100 mg/dL (65-110); Magnesium 1.9 mg/dL (1.6-2.3); Potassium 3.6 mmol/L (3.4-5.0); Sodium 136 mmol/L (137-145)
[2024-06-24] MEDS: AMOXICILLIN 500 MG CAPSULE 1000 MG PO ×3 (05:52→20:58)
[2024-06-24] MEDS: CHOLECALCIFEROL 1,000 UNITS TABLET 2000 UNITS PO (08:36)
[2024-06-24] MEDS: POTASSIUM CHLORIDE 10 MEQ ER TABLET PO (08:36)
[2024-06-24 09:41] LABS: INR 2.6; Prothrombin Time 28.7 Seconds (11.1-14.7)
[2024-06-24] MEDS: METOPROLOL TARTRATE 50 MG TAB 100 MG PO ×2 (12:48→20:58)
--- NOTE | 2024-06-24 12:56 | P.PNIM_ITS ---
Progress Note: A&P Assessment and Plan (1) Sepsis: Code(s): A41.9 - Sepsis, unspecified organism Status: Acute (2) Bacteremia: Code(s): R78.81 - Bacteremia Status: Acute (3) Atrial fibrillation with rapid ventricular response: Code(s): I48.91 - Unspecified atrial fibrillation Status: Acute (4) Diabetes mellitus: Qualifiers: Diabetes mellitus complication status: without complication Diabetes mellitus joint terminal attack controller insulin use: without alf use Diabetes mellitus type: type 2 Qualified Code(s): E11.9 - Type 2 diabetes mellitus without complications Code(s): E11.9 - Type 2 diabetes mellitus without complications Status: Chronic (5) UTI (urinary tract infection): Code(s): N39.0 - Urinary tract infection, site not specified Status: Acute (6) Elevated troponin: Code(s): R79.89 - Other specified abnormal findings of blood chemistry Status: Acute Plan # Atrial fibrillation with rapid ventricular response: Patient was initially started on a diltiazem drip which was switched to p.o. diltiazem and metoprolol Ventricular rate worsened after patient exerted and set up in a chair on p.r.n. IV metoprolol Cardiology consulted Metoprolol was cut back to 100 q12 and Dilt stopped Amiodarone started. Heart rate still not controlled and adjustments made Lasix IV once. Continue Coumadin # Elevated troponin: Possible demand ischemia secondary to AFib with RVR. Patient denies any chest pain. Patient is already on aspirin, statin and beta-carleen ROBYN 1. Complete two-dimensional, color flow and Doppler transthoracic echocardiogram is performed. 2. Normal left ventricular size and systolic function. 3. Biatrial dilation left greater than right. 4. Atrial fibrillation. 5. Mild mitral annular calcification. 6. Aortic valve appears to be a bioprosthetic device that is functioning normally. No information provided regarding size or type of device. 7. No evidence of infectious vegetation seen. Further workup per tank riveter. Status post ROBYN on 06/19/2024: EF 60-65% no vegetation noted # UTI (urinary tract infection): UA noted. UCx negative. UTI ruled out # Bacteremia: Blood cultures (06/15) are growing group B Streptococcus ROBYN showing no vegetations. Treated with Rocephin and vancomycin; vancomycin ultimately stopped Repeat BCx (06/17) negative. Changed to oral amoxicillin with end date per PharmD ID recommendation. 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 Also diagnosed with a UTI and is on ceftriaxone. Blood cultures grew strep group B Streptococcus. TTE was negative for vegetation. Assuming care. Chart reviewed. He feels well. Slept well. Did not wear CPAP. No Cp or SOB. Eating ok. no n/v. Has been up to the chair. Exam Narrative: AF 99.0 119/74 119 24 96% ra Gen - NARD Chest - right base crackles with diffuse expiratory wheeze CV - irregular and tachycardic. Tele showing AFib/RVR Abd - Soft, NT/ND, Positive BS Ext - 1+ pedal edema Psych - Nml mood and affect Skin - Warm and dry; marked dry and scaly LE skin Objective Data Vital Signs Vital Signs: Vital Signs - 24 hr 06/23/24 13:52 06/23/24 14:00 06/23/24 15:00 Temperature 98.7 F Pulse Rate 84 94 85 Respiratory Rate 20 Blood Pressure 102/53 L Pulse Oximetry 93 Oxygen Delivery 06/23/24 15:26 06/23/24 16:00 06/23/24 16:00 Temperature 99.3 F Pulse Rate 70 83 74 Respiratory Rate 20 Blood Pressure 102/53 L 110/63 Pulse Oximetry 98 Oxygen Delivery 06/23/24 16:00 06/23/24 18:00 06/23/24 18:15 Temperature 98.1 F Pulse Rate 82 84 Respiratory Rate 20 Blood Pressure 133/52 L Pulse Oximetry 98 Oxygen Delivery Room Air 06/23/24 20:00 06/23/24 20:00 06/23/24 20:00 Temperature 99.0 F Pulse Rate 89 104 H 104 H Respiratory Rate 20 20 Blood Pressure 125/55 L Pulse Oximetry 97 98 Oxygen Delivery Room Air 06/23/24 20:00 06/23/24 21:20 06/23/24 21:24 Temperature Pulse Rate 104 H 109 H Respiratory Rate 20 Blood Pressure 125/55 L Pulse Oximetry 98 Oxygen Delivery Room Air 06/23/24 21:29 06/23/24 21:49 06/23/24 21:49 Temperature Pulse Rate 108 H 116 H 116 H Respiratory Rate 20 Blood Pressure 132/74 Pulse Oximetry Oxygen Delivery 06/23/24 21:51 06/24/24 00:00 06/24/24 00:00 Temperature 97.6 F Pulse Rate 116 H 108 H 114 H Respiratory Rate 20 20 Blood Pressure 132/74 116/55 L Pulse Oximetry 97 97 Oxygen Delivery Room Air 06/24/24 00:00 06/24/24 00:00 06/24/24 01:12 Temperature Pulse Rate 114 H 114 H 107 H Respiratory Rate Blood Pressure 116/55 L 120/69 Pulse Oximetry Oxygen Delivery 06/24/24 01:12 06/24/24 01:14 06/24/24 01:17 Temperature Pulse Rate 107 H 107 H 107 H Respiratory Rate Blood Pressure 120/69 120/69 Pulse Oximetry Oxygen Delivery 06/24/24 02:40 06/24/24 02:51 06/24/24 03:15 Temperature Pulse Rate 118 H 123 H 152 H Respiratory Rate 20 20 Blood Pressure Pulse Oximetry Oxygen Delivery 06/24/24 03:30 06/24/24 03:47 06/24/24 03:47 Temperature Pulse Rate 148 H 114 H 114 H Respiratory Rate 20 Blood Pressure Pulse Oximetry 97 Oxygen Delivery Room Air 06/24/24 03:57 06/24/24 04:00 06/24/24 05:51 Temperature 98.9 F Pulse Rate 122 H 114 H 112 H Respiratory Rate 20 Blood Pressure 130/57 L 130/57 L 128/63 Pulse Oximetry 96 Oxygen Delivery 06/24/24 06:00 06/24/24 06:01 06/24/24 07:53 Temperature 99.0 F Pulse Rate 122 H 122 H 137 H Respiratory Rate 24 H Blood Pressure 128/63 143/77 H Pulse Oximetry 94 Oxygen Delivery 06/24/24 08:00 06/24/24 08:00 06/24/24 08:18 Temperature Pulse Rate 143 H Respiratory Rate Blood Pressure Pulse Oximetry 98 Oxygen Delivery Room Air Room Air 06/24/24 08:18 06/24/24 09:55 06/24/24 10:00 Temperature Pulse Rate 141 H 148 H 132 H Respiratory Rate 20 Blood Pressure 103/56 L Pulse Oximetry Oxygen Delivery 06/24/24 11:59 06/24/24 12:48 06/24/24 12:53 Temperature 99.0 F Pulse Rate 147 H 121 H 119 H Respiratory Rate 24 H Blood Pressure 119/74 Pulse Oximetry 96 Oxygen Delivery 06/24/24 12:53 Temperature Pulse Rate 119 H Respiratory Rate Blood Pressure Pulse Oximetry Oxygen Delivery Intake/Output Intake/Output: Intake & Output 06/21/24 06/22/24 06/23/24 06/24/24 23:59 23:59 23:59 23:59 Intake Total 1310 1420 1606.9 1037.6 Output Total 200 1250 1250 300 Balance 1110 170 356.9 737.6 Meds/Results Medications: Active Medications Generic Name Dose Route Start Last Admin Trade Name Freq PRN Reason Stop Dose Admin Amoxicillin 1,000 mg 06/23/24 22:00 06/24/24 05:52 Amoxicillin 500 Mg Capsule PO 1,000 mg Q8HR REYNA Administration Atorvastatin Calcium 10 mg 06/15/24 18:00 06/23/24 17:32 Atorvastatin 10 Mg Tablet PO 10 mg QPM REYNA Administration Fenofibrate 160 mg 06/15/24 18:00 06/23/24 17:32 Fenofibrate 160 Mg Tablet PO 160 mg QPM REYNA Administration Amiodarone HCl/Dextrose 360 mg in 200 mls @ 16.667 mls/hr 06/23/24 20:10 06/24/24 12:53 Nexterone 360 Mg/D5w 200 Ml IV CONT 0.5 mg/min .Q12H REYNA 16.67 mls/hr Administration 0.5 MG/MIN Ipratropium [place] 0.5 mg 06/23/24 20:00 06/24/24 08:18 Ipratropium Br 0.02% Inh Soln 0.5 Mg/2.5 Ml Vial INHALATION 0.5 mg Q6HRT REYNA Administration Levalbuterol HCl 1.25 mg 06/23/24 20:00 06/24/24 08:18 Levalbuterol Neb 1.25 Mg/3 Ml INHALATION 1.25 mg Q6HRT REYNA Administration Lisinopril 5 mg 06/15/24 18:00 06/23/24 17:32 Lisinopril 5 Mg Tablet PO 5 mg QPM REYNA Administration Metoprolol Tartrate 5 mg 06/16/24 08:51 06/24/24 08:36 Metoprolol Tartrate Inj 5 Mg/5 Ml Vial IV PUSH 5 mg Q4H PRN Administration HR > 120 sustained Metoprolol Tartrate 100 mg 06/24/24 12:20 06/24/24 12:48 Metoprolol Tartrate 50 Mg Tab PO 100 mg Q12HR REYNA Administration Potassium Chloride 10 meq 06/16/24 09:00 06/24/24 08:36 Potassium Chloride 10 Meq Er Tablet PO 10 meq DAILY REYNA Administration Vitamin D 2,000 units 06/16/24 09:00 06/24/24 08:36 Cholecalciferol 1,000 Units Tablet PO 2,000 units DAILY REYNA Administration Warfarin Sodium 4 mg 06/16/24 17:00 06/23/24 17:32 Warfarin (*Pbkc) 4 Mg Tablet PO 4 mg [id number] [facility] Administration Warfarin Sodium 8 mg 06/15/24 17:00 06/17/24 17:07 Warfarin (*Pbkc) 4 Mg Tablet PO 8 mg MoWe@1700 [facility] Administration Radiology Results: ITS Impressions Chest X-Ray 06/15/24 05:28 Impression: Possible minimal bibasilar pulmonary edema. Cardiomegaly, status post valve replacement, unchanged. Labs Labs: Laboratory Results - last 24 hr 06/24/24 06/24/24 04:55 08:10 WBC 4.0 L RBC 3.27 L Hgb 10.7 L Hct 31.6 L MCV 96.6 MCH 32.7 MCHC 33.9 RDW 13.3 Plt Count 210 MPV 8.8 Immature Gran % (Auto) 1.0 H Neut % (Auto) 63.9 Lymph % (Auto) 14.8 L [place] % (Auto) 18.5 H Eos % (Auto) 1.5 Baso % (Auto) 0.3 Lymph # (Auto) 0.59 L [place] # (Auto) 0.7 H Eos # (Auto) 0.1 Baso # (Auto) 0.0 Abs Immat Gran (auto) 0.04 H Absolute Neuts (auto) 2.6 Absolute Nucleated RBC 0.000 Nucleated RBC % 0.0 PT 28.7 H INR 2.6 Sodium 136 L Potassium 3.6 Chloride 105 Carbon Dioxide 24 Anion Gap 7 BUN 17 Creatinine 0.69 L Estim Creat Clear Calc 86 Estimated GFR > 60 Glucose 100 Calcium 8.3 L Magnesium 1.9 Total Bilirubin 0.6 AST 74 H ALT 52 H Alkaline Phosphatase 45 Total Protein 6.0 L Albumin 3.0 L
--- NOTE | 2024-06-24 13:30 | P.PNCA_ITS ---
Progress Note: A&P Assessment and Plan (1) Atrial fibrillation with rapid ventricular response: Code(s): I48.91 - Unspecified atrial fibrillation Status: Acute (2) Bacteremia: Code(s): R78.81 - Bacteremia Status: Acute (3) Sepsis: Code(s): A41.9 - Sepsis, unspecified organism Status: Acute (4) HTN (hypertension): Qualifiers: Hypertension type: essential hypertension Qualified Code(s): I10 - Essential (primary) hypertension Code(s): I10 - Essential (primary) hypertension Status: Chronic (5) History of aortic valve replacement with bioprosthetic valve: Code(s): Z95.3 - Presence of xenogenic heart valve Status: Acute (6) CAD (coronary artery disease): Qualifiers: Coronary Disease-Associated Artery/Lesion type: [place] artery [place] vs. transplanted heart: [place] heart Associated angina: without angina Qualified Code(s): I25.10 - Atherosclerotic heart disease of [place] coronary artery without angina pectoris Code(s): I25.10 - Atherosclerotic heart disease of [place] coronary artery without angina pectoris Status: Chronic (7) Elevated troponin: Code(s): R79.89 - Other specified abnormal findings of blood chemistry Status: Acute (8) Hyperlipidemia: Code(s): E78.5 - Hyperlipidemia, unspecified Status: Acute Plan -Longstanding persistent atrial fibrillation on anticoagulation with warfarin - now with RVR -Elevated troponin without chest pain - most likely secondary to stress of AFib RVR and ongoing infection -Sepsis, UTI, bacteremia -Hypokalemia -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 -Will resume Metoprolol, but at 100mg BID for now. -Diltiazem was discontinued yesterday, okay to hold off for now, will see how his rates do. -Continue Coumadin for anticoagulation. Monitor INR closely with initiation of Amiodarone - may need to decrease Coumadin dose. Goal INR is 2-3. -Continue statin Recommendation and plan discussed with Hospitalist. Subjective Date/time seen: 06/24/24 13:30 Interval history: Reason For Visit: Sepsis, A Fib RVR HPI: 88-year-old male with history of bioprosthetic AVR and aortic root repair in April 2012-operative report not available, history of percutaneous closure of paravalvular leak, longstanding persistent atrial fibrillation on anticoagulation with warfarin, CAD, pulmonary hypertension, obstructive sleep apnea on BiPAP, aortic insufficiency diabetes mellitus, hypertension was admitted for generalized weakness and AFib with RVR. He was diagnosed with a UTI and is on ceftriaxone. Blood cultures grew strep group B Streptococcus. TTE was negative for vegetation. For AFib, he was started on a low dose diltiazem drip which was later discontinued and p.o. metoprolol, p.o. diltiazem were resumed. He continues to have RVR and Cardiology was consulted for further management. 06/23/2024: Asked by the hospitalist to see patient again as he has had atrial fibrillation with RVR. He does not feel symptoms while he is at rest but with activity when his heart rate elevates to 140's he does feel palpitations. No chest pain or shortness of breath. 06/24: Remains in RVR this morning. For some reason, Diltiazem and Metoprolol were stopped yesterday. Doesn't really notice the RVR. Review of Systems Review of Systems: All systems reviewed & are unremarkable except as noted in HPI and below (HPI) Exam Const: General: no acute distress HENMT: Mouth: Yes moist mucous membranes Eyes: General: appearance normal, both eyes and all related structures Sclera: sclerae normal Resp: Effort & Inspection: normal respiratory effort Cardio: Rate: tachycardic Rhythm: abnormal rhythm irregularly irregular Skin: General skin exam: normal color Neuro: Speech: normal speech Psych: Mental Status: mental status grossly normal Affect: normal affect Objective Data Vital Signs Vital Signs: Vital Signs - 24 hr 06/23/24 13:52 06/23/24 14:00 06/23/24 15:00 Temperature 37.1 C Pulse Rate 84 94 85 Respiratory Rate 20 Blood Pressure 102/53 L Pulse Oximetry 93 Oxygen Delivery 06/23/24 15:26 06/23/24 16:00 06/23/24 16:00 Temperature 37.4 C Pulse Rate 70 83 74 Respiratory Rate 20 Blood Pressure 102/53 L 110/63 Pulse Oximetry 98 Oxygen Delivery 06/23/24 16:00 06/23/24 18:00 06/23/24 18:15 Temperature 36.7 C Pulse Rate 82 84 Respiratory Rate 20 Blood Pressure 133/52 L Pulse Oximetry 98 Oxygen Delivery Room Air 06/23/24 20:00 06/23/24 20:00 06/23/24 20:00 Temperature 37.2 C Pulse Rate 89 104 H 104 H Respiratory Rate 20 20 Blood Pressure 125/55 L Pulse Oximetry 97 98 Oxygen Delivery Room Air 06/23/24 20:00 06/23/24 21:20 06/23/24 21:24 Temperature Pulse Rate 104 H 109 H Respiratory Rate 20 Blood Pressure 125/55 L Pulse Oximetry 98 Oxygen Delivery Room Air 06/23/24 21:29 06/23/24 21:49 06/23/24 21:49 Temperature Pulse Rate 108 H 116 H 116 H Respiratory Rate 20 Blood Pressure 132/74 Pulse Oximetry Oxygen Delivery 06/23/24 21:51 06/24/24 00:00 06/24/24 00:00 Temperature 36.4 C Pulse Rate 116 H 108 H 114 H Respiratory Rate 20 20 Blood Pressure 132/74 116/55 L Pulse Oximetry 97 97 Oxygen Delivery Room Air 06/24/24 00:00 06/24/24 00:00 06/24/24 01:12 Temperature Pulse Rate 114 H 114 H 107 H Respiratory Rate Blood Pressure 116/55 L 120/69 Pulse Oximetry Oxygen Delivery 06/24/24 01:12 06/24/24 01:14 06/24/24 01:17 Temperature Pulse Rate 107 H 107 H 107 H Respiratory Rate Blood Pressure 120/69 120/69 Pulse Oximetry Oxygen Delivery 06/24/24 02:40 06/24/24 02:51 06/24/24 03:15 Temperature Pulse Rate 118 H 123 H 152 H Respiratory Rate 20 20 Blood Pressure Pulse Oximetry Oxygen Delivery 06/24/24 03:30 06/24/24 03:47 06/24/24 03:47 Temperature Pulse Rate 148 H 114 H 114 H Respiratory Rate 20 Blood Pressure Pulse Oximetry 97 Oxygen Delivery Room Air 06/24/24 03:57 06/24/24 04:00 06/24/24 05:51 Temperature 37.2 C Pulse Rate 122 H 114 H 112 H Respiratory Rate 20 Blood Pressure 130/57 L 130/57 L 128/63 Pulse Oximetry 96 Oxygen Delivery 06/24/24 06:00 06/24/24 06:01 06/24/24 07:53 Temperature 37.2 C Pulse Rate 122 H 122 H 137 H Respiratory Rate 24 H Blood Pressure 128/63 143/77 H Pulse Oximetry 94 Oxygen Delivery 06/24/24 08:00 06/24/24 08:00 06/24/24 08:18 Temperature Pulse Rate 143 H Respiratory Rate Blood Pressure Pulse Oximetry 98 Oxygen Delivery Room Air Room Air 06/24/24 08:18 06/24/24 09:55 06/24/24 10:00 Temperature Pulse Rate 141 H 148 H 132 H Respiratory Rate 20 Blood Pressure 103/56 L Pulse Oximetry Oxygen Delivery 06/24/24 11:59 06/24/24 12:48 06/24/24 12:53 Temperature 37.2 C Pulse Rate 147 H 121 H 119 H Respiratory Rate 24 H Blood Pressure 119/74 Pulse Oximetry 96 Oxygen Delivery 06/24/24 12:53 06/24/24 13:21 Temperature Pulse Rate 119 H 111 H Respiratory Rate 20 Blood Pressure Pulse Oximetry Oxygen Delivery Intake/Output Intake/Output: Intake & Output 06/21/24 06/22/24 06/23/24 06/24/24 23:59 23:59 23:59 23:59 Intake Total 1310 1420 1606.9 1037.6 Output Total 200 1250 1250 300 Balance 1110 170 356.9 737.6 Meds/Results Medications: Active Medications Generic Name Dose Route Start Last Admin Trade Name Freq PRN Reason Stop Dose Admin Amoxicillin 1,000 mg 06/23/24 22:00 06/24/24 05:52 Amoxicillin 500 Mg Capsule PO 06/26/24 23:59 1,000 mg Q8HR REYNA Administration Atorvastatin Calcium 10 mg 06/15/24 18:00 06/23/24 17:32 Atorvastatin 10 Mg Tablet PO 10 mg QPM REYNA Administration Fenofibrate 160 mg 06/15/24 18:00 06/23/24 17:32 Fenofibrate 160 Mg Tablet PO 160 mg QPM REYNA Administration Amiodarone HCl/Dextrose 360 mg in 200 mls @ 16.667 mls/hr 06/23/24 20:10 06/24/24 12:53 Nexterone 360 Mg/D5w 200 Ml IV CONT 0.5 mg/min .Q12H REYNA 16.67 mls/hr Administration 0.5 MG/MIN Ipratropium [place] 0.5 mg 06/23/24 20:00 06/24/24 13:20 Ipratropium Br 0.02% Inh Soln 0.5 Mg/2.5 Ml Vial INHALATION 0.5 mg Q6HRT [facility] Administration Levalbuterol HCl 1.25 mg 06/23/24 20:00 06/24/24 13:20 Levalbuterol Neb 1.25 Mg/3 Ml INHALATION 1.25 mg Q6HRT [facility] Administration Lisinopril 5 mg 06/15/24 18:00 06/23/24 17:32 Lisinopril 5 Mg Tablet PO 5 mg QPM [facility] Administration Metoprolol Tartrate 5 mg 06/16/24 08:51 06/24/24 08:36 Metoprolol Tartrate Inj 5 Mg/5 Ml Vial IV PUSH 5 mg Q4H PRN Administration HR > 120 sustained Metoprolol Tartrate 100 mg 06/24/24 12:20 06/24/24 12:48 Metoprolol Tartrate 50 Mg Tab PO 100 mg Q12HR [facility] Administration Multi-Ingred Cream/Lotion/Oil/Oint 1 applic 06/24/24 13:00 Eucerin Cream 120 Gm Jar TOPICAL DAILY [facility] Potassium Chloride 10 meq 06/16/24 09:00 06/24/24 08:36 Potassium Chloride 10 Meq Er Tablet PO 10 meq DAILY [facility] Administration Vitamin D 2,000 units 06/16/24 09:00 06/24/24 08:36 Cholecalciferol 1,000 Units Tablet PO 2,000 units DAILY [facility] Administration Warfarin Sodium 4 mg 06/16/24 17:00 06/23/24 17:32 Warfarin (*Pbkc) 4 Mg Tablet PO 4 mg SuTuThFrSa@1700 [facility] Administration Warfarin Sodium 8 mg 06/15/24 17:00 06/17/24 17:07 Warfarin (*Pbkc) 4 Mg Tablet PO 8 mg MoWe@1700 [facility] Administration Radiology Results: ITS Impressions Chest X-Ray 06/15/24 05:28 Impression: Possible minimal bibasilar pulmonary edema. Cardiomegaly, status post valve replacement, unchanged. Labs Labs: Laboratory Results - last 24 hr 06/24/24 06/24/24 04:55 08:10 WBC 4.0 L RBC 3.27 L Hgb 10.7 L Hct 31.6 L MCV 96.6 MCH 32.7 MCHC 33.9 RDW 13.3 Plt Count 210 MPV 8.8 Immature Gran % (Auto) 1.0 H Neut % (Auto) 63.9 Lymph % (Auto) 14.8 L [place] % (Auto) 18.5 H Eos % (Auto) 1.5 Baso % (Auto) 0.3 Lymph # (Auto) 0.59 L [place] # (Auto) 0.7 H Eos # (Auto) 0.1 Baso # (Auto) 0.0 Abs Immat Gran (auto) 0.04 H Absolute Neuts (auto) 2.6 Absolute Nucleated RBC 0.000 Nucleated RBC % 0.0 PT 28.7 H INR 2.6 Sodium 136 L Potassium 3.6 Chloride 105 Carbon Dioxide 24 Anion Gap 7 BUN 17 Creatinine 0.69 L Estim Creat Clear Calc 86 Estimated GFR > 60 Glucose 100 Calcium 8.3 L Magnesium 1.9 Total Bilirubin 0.6 AST 74 H ALT 52 H Alkaline Phosphatase 45 Total Protein 6.0 L Albumin 3.0 L
[2024-06-24] MEDS: FUROSEMIDE INJ 40 MG/4 ML VIAL 20 MG IV PUSH (14:57)
[2024-06-24] MEDS: EUCERIN CREAM 120 GM JAR 1 APPLIC TOPICAL (14:58)
[2024-06-24] MEDS: FENOFIBRATE 160 MG TABLET PO (17:44)
[2024-06-24] MEDS: ATORVASTATIN 10 MG TABLET PO (17:44)
[2024-06-24] MEDS: lisinopriL 5 MG TABLET PO (17:45)
[2024-06-24] MEDS: WARFARIN (*PBKC) 4 MG TABLET 8 MG PO (17:46)
[2024-06-25] VITALS (35 sets, daily range): BP systolic 88–146; BP diastolic 57–95; PULSE 79–140; RESP 16–22; TEMP 36.6–37.1; O2SAT 93–96
[2024-06-25] MEDS: IPRATROPIUM BR 0.02% INH SOLN 0.5 MG/2.5 ML VIAL INHALATION ×4 (01:47→20:15)
[2024-06-25] MEDS: LEVALBUTEROL NEB 1.25 MG/3 ML INHALATION ×4 (01:47→20:15)
[2024-06-25] MEDS: AMOXICILLIN 500 MG CAPSULE 1000 MG PO ×3 (05:12→20:59)
[2024-06-25 05:24] LABS: Basophils Percent Auto 0.5 % (0.2-1.2); Eosinophils Absolute Auto 0.1 K/mm3 (0-0.3); Eosinophils Percent Auto 2.3 % (0-4.4); Hematocrit 34.5 % (42.0-52.0); Hemoglobin 11.5 g/dL (14.0-18.0); Immature Granulocyte Absolute 0.06 K/mm3 (0.00-0.031); Immature Granulocyte Percent A 1.4 % (0-0.5); Lymphocytes Absolute Auto 0.93 K/mm3 (0.9-3.2); Lymphocytes Percent Auto 21.6 % (18.3-44.2); Mean Corpuscular HGB Conc 33.3 g/dl (32-36); Mean Corpuscular Hemoglobin 32.2 pg (26-34); Mean Corpuscular Volume 96.6 fl (80-100); Mean Platelet Volume 8.7 fl (7.4-10.4); Monocytes Absolute Auto 0.6 K/mm3 (0.1-0.6); Monocytes Percent Auto 14.6 % (2.6-8.5); Neutrophils Absolute Auto 2.6 K/mm3 (1.3-6.7); Neutrophils Percent Auto 59.6 % (45.5-73.1); Platelet Count Result 218 k/mm3 (150-375); Red Blood Count 3.57 M/mm3 (4.6-6.20); Red Cell Distribution Width 13.2 % (11.5-14.5); White Blood Count 4.3 K/mm3 (4.5-10.0)
[2024-06-25 05:37] LABS: INR 2.6; Prothrombin Time 28.3 Seconds (11.1-14.7)
[2024-06-25 05:41] LABS: Alanine Aminotransferase 51 U/L (6-50); Albumin Level 3.1 g/dL (3.5-5.1); Alkaline Phosphatase 49 U/L (38-126); Anion Gap 5 mmol/L (4-12); Aspartate Amino Transferase 72 U/L (17-59); Bilirubin,Total 0.6 mg/dL (0.2-1.3); Blood Urea Nitrogen 15 mg/dL (9-20); Calcium 8.3 mg/dL (8.4-10.2); Carbon Dioxide 29 mmol/L (22-30); Chloride 103 mmol/L (98-107); Estimated CRCL calculation 74 ml/min; Estimated Glomerular Filt Rate > 60; Glucose 92 mg/dL (65-110); Magnesium 1.9 mg/dL (1.6-2.3); Phosphorus 2.7 mg/dL (2.5-4.5); Sodium 137 mmol/L (137-145)
[2024-06-25] MEDS: POTASSIUM CHLORIDE 10 MEQ ER TABLET PO (08:42)
[2024-06-25] MEDS: METOPROLOL TARTRATE 50 MG TAB 100 MG PO ×2 (08:42→20:59)
[2024-06-25] MEDS: CHOLECALCIFEROL 1,000 UNITS TABLET 2000 UNITS PO (08:42)
[2024-06-25] MEDS: EUCERIN CREAM 120 GM JAR 1 APPLIC TOPICAL (08:43)
--- NOTE | 2024-06-25 11:47 | PM.PNCARD ---
Progress Note: A&P Assessment and Plan (1) Atrial fibrillation with rapid ventricular response: Code(s): I48.91 - Unspecified atrial fibrillation Status: Acute (2) Bacteremia: Code(s): R78.81 - Bacteremia Status: Acute (3) Sepsis: Code(s): A41.9 - Sepsis, unspecified organism Status: Acute (4) HTN (hypertension): Qualifiers: Hypertension type: essential hypertension Qualified Code(s): I10 - Essential (primary) hypertension Code(s): I10 - Essential (primary) hypertension Status: Chronic (5) History of aortic valve replacement with bioprosthetic valve: Code(s): Z95.3 - Presence of xenogenic heart valve Status: Acute (6) CAD (coronary artery disease): Qualifiers: Associated angina: without angina Coronary Disease-Associated Artery/Lesion type: [place] artery [place] vs. transplanted heart: [place] heart Qualified Code(s): I25.10 - Atherosclerotic heart disease of [place] coronary artery without angina pectoris Code(s): I25.10 - Atherosclerotic heart disease of [place] coronary artery without angina pectoris Status: Chronic (7) Elevated troponin: Code(s): R79.89 - Other specified abnormal findings of blood chemistry Status: Acute (8) Hyperlipidemia: Code(s): E78.5 - Hyperlipidemia, unspecified Status: Acute Plan -Longstanding persistent atrial fibrillation on anticoagulation with warfarin - now with RVR -Elevated troponin without chest pain - most likely secondary to stress of AFib RVR and ongoing infection -Sepsis, UTI, bacteremia -Hypokalemia -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 -Continue metoprolol 100mg b.i.d. for now - tends to become tachycardic prior to next scheduled dose of metoprolol so will likely shift dosing schedule tomorrow. Give p.r.n. lopressor for sustained tachycardia per parameters on order. -Diltiazem was discontinued, okay to hold off for now, will see how his rates do. -Continue Coumadin for anticoagulation. Monitor INR closely with initiation of Amiodarone - may need to decrease Coumadin dose. Goal INR is 2-3. -Continue statin Subjective Date/time seen: 06/25/24 11:47 Interval history: Reason For Visit: Sepsis, A Fib RVR HPI: 88-year-old male with history of bioprosthetic AVR and aortic root repair in April 2012-operative report not available, history of percutaneous closure of paravalvular leak, longstanding persistent atrial fibrillation on anticoagulation with warfarin, CAD, pulmonary hypertension, obstructive sleep apnea on BiPAP, aortic insufficiency diabetes mellitus, hypertension was admitted for generalized weakness and AFib with RVR. He was diagnosed with a UTI and is on ceftriaxone. Blood cultures grew strep group B Streptococcus. TTE was negative for vegetation. For AFib, he was started on a low dose diltiazem drip which was later discontinued and p.o. metoprolol, p.o. diltiazem were resumed. He continues to have RVR and Cardiology was consulted for further management. 06/23/2024: Asked by the hospitalist to see patient again as he has had atrial fibrillation with RVR. He does not feel symptoms while he is at rest but with activity when his heart rate elevates to 140's he does feel palpitations. No chest pain or shortness of breath. 06/24: Remains in RVR this morning. For some reason, Diltiazem and Metoprolol were stopped yesterday. Doesn't really notice the RVR. 06/25/2024: Feels okay today and does not feel palpitations when his heart rate is elevated. Review of Systems Review of Systems: A complete review of systems was performed and negative other than those mentioned in HPI All systems reviewed & are unremarkable except as noted in HPI and below (HPI) Exam Const: General: comfortable, no acute distress, alert, awake and overweight Nutritional Appearance: overweight Orientation/consciousness: patient oriented x3 HENMT: Head: normal to inspection Mouth: Yes moist mucous membranes Eyes: General: appearance normal, both eyes and all related structures Sclera: sclerae normal Pupils: Equal, round and reactive pupils present Neck: Neck: normal visual inspection, supple and no JVD Carotids: normal carotid upstroke Resp: Effort & Inspection: normal respiratory effort Auscultation: clear to auscultation bilaterally and diminished lung sounds Cardio: Rate: regular rate Rhythm: abnormal rhythm irregularly irregular Heart sounds: S1 normal heart sound present, S2 normal heart sound present and no murmurs GI: Auscultation: normal bowel sounds Skin: General skin exam: normal color Neuro: General: patient oriented x3 Cranial nerves: Yes Equal, round and reactive pupils present Speech: normal speech Extrem: General: normal to inspection Psych: Appearance: grossly normal Mental Status: mental status grossly normal Affect: normal affect Objective Data Vital Signs Vital Signs: Vital Signs - 24 hr 06/24/24 11:59 06/24/24 12:00 06/24/24 12:00 Temperature 37.2 C Pulse Rate 147 H 138 H Respiratory Rate 24 H Blood Pressure 119/74 Pulse Oximetry 96 Oxygen Delivery Room Air Fraction of Inspired Oxygen 06/24/24 12:00 06/24/24 12:48 06/24/24 12:53 Temperature Pulse Rate 147 H 121 H 119 H Respiratory Rate Blood Pressure 119/74 Pulse Oximetry Oxygen Delivery Fraction of Inspired Oxygen 06/24/24 12:53 06/24/24 13:21 06/24/24 14:00 Temperature Pulse Rate 119 H 111 H 103 H Respiratory Rate 20 Blood Pressure 129/69 Pulse Oximetry Oxygen Delivery Fraction of Inspired Oxygen 06/24/24 14:00 06/24/24 14:00 06/24/24 15:45 Temperature 36.7 C Pulse Rate 99 103 H 96 Respiratory Rate 16 Blood Pressure 129/69 112/58 L Pulse Oximetry 95 Oxygen Delivery Fraction of Inspired Oxygen 06/24/24 16:00 06/24/24 16:00 06/24/24 16:00 Temperature Pulse Rate 96 96 Respiratory Rate Blood Pressure 112/58 L Pulse Oximetry Oxygen Delivery Room Air Fraction of Inspired Oxygen 06/24/24 18:00 06/24/24 18:00 06/24/24 18:30 Temperature Pulse Rate 117 H 115 H 115 H Respiratory Rate Blood Pressure 109/78 109/78 Pulse Oximetry Oxygen Delivery Fraction of Inspired Oxygen 06/24/24 19:29 06/24/24 19:29 06/24/24 19:39 Temperature Pulse Rate 124 H 117 H Respiratory Rate 20 20 Blood Pressure Pulse Oximetry 96 Oxygen Delivery Room Air Fraction of Inspired Oxygen 21 06/24/24 20:00 06/24/24 20:00 06/24/24 20:00 Temperature 37.9 C H Pulse Rate 124 H 126 H 126 H Respiratory Rate 18 18 Blood Pressure 120/70 Pulse Oximetry 95 95 Oxygen Delivery Room Air Fraction of Inspired Oxygen 21 06/24/24 20:00 06/24/24 20:58 06/24/24 21:19 Temperature Pulse Rate 126 H 130 H 130 H Respiratory Rate Blood Pressure Pulse Oximetry Oxygen Delivery Fraction of Inspired Oxygen 06/24/24 22:00 06/24/24 22:00 06/24/24 23:50 Temperature 36.8 C Pulse Rate 103 H 103 H 124 H Respiratory Rate 20 Blood Pressure 137/81 137/81 139/95 H Pulse Oximetry 95 Oxygen Delivery Fraction of Inspired Oxygen 06/24/24 23:51 06/24/24 23:51 06/24/24 23:56 Temperature Pulse Rate 115 H 115 H 112 H Respiratory Rate 20 Blood Pressure 139/95 H 139/95 H Pulse Oximetry 95 Oxygen Delivery Room Air Fraction of Inspired Oxygen 21 06/24/24 23:56 06/25/24 01:44 06/25/24 01:47 Temperature Pulse Rate 112 H 107 H 107 H Respiratory Rate Blood Pressure 139/95 H Pulse Oximetry Oxygen Delivery Fraction of Inspired Oxygen 06/25/24 01:47 06/25/24 01:48 06/25/24 01:55 Temperature Pulse Rate 122 H 107 H 117 H Respiratory Rate 18 18 Blood Pressure 132/70 Pulse Oximetry Oxygen Delivery Fraction of Inspired Oxygen 06/25/24 04:00 06/25/24 04:00 06/25/24 04:00 Temperature 36.6 C Pulse Rate 118 H 118 H 113 H Respiratory Rate 18 20 Blood Pressure 132/67 Pulse Oximetry 95 95 Oxygen Delivery Room Air Fraction of Inspired Oxygen 21 06/25/24 04:00 06/25/24 05:51 06/25/24 05:52 Temperature Pulse Rate 118 H 122 H 122 H Respiratory Rate Blood Pressure 132/67 146/90 H Pulse Oximetry Oxygen Delivery Fraction of Inspired Oxygen 06/25/24 05:52 06/25/24 07:42 06/25/24 08:00 Temperature 37.1 C Pulse Rate 122 H 130 H Respiratory Rate 20 Blood Pressure 146/90 H 98/69 L Pulse Oximetry 96 Oxygen Delivery Room Air Fraction of Inspired Oxygen 06/25/24 08:00 06/25/24 08:38 06/25/24 08:38 Temperature Pulse Rate 140 H 136 H 136 H Respiratory Rate 20 20 Blood Pressure Pulse Oximetry 95 Oxygen Delivery Room Air Fraction of Inspired Oxygen 06/25/24 09:59 06/25/24 10:00 06/25/24 11:43 Temperature 36.7 C Pulse Rate 122 H 124 H 79 Respiratory Rate 16 Blood Pressure 110/64 114/74 Pulse Oximetry 96 Oxygen Delivery Fraction of Inspired Oxygen Intake/Output Intake/Output: Intake & Output 06/22/24 06/23/24 06/24/24 06/25/24 23:59 23:59 23:59 23:59 Intake Total 1420 1606.9 2610.1 770.0 Output Total 1250 1250 1650 500 Balance 170 356.9 960.1 270.0 Meds/Results Medications: Active Medications Generic Name Dose Route Start Last Admin Trade Name Freq PRN Reason Stop Dose Admin Amoxicillin 1,000 mg 06/23/24 22:00 06/25/24 05:12 Amoxicillin 500 Mg Capsule PO 06/26/24 23:59 1,000 mg Q8HR REYNA Administration Atorvastatin Calcium 10 mg 06/15/24 18:00 06/24/24 17:44 Atorvastatin 10 Mg Tablet PO 10 mg QPM REYNA Administration Fenofibrate 160 mg 06/15/24 18:00 06/24/24 17:44 Fenofibrate 160 Mg Tablet PO 160 mg QPM REYNA Administration Amiodarone HCl/Dextrose 360 mg in 200 mls @ 16.667 mls/hr 06/23/24 20:10 06/25/24 05:51 Nexterone 360 Mg/D5w 200 Ml IV CONT 0.5 mg/min .Q12H REYNA 16.67 mls/hr Infusion 0.5 MG/MIN Ipratropium [place] 0.5 mg 06/23/24 20:00 06/25/24 08:38 Ipratropium Br 0.02% Inh Soln 0.5 Mg/2.5 Ml Vial INHALATION 0.5 mg Q6HRT REYNA Administration Levalbuterol HCl 1.25 mg 06/23/24 20:00 06/25/24 08:38 Levalbuterol Neb 1.25 Mg/3 Ml INHALATION 1.25 mg Q6HRT REYNA Administration Lisinopril 5 mg 06/15/24 18:00 06/24/24 17:45 Lisinopril 5 Mg Tablet PO 5 mg QPM REYNA Administration Metoprolol Tartrate 5 mg 06/16/24 08:51 06/24/24 08:36 Metoprolol Tartrate Inj 5 Mg/5 Ml Vial IV PUSH 5 mg Q4H PRN Administration HR > 120 sustained Metoprolol Tartrate 100 mg 06/24/24 12:20 06/25/24 08:42 Metoprolol Tartrate 50 Mg Tab PO 100 mg Q12HR REYNA Administration Multi-Ingred Cream/Lotion/Oil/Oint 1 applic 06/24/24 13:00 06/25/24 08:43 Eucerin Cream 120 Gm Jar TOPICAL 1 applic DAILY REYNA Administration Potassium Chloride 10 meq 06/16/24 09:00 06/25/24 08:42 Potassium Chloride 10 Meq Er Tablet PO 10 meq DAILY REYNA Administration Vitamin D 2,000 units 06/16/24 09:00 06/25/24 08:42 Cholecalciferol 1,000 Units Tablet PO 2,000 units DAILY REYNA Administration Warfarin Sodium 4 mg 06/16/24 17:00 06/23/24 17:32 Warfarin (*Pbkc) 4 Mg Tablet PO 4 mg SuTuThFrSa@1700 REYNA Administration Warfarin Sodium 8 mg 06/15/24 17:00 06/24/24 17:46 Warfarin (*Pbkc) 4 Mg Tablet PO 8 mg MoWe@1700 [facility] Administration Radiology Results: ITS Impressions Chest X-Ray 06/25/24 05:41 Impression: 1: Stable mild interstitial edema. ADDENDUM: 06/25/24 0546 Addendum: Tubes and lines in appropriate position. Labs Labs: Laboratory Results - last 24 hr 06/25/24 05:09 WBC 4.3 L RBC 3.57 L Hgb 11.5 L Hct 34.5 L MCV 96.6 MCH 32.2 MCHC 33.3 RDW 13.2 Plt Count 218 MPV 8.7 Immature Gran % (Auto) 1.4 H Neut % (Auto) 59.6 Lymph % (Auto) 21.6 [place] % (Auto) 14.6 H Eos % (Auto) 2.3 Baso % (Auto) 0.5 Lymph # (Auto) 0.93 [place] # (Auto) 0.6 Eos # (Auto) 0.1 Baso # (Auto) 0.0 Abs Immat Gran (auto) 0.06 H Absolute Neuts (auto) 2.6 Absolute Nucleated RBC 0.000 Nucleated RBC % 0.0 PT 28.3 H INR 2.6 Sodium 137 Potassium 4.0 Chloride 103 Carbon Dioxide 29 Anion Gap 5 BUN 15 Creatinine 0.82 Estim Creat Clear Calc 74 Estimated GFR > 60 Glucose 92 Calcium 8.3 L Phosphorus 2.7 Magnesium 1.9 Total Bilirubin 0.6 AST 72 H ALT 51 H Alkaline Phosphatase 49 Total Protein 6.0 L Albumin 3.1 L Quality VTE Prophylaxis VTE prophylaxis: pharmacologic ordered
[2024-06-25] MEDS: AMIODARONE 360 MG/D5W 200 ML 360 MG/200 ML BAG 16.67 MG IV CONT ×2 (11:55→23:46)
--- NOTE | 2024-06-25 13:47 | PM.IMPN ---
Progress Note: A&P Assessment and Plan (1) Sepsis: Code(s): A41.9 - Sepsis, unspecified organism Status: Acute Assessment and Plan: Patient presents with fever, tachycardia, leukocytosis. Lactic normal. UA noted. CXR showing possible minimal bibasilar pulm edema. BCx positive for GBS without clear source Sepsis related to GBS bacteremia. Started on IV abx. Repeat BCx negative. ROBYN showing no vegetations. Symptoms resolved. Changed to oral abx. Follow (2) Atrial fibrillation with rapid ventricular response: Code(s): I48.91 - Unspecified atrial fibrillation Status: Acute Assessment and Plan: Patient with known atrial fibrillation who presents with rapid ventricular response. Patient was initially started on a diltiazem drip which was switched to p.o. diltiazem and metoprolol Ventricular rate worsened after patient exerted and set up in a chair Cardiology consulted Metoprolol was cut back to 100 q12 and Dilt stopped. Amiodarone started. Metoprolol IV prn available Heart rate better controlled. Continue Amio drip. Mildly elevated LFTs noted but flat. INR therapeutic. Continue Coumadin. Check INR daily (3) Elevated troponin: Code(s): R79.89 - Other specified abnormal findings of blood chemistry Status: Acute Assessment and Plan: Patient found to have elevated troponin to 0.067 but flat overall. EKG showing AFib, RVR (128), possible inferior [place] and anteroseptal [place], age indeterminant. ROBYN on 06/19/2024 showing normal LV size and systolic fxn. Patient denies any chest pain. Possible demand ischemia secondary to AFib with RVR. 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 CXR showing possible minimal bibasilar pulm edema. UA noted but UCx negative. ROBYN showing no vegetations. About 1/3 of GBS bacteremia is without known source. Treated with Rocephin and vancomycin; vancomycin ultimately stopped Repeat BCx (06/17) negative. Changed to oral amoxicillin with end date of 10 days from negative BCx. Follow closely off abx (5) Diabetes mellitus: Qualifiers: Diabetes mellitus complication status: without complication Diabetes mellitus terminal makeup operator insulin use: without fpc use Diabetes mellitus type: type 2 Qualified Code(s): E11.9 - Type 2 diabetes mellitus without complications Code(s): E11.9 - Type 2 diabetes mellitus without complications Status: Chronic Assessment and Plan: The patient's blood glucose was reviewed on 06/25 Glucose remains well controlled. Continue to monitor (6) UTI (urinary tract infection): Code(s): N39.0 - Urinary tract infection, site not specified Status: Acute Assessment and Plan: UA noted. UCx negative. UTI ruled out Plan Debility - PT/OT ordered. DVT prophylaxis - INR therapeutic Code Status - DNR Subjective Date/time seen: 06/25/24 13:47 Interval history: 88yo male with 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 Also diagnosed with a UTI and is on ceftriaxone. Blood cultures grew strep group B Streptococcus. TTE was negative for vegetation. No CP or SOB. No n/v. Eating okay. Cough productive of clear sputum. Did not wear the mask again last night but doses wear this at home. Exam Narrative: Tm 100.3 98.1 119/74 79 16 96% ra Gen - NARD Chest - R>L basilar crackles with diffuse expiratory wheeze CV - irregular and tachycardic. Tele showing AFib/RVR but rate better. Abd - Soft, NT/ND, Positive BS Ext - trace-1+ pedal edema Psych - Nml mood and affect Skin - Warm and dry; scaly LE skin improved. Objective Data Vital Signs Vital Signs: Vital Signs - 24 hr 06/24/24 14:00 06/24/24 14:00 06/24/24 14:00 Temperature Pulse Rate 103 H 99 103 H Respiratory Rate Blood Pressure 129/69 129/69 Pulse Oximetry Oxygen Delivery Fraction of Inspired Oxygen 06/24/24 15:45 06/24/24 16:00 06/24/24 16:00 Temperature 98.1 F Pulse Rate 96 96 Respiratory Rate 16 Blood Pressure 112/58 L Pulse Oximetry 95 Oxygen Delivery Room Air Fraction of Inspired Oxygen 06/24/24 16:00 06/24/24 18:00 06/24/24 18:00 Temperature Pulse Rate 96 117 H 115 H Respiratory Rate Blood Pressure 112/58 L 109/78 Pulse Oximetry Oxygen Delivery Fraction of Inspired Oxygen 06/24/24 18:30 06/24/24 19:29 06/24/24 19:29 Temperature Pulse Rate 115 H 124 H Respiratory Rate 20 Blood Pressure 109/78 Pulse Oximetry 96 Oxygen Delivery Room Air Fraction of Inspired Oxygen 06/24/24 19:39 06/24/24 20:00 06/24/24 20:00 Temperature 100.3 F H Pulse Rate 117 H 124 H 126 H Respiratory Rate 20 18 18 Blood Pressure 120/70 Pulse Oximetry 95 95 Oxygen Delivery Room Air Fraction of Inspired Oxygen 06/24/24 20:00 06/24/24 20:00 06/24/24 20:58 Temperature Pulse Rate 126 H 126 H 130 H Respiratory Rate Blood Pressure Pulse Oximetry Oxygen Delivery Fraction of Inspired Oxygen 06/24/24 21:19 06/24/24 22:00 06/24/24 22:00 Temperature Pulse Rate 130 H 103 H 103 H Respiratory Rate Blood Pressure 137/81 137/81 Pulse Oximetry Oxygen Delivery Fraction of Inspired Oxygen 06/24/24 23:50 06/24/24 23:51 06/24/24 23:51 Temperature 98.3 F Pulse Rate 124 H 115 H 115 H Respiratory Rate 20 Blood Pressure 139/95 H 139/95 H 139/95 H Pulse Oximetry 95 Oxygen Delivery Fraction of Inspired Oxygen 06/24/24 23:56 06/24/24 23:56 06/25/24 01:44 Temperature Pulse Rate 112 H 112 H 107 H Respiratory Rate 20 Blood Pressure Pulse Oximetry 95 Oxygen Delivery Room Air Fraction of Inspired Oxygen 06/25/24 01:47 06/25/24 01:47 06/25/24 01:48 Temperature Pulse Rate 107 H 122 H 107 H Respiratory Rate 18 Blood Pressure 139/95 H 132/70 Pulse Oximetry Oxygen Delivery Fraction of Inspired Oxygen 06/25/24 01:55 06/25/24 04:00 06/25/24 04:00 Temperature Pulse Rate 117 H 118 H 118 H Respiratory Rate 18 18 Blood Pressure Pulse Oximetry 95 Oxygen Delivery Room Air Fraction of Inspired Oxygen 06/25/24 04:00 06/25/24 04:00 06/25/24 05:51 Temperature 97.8 F Pulse Rate 113 H 118 H 122 H Respiratory Rate 20 Blood Pressure 132/67 132/67 146/90 H Pulse Oximetry 95 Oxygen Delivery Fraction of Inspired Oxygen 06/25/24 05:52 06/25/24 05:52 06/25/24 07:42 Temperature 98.7 F Pulse Rate 122 H 122 H 130 H Respiratory Rate 20 Blood Pressure 146/90 H 98/69 L Pulse Oximetry 96 Oxygen Delivery Fraction of Inspired Oxygen 06/25/24 08:00 06/25/24 08:00 06/25/24 08:00 Temperature Pulse Rate 140 H 130 H Respiratory Rate Blood Pressure 98/69 L Pulse Oximetry Oxygen Delivery Room Air Fraction of Inspired Oxygen 06/25/24 08:38 06/25/24 08:38 06/25/24 09:59 Temperature Pulse Rate 136 H 136 H 122 H Respiratory Rate 20 20 Blood Pressure 110/64 Pulse Oximetry 95 Oxygen Delivery Room Air Fraction of Inspired Oxygen 06/25/24 10:00 06/25/24 10:00 06/25/24 11:43 Temperature 98.1 F Pulse Rate 124 H 122 H 79 Respiratory Rate 16 Blood Pressure 110/64 114/74 Pulse Oximetry 96 Oxygen Delivery Fraction of Inspired Oxygen 06/25/24 11:51 06/25/24 11:55 06/25/24 12:00 Temperature Pulse Rate 79 79 79 Respiratory Rate Blood Pressure 119/74 119/74 119/74 Pulse Oximetry Oxygen Delivery Fraction of Inspired Oxygen 06/25/24 12:00 Temperature Pulse Rate Respiratory Rate Blood Pressure Pulse Oximetry Oxygen Delivery Room Air Fraction of Inspired Oxygen Intake/Output Intake/Output: Intake & Output 06/22/24 06/23/24 06/24/24 06/25/24 23:59 23:59 23:59 23:59 Intake Total 1420 1606.9 2610.1 1111.3 Output Total 1250 1250 1650 500 Balance 170 356.9 960.1 611.3 Meds/Results Medications: Active Medications Generic Name Dose Route Start Last Admin Trade Name Freq PRN Reason Stop Dose Admin Amoxicillin 1,000 mg 06/23/24 22:00 06/25/24 05:12 Amoxicillin 500 Mg Capsule PO 06/26/24 23:59 1,000 mg Q8HR REYNA Administration Atorvastatin Calcium 10 mg 06/15/24 18:00 06/24/24 17:44 Atorvastatin 10 Mg Tablet PO 10 mg QPM REYNA Administration Fenofibrate 160 mg 06/15/24 18:00 06/24/24 17:44 Fenofibrate 160 Mg Tablet PO 160 mg QPM REYNA Administration Amiodarone HCl/Dextrose 360 mg in 200 mls @ 16.667 mls/hr 06/23/24 20:10 06/25/24 12:00 Nexterone 360 Mg/D5w 200 Ml IV CONT 0.5 mg/min .Q12H REYNA 16.67 mls/hr Infusion 0.5 MG/MIN Ipratropium [place] 0.5 mg 06/23/24 20:00 06/25/24 08:38 Ipratropium Br 0.02% Inh Soln 0.5 Mg/2.5 Ml Vial INHALATION 0.5 mg Q6HRT REYNA Administration Levalbuterol HCl 1.25 mg 06/23/24 20:00 06/25/24 08:38 Levalbuterol Neb 1.25 Mg/3 Ml INHALATION 1.25 mg Q6HRT REYNA Administration Lisinopril 5 mg 06/15/24 18:00 06/24/24 17:45 Lisinopril 5 Mg Tablet PO 5 mg QPM REYNA Administration Metoprolol Tartrate 5 mg 06/16/24 08:51 06/24/24 08:36 Metoprolol Tartrate Inj 5 Mg/5 Ml Vial IV PUSH 5 mg Q4H PRN Administration HR > 120 sustained Metoprolol Tartrate 100 mg 06/24/24 12:20 06/25/24 08:42 Metoprolol Tartrate 50 Mg Tab PO 100 mg Q12HR [facility] Administration Multi-Ingred Cream/Lotion/Oil/Oint 1 applic 06/24/24 13:00 06/25/24 08:43 Eucerin Cream 120 Gm Jar TOPICAL 1 applic DAILY [facility] Administration Potassium Chloride 10 meq 06/16/24 09:00 06/25/24 08:42 Potassium Chloride 10 Meq Er Tablet PO 10 meq DAILY [facility] Administration Vitamin D 2,000 units 06/16/24 09:00 06/25/24 08:42 Cholecalciferol 1,000 Units Tablet PO 2,000 units DAILY REYNA Administration Warfarin Sodium 4 mg 06/16/24 17:00 06/23/24 17:32 Warfarin (*Pbkc) 4 Mg Tablet PO 4 mg [email or web address] [facility] Administration Warfarin Sodium 8 mg 06/15/24 17:00 06/24/24 17:46 Warfarin (*Pbkc) 4 Mg Tablet PO 8 mg MoWe@1700 [facility] Administration Radiology Results: ITS Impressions Chest X-Ray 06/25/24 05:41 Impression: 1: Stable mild interstitial edema. ADDENDUM: 06/25/24 0546 Addendum: Tubes and lines in appropriate position. Labs Labs: Laboratory Results - last 24 hr 06/25/24 05:09 WBC 4.3 L RBC 3.57 L Hgb 11.5 L Hct 34.5 L MCV 96.6 MCH 32.2 MCHC 33.3 RDW 13.2 Plt Count 218 MPV 8.7 Immature Gran % (Auto) 1.4 H Neut % (Auto) 59.6 Lymph % (Auto) 21.6 [place] % (Auto) 14.6 H Eos % (Auto) 2.3 Baso % (Auto) 0.5 Lymph # (Auto) 0.93 [place] # (Auto) 0.6 Eos # (Auto) 0.1 Baso # (Auto) 0.0 Abs Immat Gran (auto) 0.06 H Absolute Neuts (auto) 2.6 Absolute Nucleated RBC 0.000 Nucleated RBC % 0.0 PT 28.3 H INR 2.6 Sodium 137 Potassium 4.0 Chloride 103 Carbon Dioxide 29 Anion Gap 5 BUN 15 Creatinine 0.82 Estim Creat Clear Calc 74 Estimated GFR > 60 Glucose 92 Calcium 8.3 L Phosphorus 2.7 Magnesium 1.9 Total Bilirubin 0.6 AST 72 H ALT 51 H Alkaline Phosphatase 49 Total Protein 6.0 L Albumin 3.1 L
[2024-06-25] MEDS: SALINE 0.65% NAS SOLN 44 ML BTL 1 SPRAY NASAL (14:18)
[2024-06-25] MEDS: METOPROLOL TARTRATE INJ 5 MG/5 ML VIAL IV PUSH (15:45)
[2024-06-25] MEDS: FENOFIBRATE 160 MG TABLET PO (17:10)
[2024-06-25] MEDS: lisinopriL 5 MG TABLET PO (17:10)
[2024-06-25] MEDS: ATORVASTATIN 10 MG TABLET PO (17:10)
[2024-06-25] MEDS: WARFARIN (*PBKC) 4 MG TABLET PO (17:12)
[2024-06-25] MEDS: METOPROLOL TARTRATE 25 MG TABLET PO (17:35)
[2024-06-26] VITALS (27 sets, daily range): BP systolic 92–144; BP diastolic 59–89; PULSE 98–130; RESP 16–20; TEMP 36–36.9; O2SAT 93–97
[2024-06-26] MEDS: LEVALBUTEROL NEB 1.25 MG/3 ML INHALATION ×2 (02:04→22:19)
[2024-06-26] MEDS: IPRATROPIUM BR 0.02% INH SOLN 0.5 MG/2.5 ML VIAL INHALATION ×2 (02:04→22:19)
[2024-06-26 05:09] LABS: Basophils Percent Auto 0.5 % (0.2-1.2); Eosinophils Absolute Auto 0.1 K/mm3 (0-0.3); Eosinophils Percent Auto 2.4 % (0-4.4); Hematocrit 32.7 % (42.0-52.0); Immature Granulocyte Absolute 0.04 K/mm3 (0.00-0.031); Lymphocytes Absolute Auto 0.71 K/mm3 (0.9-3.2); Lymphocytes Percent Auto 17.3 % (18.3-44.2); Mean Corpuscular HGB Conc 33.6 g/dl (32-36); Mean Corpuscular Hemoglobin 32.4 pg (26-34); Mean Corpuscular Volume 96.2 fl (80-100); Mean Platelet Volume 8.9 fl (7.4-10.4); Monocytes Absolute Auto 0.6 K/mm3 (0.1-0.6); Monocytes Percent Auto 14.4 % (2.6-8.5); Neutrophils Absolute Auto 2.6 K/mm3 (1.3-6.7); Neutrophils Percent Auto 64.4 % (45.5-73.1); Platelet Count Result 215 k/mm3 (150-375); Red Cell Distribution Width 13.3 % (11.5-14.5); White Blood Count 4.1 K/mm3 (4.5-10.0)
[2024-06-26 05:23] LABS: Alanine Aminotransferase 45 U/L (6-50); Alkaline Phosphatase 48 U/L (38-126); Anion Gap 7 mmol/L (4-12); Aspartate Amino Transferase 64 U/L (17-59); Bilirubin,Total 0.6 mg/dL (0.2-1.3); Blood Urea Nitrogen 14 mg/dL (9-20); Calcium 8.3 mg/dL (8.4-10.2); Carbon Dioxide 27 mmol/L (22-30); Chloride 103 mmol/L (98-107); Estimated CRCL calculation 80 ml/min; Estimated Glomerular Filt Rate > 60; Glucose 95 mg/dL (65-110); Potassium 3.6 mmol/L (3.4-5.0); Sodium 137 mmol/L (137-145)
[2024-06-26] MEDS: AMOXICILLIN 500 MG CAPSULE 1000 MG PO ×3 (05:23→21:45)
[2024-06-26 05:24] LABS: Hemoglobin A1C 5.6 % (<5.7)
[2024-06-26 05:30] LABS: INR 3.1; Prothrombin Time 32.6 Seconds (11.1-14.7)
[2024-06-26] MEDS: EUCERIN CREAM 120 GM JAR 1 APPLIC TOPICAL (07:30)
[2024-06-26] MEDS: METOPROLOL TARTRATE 50 MG TAB 100 MG PO ×3 (09:17→21:45)
[2024-06-26] MEDS: POTASSIUM CHLORIDE 10 MEQ ER TABLET PO (09:20)
[2024-06-26] MEDS: CHOLECALCIFEROL 1,000 UNITS TABLET 2000 UNITS PO (09:21)
[2024-06-26] MEDS: AMIODARONE 360 MG/D5W 200 ML 360 MG/200 ML BAG 16.67 MG IV CONT (11:29)
--- NOTE | 2024-06-26 13:24 | P.PNCA_ITS ---
Progress Note: A&P Assessment and Plan (1) Atrial fibrillation with rapid ventricular response: Code(s): I48.91 - Unspecified atrial fibrillation Status: Acute (2) Bacteremia: Code(s): R78.81 - Bacteremia Status: Acute (3) Sepsis: Code(s): A41.9 - Sepsis, unspecified organism Status: Acute (4) HTN (hypertension): Qualifiers: Hypertension type: essential hypertension Qualified Code(s): I10 - Essential (primary) hypertension Code(s): I10 - Essential (primary) hypertension Status: Chronic (5) History of aortic valve replacement with bioprosthetic valve: Code(s): Z95.3 - Presence of xenogenic heart valve Status: Acute (6) CAD (coronary artery disease): Qualifiers: Associated angina: without angina Coronary Disease-Associated Artery/Lesion type: [place] artery [place] vs. transplanted heart: [place] heart Qualified Code(s): I25.10 - Atherosclerotic heart disease of [place] coronary artery without angina pectoris Code(s): I25.10 - Atherosclerotic heart disease of [place] coronary artery without angina pectoris Status: Chronic (7) Elevated troponin: Code(s): R79.89 - Other specified abnormal findings of blood chemistry Status: Acute (8) Hyperlipidemia: Code(s): E78.5 - Hyperlipidemia, unspecified Status: Acute Plan -Longstanding persistent atrial fibrillation on anticoagulation with warfarin - now with RVR -Elevated troponin without chest pain - most likely secondary to stress of AFib RVR and ongoing infection -Sepsis, UTI, bacteremia -Hypokalemia -Bioprosthetic AVR and aortic root repair in April 2012 - operative report not available -History of percutaneous closure of paravalvular leak -CAD -Pulmonary hypertension -Obstructive sleep apnea on BiPAP -Aortic insufficiency -Diabetes mellitus -Hypertension Plan: -Will discontinue amiodarone as it does not appear to be providing any benefit in terms of rate control. -Increase metoprolol to 100mg q8h -Add digoxin 62.5mcg daily (discussed with pharmacy, start at lowest dose possible to avoid possible digoxin toxicity as he has been on amiodarone and may have decreased digoxin clearance) -Continue Coumadin for anticoagulation. Monitor INR closely. Goal INR is 2-3. -Continue statin Subjective Date/time seen: 06/26/24 13:24 Interval history: Reason For Visit: Sepsis, A Fib RVR HPI: 88-year-old male with history of bioprosthetic AVR and aortic root repair in April 2012-operative report not available, history of percutaneous closure of paravalvular leak, longstanding persistent atrial fibrillation on anticoagulation with warfarin, CAD, pulmonary hypertension, obstructive sleep apnea on BiPAP, aortic insufficiency diabetes mellitus, hypertension was admitted for generalized weakness and AFib with RVR. He was diagnosed with a UTI and is on ceftriaxone. Blood cultures grew strep group B Streptococcus. TTE was negative for vegetation. For AFib, he was started on a low dose diltiazem drip which was later discontinued and p.o. metoprolol, p.o. diltiazem were resumed. He continues to have RVR and Cardiology was consulted for further management. 06/23/2024: Asked by the hospitalist to see patient again as he has had atrial fibrillation with RVR. He does not feel symptoms while he is at rest but with activity when his heart rate elevates to 140's he does feel palpitations. No chest pain or shortness of breath. 06/24: Remains in RVR this morning. For some reason, Diltiazem and Metoprolol were stopped yesterday. Doesn't really notice the RVR. 06/25/2024: Feels okay today and does not feel palpitations when his heart rate is elevated. 06/26/2024: Over the past 24 hours he has been more persistently tachycardic on telemetry. Review of Systems Review of Systems: A complete review of systems was performed and negative other than those mentioned in HPI All systems reviewed & are unremarkable except as noted in HPI and below (HPI) Exam Const: General: comfortable, no acute distress, alert, awake and overweight Nutritional Appearance: overweight Orientation/consciousness: patient oriented x3 HENMT: Head: normal to inspection Mouth: Yes moist mucous membranes Eyes: General: appearance normal, both eyes and all related structures Sclera: sclerae normal Pupils: Equal, round and reactive pupils present Neck: Neck: normal visual inspection, supple and no JVD Carotids: normal carotid upstroke Resp: Effort & Inspection: normal respiratory effort Auscultation: clear to auscultation bilaterally and diminished lung sounds Cardio: Rate: regular rate and tachycardic Rhythm: abnormal rhythm irregularly irregular Heart sounds: S1 normal heart sound present, S2 normal heart sound present and no murmurs GI: Auscultation: normal bowel sounds Skin: General skin exam: normal color Neuro: General: patient oriented x3 Cranial nerves: Yes Equal, round and reactive pupils present Speech: normal speech Extrem: General: normal to inspection Psych: Appearance: grossly normal Mental Status: mental status grossly normal Affect: normal affect Objective Data Vital Signs Vital Signs: Vital Signs - 24 hr 06/25/24 14:00 06/25/24 14:00 06/25/24 14:14 Temperature Pulse Rate 103 H 104 H 104 H Respiratory Rate Blood Pressure 131/74 131/74 Pulse Oximetry Oxygen Delivery Fraction of Inspired Oxygen 06/25/24 14:20 06/25/24 14:20 06/25/24 14:31 Temperature Pulse Rate 111 H 111 H 125 H Respiratory Rate 20 20 20 Blood Pressure Pulse Oximetry 93 Oxygen Delivery Room Air Fraction of Inspired Oxygen 06/25/24 15:59 06/25/24 16:00 06/25/24 16:00 Temperature 36.9 C Pulse Rate 136 H 116 H Respiratory Rate 20 Blood Pressure 103/60 Pulse Oximetry 96 Oxygen Delivery Room Air Fraction of Inspired Oxygen 06/25/24 16:00 06/25/24 17:58 06/25/24 18:00 Temperature Pulse Rate 136 H 127 H 125 H Respiratory Rate Blood Pressure 103/60 88/61 L Pulse Oximetry Oxygen Delivery Fraction of Inspired Oxygen 06/25/24 18:00 06/25/24 18:09 06/25/24 20:00 Temperature 37.0 C Pulse Rate 125 H 99 Respiratory Rate 20 Blood Pressure 90/66 L 90/66 L 129/57 L Pulse Oximetry 96 Oxygen Delivery Fraction of Inspired Oxygen 06/25/24 20:00 06/25/24 20:00 06/25/24 20:00 Temperature Pulse Rate 127 H 127 H 127 H Respiratory Rate 20 Blood Pressure 129/57 L Pulse Oximetry 93 Oxygen Delivery Room Air Fraction of Inspired Oxygen 21 06/25/24 20:15 06/25/24 20:23 06/25/24 20:25 Temperature Pulse Rate 111 H 102 H Respiratory Rate 20 20 Blood Pressure Pulse Oximetry 93 Oxygen Delivery Fraction of Inspired Oxygen 06/25/24 20:59 06/25/24 21:31 06/25/24 21:31 Temperature Pulse Rate 127 H 104 H 104 H Respiratory Rate Blood Pressure 124/73 Pulse Oximetry Oxygen Delivery Fraction of Inspired Oxygen 06/25/24 21:32 06/25/24 23:45 06/25/24 23:46 Temperature 37.1 C Pulse Rate 104 H 107 H 106 H Respiratory Rate 22 H Blood Pressure 124/73 137/74 125/82 Pulse Oximetry 96 Oxygen Delivery Fraction of Inspired Oxygen 06/25/24 23:46 06/25/24 23:50 06/25/24 23:50 Temperature Pulse Rate 106 H 104 H 104 H Respiratory Rate 22 H Blood Pressure 125/82 Pulse Oximetry 96 Oxygen Delivery Room Air Fraction of Inspired Oxygen 06/26/24 01:46 06/26/24 01:47 06/26/24 01:47 Temperature Pulse Rate 106 H 106 H 106 H Respiratory Rate Blood Pressure 128/67 128/67 Pulse Oximetry Oxygen Delivery Fraction of Inspired Oxygen 06/26/24 02:04 06/26/24 02:16 06/26/24 03:49 Temperature 36.6 C Pulse Rate 113 H 115 H 120 H Respiratory Rate 20 20 20 Blood Pressure 140/89 Pulse Oximetry 93 Oxygen Delivery Fraction of Inspired Oxygen 06/26/24 03:58 06/26/24 03:58 06/26/24 03:59 Temperature Pulse Rate 120 H 120 H 120 H Respiratory Rate 20 Blood Pressure 140/89 Pulse Oximetry 93 Oxygen Delivery Room Air Fraction of Inspired Oxygen 06/26/24 06:00 06/26/24 06:00 06/26/24 07:54 Temperature 36.0 C L Pulse Rate 122 H 122 H 125 H Respiratory Rate 20 Blood Pressure 144/77 H 122/78 Pulse Oximetry 94 Oxygen Delivery Fraction of Inspired Oxygen 06/26/24 08:00 06/26/24 08:00 06/26/24 08:00 Temperature Pulse Rate 125 H 127 H Respiratory Rate Blood Pressure 122/78 Pulse Oximetry Oxygen Delivery Room Air Fraction of Inspired Oxygen 06/26/24 08:30 06/26/24 09:17 06/26/24 10:00 Temperature 36.6 C Pulse Rate 130 H 125 H Respiratory Rate 18 Blood Pressure 123/70 Pulse Oximetry 96 Oxygen Delivery Room Air Fraction of Inspired Oxygen 06/26/24 10:00 06/26/24 10:00 06/26/24 11:29 Temperature Pulse Rate 125 H 125 H 103 H Respiratory Rate Blood Pressure 123/70 123/70 Pulse Oximetry Oxygen Delivery Fraction of Inspired Oxygen 06/26/24 11:29 06/26/24 12:00 06/26/24 12:00 Temperature Pulse Rate 103 H 106 H Respiratory Rate Blood Pressure 123/70 92/59 L Pulse Oximetry Oxygen Delivery Room Air Fraction of Inspired Oxygen 06/26/24 12:10 06/26/24 13:00 Temperature 36.6 C Pulse Rate 106 H 119 H Respiratory Rate 18 Blood Pressure 92/59 L 92/59 L Pulse Oximetry 96 Oxygen Delivery Fraction of Inspired Oxygen Intake/Output Intake/Output: Intake & Output 06/23/24 06/24/24 06/25/24 06/26/24 23:59 23:59 23:59 23:59 Intake Total 1606.9 2610.1 1547.3 1250.6 Output Total 1250 1650 900 200 Balance 356.9 960.1 647.3 1050.6 Meds/Results Medications: Active Medications Generic Name Dose Route Start Last Admin Trade Name Freq PRN Reason Stop Dose Admin Amoxicillin 1,000 mg 06/23/24 22:00 06/26/24 05:23 Amoxicillin 500 Mg Capsule PO 06/26/24 23:59 1,000 mg Q8HR REYNA Administration Atorvastatin Calcium 10 mg 06/15/24 18:00 06/25/24 17:10 Atorvastatin 10 Mg Tablet PO 10 mg QPM REYNA Administration Fenofibrate 160 mg 06/15/24 18:00 06/25/24 17:10 Fenofibrate 160 Mg Tablet PO 160 mg QPM REYNA Administration Ipratropium [place] 0.5 mg 06/26/24 08:57 Ipratropium Br 0.02% Inh Soln 0.5 Mg/2.5 Ml Vial INHALATION Q6HRT PRN Shortness Of Breath Levalbuterol HCl 1.25 mg 06/26/24 08:57 Levalbuterol Neb 1.25 Mg/3 Ml INHALATION Q6HRT PRN Shortness Of Breath Lisinopril 5 mg 06/15/24 18:00 06/25/24 17:10 Lisinopril 5 Mg Tablet PO 5 mg QPM REYNA Administration Metoprolol Tartrate 5 mg 06/16/24 08:51 06/25/24 15:45 Metoprolol Tartrate Inj 5 Mg/5 Ml Vial IV PUSH 5 mg Q4H PRN Administration HR > 120 sustained Metoprolol Tartrate 100 mg 06/26/24 14:00 Metoprolol Tartrate 50 Mg Tab PO Q8H [facility] Multi-Ingred Cream/Lotion/Oil/Oint 1 applic 06/24/24 13:00 06/26/24 07:30 Eucerin Cream 120 Gm Jar TOPICAL 1 applic DAILY REYNA Administration Potassium Chloride 10 meq 06/16/24 09:00 06/26/24 09:20 Potassium Chloride 10 Meq Er Tablet PO 10 meq DAILY REYNA Administration Sodium Chloride 1 spray 06/25/24 13:49 06/25/24 14:18 Saline 0.65% Rl Soln 44 Ml Btl NASAL 1 spray Q6HR PRN Administration Congestion Vitamin D 2,000 units 06/16/24 09:00 06/26/24 09:21 Cholecalciferol 1,000 Units Tablet PO 2,000 units DAILY REYNA Administration Warfarin Sodium 4 mg 06/16/24 17:00 06/25/24 17:12 Warfarin (*Pbkc) 4 Mg Tablet PO 4 mg [id number]@1700 [facility] Administration Warfarin Sodium 8 mg 06/15/24 17:00 06/24/24 17:46 Warfarin (*Pbkc) 4 Mg Tablet PO 8 mg MoWe@1700 [facility] Administration Radiology Results: ITS Impressions Chest X-Ray 06/25/24 05:41 Impression: 1: Stable mild interstitial edema. ADDENDUM: 06/25/24 0546 Addendum: Tubes and lines in appropriate position. Labs Labs: Laboratory Results - last 24 hr 06/26/24 06/26/24 04:52 04:53 WBC 4.1 L RBC 3.40 L Hgb 11.0 L Hct 32.7 L MCV 96.2 MCH 32.4 MCHC 33.6 RDW 13.3 Plt Count 215 MPV 8.9 Immature Gran % (Auto) 1.0 H Neut % (Auto) 64.4 Lymph % (Auto) 17.3 L [place] % (Auto) 14.4 H Eos % (Auto) 2.4 Baso % (Auto) 0.5 Lymph # (Auto) 0.71 L [place] # (Auto) 0.6 Eos # (Auto) 0.1 Baso # (Auto) 0.0 Abs Immat Gran (auto) 0.04 H Absolute Neuts (auto) 2.6 Absolute Nucleated RBC 0.000 Nucleated RBC % 0.0 PT 32.6 H INR 3.1 Sodium 137 Potassium 3.6 Chloride 103 Carbon Dioxide 27 Anion Gap 7 BUN 14 Creatinine 0.75 Estim Creat Clear Calc 80 Estimated GFR > 60 Glucose 95 Hemoglobin A1c 5.6 Calcium 8.3 L Total Bilirubin 0.6 AST 64 H ALT 45 Alkaline Phosphatase 48 Total Protein 6.0 L Albumin 3.0 L Quality VTE Prophylaxis VTE prophylaxis: pharmacologic ordered
--- NOTE | 2024-06-26 14:26 | PC.NURSE ---
On 06/26/24, the student, [Anitra Blake], provided care and completed [facility] documentation on this patient. I have reviewed the student's documentation and agree with the findings.
--- NOTE | 2024-06-26 14:31 | P.PNIM_ITS ---
Progress Note: A&P Assessment and Plan (1) Influenza A: Code(s): J10.1 - Influenza due to other identified influenza virus with other respiratory manifestations Status: Acute Assessment and Plan: Family with influenza and patient was exposed. Patient is influenza A positive here. Start Tamiflu. Have bronchodilators as needed. Add Mucinex. Robitussin prn. (2) Sepsis: Code(s): A41.9 - Sepsis, unspecified organism Status: Acute Assessment and Plan: Patient presents with fever, tachycardia, leukocytosis. Lactic normal. UA noted. CXR showing possible minimal bibasilar pulm edema. BCx positive for GBS without clear source Sepsis related to GBS bacteremia. Started on IV abx. Repeat BCx negative. ROBYN showing no vegetations. Symptoms resolved. Changed to oral abx and will complete on 06/26. Follow (3) Atrial fibrillation with rapid ventricular response: Code(s): I48.91 - Unspecified atrial fibrillation Status: Acute Assessment and Plan: Patient with known atrial fibrillation who presents with rapid ventricular response. Patient was initially started on a diltiazem drip which was switched to p.o. diltiazem and metoprolol Ventricular rate worsened after patient exerted and set up in a chair Cardiology consulted Metoprolol was cut back to 100 q12 and Dilt stopped. Amiodarone started. Metopr olol IV prn available Heart rate better overall but still not at goal. Mildly elevated LFTs and trending down Amiodarone drip stopped. Digoxin added. Metoprolol dose advanced back to 100mg Q8h INR therapeutic. Continue Coumadin. Check INR daily (4) Elevated troponin: Code(s): R79.89 - Other specified abnormal findings of blood chemistry Status: Acute Assessment and Plan: Patient found to have elevated troponin to 0.067 but flat overall. EKG showing AFib, RVR (128), possible inferior AR and anteroseptal AR, age indeterminant. ROBYN on 06/19/2024 showing normal LV size and systolic fxn. Patient denies any chest pain. Possible demand ischemia secondary to AFib with RVR. Patient is already on statin and beta-carleen which we will continue Further workup per pulp press tender (5) Bacteremia: Code(s): R78.81 - Bacteremia Status: Acute Assessment and Plan: Blood cultures collected on admission (06/15) are growing group B Streptococcus in 3 of the 4 bottles. CXR showing possible minimal bibasilar pulm edema. UA noted but UCx negative. ROBYN showing no vegetations. About 1/3 of GBS bacteremia is without known source. Treated with Rocephin and vancomycin; vancomycin ultimately stopped Repeat BCx (06/17) negative. Changed to oral amoxicillin with end date of 10 days from negative BCx. Follow closely off abx (6) Diabetes mellitus: Qualifiers: Diabetes mellitus complication status: without complication Diabetes mellitus usp insulin use: without usp use Diabetes mellitus type: type 2 Qualified Code(s): E11.9 - Type 2 diabetes mellitus without complications Code(s): E11.9 - Type 2 diabetes mellitus without complications Status: Chronic Assessment and Plan: A1c 5.6%. The patient's blood glucose was reviewed on 06/26 Glucose remains well controlled. Continue to monitor (7) UTI (urinary tract infection): Code(s): N39.0 - Urinary tract infection, site not specified Status: Acute Assessment and Plan: UA noted. UCx negative. UTI ruled out Plan Debility - PT/OT ordered. DVT prophylaxis - INR therapeutic Code Status - DNR Subjective Date/time seen: 06/26/24 14:31 Interval history: 88yo male with 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 Also diagnosed with a UTI and is on ceftriaxone. Blood cultures grew strep group B Streptococcus. TTE was negative for vegetation. Feels okay. Slept okay. No change in the cough. Productive of whitish sputum. (who he saw about 3 days ago) has influenza. He has been wheezing. He does not use inhalers or nebulizers at home. Exam Narrative: AF 98.4 139/73 120 16 97% ra Gen - NARD Chest - scattered expiratory rhocnhi CV - irregular and tachycardic. Tele showing AFib/RVR Abd - Soft, NT/ND, Positive BS Ext - trace pedal edema Psych - Nml mood and affect Skin - Warm and dry; scaly LE skin improved. Objective Data Vital Signs Vital Signs: Vital Signs - 24 hr 06/25/24 15:59 06/25/24 16:00 06/25/24 16:00 Temperature 98.5 F Pulse Rate 136 H 116 H Respiratory Rate 20 Blood Pressure 103/60 Pulse Oximetry 96 Oxygen Delivery Room Air Fraction of Inspired Oxygen 06/25/24 16:00 06/25/24 17:58 06/25/24 18:00 Temperature Pulse Rate 136 H 127 H 125 H Respiratory Rate Blood Pressure 103/60 88/61 L Pulse Oximetry Oxygen Delivery Fraction of Inspired Oxygen 06/25/24 18:00 06/25/24 18:09 06/25/24 20:00 Temperature 98.6 F Pulse Rate 125 H 99 Respiratory Rate 20 Blood Pressure 90/66 L 90/66 L 129/57 L Pulse Oximetry 96 Oxygen Delivery Fraction of Inspired Oxygen 06/25/24 20:00 06/25/24 20:00 06/25/24 20:00 Temperature Pulse Rate 127 H 127 H 127 H Respiratory Rate 20 Blood Pressure 129/57 L Pulse Oximetry 93 Oxygen Delivery Room Air Fraction of Inspired Oxygen 21 06/25/24 20:15 06/25/24 20:23 06/25/24 20:25 Temperature Pulse Rate 111 H 102 H Respiratory Rate 20 20 Blood Pressure Pulse Oximetry 93 Oxygen Delivery Fraction of Inspired Oxygen 06/25/24 20:59 06/25/24 21:31 06/25/24 21:31 Temperature Pulse Rate 127 H 104 H 104 H Respiratory Rate Blood Pressure 124/73 Pulse Oximetry Oxygen Delivery Fraction of Inspired Oxygen 06/25/24 21:32 06/25/24 23:45 06/25/24 23:46 Temperature 98.8 F Pulse Rate 104 H 107 H 106 H Respiratory Rate 22 H Blood Pressure 124/73 137/74 125/82 Pulse Oximetry 96 Oxygen Delivery Fraction of Inspired Oxygen 06/25/24 23:46 06/25/24 23:50 06/25/24 23:50 Temperature Pulse Rate 106 H 104 H 104 H Respiratory Rate 22 H Blood Pressure 125/82 Pulse Oximetry 96 Oxygen Delivery Room Air Fraction of Inspired Oxygen 06/26/24 01:46 06/26/24 01:47 06/26/24 01:47 Temperature Pulse Rate 106 H 106 H 106 H Respiratory Rate Blood Pressure 128/67 128/67 Pulse Oximetry Oxygen Delivery Fraction of Inspired Oxygen 06/26/24 02:04 06/26/24 02:16 06/26/24 03:49 Temperature 97.8 F Pulse Rate 113 H 115 H 120 H Respiratory Rate 20 20 20 Blood Pressure 140/89 Pulse Oximetry 93 Oxygen Delivery Fraction of Inspired Oxygen 06/26/24 03:58 06/26/24 03:58 06/26/24 03:59 Temperature Pulse Rate 120 H 120 H 120 H Respiratory Rate 20 Blood Pressure 140/89 Pulse Oximetry 93 Oxygen Delivery Room Air Fraction of Inspired Oxygen 21 06/26/24 06:00 06/26/24 06:00 06/26/24 07:54 Temperature 96.8 F L Pulse Rate 122 H 122 H 125 H Respiratory Rate 20 Blood Pressure 144/77 H 122/78 Pulse Oximetry 94 Oxygen Delivery Fraction of Inspired Oxygen 06/26/24 08:00 06/26/24 08:00 06/26/24 08:00 Temperature Pulse Rate 125 H 127 H Respiratory Rate Blood Pressure 122/78 Pulse Oximetry Oxygen Delivery Room Air Fraction of Inspired Oxygen 06/26/24 08:30 06/26/24 09:17 06/26/24 10:00 Temperature 98 F Pulse Rate 130 H 125 H Respiratory Rate 18 Blood Pressure 123/70 Pulse Oximetry 96 Oxygen Delivery Room Air Fraction of Inspired Oxygen 06/26/24 10:00 06/26/24 10:00 06/26/24 11:29 Temperature Pulse Rate 125 H 125 H 103 H Respiratory Rate Blood Pressure 123/70 123/70 Pulse Oximetry Oxygen Delivery Fraction of Inspired Oxygen 06/26/24 11:29 06/26/24 12:00 06/26/24 12:00 Temperature Pulse Rate 103 H 106 H Respiratory Rate Blood Pressure 123/70 92/59 L Pulse Oximetry Oxygen Delivery Room Air Fraction of Inspired Oxygen 06/26/24 12:00 06/26/24 12:10 06/26/24 13:00 Temperature 98 F Pulse Rate 113 H 106 H 119 H Respiratory Rate 18 Blood Pressure 92/59 L 121/70 Pulse Oximetry 96 Oxygen Delivery Fraction of Inspired Oxygen 06/26/24 14:00 06/26/24 14:00 Temperature 98.2 F Pulse Rate 118 H 109 H Respiratory Rate 16 Blood Pressure 104/60 Pulse Oximetry 97 Oxygen Delivery Fraction of Inspired Oxygen Intake/Output Intake/Output: Intake & Output 01/28/25 01/29/25 01/30/25 01/31/25 23:59 23:59 23:59 23:59 Intake Total 1606.9 2610.1 1547.3 1250.6 Output Total 1250 1650 900 200 Balance 356.9 960.1 647.3 1050.6 Meds/Results Medications: Active Medications Generic Name Dose Route Start Last Admin Trade Name Freq PRN Reason Stop Dose Admin Amoxicillin 1,000 mg 06/23/24 22:00 06/26/24 14:13 Amoxicillin 500 Mg Capsule PO 06/26/24 23:59 1,000 mg Q8HR [facility] Administration Atorvastatin Calcium 10 mg 06/15/24 18:00 06/25/24 17:10 Atorvastatin 10 Mg Tablet PO 10 mg QPM [facility] Administration Digoxin 62.5 mcg 06/27/24 09:00 Digoxin 62.5 Mcg Tablet PO QAM [facility] Fenofibrate 160 mg 06/15/24 18:00 06/25/24 17:10 Fenofibrate 160 Mg Tablet PO 160 mg QPM [facility] Administration Ipratropium [place] 0.5 mg 06/26/24 08:57 Ipratropium Br 0.02% Inh Soln 0.5 Mg/2.5 Ml Vial INHALATION Q6HRT PRN Shortness Of Breath Levalbuterol HCl 1.25 mg 06/26/24 08:57 Levalbuterol Neb 1.25 Mg/3 Ml INHALATION Q6HRT PRN Shortness Of Breath Lisinopril 5 mg 06/15/24 18:00 06/25/24 17:10 Lisinopril 5 Mg Tablet PO 5 mg QPM [facility] Administration Metoprolol Tartrate 5 mg 06/16/24 08:51 06/25/24 15:45 Metoprolol Tartrate Inj 5 Mg/5 Ml Vial IV PUSH 5 mg Q4H PRN Administration HR > 120 sustained Metoprolol Tartrate 100 mg 06/26/24 14:00 Metoprolol Tartrate 50 Mg Tab PO Q8H [facility] Multi-Ingred Cream/Lotion/Oil/Oint 1 applic 06/24/24 13:00 06/26/24 07:30 Eucerin Cream 120 Gm Jar TOPICAL 1 applic DAILY [facility] Administration Potassium Chloride 10 meq 06/16/24 09:00 06/26/24 09:20 Potassium Chloride 10 Meq Er Tablet PO 10 meq DAILY [facility] Administration Sodium Chloride 1 spray 06/25/24 13:49 06/25/24 14:18 Saline 0.65% Rl Soln 44 Ml Btl NASAL 1 spray Q6HR PRN Administration Congestion Vitamin D 2,000 units 06/16/24 09:00 06/26/24 09:21 Cholecalciferol 1,000 Units Tablet PO 2,000 units DAILY [facility]YNA Administration Warfarin Sodium 4 mg 06/16/24 17:00 06/25/24 17:12 Warfarin (*Pbkc) 4 Mg Tablet PO 4 mg [id number]@1700 [facility] Administration Warfarin Sodium 8 mg 06/15/24 17:00 06/24/24 17:46 Warfarin (*Pbkc) 4 Mg Tablet PO 8 mg MoWe@1700 [facility] Administration Radiology Results: ITS Impressions Chest X-Ray 06/25/24 05:41 Impression: 1: Stable mild interstitial edema. ADDENDUM: 06/25/24 0546 Addendum: Tubes and lines in appropriate position. Labs Labs: Laboratory Results - last 24 hr 06/26/24 06/26/24 04:52 04:53 WBC 4.1 L RBC 3.40 L Hgb 11.0 L Hct 32.7 L MCV 96.2 MCH 32.4 MCHC 33.6 RDW 13.3 Plt Count 215 MPV 8.9 Immature Gran % (Auto) 1.0 H Neut % (Auto) 64.4 Lymph % (Auto) 17.3 L [place] % (Auto) 14.4 H Eos % (Auto) 2.4 Baso % (Auto) 0.5 Lymph # (Auto) 0.71 L [place] # (Auto) 0.6 Eos # (Auto) 0.1 Baso # (Auto) 0.0 Abs Immat Gran (auto) 0.04 H Absolute Neuts (auto) 2.6 Absolute Nucleated RBC 0.000 Nucleated RBC % 0.0 PT 32.6 H INR 3.1 Sodium 137 Potassium 3.6 Chloride 103 Carbon Dioxide 27 Anion Gap 7 BUN 14 Creatinine 0.75 Estim Creat Clear Calc 80 Estimated GFR > 60 Glucose 95 Hemoglobin A1c 5.6 Calcium 8.3 L Total Bilirubin 0.6 AST 64 H ALT 45 Alkaline Phosphatase 48 Total Protein 6.0 L Albumin 3.0 L
[2024-06-26] MEDS: guaiFENesin/DEXTROMETHORPHAN 10 ML UDC PO ×2 (15:58→21:56)
[2024-06-26 16:39] LABS: Influenza A QL RT-PCR Positive (Negative); Influenza B QL RT-PCR Negative (Negative); RSV RNA, RT-PCR Negative (Negative); SARS-CoV-2 RNA PCR Negative (Negative)
[2024-06-26] MEDS: FENOFIBRATE 160 MG TABLET PO (17:39)
[2024-06-26] MEDS: WARFARIN (*PBKC) 4 MG TABLET PO (17:39)
[2024-06-26] MEDS: ATORVASTATIN 10 MG TABLET PO (17:39)
[2024-06-26] MEDS: lisinopriL 5 MG TABLET PO (17:39)
[2024-06-26] MEDS: OSELTAMIVIR PHOSPHATE 75 MG CAPSULE PO (21:45)
[2024-06-26] MEDS: guaiFENesin 12 HR 600 MG TABCR PO (21:45)
[2024-06-27] VITALS (19 sets, daily range): BP systolic 90–131; BP diastolic 54–85; PULSE 94–135; RESP 12–28; TEMP 36.7–36.9; O2SAT 95–99
[2024-06-27 05:12] LABS: INR 3.7; Prothrombin Time 37.2 Seconds (11.1-14.7)
[2024-06-27] MEDS: METOPROLOL TARTRATE 50 MG TAB 100 MG PO ×3 (06:16→21:52)
[2024-06-27] MEDS: DIGOXIN 62.5 MCG TABLET PO (09:09)
[2024-06-27] MEDS: POTASSIUM CHLORIDE 10 MEQ ER TABLET PO (09:09)
[2024-06-27] MEDS: EUCERIN CREAM 120 GM JAR 1 APPLIC TOPICAL (09:10)
[2024-06-27] MEDS: guaiFENesin 12 HR 600 MG TABCR PO ×2 (09:10→20:36)
[2024-06-27] MEDS: OSELTAMIVIR PHOSPHATE 75 MG CAPSULE PO ×2 (09:10→20:36)
[2024-06-27] MEDS: CHOLECALCIFEROL 1,000 UNITS TABLET 2000 UNITS PO (09:10)
--- NOTE | 2024-06-27 11:16 | PM.PNCARD ---
Progress Note: A&P Assessment and Plan (1) Atrial fibrillation with rapid ventricular response: Code(s): I48.91 - Unspecified atrial fibrillation Status: Acute (2) Bacteremia: Code(s): R78.81 - Bacteremia Status: Acute (3) Sepsis: Code(s): A41.9 - Sepsis, unspecified organism Status: Acute (4) HTN (hypertension): Qualifiers: Hypertension type: essential hypertension Qualified Code(s): I10 - Essential (primary) hypertension Code(s): I10 - Essential (primary) hypertension Status: Chronic (5) History of aortic valve replacement with bioprosthetic valve: Code(s): Z95.3 - Presence of xenogenic heart valve Status: Acute (6) CAD (coronary artery disease): Qualifiers: Coronary Disease-Associated Artery/Lesion type: [place] artery [place] vs. transplanted heart: [place] heart Associated angina: without angina Qualified Code(s): I25.10 - Atherosclerotic heart disease of [place] coronary artery without angina pectoris Code(s): I25.10 - Atherosclerotic heart disease of [place] coronary artery without angina pectoris Status: Chronic (7) Elevated troponin: Code(s): R79.89 - Other specified abnormal findings of blood chemistry Status: Acute (8) Hyperlipidemia: Code(s): E78.5 - Hyperlipidemia, unspecified Status: Acute Plan -Longstanding persistent atrial fibrillation on anticoagulation with warfarin - now with RVR -Elevated troponin without chest pain - most likely secondary to stress of AFib RVR and ongoing infection -Influenza -Sepsis, UTI, bacteremia -Hypokalemia -Bioprosthetic AVR and aortic root repair in April 2012 - operative report not available -History of percutaneous closure of paravalvular leak -CAD -Pulmonary hypertension -Obstructive sleep apnea on BiPAP -Aortic insufficiency -Diabetes mellitus -Hypertension Plan: -Patient has had issues with RVR over the past few days. Apparently his visited him 3 days ago and she was sick at that time. Later called us and let us know she tested positive for Influenza. Therefore, patient was tested yesterday, and he tested positive for Influenza as well. Appears that he caught the flu from his . Having the flu explains why his AFIB was acting up. He is now rate controlled. Initially we were going to do Digoxin as we were having a difficult time rate controlling him, but now he is rate controlled without receiving the dose of Digoxin. His home medication list according to our office records is Metoprolol 75mg BID and Diltiazem 360mg once daily. Therefore, will do Metoprolol 100mg BID and continue Diltiazem 360mg once daily. -Continue Coumadin for anticoagulation. Monitor INR closely. Goal INR is 2-3. -Continue statin As he is rate controlled now, okay for discharge from my standpoint. Will arrange close follow up with his primary rn internal medicine, Dr. Santos. Recommendations and plan discussed with Hospitalist. Subjective Date/time seen: 06/27/24 11:16 Interval history: Reason For Visit: Sepsis, A Fib RVR HPI: 88-year-old male with history of bioprosthetic AVR and aortic root repair in April 2012-operative report not available, history of percutaneous closure of paravalvular leak, longstanding persistent atrial fibrillation on anticoagulation with warfarin, CAD, pulmonary hypertension, obstructive sleep apnea on BiPAP, aortic insufficiency diabetes mellitus, hypertension was admitted for generalized weakness and AFib with RVR. He was diagnosed with a UTI and is on ceftriaxone. Blood cultures grew strep group B Streptococcus. TTE was negative for vegetation. For AFib, he was started on a low dose diltiazem drip which was later discontinued and p.o. metoprolol, p.o. diltiazem were resumed. He continues to have RVR and Cardiology was consulted for further management. 06/23/2024: Asked by the hospitalist to see patient again as he has had atrial fibrillation with RVR. He does not feel symptoms while he is at rest but with activity when his heart rate elevates to 140's he does feel palpitations. No chest pain or shortness of breath. 06/24: Remains in RVR this morning. For some reason, Diltiazem and Metoprolol were stopped yesterday. Doesn't really notice the RVR. 06/25/2024: Feels okay today and does not feel palpitations when his heart rate is elevated. 06/26/2024: Over the past 24 hours he has been more persistently tachycardic on telemetry. 06/27: Became rate controlled last night. He is feeling well today and is asking when he can go home. Review of Systems Review of Systems: All systems reviewed & are unremarkable except as noted in HPI and below (HPI) Exam Const: General: comfortable and no acute distress HENMT: Mouth: Yes moist mucous membranes Eyes: General: appearance normal, both eyes and all related structures Sclera: sclerae normal Resp: Effort & Inspection: normal respiratory effort Cardio: Rhythm: abnormal rhythm irregularly irregular Neuro: Speech: normal speech Psych: Mental Status: mental status grossly normal Affect: normal affect Objective Data Vital Signs Vital Signs: Vital Signs - 24 hr 06/26/24 11:29 06/26/24 11:29 06/26/24 12:00 Temperature Pulse Rate 103 H 103 H 106 H Respiratory Rate Blood Pressure 123/70 123/70 92/59 L Pulse Oximetry Oxygen Delivery Fraction of Inspired Oxygen 06/26/24 12:00 06/26/24 12:00 06/26/24 12:10 Temperature 36.6 C Pulse Rate 113 H 106 H Respiratory Rate 18 Blood Pressure 92/59 L Pulse Oximetry 96 Oxygen Delivery Room Air Fraction of Inspired Oxygen 06/26/24 13:00 06/26/24 14:00 06/26/24 14:00 Temperature 36.8 C Pulse Rate 119 H 118 H 109 H Respiratory Rate 16 Blood Pressure 121/70 104/60 Pulse Oximetry 97 Oxygen Delivery Fraction of Inspired Oxygen 06/26/24 15:44 06/26/24 16:00 06/26/24 16:00 Temperature 36.9 C Pulse Rate 121 H 120 H 124 H Respiratory Rate 16 16 Blood Pressure 139/73 Pulse Oximetry 96 97 Oxygen Delivery Room Air Fraction of Inspired Oxygen 21 06/26/24 16:08 06/26/24 18:00 06/26/24 19:53 Temperature 36.9 C Pulse Rate 120 H 98 105 H Respiratory Rate 16 Blood Pressure 137/75 Pulse Oximetry 96 Oxygen Delivery Fraction of Inspired Oxygen 06/26/24 20:00 06/26/24 21:45 06/26/24 21:45 Temperature Pulse Rate 110 H 115 H Respiratory Rate Blood Pressure Pulse Oximetry Oxygen Delivery Room Air Fraction of Inspired Oxygen 06/26/24 22:00 06/26/24 22:19 06/26/24 23:40 Temperature 36.4 C L Pulse Rate 121 H 108 H 98 Respiratory Rate 20 16 Blood Pressure 130/70 Pulse Oximetry 95 Oxygen Delivery Fraction of Inspired Oxygen 06/27/24 00:00 06/27/24 00:20 06/27/24 02:00 Temperature Pulse Rate 100 100 Respiratory Rate Blood Pressure Pulse Oximetry Oxygen Delivery Room Air Fraction of Inspired Oxygen 06/27/24 04:00 06/27/24 04:00 06/27/24 04:00 Temperature 36.7 C Pulse Rate 101 H 112 H Respiratory Rate 20 Blood Pressure 114/72 Pulse Oximetry 95 Oxygen Delivery Room Air Fraction of Inspired Oxygen 06/27/24 06:00 06/27/24 06:16 06/27/24 08:00 Temperature 36.7 C Pulse Rate 106 H 105 H 97 Respiratory Rate 12 Blood Pressure 131/84 Pulse Oximetry 98 Oxygen Delivery Fraction of Inspired Oxygen 06/27/24 09:09 Temperature Pulse Rate 98 Respiratory Rate Blood Pressure Pulse Oximetry Oxygen Delivery Fraction of Inspired Oxygen Intake/Output Intake/Output: Intake & Output 06/24/24 06/25/24 06/26/24 06/27/24 23:59 23:59 23:59 23:59 Intake Total 2610.1 1547.3 1490.6 240 Output Total 1650 900 700 400 Balance 960.1 647.3 790.6 -160 Meds/Results Medications: Active Medications Generic Name Dose Route Start Last Admin Trade Name Freq PRN Reason Stop Dose Admin Atorvastatin Calcium 10 mg 06/15/24 18:00 06/26/24 17:39 Atorvastatin 10 Mg Tablet PO 10 mg QPM [facility] Administration Diltiazem HCl 360 mg 06/27/24 11:15 Diltiazem Hcl Cd 180 Mg Cap.24hr PO QAM [facility] Fenofibrate 160 mg 06/15/24 18:00 06/26/24 17:39 Fenofibrate 160 Mg Tablet PO 160 mg QPM [facility] Administration Guaifenesin 600 mg 06/26/24 21:00 06/27/24 09:10 Guaifenesin 12 Hr 600 Mg Tabcr PO 600 mg Q12HR [facility] Administration Guaifenesin/Dextromethorphan 10 ml 06/26/24 14:32 06/26/24 21:56 Guaifenesin/Dextromethorphan 10 Ml Udc PO 10 ml Q4H PRN Administration Cough Ipratropium [place] 0.5 mg 06/26/24 08:57 06/26/24 22:19 Ipratropium Br 0.02% Inh Soln 0.5 Mg/2.5 Ml Vial INHALATION 0.5 mg Q6HRT PRN Administration Shortness Of Breath Levalbuterol HCl 1.25 mg 06/26/24 08:57 06/26/24 22:19 Levalbuterol Neb 1.25 Mg/3 Ml INHALATION 1.25 mg Q6HRT PRN Administration Shortness Of Breath Lisinopril 5 mg 06/15/24 18:00 06/26/24 17:39 Lisinopril 5 Mg Tablet PO 5 mg QPM [facility] Administration Metoprolol Tartrate 5 mg 06/16/24 08:51 06/25/24 15:45 Metoprolol Tartrate Inj 5 Mg/5 Ml Vial IV PUSH 5 mg Q4H PRN Administration HR > 120 sustained Metoprolol Tartrate 100 mg 06/27/24 21:00 Metoprolol Tartrate 50 Mg Tab PO Q12HR [facility] Multi-Ingred Cream/Lotion/Oil/Oint 1 applic 06/24/24 13:00 06/27/24 09:10 Eucerin Cream 120 Gm Jar TOPICAL 1 applic DAILY [facility] Administration Oseltamivir Phosphate 75 mg 06/26/24 21:00 06/27/24 09:10 Oseltamivir Phosphate 75 Mg Capsule PO 07/01/24 20:59 75 mg Q12HR [facility] Administration Potassium Chloride 10 meq 06/16/24 09:00 06/27/24 09:09 Potassium Chloride 10 Meq Er Tablet PO 10 meq DAILY [facility] Administration Sodium Chloride 1 spray 06/25/24 13:49 06/25/24 14:18 Saline 0.65% Rl Soln 44 Ml Btl NASAL 1 spray Q6HR PRN Administration Congestion Vitamin D 2,000 units 06/16/24 09:00 06/27/24 09:10 Cholecalciferol 1,000 Units Tablet PO 2,000 units DAILY [facility] Administration Warfarin Sodium 4 mg 06/16/24 17:00 06/26/24 17:39 Warfarin (*Pbkc) 4 Mg Tablet PO 4 mg [id number]@1700 [facility] Administration Warfarin Sodium 8 mg 06/15/24 17:00 06/24/24 17:46 Warfarin (*Pbkc) 4 Mg Tablet PO 8 mg MoWe@1700 [facility] Administration Radiology Results: ITS Impressions Chest X-Ray 06/25/24 05:41 Impression: 1: Stable mild interstitial edema. ADDENDUM: 06/25/24 9146 Addendum: Tubes and lines in appropriate position. Labs Labs: Laboratory Results - last 24 hr 06/26/24 06/27/24 15:56 04:10 PT 37.2 H INR 3.7 Influenza A (RT-PCR) Positive A Influenza B (RT-PCR) Negative RSV (RT-PCR) Negative SARS-CoV-2 RNA (RT-PCR) Negative
--- NOTE | 2024-06-27 14:40 | P.PNIM_ITS ---
Progress Note: A&P Assessment and Plan (1) Influenza A: Code(s): J10.1 - Influenza due to other identified influenza virus with other respiratory manifestations Status: Acute Assessment and Plan: Family with influenza and patient was exposed. Patient is influenza A positive here. Started Tamiflu. Bronchodilators as needed. Mucinex added. Robitussin prn. (2) Sepsis: Code(s): A41.9 - Sepsis, unspecified organism Status: Acute Assessment and Plan: Patient presented with fever, tachycardia, leukocytosis. Lactic normal. UA noted. CXR showing possible minimal bibasilar pulm edema. BCx positive for Group B Strep without clear source Sepsis related to GBS bacteremia. Started on IV abx. Repeat BCx negative. ROBYN showing no vegetations. Symptoms resolved. Changed to oral abx and completed a course of abx. (3) Atrial fibrillation with rapid ventricular response: Code(s): I48.91 - Unspecified atrial fibrillation Status: Acute Assessment and Plan: Patient with known atrial fibrillation who presents with rapid ventricular response. Patient was initially started on a diltiazem drip which was switched to p.o. diltiazem and metoprolol Ventricular rate worsened after patient exerted and set up in a chair Cardiology consulted Medications were adjusted to try to control rate. Heart rate better overall but still not at goal. Mildly elevated LFTs and trending down Amiodarone drip stopped. Low dose Digoxin added. Metoprolol dose advanced back to 100mg Q8h INR supratherapeutic. Coumadin held. Check INR daily (4) Elevated troponin: Code(s): R79.89 - Other specified abnormal findings of blood chemistry Status: Acute Assessment and Plan: Patient found to have elevated troponin to 0.067 but flat overall. EKG on admisison showing AFib, RVR (128), possible inferior UT and anteroseptal UT, age indeterminant. ROBYN on 06/19/2024 showing normal LV size and systolic fxn. Patient denies any chest pain. Possible demand ischemia secondary to AFib with RVR. Patient is already on statin and beta-carleen which we will continue Further workup per chronometer assembler and adjuster (5) Bacteremia: Code(s): R78.81 - Bacteremia Status: Acute Assessment and Plan: Blood cultures collected on admission (06/15) are growing group B Streptococcus in 3 of the 4 bottles. CXR showing possible minimal bibasilar pulm edema. UA noted but UCx negative. ROBYN showing no vegetations. Treated with Rocephin and vancomycin; vancomycin ultimately stopped Repeat BCx (06/17) negative. Changed to oral amoxicillin with end date of 10 days from negative BCx. Follow closely off abx (6) Diabetes mellitus: Qualifiers: Diabetes mellitus complication status: without complication Diabetes mellitus half-way insulin use: without terminal block assembler use Diabetes mellitus type: type 2 Qualified Code(s): E11.9 - Type 2 diabetes mellitus without complications Code(s): E11.9 - Type 2 diabetes mellitus without complications Status: Chronic Assessment and Plan: A1c 5.6%. The patient's blood glucose was reviewed on 06/27 Glucose remains well controlled. Continue to monitor Plan Debility - PT/OT ordered. DVT prophylaxis - INR therapeutic Code Status - DNR Subjective Date/time seen: 06/27/24 14:40 Interval history: 88yo male with 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 Also diagnosed with a UTI and is on ceftriaxone. Blood cultures grew strep group B Streptococcus. TTE was negative for vegetation. Cough is better. No CP or SOB. Exam Narrative: AF 98.2 90/54 120 16 97% ra Gen - NARD Chest - CTA bilaterally, nml RR CV - irregular and tachycardic Abd - Soft, NT/ND, Positive BS Ext - trace pedal edema Psych - Nml mood and affect Skin - Warm and dry; scaly LE skin improved. Objective Data Vital Signs Vital Signs: Vital Signs - 24 hr 06/26/24 15:44 06/26/24 16:00 06/26/24 16:00 Temperature 98.4 F Pulse Rate 121 H 120 H 124 H Respiratory Rate 16 16 Blood Pressure 139/73 Pulse Oximetry 96 97 Oxygen Delivery Room Air Fraction of Inspired Oxygen 21 06/26/24 16:08 06/26/24 18:00 06/26/24 19:53 Temperature 98.4 F Pulse Rate 120 H 98 105 H Respiratory Rate 16 Blood Pressure 137/75 Pulse Oximetry 96 Oxygen Delivery Fraction of Inspired Oxygen 06/26/24 20:00 06/26/24 21:45 06/26/24 21:45 Temperature Pulse Rate 110 H 115 H Respiratory Rate Blood Pressure Pulse Oximetry Oxygen Delivery Room Air Fraction of Inspired Oxygen 06/26/24 22:00 06/26/24 22:19 06/26/24 23:40 Temperature 97.5 F L Pulse Rate 121 H 108 H 98 Respiratory Rate 20 16 Blood Pressure 130/70 Pulse Oximetry 95 Oxygen Delivery Fraction of Inspired Oxygen 06/27/24 00:00 06/27/24 00:20 06/27/24 02:00 Temperature Pulse Rate 100 100 Respiratory Rate Blood Pressure Pulse Oximetry Oxygen Delivery Room Air Fraction of Inspired Oxygen 06/27/24 04:00 06/27/24 04:00 06/27/24 04:00 Temperature 98.1 F Pulse Rate 101 H 112 H Respiratory Rate 20 Blood Pressure 114/72 Pulse Oximetry 95 Oxygen Delivery Room Air Fraction of Inspired Oxygen 06/27/24 06:00 06/27/24 06:16 06/27/24 08:00 Temperature 98.0 F Pulse Rate 106 H 105 H 97 Respiratory Rate 12 Blood Pressure 131/84 Pulse Oximetry 98 Oxygen Delivery Fraction of Inspired Oxygen 06/27/24 08:00 06/27/24 09:09 06/27/24 10:00 Temperature Pulse Rate 95 98 105 H Respiratory Rate Blood Pressure Pulse Oximetry Oxygen Delivery Fraction of Inspired Oxygen 06/27/24 12:00 06/27/24 13:09 Temperature 98.2 F Pulse Rate 120 H Respiratory Rate 16 Blood Pressure 92/74 L 90/54 L Pulse Oximetry 97 Oxygen Delivery Fraction of Inspired Oxygen Intake/Output Intake/Output: Intake & Output 06/24/24 06/25/24 06/26/24 06/27/24 23:59 23:59 23:59 23:59 Intake Total 2610.1 1547.3 1490.6 480 Output Total 1650 900 700 400 Balance 960.1 647.3 790.6 80 Meds/Results Medications: Active Medications Generic Name Dose Route Start Last Admin Trade Name Freq PRN Reason Stop Dose Admin Atorvastatin Calcium 10 mg 06/15/24 18:00 06/26/24 17:39 Atorvastatin 10 Mg Tablet PO 10 mg QPM [facility] Administration Digoxin 62.5 mcg 06/28/24 09:00 Digoxin 62.5 Mcg Tablet PO DAILY [facility] Fenofibrate 160 mg 06/15/24 18:00 06/26/24 17:39 Fenofibrate 160 Mg Tablet PO 160 mg QPM REYNA Administration Guaifenesin 600 mg 06/26/24 21:00 06/27/24 09:10 Guaifenesin 12 Hr 600 Mg Tabcr PO 600 mg Q12HR REYNA Administration Guaifenesin/Dextromethorphan 10 ml 06/26/24 14:32 06/26/24 21:56 Guaifenesin/Dextromethorphan 10 Ml Udc PO 10 ml Q4H PRN Administration Cough Ipratropium [place] 0.5 mg 06/26/24 08:57 06/26/24 22:19 Ipratropium Br 0.02% Inh Soln 0.5 Mg/2.5 Ml Vial INHALATION 0.5 mg Q6HRT PRN Administration Shortness Of Breath Levalbuterol HCl 1.25 mg 06/26/24 08:57 06/26/24 22:19 Levalbuterol Neb 1.25 Mg/3 Ml INHALATION 1.25 mg Q6HRT PRN Administration Shortness Of Breath Lisinopril 5 mg 06/15/24 18:00 06/26/24 17:39 Lisinopril 5 Mg Tablet PO 5 mg QPM [facility] Administration Metoprolol Tartrate 5 mg 06/16/24 08:51 06/25/24 15:45 Metoprolol Tartrate Inj 5 Mg/5 Ml Vial IV PUSH 5 mg Q4H PRN Administration HR > 120 sustained Metoprolol Tartrate 100 mg 06/27/24 14:00 Metoprolol Tartrate 50 Mg Tab PO Q8HR [facility] Multi-Ingred Cream/Lotion/Oil/Oint 1 applic 06/24/24 13:00 06/27/24 09:10 Eucerin Cream 120 Gm Jar TOPICAL 1 applic DAILY [facility] Administration Oseltamivir Phosphate 75 mg 06/26/24 21:00 06/27/24 09:10 Oseltamivir Phosphate 75 Mg Capsule PO 07/01/24 20:59 75 mg Q12HR [facility] Administration Potassium Chloride 10 meq 06/16/24 09:00 06/27/24 09:09 Potassium Chloride 10 Meq Er Tablet PO 10 meq DAILY [facility] Administration Sodium Chloride 1 spray 06/25/24 13:49 06/25/24 14:18 Saline 0.65% Rl Soln 44 Ml Btl NASAL 1 spray Q6HR PRN Administration Congestion Vitamin D 2,000 units 06/16/24 09:00 06/27/24 09:10 Cholecalciferol 1,000 Units Tablet PO 2,000 units DAILY [facility] Administration Warfarin Sodium 4 mg 06/16/24 17:00 06/26/24 17:39 Warfarin (*Pbkc) 4 Mg Tablet PO 4 mg [id number]@1700 [facility] Administration Warfarin Sodium 8 mg 06/15/24 17:00 06/24/24 17:46 Warfarin (*Pbkc) 4 Mg Tablet PO 8 mg MoWe@1700 [facility] Administration Radiology Results: ITS Impressions Chest X-Ray 06/25/24 05:41 Impression: 1: Stable mild interstitial edema. ADDENDUM: 06/25/24 0546 Addendum: Tubes and lines in appropriate position. Labs Labs: Laboratory Results - last 24 hr 06/26/24 06/27/24 15:56 04:10 PT 37.2 H INR 3.7 Influenza A (RT-PCR) Positive A Influenza B (RT-PCR) Negative RSV (RT-PCR) Negative SARS-CoV-2 RNA (RT-PCR) Negative
[2024-06-27] MEDS: ATORVASTATIN 10 MG TABLET PO (17:36)
[2024-06-27] MEDS: lisinopriL 5 MG TABLET PO (17:36)
[2024-06-27] MEDS: FENOFIBRATE 160 MG TABLET PO (17:36)
--- NOTE | 2024-06-27 18:43 | PC.NURSE ---
On 06/27/24, the LPRN, Vero Lopez, provided care and completed [facility] documentation on this patient. I have reviewed the LPRN's documentation and agree with the findings.
[2024-06-27] MEDS: guaiFENesin/DEXTROMETHORPHAN 10 ML UDC PO (20:36)
[2024-06-28] VITALS (14 sets, daily range): BP systolic 104–123; BP diastolic 60–82; PULSE 76–124; RESP 16–18; TEMP 36.6–36.7; O2SAT 97–99
[2024-06-28 05:40] LABS: Basophils Percent Auto 0.4 % (0.2-1.2); Eosinophils Absolute Auto 0.1 K/mm3 (0-0.3); Eosinophils Percent Auto 2.8 % (0-4.4); Hematocrit 33.4 % (42.0-52.0); Immature Granulocyte Absolute 0.08 K/mm3 (0.00-0.031); Immature Granulocyte Percent A 1.7 % (0-0.5); Lymphocytes Absolute Auto 1.19 K/mm3 (0.9-3.2); Lymphocytes Percent Auto 25.9 % (18.3-44.2); Mean Corpuscular HGB Conc 32.9 g/dl (32-36); Mean Corpuscular Hemoglobin 32.2 pg (26-34); Mean Corpuscular Volume 97.7 fl (80-100); Mean Platelet Volume 9.2 fl (7.4-10.4); Monocytes Absolute Auto 0.7 K/mm3 (0.1-0.6); Monocytes Percent Auto 14.6 % (2.6-8.5); Neutrophils Absolute Auto 2.5 K/mm3 (1.3-6.7); Neutrophils Percent Auto 54.6 % (45.5-73.1); Platelet Count Result 243 k/mm3 (150-375); Red Blood Count 3.42 M/mm3 (4.6-6.20); Red Cell Distribution Width 13.2 % (11.5-14.5); White Blood Count 4.6 K/mm3 (4.5-10.0)
[2024-06-28 05:50] LABS: Anion Gap 5 mmol/L (4-12); Blood Urea Nitrogen 14 mg/dL (9-20); Calcium 8.4 mg/dL (8.4-10.2); Carbon Dioxide 25 mmol/L (22-30); Chloride 107 mmol/L (98-107); Creatine Kinase 125 U/L (55-170); Estimated CRCL calculation 83 ml/min; Estimated Glomerular Filt Rate > 60; Glucose 88 mg/dL (65-110); Magnesium 1.9 mg/dL (1.6-2.3); Phosphorus 2.7 mg/dL (2.5-4.5); Potassium 3.9 mmol/L (3.4-5.0); Sodium 137 mmol/L (137-145)
[2024-06-28 05:51] LABS: INR 4.1; Prothrombin Time 40.8 Seconds (11.1-14.7)
[2024-06-28] MEDS: METOPROLOL TARTRATE 50 MG TAB 100 MG PO ×2 (06:22→13:39)
[2024-06-28] MEDS: CHOLECALCIFEROL 1,000 UNITS TABLET 2000 UNITS PO (09:24)
[2024-06-28] MEDS: POTASSIUM CHLORIDE 10 MEQ ER TABLET PO (09:24)
[2024-06-28] MEDS: DIGOXIN 62.5 MCG TABLET PO (09:25)
[2024-06-28] MEDS: OSELTAMIVIR PHOSPHATE 75 MG CAPSULE PO (09:25)
[2024-06-28] MEDS: EUCERIN CREAM 120 GM JAR 1 APPLIC TOPICAL (09:25)
[2024-06-28] MEDS: guaiFENesin 12 HR 600 MG TABCR PO (09:25)
--- NOTE | 2024-06-28 13:38 | P.PNCA_ITS ---
Progress Note: A&P Assessment and Plan (1) Atrial fibrillation with rapid ventricular response: Code(s): I48.91 - Unspecified atrial fibrillation Status: Acute (2) Bacteremia: Code(s): R78.81 - Bacteremia Status: Acute (3) Sepsis: Code(s): A41.9 - Sepsis, unspecified organism Status: Acute (4) HTN (hypertension): Qualifiers: Hypertension type: essential hypertension Qualified Code(s): I10 - Essential (primary) hypertension Code(s): I10 - Essential (primary) hypertension Status: Chronic (5) History of aortic valve replacement with bioprosthetic valve: Code(s): Z95.3 - Presence of xenogenic heart valve Status: Acute (6) CAD (coronary artery disease): Qualifiers: Coronary Disease-Associated Artery/Lesion type: [place] artery [place] vs. transplanted heart: [place] heart Associated angina: without angina Qualified Code(s): I25.10 - Atherosclerotic heart disease of [place] coronary artery without angina pectoris Code(s): I25.10 - Atherosclerotic heart disease of [place] coronary artery without angina pectoris Status: Chronic (7) Elevated troponin: Code(s): R79.89 - Other specified abnormal findings of blood chemistry Status: Acute (8) Hyperlipidemia: Code(s): E78.5 - Hyperlipidemia, unspecified Status: Acute Plan -Longstanding persistent atrial fibrillation on anticoagulation with warfarin - now with RVR -Elevated troponin without chest pain - most likely secondary to stress of AFib RVR and ongoing infection -Influenza -Sepsis, UTI, bacteremia -Hypokalemia -Bioprosthetic AVR and aortic root repair in April 2012 - operative report not available -History of percutaneous closure of paravalvular leak -CAD -Pulmonary hypertension -Obstructive sleep apnea on BiPAP -Aortic insufficiency -Diabetes mellitus -Hypertension Plan: -Patient has had issues with RVR over the past few days. Apparently his visited him 3 days ago and she was sick at that time. Later called us and let us know she tested positive for Influenza. Therefore, patient was tested 06/26, and he tested positive for Influenza as well. Appears that he caught the flu from his . Having the flu explains why his AFIB was acting up. He is now rate controlled. At this time, will continue Metoprolol 100mg TID and Digoxin 0.625mg. -Continue Coumadin for anticoagulation. Monitor INR closely. Goal INR is 2-3. INR elevated. Discussed with Hospitalist. Continue holding the Warfarin for next few days, will recheck as outpatient. Will have our office follow up with his INR checks. -Continue statin As he is rate controlled now, okay for discharge from my standpoint. Will arrange close follow up with his primary crinkling machine operator, Dr. Santos. Recommendations and plan discussed with Hospitalist. Subjective Date/time seen: 06/28/24 13:38 Interval history: Reason For Visit: Sepsis, A Fib RVR HPI: 88-year-old male with history of bioprosthetic AVR and aortic root repair in April 2012-operative report not available, history of percutaneous closure of paravalvular leak, longstanding persistent atrial fibrillation on anticoagulation with warfarin, CAD, pulmonary hypertension, obstructive sleep apnea on BiPAP, aortic insufficiency diabetes mellitus, hypertension was admitted for generalized weakness and AFib with RVR. He was diagnosed with a UTI and is on ceftriaxone. Blood cultures grew strep group B Streptococcus. TTE was negative for vegetation. For AFib, he was started on a low dose diltiazem drip which was later discontinued and p.o. metoprolol, p.o. diltiazem were resumed. He continues to have RVR and Cardiology was consulted for further management. 06/23/2024: Asked by the hospitalist to see patient again as he has had atrial fibrillation with RVR. He does not feel symptoms while he is at rest but with activity when his heart rate elevates to 140's he does feel palpitations. No chest pain or shortness of breath. 06/24: Remains in RVR this morning. For some reason, Diltiazem and Metoprolol were stopped yesterday. Doesn't really notice the RVR. 06/25/2024: Feels okay today and does not feel palpitations when his heart rate is elevated. 06/26/2024: Over the past 24 hours he has been more persistently tachycardic on telemetry. 06/27: Became rate controlled last night. He is feeling well today and is asking when he can go home. 06/28: He is feeling well. Heart rates are acceptable. They do increase with activity, but come back down with rest. Review of Systems Review of Systems: All systems reviewed & are unremarkable except as noted in HPI and below (HPI) Exam Const: General: comfortable and no acute distress HENMT: Mouth: Yes moist mucous membranes Eyes: General: appearance normal, both eyes and all related structures Sclera: sclerae normal Resp: Effort & Inspection: normal respiratory effort Cardio: Rhythm: abnormal rhythm irregularly irregular Neuro: Speech: normal speech Psych: Mental Status: mental status grossly normal Affect: normal affect Objective Data Vital Signs Vital Signs: Vital Signs - 24 hr 06/27/24 14:00 06/27/24 15:05 06/27/24 16:00 Temperature 36.9 C Pulse Rate 104 H 135 H 103 H Respiratory Rate 28 H Blood Pressure 112/67 Pulse Oximetry 97 Oxygen Delivery 06/27/24 16:00 06/27/24 17:46 06/27/24 18:00 Temperature 36.7 C Pulse Rate 94 102 H 109 H Respiratory Rate 16 Blood Pressure 115/82 Pulse Oximetry 97 Oxygen Delivery 06/27/24 20:00 06/27/24 20:30 06/27/24 20:56 Temperature 36.7 C Pulse Rate 102 H 105 H Respiratory Rate 18 Blood Pressure 113/85 Pulse Oximetry 99 Oxygen Delivery Room Air 06/27/24 21:52 06/27/24 22:00 06/28/24 00:00 Temperature Pulse Rate 124 H 106 H Respiratory Rate Blood Pressure Pulse Oximetry Oxygen Delivery Room Air 06/28/24 00:00 06/28/24 00:25 06/28/24 02:00 Temperature 36.6 C Pulse Rate 89 87 76 Respiratory Rate 18 Blood Pressure 110/82 Pulse Oximetry 99 Oxygen Delivery 06/28/24 04:00 06/28/24 04:15 06/28/24 04:32 Temperature 36.6 C Pulse Rate 108 H 96 Respiratory Rate 18 Blood Pressure 123/60 Pulse Oximetry 99 Oxygen Delivery Room Air 06/28/24 06:00 06/28/24 06:22 06/28/24 08:00 Temperature 36.7 C Pulse Rate 96 99 106 H Respiratory Rate 16 Blood Pressure 108/65 Pulse Oximetry 97 Oxygen Delivery 06/28/24 08:00 06/28/24 09:25 06/28/24 10:00 Temperature Pulse Rate 91 92 88 Respiratory Rate Blood Pressure Pulse Oximetry Oxygen Delivery 06/28/24 11:55 Temperature 36.7 C Pulse Rate 123 H Respiratory Rate 16 Blood Pressure 104/78 Pulse Oximetry 98 Oxygen Delivery Intake/Output Intake/Output: Intake & Output 06/25/24 06/26/24 06/27/24 06/28/24 23:59 23:59 23:59 23:59 Intake Total 1547.3 1490.6 1260 740 Output Total 900 018 021 0842 Balance 647.3 790.6 560 -260 Meds/Results Medications: Active Medications Generic Name Dose Route Start Last Admin Trade Name Freq PRN Reason Stop Dose Admin Atorvastatin Calcium 10 mg 06/15/24 18:00 06/27/24 17:36 Atorvastatin 10 Mg Tablet PO 10 mg QPM [facility]YNA Administration Digoxin 62.5 mcg 06/28/24 09:00 06/28/24 09:25 Digoxin 62.5 Mcg Tablet PO 62.5 mcg DAILY [facility] Administration Fenofibrate 160 mg 06/15/24 18:00 06/27/24 17:36 Fenofibrate 160 Mg Tablet PO 160 mg QPM [facility] Administration Guaifenesin 600 mg 06/26/24 21:00 06/28/24 09:25 Guaifenesin 12 Hr 600 Mg Tabcr PO 600 mg Q12HR [facility] Administration Guaifenesin/Dextromethorphan 10 ml 06/26/24 14:32 06/27/24 20:36 Guaifenesin/Dextromethorphan 10 Ml Udc PO 10 ml Q4H PRN Administration Cough Ipratropium [place] 0.5 mg 06/26/24 08:57 06/26/24 22:19 Ipratropium Br 0.02% Inh Soln 0.5 Mg/2.5 Ml Vial INHALATION 0.5 mg Q6HRT PRN Administration Shortness Of Breath Levalbuterol HCl 1.25 mg 06/26/24 08:57 06/26/24 22:19 Levalbuterol Neb 1.25 Mg/3 Ml INHALATION 1.25 mg Q6HRT PRN Administration Shortness Of Breath Lisinopril 5 mg 06/15/24 18:00 06/27/24 17:36 Lisinopril 5 Mg Tablet PO 5 mg QPM [facility]NA Administration Metoprolol Tartrate 5 mg 06/16/24 08:51 06/25/24 15:45 Metoprolol Tartrate Inj 5 Mg/5 Ml Vial IV PUSH 5 mg Q4H PRN Administration HR > 120 sustained Metoprolol Tartrate 100 mg 06/27/24 14:00 06/28/24 06:22 Metoprolol Tartrate 50 Mg Tab PO 100 mg Q8HR [facility] Administration Multi-Ingred Cream/Lotion/Oil/Oint 1 applic 06/24/24 13:00 06/28/24 09:25 Eucerin Cream 120 Gm Jar TOPICAL 1 applic DAILY [facility] Administration Oseltamivir Phosphate 75 mg 06/26/24 21:00 06/28/24 09:25 Oseltamivir Phosphate 75 Mg Capsule PO 07/01/24 20:59 75 mg Q12HR [facility] Administration Potassium Chloride 10 meq 06/16/24 09:00 06/28/24 09:24 Potassium Chloride 10 Meq Er Tablet PO 10 meq DAILY [facility] Administration Sodium Chloride 1 spray 06/25/24 13:49 06/25/24 14:18 Saline 0.65% Rl Soln 44 Ml Btl NASAL 1 spray Q6HR PRN Administration Congestion Vitamin D 2,000 units 06/16/24 09:00 06/28/24 09:24 Cholecalciferol 1,000 Units Tablet PO 2,000 units DAILY [facility] Administration Warfarin Sodium 4 mg 06/16/24 17:00 06/26/24 17:39 Warfarin (*Pbkc) 4 Mg Tablet PO 4 mg [id number]@1700 [facility] Administration Warfarin Sodium 8 mg 06/15/24 17:00 06/24/24 17:46 Warfarin (*Pbkc) 4 Mg Tablet PO 8 mg MoWe@1700 REYNA Administration Radiology Results: ITS Impressions Chest X-Ray 06/25/24 05:41 Impression: 1: Stable mild interstitial edema. ADDENDUM: 06/25/24 0546 Addendum: Tubes and lines in appropriate position. Labs Labs: Laboratory Results - last 24 hr 06/28/24 04:51 WBC 4.6 RBC 3.42 L Hgb 11.0 L Hct 33.4 L MCV 97.7 MCH 32.2 MCHC 32.9 RDW 13.2 Plt Count 243 MPV 9.2 Immature Gran % (Auto) 1.7 H Neut % (Auto) 54.6 Lymph % (Auto) 25.9 Hall % (Auto) 14.6 H Eos % (Auto) 2.8 Baso % (Auto) 0.4 Lymph # (Auto) 1.19 Hall # (Auto) 0.7 H Eos # (Auto) 0.1 Baso # (Auto) 0.0 Abs Immat Gran (auto) 0.08 H Absolute Neuts (auto) 2.5 Absolute Nucleated RBC 0.000 Nucleated RBC % 0.0 PT 40.8 H INR 4.1 Sodium 137 Potassium 3.9 Chloride 107 Carbon Dioxide 25 Anion Gap 5 BUN 14 Creatinine 0.71 Estim Creat Clear Calc 83 Estimated GFR > 60 Glucose 88 Calcium 8.4 Phosphorus 2.7 Magnesium 1.9 Total Creatine Kinase 125 Albumin 3.0 L
--- NOTE | 2024-06-28 13:53 | PM.DS ---
DS: Admitting Diagnosis Discharge Date 06/28/24 Admitting Diagnosis Generalized weakness DS: Discharge Diagnosis Discharge Diagnosis (1) Sepsis: Code(s): A41.9 - Sepsis, unspecified organism Status: Acute (2) Atrial fibrillation with rapid ventricular response: Code(s): I48.91 - Unspecified atrial fibrillation Status: Acute (3) Influenza A: Code(s): J10.1 - Influenza due to other identified influenza virus with other respiratory manifestations Status: Acute (4) Elevated troponin: Code(s): R79.89 - Other specified abnormal findings of blood chemistry Status: Acute (5) Bacteremia: Code(s): R78.81 - Bacteremia Status: Acute (6) Diabetes mellitus: Qualifiers: Diabetes mellitus type: type 2 Diabetes mellitus senior living insulin use: without senior living use Diabetes mellitus complication status: without complication Qualified Code(s): E11.9 - Type 2 diabetes mellitus without complications Code(s): E11.9 - Type 2 diabetes mellitus without complications Status: Chronic DS: Summary Hospital Course Reason for hospitalization: 88yo male with 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 Please see H&P for details. Hospital Course: Patient presented with fever, tachycardia, leukocytosis consistent with sepsis. Lactic was normal. UA noted. CXR showing possible minimal bibasilar pulm edema. Blood cultures collected on admission (06/15) grew group B Streptococcus in 3 of the 4 bottles. UA noted but UCx negative. UTI ruled out. ROBYN showing no vegetations. Treated with Rocephin and vancomycin; vancomycin ultimately stopped. Repeat BCx (06/17) negative. Changed to oral amoxicillin with end date of 10 days from negative BCx. No issues off antibiotics. Patient with known atrial fibrillation who presents with rapid ventricular response. Patient was initially started on a diltiazem drip which was switched to p.o. diltiazem and metoprolol. Ventricular rate worsened after patient exerted and sat up in a chair. Cardiology consulted. Medications were adjusted to try to control rate. Heart rate better overall. Midly elevated LFTs and trending down now. Amiodarone drip was stopped. Low dose Digoxin added. Metoprolol dose advanced to 100mg Q8h. INR became supratherapeutic so Coumadin held. Patient found to have elevated troponin to 0.067 but flat overall. EKG on admission showing AFib, RVR (128), possible inferior MO and anteroseptal MO, age indeterminant. ROBYN on 06/19/2024 showing normal LV size and systolic fxn. Patient denies any chest pain. Possible demand ischemia secondary to AFib with RVR. Patient is already on statin and beta-carleen which we continued. A1c 5.6%. The patient's blood glucose was monitored closely. Family with influenza and patient was exposed to them while hospitalized. Patient was influenza A positive here and Tamiflu started. He worked with therapy and was ambulating in the room. He was walking up to 100 feet and was standby assist. He overall did well and was able to be discharged on 06/28/24. Status at Discharge Cognitive/behavioral status at discharge: stable Time Spent with Patient Time attestation: Total time spent providing and/or coordinating discharge services: 35 minutes Time spent: Greater than 30 minutes Exam Narrative: AF 98.1 104/78 124 16 98% ra Gen - NARD Chest - CTA bilaterally, nml RR CV - irregular and tachycardic Abd - Soft, NT/ND, Positive BS Ext - trace pedal edema Psych - Nml mood and affect Skin - Warm and dry; scaly LE skin improved. DS: Data Data Completed and Pending Labs on day of discharge: Labs from last 24 hours 06/28/24 04:51 WBC 4.6 RBC 3.42 L Hgb 11.0 L Hct 33.4 L MCV 97.7 MCH 32.2 MCHC 32.9 RDW 13.2 Plt Count 243 MPV 9.2 Immature Gran % (Auto) 1.7 H Neut % (Auto) 54.6 Lymph % (Auto) 25.9 [place] % (Auto) 14.6 H Eos % (Auto) 2.8 Baso % (Auto) 0.4 Lymph # (Auto) 1.19 [place] # (Auto) 0.7 H Eos # (Auto) 0.1 Baso # (Auto) 0.0 Abs Immat Gran (auto) 0.08 H Absolute Neuts (auto) 2.5 Absolute Nucleated RBC 0.000 Nucleated RBC % 0.0 PT 40.8 H INR 4.1 Sodium 137 Potassium 3.9 Chloride 107 Carbon Dioxide 25 Anion Gap 5 BUN 14 Creatinine 0.71 Estim Creat Clear Calc 83 Estimated GFR > 60 Glucose 88 Calcium 8.4 Phosphorus 2.7 Magnesium 1.9 Total Creatine Kinase 125 Albumin 3.0 L Discharge Plan Discharge Attending physician on discharge: Emile Salcedo Consulting providers: Marii Olea Discharging Clinician: Emile Salcedo Anticipated Discharge Date/Time: 06/28/24 14:09 Patient Disposition: Home Health Service Activity: as tolerated Diet: heart healthy Discharge Instructions: Per Care Coordination Patient has been accepted to have [facility] for RN, PT, OT [phone] RN please fax completed discharge instructions to [phone] Please complete your antiviral medications even if you are starting to feel well. Continue uwing your CPAP/BiPAP at night and with naps. Take precautions to avoid falls. Rise slowly from a lying or sitting position. Pause before standing or walking. Contact your doctor or call 911 and come to the Emergency Room if you have fevers, lightheadedness with standing or other worrisome symptoms. Avoid NSAIDs (ibuprofen, naproxen, Aleve). Tylenol is safe to take. Follow-up with your primary care provider in 1-2 weeks. Please call for appointment. Follow-up with [facility] in 1-2 weeks. Please call for an appointment. Thank you for using [facility] for your health care needs. Patient Instructions: Antibiotic Form, Warfarin (By mouth) Patient Language: Yoruba Stand Alone Forms: General Discharge Information Follow-up/Referrals: Aren Santos MD [Physician] - Call for Appointment Marcial Frazier MD [Primary Care Provider] - Call for Appointment Discharge Medications: [place] Creme Cream 1 applic topical DAILY Qty: 113 0RF Rx Instructions: to both legs on intact skin only digoxin 62.5 mcg (0.0625 mg) tablet 62.5 mcg PO DAILY Qty: 30 1RF oseltamivir [Tamiflu] 75 mg Capsule 75 mg PO Q12HR Qty: 6 0RF metoprolol tartrate 100 mg tablet 100 mg PO Q8H Qty: 90 1RF digoxin 62.5 mcg (0.0625 mg) tablet 62.5 mcg PO DAILY Qty: 30 1RF Continued atorvastatin 10 mg tablet 10 mg PO QPM fenofibrate 160 mg tablet 160 mg PO QPM cholecalciferol (vitamin D3) 50 mcg (2,000 unit) Tablet 2,000 unit PO DAILY Joint Support Complex 1 tablet PO BID Held furosemide 40 mg tablet 40 mg PO DAILY Hold Instructions: Hold - Resume okay with your doctor lisinopril 5 mg tablet 5 mg PO QPM Hold Instructions: HOLD - Resume when okay with your doctor warfarin 4 mg tablet 4 mg PO WEEKLY Hold Instructions: HOLD - Resume on 06/30/24. Rx Instructions: 4 mg G-Cw-B-Sa-Dwyer potassium chloride 10 mEq tablet extended release 10 meq PO DAILY Hold Instructions: HOLD - Resume when okay with your doctor warfarin 4 mg tablet 8 mg PO WEEKLY Hold Instructions: HOLD - Resume on 06/30/24. Rx Instructions: 8 mg Sat-Sat Discontinued metoprolol tartrate 75 mg Tablet 75 mg PO TID diltiazem HCl 360 mg capsule,extended release 24hr 360 mg PO DAILY Qty: 30 0RF diltiazem HCl 240 mg capsule,ext.rel 24h degradable 240 mg PO DAILY Other Ambulatory Orders: Prothrombin Time INR (Routine) Timeframe: [id number] Location: Determined by Patient Ordered By: Emile Salcedo Date of admission: 06/15/24 02:56 Primary Care Provider: Marcial Frazier Admitting Provider: Daria Wood Attending physician on admission: Daria Wood Condition: Improved Hospitalist MIPS Heart Failure (Exclusion) Patient has history of Heart Transplant or Left Ventricular Assistive Device?: No IF YES, STOP HERE Heart Failure (Qualifier) Patient has current or prior documentation of LVEF less than or equal to 40%, or mod/servere depressed LVSF?: No IF NO, STOP HERE
--- NOTE | 2024-06-28 18:34 | PC.NURSE ---
On 06/28/24, the LP RN, Vero Lopez, provided care and completed [facility] documentation on this patient. I have reviewed the LP RN's documentation and agree with the findings.
== END 2024-06-28 16:15 | disposition home health service (06) | DRG 872 ==
LOC: ANHED 00:44 → ANHIMU 03:05 → ANHICU 08:04 → ANHIMU 06-16 16:30
PROVIDERS: Family Medicine; Internal Medicine; Internal Medicine Cardiovascular Disease; Admitting Provider Internal Medicine; Emergency Provider Emergency Medicine; PCP Emergency Medicine; Visit Provider Internal Medicine
PROC: B24BZZ4 Ultrasonography of Heart with Aorta, Transesophageal (ICD-10-PCS; CPT 93312; principal; 2024-06-19 14:00)
DX: A41.9 Sepsis, unspecified organism (principal); I48.11 Longstanding persistent atrial fibrillation; I24.89 Other forms of acute ischemic heart disease; B95.1 Streptococcus, group B, as the cause of diseases classified elsewhere; J10.1 Influenza due to other identified influenza virus with other respiratory manifestations; E11.9 Type 2 diabetes mellitus without complications; G47.33 Obstructive sleep apnea (adult) (pediatric); I35.1 Nonrheumatic aortic (valve) insufficiency; I10 Essential (primary) hypertension; I25.10 Atherosclerotic heart disease of native coronary artery without angina pectoris; E78.5 Hyperlipidemia, unspecified; E87.6 Hypokalemia; I27.20 Pulmonary hypertension, unspecified; R53.81 Other malaise; R79.89 Other specified abnormal findings of blood chemistry; E87.8 Other disorders of electrolyte and fluid balance, not elsewhere classified; Z66 Do not resuscitate; Z79.01 Long term (current) use of anticoagulants; Z95.2 Presence of prosthetic heart valve
CPT/HCPCS: 36415; 71045; 80048; 80053; 80069; 81001; 82550; 83036; 83605; 83690; 83735; 84100; 84132; 84484; 85025; 85027; 85610; 85730; 87040; 87086; 87181; 87636; 87637; 93005; 93306; 93312; 93320; 93325; 94640; 96365; 96367; 96375; 97110; 97116; 97162; 97165; 97530; 97535; 99285; A9270; J0282; J0456; J0696; J1940; J2704; J3370; J7030; J7040

== ENCOUNTER 2024-07-11 13:57 | Emergency (ER) | payer MEDICARE, SELFPAY ==
[2024-07-11 14:09] VITALS: BP 147/83; PULSE 81; RESP 16; TEMP 36.3; O2SAT 98
--- NOTE | 2024-07-11 14:10 | ED.MALEGU ---
HPI - Male Genitourinary General Chief complaint: Urogenital-Male Stated complaint: Uti Symptoms Time Seen by Provider: 07/11/24 14:20 Source: patient and RN notes reviewed Mode of arrival: ambulatory Limitations: no limitations History of Present Illness HPI Narrative: 88-year-old male presents with concern for urinary tract infection. Reports history of UTIs that turn into kidney infections for which he is hospitalized. Reports he was recently hospitalized for another reason and Adithya, he did not have a catheter at that time. reports she did it at home urine test which showed a urinary tract infection. Patient is denying any symptoms but reports he usually does not have symptoms with urinary tract infection MD Complaint: other (positive at home uti test) Related Data Home Medications ?Medication ?Instructions ?Recorded ?Confirmed ?Last Taken ?Type atorvastatin 10 mg tablet 10 mg PO QPM 07/27/19 06/15/24 06/14/24 History fenofibrate 160 mg tablet 160 mg PO QPM 07/27/19 06/15/24 06/14/24 History furosemide 40 mg tablet 40 mg PO DAILY 07/27/19 06/15/24 06/14/24 History lisinopril 5 mg tablet 5 mg PO QPM 07/27/19 06/15/24 06/14/24 History potassium chloride 10 mEq 10 meq PO DAILY 07/27/19 06/15/24 06/14/24 History tablet,extended release warfarin 4 mg tablet 4 mg PO WEEKLY 07/27/19 06/15/24 06/14/24 History Joint Support Complex 1 tablet PO BID 12/15/19 06/15/24 06/14/24 History cholecalciferol (vitamin D3) 50 2,000 unit PO DAILY 12/15/19 06/15/24 06/14/24 History mcg (2,000 unit) tablet warfarin 4 mg tablet 8 mg PO WEEKLY 02/20/24 06/15/24 06/10/24 07:38 History metolazone 5 mg tablet mg 07/11/24 Unknown History metoprolol tartrate 50 mg tablet mg 07/11/24 Unknown History Allergies Allergy/AdvReac Type Severity Reaction Status Date / Time No Known Allergies Allergy Verified 07/11/24 14:08 Review of Systems Review of Systems: CONSTITUTIONAL: Denies malaise, chills, sweats, or fever. CARDIOVASCULAR: Denies chest pain, palpitations, or edema. RESPIRATORY: Denies cough or dyspnea. GASTROINTESTINAL: Denies abdominal pain, nausea, vomiting, diarrhea GENITOURINARY: Denies dysuria, frequency, urgency, suprapubic pressure. Denies flank pain or hematuria. SKIN: Denies rash or itching. MUSCULOSKELETAL: Denies back pain or myalgia. All systems reviewed & are unremarkable except as noted in HPI and below PMFSH Past Medical History Medical History Atherosclerosis of [place] coronary artery Vitamin D deficiency Pulmonary HTN MARK treated with BiPAP Nonrheumatic aortic valve insufficiency Mass on back Cyst of skin SOB (shortness of breath) Cough Loss of appetite Fever History of bleeding disorder (~2020) Internal Bleed after a fall; Bruises/Bleeds easily Sleep apnea Hematoma Injury of left rotator cuff Laceration Contusion of abdominal wall, subsequent encounter Ribs, multiple fractures Rib fracture Diabetes mellitus HTN (hypertension) CAD (coronary artery disease) Afib Surgical History Surgical History H/O aortic valve repair Hx of aortic valve replacement (~2010) Family History Family History Mother Cerebrovascular accident, Onset Age: 51 Sibling Cerebrovascular accident Father Acute myocardial infarction Social History Social History Smoking status: Former smoker Alcohol intake: never Substance use: never Substance use type: does not use Do You Feel Safe in your Home?: Yes Lack of Transportation: No Lack of Food: Never True Current Housing: I Have Housing Concerned About Future Housing: No Difficulty Paying Gas/Electric Bills: No Difficulty Paying for Meds: No Currently Unemployed: No Education: Decline to Answer Difficulty w/ Childcare or Family Care: No Gender identity (if verbalized by the patient): Male Spiritual care concerns: No Comments At time of signature, agree with nursing past medical, surgical, social and family history. There is no relevant family history pertinent to the presenting complaint Exam Narrative: GENERAL: Well-appearing, well-nourished, and in no acute distress. HEAD: Normocephalic. EYES: PERRLA, conjunctivae clear. NECK: Supple. No lymphadenopathy CHEST: Clear to auscultation. No respiratory distress. HEART: Regular rate and rhythm. SKIN: Warm, dry, no rash. NEURO: Alert and oriented x3. PSYCH: Normal mood and affect Course Course Emergency Course: Patient is aware of diagnosis, understands and agrees to treatment plan. Anticipatory guidance given. Patient agrees to follow-up as directed and is aware of reasons to seek care at the emergency department. Portions of this record may have been created with voice recognition software Level of Care: Express Care Visit Vital Signs Vital signs: Vital Signs Temperature 97.3 F L 07/11/24 14:09 Pulse Rate 81 07/11/24 14:09 Respiratory Rate 16 07/11/24 14:09 Blood Pressure 147/83 H 07/11/24 14:09 Pulse Oximetry 98 07/11/24 14:09 Temperature 97.3 F L 07/11/24 14:09 Pulse Rate 81 07/11/24 14:09 Respiratory Rate 16 07/11/24 14:09 Blood Pressure 147/83 H 07/11/24 14:09 Pulse Oximetry 98 07/11/24 14:09 Reviewed. Critical Care Time Critical Care Time Critical Care Time: No Discharge Plan Discharge Clinical Impression: UTI (urinary tract infection) Patient Disposition: Home, Self-Care Condition: Stable Instructions: Antibiotic Form, Urinary Tract Infection in Older Adults (ED) Additional Instructions: We will send a urine culture to the lab; if the culture identifies an organism that the prescribed antibiotic will not treat, you will receive a phone call from an urgent care staff member and an appropriate antibiotic will be prescribed. -Your symptoms should begin to improve within a day of starting antibiotics. But you should finish all the antibiotic pills you get. Otherwise your infection might come back. -Also recommend: increase water intake. Tylenol/ibuprofen as needed for pain or fever -Follow-up with your primary care provider for urine recheck or seek ER visit if condition worsens with high fever, nausea, vomiting and severe back pain. Patient Language: [place] Prescriptions: New amoxicillin-pot clavulanate 875-125 mg tablet 1 tablet PO Q12H 10 Days Qty: 20 0RF No Action metolazone 5 mg tablet metoprolol tartrate 50 mg tablet furosemide 40 mg tablet 40 mg PO DAILY lisinopril 5 mg tablet 5 mg PO QPM atorvastatin 10 mg tablet 10 mg PO QPM warfarin 4 mg tablet 4 mg PO WEEKLY Rx Instructions: 4 mg fenofibrate 160 mg tablet 160 mg PO QPM potassium chloride 10 mEq tablet extended release 10 meq PO DAILY cholecalciferol (vitamin D3) 50 mcg (2,000 unit) Tablet 2,000 unit PO DAILY Joint Support Complex 1 tablet PO BID warfarin 4 mg tablet 8 mg PO WEEKLY Rx Instructions: 8 mg Sat-Sat metoprolol tartrate 100 mg tablet 100 mg PO Q8H Qty: 90 1RF [place]in Creme Cream 1 applic topical DAILY Qty: 113 0RF Rx Instructions: to both legs on intact skin only digoxin 125 mcg (0.125 mg) tablet 125 mcg PO DAILY Qty: 30 0RF Follow-up/Referrals: Marcial Frazier MD [Primary Care Provider] - Time of Disposition: 14:29
[2024-07-11 14:16] LABS: EDUAAPPEAR Clear; EDUABILI Negative (Negative); EDUABLOOD Trace (Negative); EDUACOLOR1 Yellow; EDUAGLUCOSE Negative (Negative); EDUAKETONE Negative (Negative); EDUALEUKO Trace (Negative); EDUANITRATE Negative (Negative); EDUAPROTEIN Negative (Negative); EDUASPGRAVITY 1.015; EDUAUROBILI 0.2
== END 2024-07-11 14:30 | disposition home or self-care (01) ==
PROVIDERS: Emergency Provider Nurse Practitioner; PCP Emergency Medicine
DX: N39.0 Urinary tract infection, site not specified (principal); I25.10 Atherosclerotic heart disease of native coronary artery without angina pectoris; E11.9 Type 2 diabetes mellitus without complications; I10 Essential (primary) hypertension; I48.91 Unspecified atrial fibrillation; Z87.891 Personal history of nicotine dependence
CPT/HCPCS: 81003; 87086; 99213; G0463

== ENCOUNTER 2024-11-02 12:56 | Outpatient (CLI) | payer MEDICARE, SELFPAY ==
--- NOTE | ~2024-11-02 | CT_ITS ---
CT of the Abdomen and Pelvis: Indication: Microscopic hematuria Technique: 2.5 mm axial scans were obtained through the abdomen and pelvis prior to and following in travenous administration of 130 cc of Omnipaque 350. Dose reduction technique was used on this scan b y utilizing automated exposure control and iterative reconstruction technique. The dose-length produc t (DLP) was 2977.68 mGy-cm. COMPARISON: 02/18/2024 Findings: Scans through the lung bases are unremarkable. The liver, spleen, pancreas, adrenals and kidneys are within normal limits. Multiple calcified gallst ones are present. There are atherosclerotic calcifications of the aorta. No lymphadenopathy. No bowel obstruction or bowel wall thickening. There is no evidence to suggest acute appendicitis. Images through the pelvis were performed. Urinary bladder unremarkable. No pelvic mass seen. No ascit es. Impression: No etiology for hematuria identified. Cholelithiasis. Reviewed, dictated and finalized at [facility]. Impression: No etiology for hematuria identified. Cholelithiasis.
[2024-11-02 13:21] LABS: Estimated Glomerular Filt Rate 57
--- OUTSIDE RECORDS SUMMARY | 2024-11-02 14:06 | XMS_ITS | Clinical Summary ---
Author Organization [facility] [place] [address] Address [address] [place] [address] Care Team Providers Care Real Estate Investor Name Role Phone Marcial Frazier MD Primary Care Provide r Allergies No known active allergies Medications cholecalciferol (VITAMIN D-3) 2,000 unit tablet Take 1 tablet (2,000 Units total) by mouth daily Active glucosam/chond/ collagen/hyalur (JOINT SUPPORT ORAL) Take 1 tablet by mouth 2 (two) times a day. Active omega-3 fatty acids-fish oil 340-1,000 mg capsule Take 1 capsule by mouth daily Active fenofibrate (TRIGLIDE) 160 mg tabletIndicatio ns:[place]therosclero sis of [place] coronary artery of [place] heart without angina pectoris TAKE 1 TABLET BY MOUTH EVERY DAY 90 tablet 3 04/13/20 24 Active furosemide (LASIX) 40 mg tablet TAKE 1 TABLET BY MOUTH DAILY 90 tablet 3 05/04/20 24 Active oseltamivir (TAMIFLU) 75 mg capsule Take 1 capsule (75 mg total) by mouth every 12 (twelve) hours 06/28/19 25 Active metoprolol (LOPRESSOR) 100 mg tablet Take 1 tablet (100 mg total) by mouth every 8 (eight) hours 06/28/19 25 Active warfarin (COUMADIN) 4 mg tabletIndicatio ns:atrial fibrillation TAKE WARFARIN 8MG (2 TABS) ON SATURDAY AND SATURDAY AND 4 MG (1 TAB) ALL OTHER DAYS OR DIRECTED. 114 tablet 08/06/19 25 Active metOLazone (ZAROXOLYN) 5 mg tabletIndicatio ns:Bilateral lower extremity edema Take 1 tablet (5 mg total) by mouth 3 (three) times a week 38 tablet 2 09/01/19 25 Active atorvastatin (LIPITOR) 10 mg tablet Take 1 tablet (10 mg total) by mouth with evening meal 90 tablet 1 09/05/19 25 Active potassium chloride ER 10 mEq CR tablet TAKE 1 TABLET BY MOUTH EVERY DAY 90 tablet 1 10/06/19 25 Active digoxin (LANOXIN) 62.5 mcg (0.0625 mg) tablet Take 1 tablet (62.5 mcg total) by mouth daily 90 tablet 3 10/24/19 25 Active Klor-Con M10 10 mEq CR tablet TAKE 1 TABLET BY MOUTH EVERY DAY 90 tablet 1 04/13/20 24 025 Discontinued digoxin (LANOXIN) 62.5 mcg (0.0625 mg) tablet Take 1 tablet (62.5 mcg total) by mouth daily 07/02/19 25 025 Discontinued(Re order) Active Problems Problem Noted Date Diagnosed Date Bilateral lower extremity edema 12/25/2022 Longstanding persistent atrial fibrillation 04/26 Coronary artery disease of [place] artery of [place] heart with stable angina pectoris 11/20/2016 Chronic anticoagulation 11/20/2016 Nonrheumatic aortic valve insufficiency 11/21/19 17 MARK (obstructive sleep apnea) 11/20/2016 Presence of prosthetic heart valve 11/20/2016 Hypertension 10/10/2013 Overview (08/31/2016): Hypertension Encounters Date Type Department Care Team Description 10/23/2024 Telephone [facility] [address] [place] [address] Aren Santos MD 10/02/2024 Anticoagulation Visit [facility] Cardiology [address] [place] [address] Sherice Rondon RN 09/25/2024 2:30 PM CDT Office Visit [facility] Cardiology at [address] [place] [address] Aren Santos MD Coronary artery disease of [place] artery of [place] heart with stable angina pectoris (Primary Dx); Primary hypertension; Longstanding persistent atrial fibrillation (HCC); Presence of prosthetic heart valve; Chronic anticoagulation; MARK (obstructive sleep apnea) 09/02/2024 Anticoagulation Visit [facility] Cardiology [address] [place] [phone] Sherice Rondon RN 08/13/2024 Telephone [facility] [address] [place] [phone] Aren Santos MD from Last 3 Months Surgical History Surgery Date Site/Laterality Comments TONSILLECTOMY Tonsillectomy US GUIDED THORACENTESIS 07/10/2012 N/A US GUIDED THORACENTESIS 06/09/2012 N/A AORTIC VALVE REPLACEMENT 05/27/2011 - 05/26/2012 CARDIAC CATHETERIZATION 05/27/2011 - 05/26/20122017 Medical History Medical History Date Comments Hx Other Medical 2012 Aortic Stenosis Osteoarthritis Osteoarthritis Chronic a-fib (HCC) Sleep apnea bipap Hyperlipidemia Family History [...] on file 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 Gender Identity Not on file Sexual Orientation Not on file Obstetrics History Last Filed Vital Signs Vital Sign Reading Time Taken Comments Blood Pressure 124/72 09/25/2024 2:38 PM CDT Pulse 74 09/25/2024 2:38 PM CDT Temperature 36.8 C (98.2 F) 04/30/2018 12:38 PM SHOW WORKER Respiratory Rate 17 10/27/2019 11:43 AM CDT Oxygen Saturation 96% 09/25/2024 2:38 PM CDT Inhaled Oxygen Concentration - - Weight 110.2 kg (243 lb) 09/25/2024 2:38 PM CDT Height 185.4 cm (6' 1) 09/25/2024 2:38 PM CDT Body Mass Index 32.06 09/25/2024 2:38 PM CDT Plan of Treatment Health Maintenance Due Date Last Done Comments Depression Screening 1935 Hepatitis B Screening 08/09/1953 Pneumococcal vaccine 65+ (1 of 2 - PCV) 1956 Zoster Vaccine (1 of 2) 08/09/1987 Well Visit 65+ 2002 Fall Risk Assessment 10/26/2020 10/27/2019 Influenza Vaccine (Season Ended) 2025 DTaP/Tdap/Td Vaccine (2 - Td or Tdap) 06/23/2030 Medical Devices Implanted Type Area 6Th Grade Teacher Device Identifier Shelf Expiration Date Model / Serial / Lot [employer] [id number] Amplatzer 12mm 6mm 6mm Type Ii Self Expanding Symmetrical Design - [id number] Implanted:Qty: 1 on 04/29/2018 by Levi Lemos MD at [facility] PDA Closure Device [employer] 01/24/2023 [id number] / / [id number] Procedures Procedure Name Priority Date/Time Associated Diagnosis Comments PROTIME-INR Routine 10/01/2024 9:53 AM CDT Chronic anticoagulation Longstanding persistent atrial fibrillation (HCC) PROTIME-INR Routine 09/01/2024 11:15 AM CDT Chronic anticoagulation Longstanding persistent atrial fibrillation (HCC) from Last 3 Months Results * (ABNORMAL) Protime-INR (10/01/2024 9:53 AM CDT) INR 1.9(H) 0.9 - 1.2 [facility] - 01 Comment: Reference interval is for non-anticoagulated patients. Suggested INR therapeutic range for Vitamin K antagonist therapy: Standard Dose (moderate intensity therapeutic range): 2.0 - 3.0 Higher intensity therapeutic range 2.5 - 3.5 PT 20.3(H) 9.1 - 12.0 sec [facility] - 01 Blood 10/01/2024 9:53 AM CDT 10/01/2024 Narrative [facility] - 10/02/2024 8:11 AM CDT Performed at: [address] [place] [id number] Educational Technology Specialist: J Luis Aiken PhD, Phone: [phone] Aren Santos MD LAB BLOOD ORDERABLES Tami l Result Performing Organization Address [facility] de Phone Number [facility] - * (ABNORMAL) Protime-INR (09/01/2024 11:15 AM CDT) [facility] INR 2.3(H) 0.9 - 1.2 [facility] - 01 Comment: Reference interval is for non-anticoagulated patients. Suggested INR therapeutic range for Vitamin K antagonist therapy: Standard Dose (moderate intensity therapeutic range): 2.0 - 3.0 Higher intensity therapeutic range 2.5 - 3.5 PT 23.8(H) 9.1 - 12.0 sec [facility] - 01 Blood 09/01/2024 11:1 5 AM CDT 09/01/2024 Narrative [facility] - 09/02/2024 8:12 AM CDT Performed at: [address] [place] [id number] Educational Technology Specialist: J Luis Aiken PhD, Phone: [phone] Aren Santos MD LAB BLOOD ORDERABLES Tami l Result Performing Organization Address [facility] de Phone Number [facility] - from Last 3 Months Insurance [facility] MEDIC[facility] ADVANTAGE Advance Directives For more information, please contact: [phone] Documents on File Type Date Recorded Patient Band Tumbler Expl anation ADVANCE DIRECTIVE 04/10/2018 8:18 AM * Full Code (Latest Code Status on File) Date Activated Date Inactivated Comments 04/29/2018 5:52 PM 04/30/2018 6:01 PM Care Teams Real Estate Investor Relationship Specialty Start Date End Date Marcial Frazier MD [address] [place], [place] [id number] PCP - General 08/24/16
--- OUTSIDE RECORDS SUMMARY | 2024-11-02 14:06 | XMS_ITS | Continuity of Care Document ---
Author Organization [facility] Address [address] [place] [address] Phone Care Team Providers Care Tag Writer Name Role Phone Winn OD, Brandon Unavailable Unavailable Procedures Procedure Date Eye Exam, New Patient Refraction Vision Svcs Frames Purchases BF Plastic Sphcyl [place] To +/-4d .12-2d Anti-reflective Coating Scratch Resistant Coating Advance Directives Directive Yes / No Effective Date File Name No Information Encounters Encounter Description Practice Location Reason(s) For Visit Diagnoses Date Provider Providers Copied on Encounter [facility], [address] [place] [address] [address], [place], [place], [id number], tel:[phone] [facility] No Information Mar-2 5-201 0 Winn OD Brandon. [address] , [address], [place], [address], [place]. tel:[phone] [facility], [address] [place] [address] [address], [place], [place], [id number], [place] tel:[phone] [facility] No Information Mar-2 5-201 0 [facility] . [address] [facility] [facility] [address], [place], [place], [id number], [place]. tel:[phone] Referring Provider: Brandon Winn OD A, [address], [place], [address]. tel:[phone] g Provider: Pauline Torrez, [address] [facility], [address]. tel:[phone] Family History Family Member Type Diagnosis Age At Onset No Information Payers Payer name Insurance type Covered democrat ID David solis(s) [employer] Plan CI [id number] Social History Type Description Quantity Date Captured [...]
--- OUTSIDE RECORDS SUMMARY | 2024-11-02 14:06 | XMS_ITS | Referral Summary ---
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 Up Operator Name Role Phone Marcial Frazier MD Primary Care Provide r Encounters Date Type Department Care Team Description 10/23/2024 Telephone [facility] Cardiology [address] [place] [address] [address] [place] [address] Aren Santos MD 10/02/2024 Anticoagulation Visit [facility] [address] [place] [address] [address] [place] [address] Sherice Rondon RN 09/25/2024 2:30 PM CDT Office Visit [facility] Cardiology at [address] [place] [address] Aren Santos MD Coronary artery disease of [place] artery of [place] heart with stable angina pectoris (Primary Dx); Primary hypertension; Longstanding persistent atrial fibrillation (HCC); Presence of prosthetic heart valve; Chronic anticoagulation; MARK (obstructive sleep apnea) 09/02/2024 Anticoagulation Visit [facility] [address] [place] [address] [address] [place] [address] Sherice Rondon RN 08/13/2024 Telephone [facility] [address] [place] [address] [address] [place] [address] Aren Santos MD from Last 3 Months Allergies No known [...] (TRIGLIDE) 160 mg tabletIndicatio ns:Atherosclero sis of [place] coronary artery of [place] heart without angina pectoris TAKE 1 TABLET [...] artery disease of n ative artery of [place] heart with stable angina pectoris 11/20/2016 Chronic [...] on file 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[employer] Gender Identity Not on file Sexual Orientation Not on file Last Filed Vital Signs Vital Sign Reading Time Taken Comments Blood Pressure 124/72 09/25/2024 2:38 PM CDT Pulse 74 09/25/2024 2:38 PM CDT Temperature 36.8 C (98.2 F) 04/30/2018 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[employer] Respiratory Rate 17 10/27/2019 11:43 AM CDT Oxygen Saturation 96% 09/25/2024 2:38 PM CDT Inhaled Oxygen Concentration - - Weight 110.2 kg (243 lb) 09/25/2024 2:38 PM CDT Height 185.4 cm (6' 1) 09/25/2024 2:38 PM CDT Body Mass Index 32.06 09/25/2024 2:38 PM CDT Plan of Treatment Not on file Medical Devices Implanted Type Area Sludge Filtration Attendant Device Identifier Shelf Expiration Date Model / Serial / Lot [employer] [id number] Amplatzer 12mm 6mm 6mm Type Ii Self Expanding Symmetrical Design - [id number] Implanted:Qty: 1 on 04/29/2018 by Levi Lemos MD at [facility] PDA Closure Device [employer] 01/24/2023 [id number] / / [id number] Procedures Procedure Name Priority Date/Time Associated Diagnosis [...] - 10/02/2024 8:11 AM CDT Performed at: - [facility] [id number] Media Sales Consultant: J Luis Aiken PhD, Phone: [phone] us Aren Santos MD LAB BLOOD ORDERABLES Tami l Result [facility] - 01 * (ABNORMAL) Protime-INR (09/01/2024 11:15 AM CDT) INR 2.3(H) 0.9 - 1.2 [facility] - 01 Comment: Reference interval is for non-anticoagulated patients. Suggested INR therapeutic range for Vitamin K antagonist therapy: Standard Dose (moderate intensity therapeutic range): 2.0 - 3.0 Higher intensity therapeutic range 2.5 - 3.5 PT 23.8(H) 9.1 - 12.0 sec [facility] - 01 Blood 09/01/2024 11:1 5 AM CDT 09/01/2024 Narrative [facility] - 09/02/2024 8:12 AM CDT Performed at: - [facility] [address] [id number] Media Sales Consultant: J Luis Aiken PhD, Phone: [phone] us Aren Santos MD LAB BLOOD ORDERABLES Tami l Result [facility] - 01 from Last 3 Months Insurance [facility] Advance Directives For more information, please contact: [phone] Documents on File Type Date Recorded 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
== END 2024-11-02 12:57 | disposition home or self-care (01) ==
PROVIDERS: PCP Emergency Medicine
DX: R31.29 Other microscopic hematuria (principal)
CPT/HCPCS: 74178; Q9967